=== PATIENT | male | born 1935 | race Two or more races ===

== ENCOUNTER 2016-05-20 08:10 | Emergency (ER) | payer MEDICARE ==
[~2016-05-20] VITALS: Ht 172.7 cm; Wt 94.3 kg
[~2016-05-20 08:10] MED LIST: ACYC200C PO; AMOX1TAB10 PO; ANTI10DR7 EACH EAR; ASPI-252 PO; CEFD300C PO; FERR325C PO; FURO-68 PO; GLIM1TAB2 PO; GLIM2TAB2 PO; HYDR-2666 PO; INSU100V8 SQ; INSU100V9 SQ; LOSA1TAB16 PO; LOVA20TA2 PO; NEOM10SO7 OT; NIAC500T PO; SIMV20TA3 PO; SODI650T PO; TAMS0.4C2 PO; VIT1TABL71 PO
[2016-05-20] MEDS ORDERED: IV NORMAL SALINE 1000ML BAG 1,000 ML IV ONE (08:30)
--- NOTE | 2016-05-20 08:40 | PHYS DOC ---
Past Medical History Past Medical History: CHF, Diabetes-Type II, Hypertension Additional Past Medical Histor: BPH, SHINGLES Past Surgical History: Other Additional Past Surgical Histo: "heart surgery" L toe amp Alcohol Use: None Drug Use: None Adult General Chief Complaint Chief Complaint: DIARRHEA HPI HPI 80-year-old male with known history of diabetes and HTN who presents with diarrhea and many loose stools since 1500 yesterday after eating meal. He denies any nausea or vomiting. He denies any abdominal pain. Pt states stool is loose and watery but denies any blood. Pt is in no acute distress and says he has been able to eat and drink without difficulty. Review of Systems Review of Systems Constitutional: Denies fever or chills [] Eyes: Denies change in visual acuity, redness, or eye pain [] HENT: Denies nasal congestion or sore throat [] Respiratory: Denies cough or shortness of breath [] Cardiovascular: No additional information not addressed in HPI [] GI: Denies abdominal pain, nausea, vomiting, bloody stools, has diarrhea [] : Denies dysuria or hematuria [] Musculoskeletal: Denies back pain or joint pain [] Integument: Denies rash or skin lesions [] Neurologic: Denies headache, focal weakness or sensory changes [] Endocrine: Denies polyuria or polydipsia [] Current Medications Current Medications Current Medications Medications (Trade) Dose Ordered Sig/Erickson Start Time Stop Time Status Last Admin Dose Admin Sodium Chloride (Iv Sodium Chloride 0.9% 500ml Bag) 500 ml @ 500 mls/hr 1X ONCE 05/20/16 08:45 05/20/16 09:44 05/20/16 08:44 500 MLS/HR Allergies Allergies Allergies Coded Allergies Type Severity Reaction Last Updated Verified No Known Drug Allergies 02/01/14 No Physical Exam Physical Exam Constitutional: Well developed, well nourished, no acute distress, non-toxic appearance. [] HENT: Normocephalic, atraumatic, bilateral external ears normal, oropharynx moist, no oral exudates, nose normal. [] Eyes: PERRLA, EOMI, conjunctiva normal, no discharge. [] Neck: Normal range of motion, no tenderness, supple, no stridor. [] Cardiovascular:Heart rate regular rhythm, no murmur [] Lungs & Thorax: Bilateral breath sounds clear to auscultation [] Abdomen: Bowel sounds normal, soft, no tenderness, no masses, no pulsatile masses. [] Skin: Warm, dry, no erythema, no rash. [] Back: No tenderness, no CVA tenderness. [] Extremities: No tenderness, no cyanosis, no clubbing, ROM intact, no edema. [] Neurologic: Alert and oriented X 3, normal motor function, normal sensory function, no focal deficits noted. [] Psychologic: Affect normal, judgement normal, mood normal. [] Current Patient Data Vital Signs Vital Signs Date Time Temp Pulse Resp B/P Pulse Ox O2 Delivery O2 Flow Rate FiO2 05/20/16 08:20 97.6 72 22 146/65 94 Room Air 97.6 Lab Values Laboratory Tests Test 05/20/16 08:30 White Blood Count 5.6x10^3/uL (4.0-11.0) Red Blood Count 3.66x10^6/uL (4.30-5.70) L Hemoglobin 11.2g/dL (13.0-17.5) L Hematocrit 34.9% (39.0-53.0) L Mean Corpuscular Volume 95fL (79-100) Mean Corpuscular Hemoglobin 31pg (25-35) Mean Corpuscular Hemoglobin Concent 32g/dL (31-37) Red Cell Distribution Width 16.1% (11.5-14.5) H Platelet Count 211x10^3/uL (140-400) Neutrophils (%) (Auto) 81% (31-73) H Lymphocytes (%) (Auto) 5% (24-48) L Monocytes (%) (Auto) 12% (0-9) H Eosinophils (%) (Auto) 1% (0-3) Basophils (%) (Auto) 1% (0-3) Neutrophils # (Auto) 4.5x10^3uL (1.8-7.7) Lymphocytes # (Auto) 0.3x10^3/uL (1.0-4.8) L Monocytes # (Auto) 0.7x10^3/uL (0.0-1.1) Eosinophils # (Auto) 0.0x10^3/uL (0.0-0.7) Basophils # (Auto) 0.0x10^3/uL (0.0-0.2) Platelet Estimate Pending Sodium Level 140mmol/L (136-145) Potassium Level 4.9mmol/L (3.5-5.1) Chloride Level 107mmol/L (98-107) Carbon Dioxide Level 21mmol/L (21-32) Anion Gap 12 (6-14) Blood Urea Nitrogen 79mg/dL (8-26) H Creatinine 2.2mg/dL (0.7-1.3) H Estimated GFR (Cockcroft-Gault) 28.9 Glucose Level 144mg/dL (70-99) H Calcium Level 9.2mg/dL (8.5-10.1) Laboratory Tests 05/20/16 08:30 Laboratory Tests 05/20/16 08:30 EKG EKG [] Radiology/Procedures Radiology/Procedures [] Course & Med Decision Making Course & Med Decision Making Pertinent Labs and Imaging studies reviewed. (See chart for details) 80-year-old male with ongoing diarrhea will have stool cultures and laboratory workup. An IV will be placed in a fluid bolus will be administered. His vital signs at this time are normal and he appears in no acute distress and has no abdominal pain. I will not be obtaining any imaging at this time as he is not having any pain. If his laboratory workup is unrevealing, I will likely be discharging him home. Patient continues to have diarrhea symptoms but has laboratory workup that is negative. He was given an IV fluid bolus. I'll be discharging him with a course of Zofran and close follow-up with his primary care doctor. His stool was sent out for culture and analysis. His symptoms are likely related to an ongoing gastroenteritis after eating food. His kidney function is at baseline today. Dragon Disclaimer Dragon Disclaimer This electronic medical record was generated, in whole or in part, using a voice recognition dictation system. Departure Departure Impression: Primary Impression: Diarrhea Disposition: 01 HOME, SELF-CARE Admitting Physician: Other Condition: STABLE Referrals: DAVID CORTES (PCP) Patient Instructions: Diarrhea, [id number] Additional Instructions: Please continue to drink plenty of fluids and take zofran as needed for any nausea. Follow up closely with your primary doctor in the next 2-3 days for your symptoms. Return to the ER if you develop any worsening of your symptoms or if you develop any dizziness or lightheadedness. Scripts Ondansetron Hcl (Zofran)4 Mg Tablet4 Mg PO BID PRN NAUSEA/VOMITING #10 TAB Prov:MARIANO POLO DO 05/20/16 MARIANO POLO DO May 20, 2016 08:40
[2016-05-20] MEDS ORDERED: IV NORMAL SALINE 500ML BAG 500 ML IV ONE (08:45)
[2016-05-20 08:59] LABS: BASO % 1 % (0-3); EOS % 1 % (0-3); HEMATOCRIT 34.9 % (39.0-53.0); HEMOGLOBIN 11.2 g/dL (13.0-17.5); LYMPH # 0.3 x10^3/uL (1.0-4.8); LYMPH % 5 % (24-48); MEAN CORPUSCULAR HEMOGLOBIN 31 pg (25-35); MEAN CORPUSCULAR HGB CONC 32 g/dL (31-37); MEAN CORPUSCULAR VOLUME 95 fL (79-100); MONO % 12 % (0-9); NEUT % 81 % (31-73); PLATELET COUNT 211 x10^3/uL (140-400); RED BLOOD COUNT 3.66 x10^6/uL (4.30-5.70); RED CELL DISTRIBUTION WIDTH 16.1 % (11.5-14.5); WHITE BLOOD COUNT 5.6 x10^3/uL (4.0-11.0)
[2016-05-20 09:07] LABS: CALCIUM 9.2 mg/dL (8.5-10.1); CREATININE 2.2 mg/dL (0.7-1.3); GFR 28.9; POTASSIUM 4.9 mmol/L (3.5-5.1)
[2016-05-20] MEDS ORDERED: ONDA4TAB7 PO (09:26)
[2016-05-20 09:30] VITALS: BP 157/65
[2016-05-20 10:06] LABS: NEG OBC FOB NEG; POS OBC FOB POS
[2016-05-20 19:18] LABS: % EOS 2 % (0-5); PLT ESTIMATE ADEQUATE (ADEQUATE)
== END 2016-05-20 10:20 | disposition home or self-care (01) ==
LOC: ER 08:10
DX: R19.7 Diarrhea, unspecified (principal); E11.9 Type 2 diabetes mellitus without complications; I11.0 Hypertensive heart disease with heart failure; I50.9 Heart failure, unspecified; N40.0 Benign prostatic hyperplasia without lower urinary tract symptoms
CPT/HCPCS: 36415; 80048; 82274; 85007; 85027; 87324; 96360; 99284; J7040

== ENCOUNTER 2018-05-26 08:34 | Inpatient (IN) | payer MEDICARE ==
[~2018-05-26] VITALS: Ht 172.7 cm; Wt 89.1 kg
[~2018-05-26 08:34] MED LIST changes: +AMLO2.5T5 PO; +FLUT16SP NS; +FLUT1DIS3 IH; -HYDR-2666 PO; +HYDR-2761 PO; -LOSA1TAB16 PO; +LOSA1TAB19 PO; +ONDA4TAB7 PO; +POLY17PO28 PO; +Pantoprazole PO
[2018-05-26] MEDS ORDERED: methylPREDNISolone SOD SUCC PF 125 MG/2 ML VIAL. IV ONE (09:00)
[2018-05-26] MEDS ORDERED: IPRATRPIUM/ALBUTEROL 0.5/2.5MG 3 ML NEBU. NEB ONE (09:00)
--- NOTE | 2018-05-26 09:11 | PHYS DOC ---
Past Medical History Past Medical History: CHF, Diabetes-Type II, Hypertension, MO, Renal Failure, Other Additional Past Medical Histor: BPH, SHINGLES Past Surgical History: Other Additional Past Surgical Histo: L toe amp Alcohol Use: None Drug Use: None Adult General Chief Complaint Chief Complaint: SHORTNESS OF BREATH HPI HPI Patient is a 82 year old male with history of diabetes type 2, hypertension, MO , end-stage renal disease on dialysis Sunday, , Sunday last dialyzed on Sunday who presents to the ED today complaining of shortness of breath and body aches, symptoms began one week ago. Patient states he has history of chronic shortness of breath but he feels it has gotten worse in the last 1 week. He states he believes he has influenza. He states he has had a headache intermittently for 1 week,rates the headache as mild describes it as throbbing and throughout the head, he states he has been taking Tylenol with some relief. He states he is using his home oxygen more than normal. Patient denies any chest pain. Patient states his shortness of breath is mostly on exertion. He is also complaining of generalized weakness for week. PCP Dr. Mcclure Review of Systems Review of Systems Constitutional: Reports body. Denies fever or chills [] Eyes: Denies change in visual acuity, redness, or eye pain [] HENT: Denies nasal congestion or sore throat [] Respiratory:Reports shortness of breath. Denies cough Cardiovascular: No additional information not addressed in HPI [] GI: Denies abdominal pain, nausea, vomiting, bloody stools or diarrhea [] : Denies dysuria or hematuria [] Musculoskeletal: Denies back pain or joint pain [] Integument: Denies rash or skin lesions [] Neurologic: Denies headache, focal weakness or sensory changes [] All other systems were reviewed and found to be within normal limits, except as documented in this note. Current Medications Current Medications Current Medications Medications (Trade) Dose Ordered Sig/Erickson Start Time Stop Time Status Last Admin Dose Admin Acetaminophen (Tylenol) 650 mg PRN Q4HRS PRN 05/26/18 12:30 05/27/18 12:29 Albuterol/ Ipratropium (Duoneb) 3 ml 1X ONCE 05/26/18 09:00 05/26/18 09:01 DC 05/26/18 09:13 3 ML Aspirin (Children'S Aspirin) 324 mg 1X ONCE 05/26/18 12:30 05/26/18 12:31 DC 05/26/18 12:37 324 MG Methylprednisolone Sodium Succinate (SOLU-Medrol 125MG VIAL) 125 mg 1X ONCE 05/26/18 09:00 05/26/18 09:01 DC 05/26/18 09:35 125 MG Morphine Sulfate (Morphine Sulfate) 4 mg PRN Q2HR PRN 05/26/18 12:30 05/27/18 12:29 Nitroglycerin (Nitrostat) 0.4 mg PRN Q5MIN PRN 05/26/18 12:30 05/27/18 12:29 Ondansetron HCl (Zofran) 4 mg PRN Q8HRS PRN 05/26/18 12:30 05/27/18 12:29 Oseltamivir Phosphate (Tamiflu) 30 mg QTUTHSA 05/28/18 16:00 05/30/18 23:59 Allergies Allergies Allergies Coded Allergies Type Severity Reaction Last Updated Verified No Known Drug Allergies 02/01/14 No Physical Exam Physical Exam Constitutional: Well developed, well nourished, no acute distress, non-toxic appearance. [] HENT: Normocephalic, atraumatic, bilateral external ears normal, oropharynx moist, no oral exudates, nose normal. [] Eyes: PERRLA, EOMI, conjunctiva normal, no discharge. [] Neck: Normal range of motion, no tenderness, supple, no stridor. [] Cardiovascular:Heart rate regular rhythm, no murmur [] Lungs & Thorax: Right upper chest with the dialysis catheter. Bilateral breath sounds clear to auscultation [] Abdomen: Bowel sounds normal, soft, no tenderness, no masses, no pulsatile masses. [] Skin: Warm, dry, no erythema, no rash. [] Back: No tenderness, no CVA tenderness. [] Extremities: No tenderness, no cyanosis, no clubbing, ROM intact, no edema. [] Neurologic: Alert and oriented X 3, normal motor function, normal sensory function, no focal deficits noted. [] Psychologic: Affect normal, judgement normal, mood normal. [] Current Patient Data Vital Signs Vital Signs Date Time Temp Pulse Resp B/P (MAP) Pulse Ox O2 Delivery O2 Flow Rate FiO2 3/17/19 12:45 86 20 119/60 (79) 100 Nasal Cannula 2.0 05/26/18 08:45 99.6 99.6 Lab Values Laboratory Tests Test 05/26/18 08:49 05/26/18 09:10 05/26/18 10:00 05/26/18 10:25 O2 Saturation 97 % (92-99) Arterial Blood pH 7.49 (7.35-7.45) H Arterial Blood pCO2 at Patient Temp 34 mmHg (35-46) L Arterial Blood pO2 at Patient Temp 92 mmHg (65-108) Arterial Blood HCO3 25 mmol/L (21-28) Arterial Blood Base Excess 2 mmol/L (-3-3) Oxyhemoglobin 95.6 % Methemoglobin 0.2 % (0.0-1.9) Carbon Monoxide, Quantitative 0.8 % (0.0-1.9) FiO2 28 Influenza Type A Antigen Positive (NEGATIVE) Influenza Type B Antigen Negative (NEGATIVE) Prothrombin Time 19.9 SEC (11.7-14.0) H Prothrombin Time INR 1.7 (0.8-1.1) H PTT 32 SEC (24-38) White Blood Count 5.2 x10^3/uL (4.0-11.0) Red Blood Count 3.98 x10^6/uL (4.30-5.70) L Hemoglobin 12.7 g/dL (13.0-17.5) L Hematocrit 39.2 % (39.0-53.0) Mean Corpuscular Volume 98 fL (79-100) Mean Corpuscular Hemoglobin 32 pg (25-35) Mean Corpuscular Hemoglobin Concent 33 g/dL (31-37) Red Cell Distribution Width 18.6 % (11.5-14.5) H Platelet Count 187 x10^3/uL (140-400) Neutrophils (%) (Auto) 81 % (31-73) H Lymphocytes (%) (Auto) 5 % (24-48) L Monocytes (%) (Auto) 14 % (0-9) H Eosinophils (%) (Auto) 0 % (0-3) Basophils (%) (Auto) 0 % (0-3) Neutrophils # (Auto) 4.2 x10^3uL (1.8-7.7) Lymphocytes # (Auto) 0.2 x10^3/uL (1.0-4.8) L Monocytes # (Auto) 0.7 x10^3/uL (0.0-1.1) Eosinophils # (Auto) 0.0 x10^3/uL (0.0-0.7) Basophils # (Auto) 0.0 x10^3/uL (0.0-0.2) Platelet Estimate Pending Sodium Level 135 mmol/L (136-145) L Potassium Level 4.3 mmol/L (3.5-5.1) Chloride Level 94 mmol/L (98-107) L Carbon Dioxide Level 28 mmol/L (21-32) Anion Gap 13 (6-14) Blood Urea Nitrogen 40 mg/dL (8-26) H Creatinine 4.0 mg/dL (0.7-1.3) H Estimated GFR (Cockcroft-Gault) 14.4 BUN/Creatinine Ratio 10 (6-20) Glucose Level 180 mg/dL (70-99) H Calcium Level 9.1 mg/dL (8.5-10.1) Magnesium Level 1.8 mg/dL (1.8-2.4) Total Bilirubin 1.0 mg/dL (0.2-1.0) Aspartate Amino Transferase (AST) 428 U/L (15-37) H Alanine Aminotransferase (ALT) 346 U/L (16-63) H Alkaline Phosphatase 166 U/L (46-116) H Creatine Kinase 58 U/L (39-308) Creatine Kinase MB (Mass) 0.7 ng/mL (0.0-3.6) Creatine Kinase MB Relative Index % (0-4) Troponin I Quantitative 0.157 ng/mL (0.000-0.055) MO-Mah-A-Type Natriuretic Peptide > 34044 pg/mL (0-449) H Total Protein 7.6 g/dL (6.4-8.2) Albumin 3.3 g/dL (3.4-5.0) L Albumin/Globulin Ratio 0.8 (1.0-1.7) L Thyroid Stimulating Hormone (TSH) 2.574 uIU/mL (0.358-3.74) Laboratory Tests 05/26/18 10:25 Laboratory Tests 05/26/18 10:25 EKG EKG Interpreted by Dr. Sanabria none specific ST elevation on V4,V5, V6, new from previous EKG Radiology/Procedures Radiology/Procedures []PROCEDURE: PORTABLE CHEST 1V EXAM: CHEST 1 VIEW History: Cough, chest pain COMPARISON: 02/08/2018 TECHNIQUE: Single portable radiograph of the chest FINDINGS: Low lung volumes and technique accentuates heart size and pulmonary vascularity. Mild prominent appearing bilateral interstitial lung markings. Right-sided dialysis catheter is unchanged. IMPRESSION: 1. Mild prominent bilateral interstitial lung markings likely mild congestive changes. Electronically signed by: David Marino MD (05/26/2018 9:15 AM) [facility] DICTATED and SIGNED BY: DAVID MARINO MD DATE: 05/26/18914 Course & Med Decision Making Course & Med Decision Making Pertinent Labs and Imaging studies reviewed. (See chart for details) This is a 82-year-old male patient presenting to the ED today with multiple complaints including shortness of breath, generalized weakness, headache, body aches, symptoms for week. See history of present illness. Vitals on arrival to the ED temperature 99.6 heart rate 98 blood pressure 96/45 O2 sats 92% on room air, patient was put on oxygen which she uses at home as needed, O2 sats went up to 98%. Blood pressure has gone up to 110/56. CBC with normal WBC, CMP with creatinine of 4.0, BUN 40 patient has history of end-stage renal disease on dialysis. AST 428, ALT 346, ALP 166, patient has history of elevated liver enzymes, has no abdominal pain in the ED. No tenderness on physical exam. Positive for influenza a. BNP 35,000, patient was dialyzed yesterday. Troponin 0.[address] elevation and EKG. Results were shared with . He will monitor patient's troponin. Off note patient has history of elevated troponin previous admissions. Routine consult placed for nephrology. Dragon Disclaimer Dragon Disclaimer This electronic medical record was generated, in whole or in part, using a voice recognition dictation system. Departure Departure Impression: Primary Impression: End stage renal disease Additional Impressions: Generalized weakness NSTEMI (non-ST elevated myocardial infarction) Influenza A Disposition: 09 ADMITTED INPATIENT Condition: STABLE Problem Qualifiers JOANNA COTTRELL APRN May 26, 2018 09:11
--- NOTE | 2018-05-26 09:17 | RAD ---
EXAM: CHEST 1 VIEW History: Cough, chest pain COMPARISON: 02/08/2018 TECHNIQUE: Single portable radiograph of the chest FINDINGS: Low lung volumes and technique accentuates heart size and pulmonary vascularity. Mild prominent appearing bilateral interstitial lung markings. Right-sided dialysis catheter is unchanged. IMPRESSION: 1. Mild prominent bilateral interstitial lung markings likely mild congestive changes. Electronically signed by: David Marino MD (05/26/2018 9:15 AM) [facility]
[2018-05-26 09:39] LABS: INFLUENZA A PATIENT POSITIVE (NEGATIVE); INFLUENZA B PATIENT NEGATIVE (NEGATIVE)
[2018-05-26 09:39] LABS: BASE EXCESS COOX 2 mmol/L (-3-3); HCO3 COOX 25 mmol/L (21-28); METHEMOGLOBIN 0.2 % (0.0-1.9); OXYHEMOGLOBIN 95.6 %; PCO2 COOX 34 mmHg (35-46); PO2 COOX 92 mmHg (65-108); SAT O2 COOX 97 % (92-99)
[2018-05-26 10:59] LABS: BASO % 0 % (0-3); EOS % 0 % (0-3); HEMATOCRIT 39.2 % (39.0-53.0); HEMOGLOBIN 12.7 g/dL (13.0-17.5); LYMPH # 0.2 x10^3/uL (1.0-4.8); LYMPH % 5 % (24-48); MEAN CORPUSCULAR HEMOGLOBIN 32 pg (25-35); MEAN CORPUSCULAR HGB CONC 33 g/dL (31-37); MEAN CORPUSCULAR VOLUME 98 fL (79-100); MONO # 0.7 x10^3/uL (0.0-1.1); MONO % 14 % (0-9); NEUT # 4.2 x10^3uL (1.8-7.7); NEUT % 81 % (31-73); PLATELET COUNT 187 x10^3/uL (140-400); RED BLOOD COUNT 3.98 x10^6/uL (4.30-5.70); RED CELL DISTRIBUTION WIDTH 18.6 % (11.5-14.5); WHITE BLOOD COUNT 5.2 x10^3/uL (4.0-11.0)
[2018-05-26 11:12] LABS: CALCIUM 9.1 mg/dL (8.5-10.1); GFR 14.4; POTASSIUM 4.3 mmol/L (3.5-5.1)
[2018-05-26 11:18] LABS: ALBUMIN 3.3 g/dL (3.4-5.0); ALBUMIN/GLOBULIN RATIO 0.8 (1.0-1.7); MAGNESIUM 1.8 mg/dL (1.8-2.4); TOTAL PROTEIN 7.6 g/dL (6.4-8.2)
[2018-05-26 11:22] LABS: PROTHROMBIN TIME PATIENT 19.9 SEC (11.7-14.0)
[2018-05-26 11:26] LABS: CREATINE KINASE 58 U/L (39-308)
[2018-05-26] MEDS ORDERED: ASPIRIN CHEWABLE 81 MG TABLET. PO ONE (12:30)
[2018-05-26] MEDS ORDERED: ONDANSETRON PF 4 MG/2 ML VIAL. IV PRN (12:30)
[2018-05-26] MEDS ORDERED: MORPHINE SULFATE 4 MG/ML VIAL. IV PRN (12:30)
[2018-05-26] MEDS ORDERED: ACETAMINOPHEN 325 MG TABLET. PO PRN (12:30)
[2018-05-26] MEDS ORDERED: NITROGLYCERIN SUBLINGUAL 0.4 MG BOTTLE OF 25. SL PRN (12:30)
[2018-05-26 12:55] LABS: % BANDS 8 % (0-9); % BASOS 1 % (0-3); % LYMPHS 3 % (24-48); % MONOS 5 % (0-10); % SEGS 83 % (35-66); ANISOCYTOSIS PRESENT; PLATELET CLUMP PRESENT; PLT ESTIMATE ADEQUATE (ADEQUATE)
[2018-05-26] MEDS ORDERED: OSELTAMIVIR 30 MG CAPSULE PO ONE (13:00)
--- NOTE | 2018-05-26 13:47 | PDOC2 ---
CARDIOLOGY CONSULT NOTE CHEIF COMPLAINT: Elevated troponin, abnormal EKG and dyspnea in the setting of influenza HPI: 82-year-old male previously seen in the hospital in January. Please see prior consultation note for full details. Briefly he has a history of coronary disease and was recently started on dialysis for worsening renal dysfunction. He barely presented to the ER the setting of cough and symptoms overall suggestive of flu. His flu screen was initially positive. He had an abnormal EKG which was obtained due to dyspnea and this revealed lateral ST segment depression suggestive of subendocardial ischemia. He has known non- revascularizable significant coronary disease with prior bypass. Denies any angina at this time. He mostly has dyspnea. He usually follows with [facility] for his cardiac needs. PMHX: 1. Coronary artery disease status post bypass 2. Paravertebral disease status post PVI 3. Systolic and diastolic heart failure SOCHX: No alcohol, tobacco or illicit drug use. FAMHX: Noncontributory CURRENT MEDS: Current Medications Medications (Trade) Dose Ordered Sig/Erickson Start Time Stop Time Status Last Admin Dose Admin Acetaminophen (Tylenol) 650 mg PRN Q4HRS PRN 05/26/18 12:30 05/27/18 12:29 Albuterol/ Ipratropium (Duoneb) 3 ml TID 05/26/18 14:00 Aspirin (Children'S Aspirin) 324 mg 1X ONCE 05/26/18 12:30 05/26/18 12:31 DC 05/26/18 12:37 324 MG Methylprednisolone Sodium Succinate (SOLU-Medrol 125MG VIAL) 125 mg 1X ONCE 05/26/18 09:00 05/26/18 09:01 DC 05/26/18 09:35 125 MG Morphine Sulfate (Morphine Sulfate) 4 mg PRN Q2HR PRN 05/26/18 12:30 05/27/18 12:29 Nitroglycerin (Nitrostat) 0.4 mg PRN Q5MIN PRN 05/26/18 12:30 05/27/18 12:29 Ondansetron HCl (Zofran) 4 mg PRN Q8HRS PRN 05/26/18 12:30 05/27/18 12:29 Oseltamivir Phosphate (Tamiflu) 30 mg QTUTHSA 05/28/18 16:00 05/30/18 23:59 ALLERGIES: Allergies Coded Allergies Type Severity Reaction Last Updated Verified No Known Drug Allergies 02/01/14 No ROS: Negative for 10 out of 14 systems reviewed unless otherwise mentioned above in history of present illness PHYSICAL EXAM: Vital Signs: Vital Signs Date Time Temp Pulse Resp B/P (MAP) Pulse Ox O2 Delivery O2 Flow Rate FiO2 05/26/18 12:45 86 20 119/60 (79) 100 Nasal Cannula 2.0 05/26/18 08:45 99.6 99.6 DIAGNOSTIC TESTING: Labs reviewed. Negative cardiac enzymes. EKG demonstrates inferolateral ST segment depression approximately 1-2 mm. ASSESSMENT: 1. Mild ischemia by EKG in the setting of acute stress related to influenza and known history of multivessel coronary disease 2. End-stage renal disease 3. Hypertension 4. Dyslipidemia 5. Peripheral arterial disease PLAN: 1. Continue treatment for his acute issues including the flu and volume overload 2. Repeat EKG and serial enzymes. No acute indication for cardiac catheterization at this time. Supportive care. We'll follow along. IBIS LAM MD May 26, 2018 13:46
--- NOTE | 2018-05-26 14:12 | EKG ---
[facility] [address] [place] [address] Test Date: 2018-05-26 Test Time: 09:44:40 Pat Name: DYLAN CRABTREE Department: Room: 258 1 Gender: M Pharmacist: : 1935 Requested By: JOANNA COTTRELL Order Number: [id number] Reading MD: Ant Murray MD Measurements Intervals [place] Rate: 93 P: 35 [place]: 186 QRS: -4 QRSD: 96 T: -171 QT: 346 QTc: 432 Interpretive Statements SINUS RHYTHM LATERAL ISCHEMIA Electronically Signed On 05-30-2018 15:49:40 CDT by Ant Murray MD
[2018-05-26 15:00] VITALS: BP 123/69
[2018-05-26] MEDS: IPRATRPIUM/ALBUTEROL 0.5/2.5MG 3 ML NEBU. NEB SCH ×2 (15:33→20:17)
[2018-05-26 19:30] VITALS: BP 113/59
[2018-05-26] MEDS ORDERED: INSU100I13 SQ (21:43)
[2018-05-26] MEDS ORDERED: DEXTROSE 50% 25 GM / 50ML DISP.SYRIN. IV PRN (21:45)
[2018-05-26] MEDS ORDERED: INSULIN LISPRO 300 UNITS/3 ML INSULN.PEN. SQ ONE (22:00)
[2018-05-26] MEDS ORDERED: ONDANSETRON ODT 4 MG TAB.RAPDIS. PO PRN (22:00)
[2018-05-26] MEDS: INSULIN GLARGINE 300 UNITS/3 ML INSULN.PEN. SQ SCH (22:48)
[2018-05-26 22:50] VITALS: BP 102/59
[2018-05-27 03:21] VITALS: BP 123/63
[2018-05-27] MEDS ORDERED: INSULIN LISPRO 300 UNITS/3 ML INSULN.PEN. SQ ONE (03:30)
[2018-05-27 04:35] LABS: BASO % 0 % (0-3); EOS % 0 % (0-3); HEMATOCRIT 39.5 % (39.0-53.0); HEMOGLOBIN 12.7 g/dL (13.0-17.5); LYMPH # 0.3 x10^3/uL (1.0-4.8); LYMPH % 7 % (24-48); MEAN CORPUSCULAR HEMOGLOBIN 32 pg (25-35); MEAN CORPUSCULAR HGB CONC 32 g/dL (31-37); MEAN CORPUSCULAR VOLUME 99 fL (79-100); MONO # 0.4 x10^3/uL (0.0-1.1); MONO % 8 % (0-9); NEUT # 4.3 x10^3uL (1.8-7.7); NEUT % 85 % (31-73); PLATELET COUNT 161 x10^3/uL (140-400); RED CELL DISTRIBUTION WIDTH 18.9 % (11.5-14.5); WHITE BLOOD COUNT 5.1 x10^3/uL (4.0-11.0)
[2018-05-27 05:02] LABS: CREATININE 4.7 mg/dL (0.7-1.3); POTASSIUM 4.5 mmol/L (3.5-5.1)
[2018-05-27 07:00] VITALS: BP 136/68
[2018-05-27] MEDS: IPRATRPIUM/ALBUTEROL 0.5/2.5MG 3 ML NEBU. NEB SCH ×4 (07:52→19:40)
[2018-05-27] MEDS: BUDESONIDE 0.5 MG/2 ML NEBU. NEB SCH ×2 (07:55→19:40)
[2018-05-27] MEDS: ASPIRIN ENTERIC COATED 325 MG TABLET.DR. PO SCH (08:23)
[2018-05-27] MEDS: TAMSULOSIN 0.4 MG CAP.ER.24H. PO SCH (08:23)
[2018-05-27] MEDS: PANTOPRAZOLE 40 MG TABLET.DR. PO SCH (08:23)
[2018-05-27] MEDS: SODIUM BICARBONATE 650 MG TABLET. PO SCH ×3 (08:23→18:02)
[2018-05-27] MEDS: amLODIPine BESYLATE 5 MG TABLET PO SCH (08:24)
[2018-05-27] MEDS: FLUTICASONE 50MCG/NASAL SPRAY 16GM BOTTLE. NS SCH (08:25)
[2018-05-27] MEDS: INSULIN LISPRO 300 UNITS/3 ML INSULN.PEN. SQ SCH ×3 (08:26→18:08)
[2018-05-27] MEDS ORDERED: POLYETHYLENE GLYCOL 3350 17 GM PACKET. PO PRN (09:00)
--- NOTE | 2018-05-27 09:51 | NUR ---
IP: Pt is influenza + requiring droplet precautions for 5 days and 24 hours without a fever, whichever is longest.
--- NOTE | 2018-05-27 10:07 | PDOC ---
Provider Note Provider Note Pt seen.H&P dictated.#[id number]. FLAVIA HOOVER MD May 27, 2018 10:07
[2018-05-27 10:35] LABS: DIRECT BILIRUBIN 0.3 mg/dL (0.0-0.2); TOTAL BILIRUBIN 0.8 mg/dL (0.2-1.0); TOTAL PROTEIN 6.7 g/dL (6.4-8.2)
[2018-05-27 10:40] VITALS: BP 148/77
--- NOTE | 2018-05-27 10:59 | HP ---
ADMIT DATE: 05/26/2018 LOCATION: 258. REASON FOR ADMISSION TO THE HOSPITAL: Shortness of breath, body aches, influenza A. HISTORY OF PRESENT ILLNESS: The patient is an 82-year-old male who underwent dialysis for last 3-6 months. He goes to dialysis Sunday, , Sunday, and he was dialyzed Sunday and after that he was complaining of fevers, chills and not feeling well, was brought to the hospital, was found to have influenza A, is also having some chest pain, seen by Cardiology. Troponin was borderline elevated, and the patient also was found to have elevated liver function test. The patient was started on Tamiflu and admitted to the hospital, seen by Cardiology and also the patient is scheduled for dialysis tomorrow. PAST MEDICAL HISTORY: Has a history of congestive heart failure, diabetes, hypertension, chronic kidney disease, on dialysis. Coronary artery disease, history of previous heart surgery. PAST SURGICAL HISTORY: Bypass surgery in 2001, had a dialysis catheter recently 3-4 months ago and the patient also has AV shunt in the left arm. FAMILY HISTORY: Positive for diabetes. SOCIAL HISTORY: No history of smoking recently, has smoked for 30 years, stopped 15 years ago. Denies alcohol or drug abuse. REVIEW OF SYSTEMS: Complains of body aches, constipation and shortness of breath. He is on home oxygen at 2 liters. ALLERGIES: No known drug allergies. MEDICATIONS AT HOME: The patient is on iron 325 daily, insulin 5 units 3 times daily, Nephro-Alyssa 1 daily, amlodipine 2.5 daily, aspirin 325 mg daily, Flonase daily, Advair 250/50 twice a day, insulin 11 units at bedtime, lovastatin 20 mg daily, Zofran 4 mg p.r.n., MiraLax 17 grams daily, sodium bicarbonate 650 three times daily, Flomax 0.4 daily, Protonix 40 mg daily. REVIEW OF SYMPTOMS: Complains of body aches, constipation and shortness of breath. PHYSICAL EXAMINATION: GENERAL: The patient is not in any distress, is sitting next to the bed as cleaning up. VITAL SIGNS: Temperature 99.6, pulse 98, respirations 24, blood pressure 96/45 and 92% on 2 liters. HEENT: Head is atraumatic. Pupils equal. Oral cavity, slight congestion. NECK: Supple. Thyroid not enlarged. JVD not elevated. CHEST: Symmetrical, scar of heart surgery. CARDIOVASCULAR: S1, S2. No murmurs. LUNGS: Few crackles at the bases. The patient has a dialysis catheter, rest of the chest. ABDOMEN: Soft, bowel sounds present, no mass palpable. EXTERNAL GENITALIA: No Arndt. RECTAL: Deferred. EXTREMITIES: No edema. The patient has a scar on the medial aspect of the foot or the bunion area. Decreased pulses and the patient has AV shunt with thrill in the left upper extremity. LABORATORY DATA: Shows a white count of 5, hemoglobin 12, platelets 187. INR 1.7. Electrolytes show sodium 135, potassium 4.3, chloride 94, bicarbonate 28, BUN 40, creatinine 4.0. Glucose 180, AST 428, ALT 346, alk phosphatase 166. Troponin 0.157, second was 0.175. TSH 2.5. Influenza A was positive. Chest x-ray, CHF. EKG done, report is pending. FINAL IMPRESSION: 1. Influenza A lung infection. 2. End-stage renal disease, on hemodialysis.Pt was started on dialysis 4 months ago 3. Coronary artery disease. The patient has a previous CABG surgery. Medical management. 4. Diabetes, insulin-dependent. 5. Elevated liver function tests.?Fatty Liver. 6. Borderline elevation in troponin, possible demand ischemia. 7. Peripheral vascular disease.Foot ulcer /escher PLAN: At this time, was admit to hospital, seen by Cardiology. Medical management. The patient is seen by Urology, scheduled for dialysis Sunday, Sunday, Sunday. We will have blood test for hepatitis. Ultrasound of the liver and a GI consultation. Also we will have Vascular see the patient while he is in the hospital for peripheral vascular disease. FLAVIA HOOVER MD DR: ORLANDO/renuka JOB#: [id number] / [id number] DR BELIA Calhoun
--- NOTE | 2018-05-27 11:36 | PDOC ---
Provider Note Provider Note Vascular surgery consult dictated Imp: 1. 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 Debrided at bedside. Does not tract and is only subcutaneous 4 X 8 mm 2. diabetes with vascular disease 3. ESRD 4. ASHD Rec: bacitracin ointment , gauze dressing diabetic shoe no need at this time for further imaging f/u as needed as outpt. WHITNEY ROPER II, MD May 27, 2018 11:36
--- NOTE | 2018-05-27 11:56 | NUR ---
SS following for discharge planning. SS reviewed pt chart and met with pt's RN. Pt is from home with spouse and is currently requiring oxygen. No discharge needs noted at this time. SS will continue to follow for pending discharge needs.
--- NOTE | 2018-05-27 12:37 | PDOC ---
CARDIO Progress Notes Date and Time Date of Service 05/27/2018 Time of Evaluation 1200 Subjective Subjective: No Chest Pain, No shortness of breath, No Palpitations Vitals Vitals Vital Signs Date Time Temp Pulse Resp B/P (MAP) Pulse Ox O2 Delivery O2 Flow Rate FiO2 05/27/18 11:42 100 Nasal Cannula 2.0 05/27/18 10:40 97.6 86 18 148/77 (100) 97.6 Weight Weight [ ] Input and Output Intake and Output Intake and Output 05/27/18 06:59 Intake Total 410 ml Output Total 75 ml Balance 335 ml Intake Oral 410 ml Output Urine Total 75 ml # Voids 1 Laboratory Labs Laboratory Tests Test 05/26/18 14:35 05/26/18 18:10 05/26/18 21:23 05/27/18 03:08 Troponin I Quantitative 0.173 ng/mL (0.000-0.055) 0.148 ng/mL (0.000-0.055) Glucose (Fingerstick) 458 mg/dL (70-99) 360 mg/dL (70-99) Test 05/27/18 04:15 05/27/18 07:25 05/27/18 11:30 White Blood Count 5.1 x10^3/uL (4.0-11.0) Red Blood Count 4.00 x10^6/uL (4.30-5.70) Hemoglobin 12.7 g/dL (13.0-17.5) Hematocrit 39.5 % (39.0-53.0) Mean Corpuscular Volume 99 fL (79-100) Mean Corpuscular Hemoglobin 32 pg (25-35) Mean Corpuscular Hemoglobin Concent 32 g/dL (31-37) Red Cell Distribution Width 18.9 % (11.5-14.5) Platelet Count 161 x10^3/uL (140-400) Neutrophils (%) (Auto) 85 % (31-73) Lymphocytes (%) (Auto) 7 % (24-48) Monocytes (%) (Auto) 8 % (0-9) Eosinophils (%) (Auto) 0 % (0-3) Basophils (%) (Auto) 0 % (0-3) Neutrophils # (Auto) 4.3 x10^3uL (1.8-7.7) Lymphocytes # (Auto) 0.3 x10^3/uL (1.0-4.8) Monocytes # (Auto) 0.4 x10^3/uL (0.0-1.1) Eosinophils # (Auto) 0.0 x10^3/uL (0.0-0.7) Basophils # (Auto) 0.0 x10^3/uL (0.0-0.2) Sodium Level 132 mmol/L (136-145) Potassium Level 4.5 mmol/L (3.5-5.1) Chloride Level 93 mmol/L (98-107) Carbon Dioxide Level 24 mmol/L (21-32) Anion Gap 15 (6-14) Blood Urea Nitrogen 59 mg/dL (8-26) Creatinine 4.7 mg/dL (0.7-1.3) Estimated GFR (Cockcroft-Gault) 12.0 Glucose Level 349 mg/dL (70-99) Calcium Level 9.0 mg/dL (8.5-10.1) Total Bilirubin 0.8 mg/dL (0.2-1.0) Direct Bilirubin 0.3 mg/dL (0.0-0.2) Aspartate Amino Transf (AST/SGOT) 352 U/L (15-37) Alanine Aminotransferase (ALT/SGPT) 400 U/L (16-63) Alkaline Phosphatase 152 U/L (46-116) Total Protein 6.7 g/dL (6.4-8.2) Albumin 3.0 g/dL (3.4-5.0) Glucose (Fingerstick) 245 mg/dL (70-99) 294 mg/dL (70-99) Microbiology Micro Microbiology 05/26/18 Blood Culture - Preliminary, Resulted NO GROWTH AFTER 1 DAY Physical Exam HEENT: Neck Supple W Full Motion Chest: Symmetric LUNGS: Other (basilar crackles) Heart: RRR (SR) Abdomen: Soft N/T Extremities: No Calf Tenderness, Other (trace to 1+ bilateral LE pitting edema) Neurology: alert, oriented, follow commands Assessment Assessment 1. Flu 2. ESRD 3. 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 Transaminitis: per PCP 5. Elevated troponin: peaked 0.17, stress induced by above 6. CAD: past CABG 7. HTN: controlled 8. DM2/DLP 9. PAD: no symptoms Recommendations 1. Continue secondary prevention measures. May need to hold statin, 2. Fluid off loading per HD 3. No further cardiac workup at this time. Follow up with cardiology as an outpt. WILLIAM ONEILL APRN May 27, 2018 12:37
--- NOTE | 2018-05-27 12:37 | PDOC2 ---
GI CONSULT Reason For Consult: Elevated LFTs HPI: HPI: 82 y/o male admitted w/ influenza A and elevated troponin. We have seen him in the past for elevated LFTs and are asked to see him again for this. He denies reflux/heartburn, dysphagia, n/v, abd pain, diarrhea, constipation, hematochezia , and melena. No pancreas or GB history. Previously reported normal colonoscopy within 5-10 years. Past US showed CHD dilatation (6mm). Hepatitis serologies negative in the past. I believe LFTs improved in the past as CHF improved. PMH: PMH: ASHD, CHF, HTN, DM, HLD, BPH, COPD CABG, left toe amputation FH: Family History: No pertinent hx Social History: Smoke: Quit ALCOHOL: other (heavy in the past but none for years) Drugs: None ROS: GEN: +fever HEENT: Denies blurred vision, sore throat CV: Denies CP RESP: +cough GI: Per HPI : Denies hematuria, dysuria ENDO: Denies weight changes NEURO: Denies confusion, dizziness MSK: +weakness SKIN: Denies jaundice, pruritus Vitals: Vitals: Vital Signs Date Time Temp Pulse Resp B/P (MAP) Pulse Ox O2 Delivery O2 Flow Rate FiO2 05/27/18 11:42 100 Nasal Cannula 2.0 05/27/18 10:40 97.6 86 18 148/77 (100) 97.6 Labs: Labs: Laboratory Tests Test 05/26/18 14:35 05/26/18 18:10 05/26/18 21:23 05/27/18 03:08 Troponin I Quantitative 0.173 ng/mL (0.000-0.055) 0.148 ng/mL (0.000-0.055) Glucose (Fingerstick) 458 mg/dL (70-99) 360 mg/dL (70-99) Test 05/27/18 04:15 05/27/18 07:25 05/27/18 11:30 White Blood Count 5.1 x10^3/uL (4.0-11.0) Red Blood Count 4.00 x10^6/uL (4.30-5.70) Hemoglobin 12.7 g/dL (13.0-17.5) Hematocrit 39.5 % (39.0-53.0) Mean Corpuscular Volume 99 fL (79-100) Mean Corpuscular Hemoglobin 32 pg (25-35) Mean Corpuscular Hemoglobin Concent 32 g/dL (31-37) Red Cell Distribution Width 18.9 % (11.5-14.5) Platelet Count 161 x10^3/uL (140-400) Neutrophils (%) (Auto) 85 % (31-73) Lymphocytes (%) (Auto) 7 % (24-48) Monocytes (%) (Auto) 8 % (0-9) Eosinophils (%) (Auto) 0 % (0-3) Basophils (%) (Auto) 0 % (0-3) Neutrophils # (Auto) 4.3 x10^3uL (1.8-7.7) Lymphocytes # (Auto) 0.3 x10^3/uL (1.0-4.8) Monocytes # (Auto) 0.4 x10^3/uL (0.0-1.1) Eosinophils # (Auto) 0.0 x10^3/uL (0.0-0.7) Basophils # (Auto) 0.0 x10^3/uL (0.0-0.2) Sodium Level 132 mmol/L (136-145) Potassium Level 4.5 mmol/L (3.5-5.1) Chloride Level 93 mmol/L (98-107) Carbon Dioxide Level 24 mmol/L (21-32) Anion Gap 15 (6-14) Blood Urea Nitrogen 59 mg/dL (8-26) Creatinine 4.7 mg/dL (0.7-1.3) Estimated GFR (Cockcroft-Gault) 12.0 Glucose Level 349 mg/dL (70-99) Calcium Level 9.0 mg/dL (8.5-10.1) Total Bilirubin 0.8 mg/dL (0.2-1.0) Direct Bilirubin 0.3 mg/dL (0.0-0.2) Aspartate Amino Transf (AST/SGOT) 352 U/L (15-37) Alanine Aminotransferase (ALT/SGPT) 400 U/L (16-63) Alkaline Phosphatase 152 U/L (46-116) Total Protein 6.7 g/dL (6.4-8.2) Albumin 3.0 g/dL (3.4-5.0) Glucose (Fingerstick) 245 mg/dL (70-99) 294 mg/dL (70-99) BLOOD CULTURE Preliminary NO GROWTH AFTER 1 DAY Allergies: Coded Allergies: No Known Drug Allergies (Unverified , 02/01/14) Medications: Current Medications Medications (Trade) Dose Ordered Sig/Erickson Route PRN Reason Start Time Stop Time Status Last Admin Dose Admin Oseltamivir Phosphate (Tamiflu) 30 mg ONCE ONCE PO 05/26/18 13:00 05/26/18 13:01 DC 05/26/18 13:06 Aspirin (Children'S Aspirin) 324 mg 1X ONCE PO 05/26/18 12:30 05/26/18 12:31 DC 05/26/18 12:37 Albuterol/ Ipratropium (Duoneb) 3 ml TID NEB 05/26/18 14:00 05/26/18 21:58 DC 05/26/18 20:17 Aspirin (Ecotrin) 325 mg DAILY PO 05/27/18 09:00 05/27/18 08:23 Fluticasone Propionate (Flonase) 2 spray DAILY NS 05/27/18 09:00 05/27/18 08:25 Insulin Glargine (Lantus) 15 units QHS SQ 05/26/18 22:00 05/26/18 22:48 Sodium Bicarbonate (Sodium Bicarbonate) 650 mg TIDWMEALS PO 05/27/18 08:00 05/27/18 12:14 Tamsulosin HCl (Flomax) 0.4 mg DAILY PO 05/27/18 09:00 05/27/18 08:23 Amlodipine Besylate (Norvasc) 2.5 mg DAILY PO 05/27/18 09:00 05/27/18 08:24 Pantoprazole Sodium (Protonix) 40 mg DAILYAC PO 05/27/18 07:30 05/27/18 08:23 Insulin Human Lispro (HumaLOG) 0-7 UNITS TIDWMEALS SQ 05/27/18 08:00 05/27/18 12:15 Insulin Human Lispro (HumaLOG) 10 units 1X ONCE SQ 05/26/18 22:00 05/26/18 22:01 DC 05/26/18 22:47 Albuterol/ Ipratropium (Duoneb) 3 ml RTQID NEB 05/27/18 08:00 05/27/18 11:42 Insulin Human Lispro (HumaLOG) 4 units 1X ONCE SQ 05/27/18 03:30 05/27/18 03:31 DC 05/27/18 03:18 Imaging: Imaging: CXR IMPRESSION: 1. Mild prominent bilateral interstitial lung markings likely mild congestive changes. PE: GEN: NAD HEENT: Atraumatic, PERRL LUNGS: NC HEART: RRR ABD: NABS, S/ND/NT EXTREMITY: No edema SKIN: No rashes, no jaundice NEURO/PSYCH: A & O 3 A/P: A/P: +influenza A Elevated troponin, CAD s/p CABG, CHF ESRD Elevated LFTs, coagulopathy - past workup per HPI CRC screen - reports normal colonoscopy in the past -- Additional recs per Dr. Collazo. BRENDA WANG May 27, 2018 12:37
--- NOTE | 2018-05-27 13:51 | PDOC2 ---
CONSULT Date of Consult Date of Consult DATE: 05/27/18 TIME: 13:47 Reason for Consult Reason for Consult: ESRD Source Source: Chart review, Patient History of Present Illness Reason for Visit: The patient is an 82-year-old male who underwent dialysis for last 3-6 months. He goes to dialysis Sunday, , Sunday, and he was dialyzed Sunday and after that he was complaining of fevers, chills and not feeling well, was brought to the hospital, was found to have influenza A, is also having some chest pain, seen by Cardiology. Troponin was borderline elevated, and the patient also was found to have elevated liver function test. The patient was started on Tamiflu and admitted to the hospital, seen by Cardiology Past Medical History Cardiovascular: CAD, HTN GI: Constipation Heme/Onc: Anemia NOS Renal/: Chronic renal insuff, Benign prostatic enlarg. Endocrine: Diabetes Social History Quit ALCOHOL: other (heavy in the past but none for years) Drugs: None Current Problem List Problem List Problems Medical Problems: (1) Generalized weakness Status: Acute (2) Influenza A Status: Acute (3) NSTEMI (non-ST elevated myocardial infarction) Status: Acute Current Medications Current Medications Current Medications Albuterol/ Ipratropium (Duoneb) 3 ml 1X ONCE NEB Last administered on at 09:13; Start 05/26/18 at 09:00; Stop 05/26/18 at 09:01; Status DC Methylprednisolone Sodium Succinate (SOLU-Medrol 125MG VIAL) 125 mg 1X ONCE IV Last administered on 05/26/18at 09:35; Start 05/26/18 at 09:00; Stop 05/26/18 at 09:01; Status DC Oseltamivir Phosphate (Tamiflu) 30 mg ONCE ONCE PO Last administered on at 13:06; Start 05/26/18 at 13:00; Stop 05/26/18 at 13:01; Status DC Aspirin (Children'S Aspirin) 324 mg 1X ONCE PO Last administered on 05/26/18at 12:37; Start 05/26/18 at 12:30; Stop 05/26/18 at 12:31; Status DC Ondansetron HCl (Zofran) 4 mg PRN Q8HRS PRN IV NAUSEA/VOMITING; Start 05/26/18 at 12:30; Stop 05/27/18 at 12:29; Status DC Morphine Sulfate (Morphine Sulfate) 4 mg PRN Q2HR PRN IV PAIN; Start 05/26/18 at 12:30; Stop 05/27/18 at 12:29; Status DC Acetaminophen (Tylenol) 650 mg PRN Q4HRS PRN PO FEVER; Start 05/26/18 at 12:30 ; Stop 05/27/18 at 12:29; Status DC Nitroglycerin (Nitrostat) 0.4 mg PRN Q5MIN PRN SL CHEST PAIN; Start 05/26/18 at 12:30; Stop 05/27/18 at 12:29; Status DC Oseltamivir Phosphate (Tamiflu) 30 mg QTUTHSA PO ; Start 05/28/18 at 16:00; Stop 05/30/18 at 23:59 Albuterol/ Ipratropium (Duoneb) 3 ml TID NEB Last administered on 05/26/18at 20: 17; Start 05/26/18 at 14:00; Stop 05/26/18 at 21:58; Status DC Aspirin (Ecotrin) 325 mg DAILY PO Last administered on 05/27/18at 08:23; Start 05/27/18 at 09:00 Fluticasone Propionate (Flonase) 2 spray DAILY NS Last administered on at 08:25; Start 05/27/18 at 09:00 Insulin Glargine (Lantus) 15 units QHS SQ Last administered on 05/26/18at 22:48 ; Start 05/26/18 at 22:00 Sodium Bicarbonate (Sodium Bicarbonate) 650 mg TIDWMEALS PO Last administered on 05/27/18at 12:14; Start 05/27/18 at 08:00 Tamsulosin HCl (Flomax) 0.4 mg DAILY PO Last administered on 05/27/18at 08:23; Start 05/27/18 at 09:00 Amlodipine Besylate (Norvasc) 2.5 mg DAILY PO Last administered on 05/27/18at 08 :24; Start 05/27/18 at 09:00 Budesonide (Pulmicort) 0.5 mg RTBID NEB ; Start 05/27/18 at 08:00 Atorvastatin Calcium (Lipitor) 5 mg QHS PO ; Start 05/27/18 at 21:00 Ondansetron HCl (Zofran Odt) 4 mg PRN BID PRN PO NAUSEA/VOMITING 1ST CHOICE; Start 05/26/18 at 22:00 Polyethylene Glycol (miraLAX PACKET) 17 gm PRN DAILY PRN PO CONSTIPATION 1ST CHOICE; Start 05/27/18 at 09:00 Pantoprazole Sodium (Protonix) 40 mg DAILYAC PO Last administered on 05/27/18at 08:23; Start 05/27/18 at 07:30 Insulin Human Lispro (HumaLOG) 0-7 UNITS TIDWMEALS SQ Last administered on 05/27at 12:15; Start 05/27/18 at 08:00 Dextrose (Dextrose 50%-Water Syringe) 12.5 gm PRN Q15MIN PRN IV SEE COMMENTS; Start 05/26/18 at 21:45 Insulin Human Lispro (HumaLOG) 10 units 1X ONCE SQ Last administered on at 22:47; Start 05/26/18 at 22:00; Stop 05/26/18 at 22:01; Status DC Albuterol/ Ipratropium (Duoneb) 3 ml RTQID NEB Last administered on 05/27/18at 11:42; Start 05/27/18 at 08:00 Insulin Human Lispro (HumaLOG) 4 units 1X ONCE SQ Last administered on at 03:18; Start 05/27/18 at 03:30; Stop 05/27/18 at 03:31; Status DC Active Scripts Active [Pantoprazole] 40 MG Tablet.dr 40 Mg PO DAILYAC 30 Days Polyethylene Glycol 3350 17 Gm Powd.pack 17 Gm PO PRN DAILY PRN 30 Days Fluticasone Propionate Nasal [place] (Fluticasone Propionate) 16 Gm [place].susp 2 [place] NS DAILY 30 Days Advair 250-50 Diskus (Fluticasone/Salmeterol) 1 Each Disk.w.dev 1 Puff IH BID Amlodipine Besylate 2.5 Mg Tablet 2.5 Mg PO DAILY 30 Days Zofran (Ondansetron Hcl) 4 Mg Tablet 4 Mg PO BID PRN Hydrocodone-Apap 5-325 (Hydrocodone Bit/Acetaminophen) 1 Each Tablet 1 Tab PO PRN Q6HRS PRN Reported Lantus Solostar (Insulin Glargine,Hum.rec.anlog) 100 Unit/1 Ml Insuln.pen 11 Unit SQ QHS Lovastatin 20 Mg Tablet 1 Tab PO DAILY Celia-Alyssa Rx Tablet (Vit B Cmplx 3/Fa/Vit C/Biotin) 1 Each Tablet 1 Each PO Tamsulosin Hcl 0.4 Mg Cap.er.24h 1 Cap PO DAILY Apidra (Insulin Glulisine) 100 Unit/1 Ml Vial 5 Unit SQ TIDBFRMEAL PRN Iron (Ferrous Sulfate) 325 Mg Capsule.er 325 Mg PO Sodium Bicarbonate 650 Mg Tablet 1 Tab PO TID Ecotrin (Aspirin) 325 Mg Tablet.dr 325 Mg PO Allergies Allergies: Coded Allergies: No Known Drug Allergies (Unverified , 02/01/14) ROS Review of System As per HPI Physical Exam Physical Exam GENERAL: The patient is not in any distress, HEENT: Head is atraumatic. Pupils equal. Oral cavity, slight congestion. NECK: Supple. Thyroid not enlarged. JVD not elevated. CHEST: Symmetrical, scar of heart surgery. CARDIOVASCULAR: S1, S2. No murmurs. LUNGS: Few crackles at the bases. The patient has a dialysis catheter, ABDOMEN: Soft, bowel sounds present, no mass palpable. : No Arndt. EXTREMITIES: No edema. The patient has a scar on the medial aspect of the foot or the bunion area. AV shunt with thrill in the left upper extremity. Vital Signs Vital Signs Date Time Temp Pulse Resp B/P (MAP) Pulse Ox O2 Delivery O2 Flow Rate FiO2 05/27/18 11:42 100 Nasal Cannula 2.0 05/27/18 10:40 97.6 86 18 148/77 (100) 97.6 Assessment & Plan ESRD On HD Iva JAMES Dr last on Sunday Currently No Indication today Schedule for Tomorrow Influenza A lung infection. Coronary artery disease. The patient has a previous bypass surgery. Diabetes, insulin-dependent. Elevated liver function tests. Peripheral vascular disease. Labs Labs Laboratory Tests Test 05/26/18 08:49 05/26/18 09:10 05/26/18 10:00 05/26/18 10:25 O2 Saturation 97 % (92-99) Arterial Blood pH 7.49 (7.35-7.45) Arterial Blood pCO2 at Patient Temp 34 mmHg (35-46) Arterial Blood pO2 at Patient Temp 92 mmHg (65-108) Arterial Blood HCO3 25 mmol/L (21-28) Arterial Blood Base Excess 2 mmol/L (-3-3) Oxyhemoglobin 95.6 % Methemoglobin 0.2 % (0.0-1.9) Carbon Monoxide, Quantitative 0.8 % (0.0-1.9) FiO2 28 Influenza Type A Antigen Positive (NEGATIVE) Influenza Type B Antigen Negative (NEGATIVE) Prothrombin Time 19.9 SEC (11.7-14.0) Prothromb Time International Ratio 1.7 (0.8-1.1) Activated Partial Thromboplast Time 32 SEC (24-38) White Blood Count 5.2 x10^3/uL (4.0-11.0) Red Blood Count 3.98 x10^6/uL (4.30-5.70) Hemoglobin 12.7 g/dL (13.0-17.5) Hematocrit 39.2 % (39.0-53.0) Mean Corpuscular Volume 98 fL (79-100) Mean Corpuscular Hemoglobin 32 pg (25-35) Mean Corpuscular Hemoglobin Concent 33 g/dL (31-37) Red Cell Distribution Width 18.6 % (11.5-14.5) Platelet Count 187 x10^3/uL (140-400) Neutrophils (%) (Auto) 81 % (31-73) Lymphocytes (%) (Auto) 5 % (24-48) Monocytes (%) (Auto) 14 % (0-9) Eosinophils (%) (Auto) 0 % (0-3) Basophils (%) (Auto) 0 % (0-3) Neutrophils # (Auto) 4.2 x10^3uL (1.8-7.7) Lymphocytes # (Auto) 0.2 x10^3/uL (1.0-4.8) Monocytes # (Auto) 0.7 x10^3/uL (0.0-1.1) Eosinophils # (Auto) 0.0 x10^3/uL (0.0-0.7) Basophils # (Auto) 0.0 x10^3/uL (0.0-0.2) Segmented Neutrophils % 83 % (35-66) Band Neutrophils % 8 % (0-9) Lymphocytes % 3 % (24-48) Monocytes % 5 % (0-10) Basophils % 1 % (0-3) Platelet Estimate Adequate (ADEQUATE) Platelet Clumps, EDTA Present Anisocytosis Present Sodium Level 135 mmol/L (136-145) Potassium Level 4.3 mmol/L (3.5-5.1) Chloride Level 94 mmol/L (98-107) Carbon Dioxide Level 28 mmol/L (21-32) Anion Gap 13 (6-14) Blood Urea Nitrogen 40 mg/dL (8-26) Creatinine 4.0 mg/dL (0.7-1.3) Estimated GFR (Cockcroft-Gault) 14.4 BUN/Creatinine Ratio 10 (6-20) Glucose Level 180 mg/dL (70-99) Calcium Level 9.1 mg/dL (8.5-10.1) Magnesium Level 1.8 mg/dL (1.8-2.4) Total Bilirubin 1.0 mg/dL (0.2-1.0) Aspartate Amino Transf (AST/SGOT) 428 U/L (15-37) Alanine Aminotransferase (ALT/SGPT) 346 U/L (16-63) Alkaline Phosphatase 166 U/L (46-116) Creatine Kinase 58 U/L (39-308) Creatine Kinase MB (Mass) 0.7 ng/mL (0.0-3.6) Creatine Kinase MB Relative Index % (0-4) Troponin I Quantitative 0.157 ng/mL (0.000-0.055) ES-Llf-R-Type Natriuretic Peptide > 82609 pg/mL (0-449) Total Protein 7.6 g/dL (6.4-8.2) Albumin 3.3 g/dL (3.4-5.0) Albumin/Globulin Ratio 0.8 (1.0-1.7) Thyroid Stimulating Hormone (TSH) 2.574 uIU/mL (0.358-3.74) Test 05/26/18 14:35 05/26/18 18:10 05/26/18 21:23 05/27/18 03:08 Troponin I Quantitative 0.173 ng/mL (0.000-0.055) 0.148 ng/mL (0.000-0.055) Glucose (Fingerstick) 458 mg/dL (70-99) 360 mg/dL (70-99) Test 05/27/18 04:15 05/27/18 07:25 05/27/18 11:30 White Blood Count 5.1 x10^3/uL (4.0-11.0) Red Blood Count 4.00 x10^6/uL (4.30-5.70) Hemoglobin 12.7 g/dL (13.0-17.5) Hematocrit 39.5 % (39.0-53.0) Mean Corpuscular Volume 99 fL (79-100) Mean Corpuscular Hemoglobin 32 pg (25-35) Mean Corpuscular Hemoglobin Concent 32 g/dL (31-37) Red Cell Distribution Width 18.9 % (11.5-14.5) Platelet Count 161 x10^3/uL (140-400) Neutrophils (%) (Auto) 85 % (31-73) Lymphocytes (%) (Auto) 7 % (24-48) Monocytes (%) (Auto) 8 % (0-9) Eosinophils (%) (Auto) 0 % (0-3) Basophils (%) (Auto) 0 % (0-3) Neutrophils # (Auto) 4.3 x10^3uL (1.8-7.7) Lymphocytes # (Auto) 0.3 x10^3/uL (1.0-4.8) Monocytes # (Auto) 0.4 x10^3/uL (0.0-1.1) Eosinophils # (Auto) 0.0 x10^3/uL (0.0-0.7) Basophils # (Auto) 0.0 x10^3/uL (0.0-0.2) Sodium Level 132 mmol/L (136-145) Potassium Level 4.5 mmol/L (3.5-5.1) Chloride Level 93 mmol/L (98-107) Carbon Dioxide Level 24 mmol/L (21-32) Anion Gap 15 (6-14) Blood Urea Nitrogen 59 mg/dL (8-26) Creatinine 4.7 mg/dL (0.7-1.3) Estimated GFR (Cockcroft-Gault) 12.0 Glucose Level 349 mg/dL (70-99) Calcium Level 9.0 mg/dL (8.5-10.1) Total Bilirubin 0.8 mg/dL (0.2-1.0) Direct Bilirubin 0.3 mg/dL (0.0-0.2) Aspartate Amino Transf (AST/SGOT) 352 U/L (15-37) Alanine Aminotransferase (ALT/SGPT) 400 U/L (16-63) Alkaline Phosphatase 152 U/L (46-116) Total Protein 6.7 g/dL (6.4-8.2) Albumin 3.0 g/dL (3.4-5.0) Glucose (Fingerstick) 245 mg/dL (70-99) 294 mg/dL (70-99) Laboratory Tests Test 05/26/18 14:35 05/26/18 18:10 05/26/18 21:23 05/27/18 03:08 Troponin I Quantitative 0.173 ng/mL (0.000-0.055) 0.148 ng/mL (0.000-0.055) Glucose (Fingerstick) 458 mg/dL (70-99) 360 mg/dL (70-99) Test 05/27/18 04:15 05/27/18 07:25 05/27/18 11:30 White Blood Count 5.1 x10^3/uL (4.0-11.0) Red Blood Count 4.00 x10^6/uL (4.30-5.70) Hemoglobin 12.7 g/dL (13.0-17.5) Hematocrit 39.5 % (39.0-53.0) Mean Corpuscular Volume 99 fL (79-100) Mean Corpuscular Hemoglobin 32 pg (25-35) Mean Corpuscular Hemoglobin Concent 32 g/dL (31-37) Red Cell Distribution Width 18.9 % (11.5-14.5) Platelet Count 161 x10^3/uL (140-400) Neutrophils (%) (Auto) 85 % (31-73) Lymphocytes (%) (Auto) 7 % (24-48) Monocytes (%) (Auto) 8 % (0-9) Eosinophils (%) (Auto) 0 % (0-3) Basophils (%) (Auto) 0 % (0-3) Neutrophils # (Auto) 4.3 x10^3uL (1.8-7.7) Lymphocytes # (Auto) 0.3 x10^3/uL (1.0-4.8) Monocytes # (Auto) 0.4 x10^3/uL (0.0-1.1) Eosinophils # (Auto) 0.0 x10^3/uL (0.0-0.7) Basophils # (Auto) 0.0 x10^3/uL (0.0-0.2) Sodium Level 132 mmol/L (136-145) Potassium Level 4.5 mmol/L (3.5-5.1) Chloride Level 93 mmol/L (98-107) Carbon Dioxide Level 24 mmol/L (21-32) Anion Gap 15 (6-14) Blood Urea Nitrogen 59 mg/dL (8-26) Creatinine 4.7 mg/dL (0.7-1.3) Estimated GFR (Cockcroft-Gault) 12.0 Glucose Level 349 mg/dL (70-99) Calcium Level 9.0 mg/dL (8.5-10.1) Total Bilirubin 0.8 mg/dL (0.2-1.0) Direct Bilirubin 0.3 mg/dL (0.0-0.2) Aspartate Amino Transf (AST/SGOT) 352 U/L (15-37) Alanine Aminotransferase (ALT/SGPT) 400 U/L (16-63) Alkaline Phosphatase 152 U/L (46-116) Total Protein 6.7 g/dL (6.4-8.2) Albumin 3.0 g/dL (3.4-5.0) Glucose (Fingerstick) 245 mg/dL (70-99) 294 mg/dL (70-99) Review All relevant outside records, renal labs, imaging studies, telemetry/EKG's were reviewed. FLOYD TAMAYO MD May 27, 2018 13:51
--- NOTE | 2018-05-27 14:07 | NUR ---
Wound Care: Consult to eval and treat for R DFU. Foam dressing to R foot removed, no drainage present. Pt states that a doctor removed some callus and recommended for pt to apply JASPREET and cover with a bandaid or foam dressing. Callus is scabbed and intact at this time. Painted with skin prep and left CHANA. No other open areas noted on head to toe assessment. PU prevention education provided to pt, able to mobilize independently. Encouraged to follow up with PCP on DC for diabetic footwear. No further followup necessary at this time.
--- NOTE | 2018-05-27 16:53 | RAD ---
Indication: Peripheral vascular disease. Diabetes. Hypertension. TECHNIQUE: Grayscale, color Doppler and spectral waveform images of the bilateral lower extremity arteries COMPARISON: None FINDINGS: Right-sided: Biphasic waveform in the ROLL OFF DRIVER with velocity of 169 cm/s. Biphasic waveforms in the profunda femoris artery with velocity of 101 cm/s. Biphasic waveform in the proximal SFA with velocity 121 cm/s. Biphasic waveform in the mid SFA with velocity of 54 cm/s. Biphasic waveforms in the distal SFA with velocity of 161 cm/s. Biphasic waveform in the popliteal artery with velocity of 54 cm/s. 3.7 x 1.8 x 4.1 cm [place] cyst is seen in the popliteal fossa. Biphasic waveforms in the posterior tibial artery with velocity of 34 cm/s. Peroneal artery is not satisfactorily visualized. Dampened waveforms in the anterior tibial artery with velocity of 11 cm/s. Monophasic waveform in the dorsalis pedis artery with velocity of 15 cm/s. Left side: Biphasic waveform in the ROLL OFF DRIVER with velocity of 92 cm/s. Biphasic waveforms in the profunda femoris artery with velocity of 89 cm/s. Biphasic waveforms in the proximal SFA with velocity of 67 cm/s. Biphasic waveforms in the mid SFA with velocity of 71 cm/s. Biphasic waveforms in the distal SFA with velocity of 55 cm/s. Biphasic waveforms in the popliteal artery with velocity of 39 cm/s. Monophasic waveforms in the posterior tibial artery with velocity of 27 cm/s. Monophasic waveforms in the peroneal artery with velocity of 33 cm/s. Monophasic waveforms in the anterior tibial artery with velocity of 16 cm/s. Monophasic waveforms in the dorsalis pedis artery with velocity of 24 cm/s. IMPRESSION: 1. Advanced bilateral diffuse infrapopliteal disease with abnormal waveform morphology and decreased peak systolic velocities. 2. Nonvisualization of flow in the right peroneal artery may be secondary to diffuse high-grade stenosis or occlusion. Electronically signed by: Reynaldo Anderson DO (05/27/2018 4:50 PM) [facility]
--- NOTE | 2018-05-27 16:55 | RAD ---
Indication:Elevated LFTs. TECHNIQUE: Grayscale, color Doppler and spectral waveform is of the abdomen obtained. COMPARISON:None FINDINGS: Visualized pancreas is within normal limits. No aortic aneurysm. Main portal vein is patent with hepatopedal flow. Incidental note made of right pleural effusion. Liver measures 16 cm in longest dimension with diffusely increased echogenicity. Right kidney measures 9.7 cm in length without hydronephrosis. Right kidneys are atrophic and diffusely echogenic. No gallstones, pericholecystic fluid or gallbladder wall thickening. CBD measures 4 mm in diameter and is within normal limits. IMPRESSION: 1. No cholelithiasis or sonographic evidence of acute cholecystitis. 2. Hepatic steatosis. 3. Atrophic and echogenic right kidney suggests chronic renal disease. 4. Incidental note made of right pleural effusion. Electronically signed by: Reynaldo Anderson DO (05/27/2018 4:52 PM) [facility]
[2018-05-27 19:45] VITALS: BP 131/60
[2018-05-27] MEDS: ATORVASTATIN CALCIUM 10 MG TABLET. PO SCH (20:47)
[2018-05-27] MEDS: ACETAMINOPHEN 325 MG TABLET. PO PRN (20:48)
[2018-05-27] MEDS: INSULIN GLARGINE 300 UNITS/3 ML INSULN.PEN. SQ SCH (21:34)
--- NOTE | 2018-05-27 22:03 | CONS ---
DATE OF CONSULTATION: 05/27/2018 VASCULAR SURGERY CONSULT CLINICAL HISTORY: This is an 82-year-old gentleman who was admitted for influenza type A. We have been asked to see the patient regarding a developing wound on the first metatarsal head, right foot. He has no history of significant peripheral vascular disease. He has no specific complaints of claudication or rest pain. His risk factors for peripheral vascular disease include end-stage renal disease, requiring hemodialysis; diabetes and hypertension. He is a nonsmoker. PAST SURGICAL HISTORY: Includes coronary artery bypass procedure in 2001 with vein harvest from the left leg. He has a dialysis catheter placed about 4 months ago and has a functioning AV graft in the left arm. SOCIAL HISTORY: Negative for tobaccoism. REVIEW OF SYSTEMS: Twelve-point review of systems is obtained and is negative other than what was already mentioned in the history. ALLERGIES: None known. MEDICATIONS: Reviewed. FAMILY HISTORY: Noncontributory. PHYSICAL EXAMINATION: GENERAL: The patient is alert and awake. He answers questions appropriately. HEENT: Normocephalic, atraumatic. NECK: Carotids are 2+. CHEST: Clear. ABDOMEN: Soft. No palpable mass. EXTREMITIES: Absent femoral, popliteal, and pedal pulses. He has had a prior left great toe amputation, which has healed nicely. He has a small area of eschar measuring approximately 1 cm in diameter over the first metatarsal head, medial aspect. This was debrided at the bedside. It does not probe to bone and there is no tract or underlying significant wound. Again, measures approximately 8 x 8 mm. IMPRESSION: 1. Neurotrophic ulcer, right medial metatarsal head as described. This does not probe to bone, appears very superficial and should respond to conservative treatment as outlined below. 2. History of end-stage renal disease. 3. History of diabetes. 4. History of atherosclerotic heart disease. PLAN: Conservative wound care consisting of bacitracin ointment and dry gauze dressing. No further tests are required. WHITNEY ROPER MD DR: CICI/renuka JOB#: [id number] / [id number]
[2018-05-27 22:30] VITALS: BP 106/55
[2018-05-28 02:46] VITALS: BP 113/57
[2018-05-28] MEDS: IPRATRPIUM/ALBUTEROL 0.5/2.5MG 3 ML NEBU. NEB SCH ×4 (07:13→19:47)
[2018-05-28] MEDS: BUDESONIDE 0.5 MG/2 ML NEBU. NEB SCH ×2 (07:13→19:47)
[2018-05-28 07:34] VITALS: BP 115/58
[2018-05-28 07:34] LABS: ALBUMIN 2.8 g/dL (3.4-5.0); DIRECT BILIRUBIN 0.3 mg/dL (0.0-0.2); TOTAL BILIRUBIN 0.7 mg/dL (0.2-1.0); TOTAL PROTEIN 6.6 g/dL (6.4-8.2)
[2018-05-28] MEDS ORDERED: IV NORMAL SALINE 1000ML BAG 1,000 ML IV PRN ×2 (07:42)
[2018-05-28] MEDS ORDERED: DIALYSIS PATIENT. MC PRN ×2 (07:45)
[2018-05-28] MEDS: INSULIN LISPRO 300 UNITS/3 ML INSULN.PEN. SQ SCH ×3 (08:00→17:00)
[2018-05-28] MEDS: SODIUM BICARBONATE 650 MG TABLET. PO SCH ×3 (08:00→18:54)
--- NOTE | 2018-05-28 10:15 | PDOC ---
PROGRESS NOTES Subjective Subjective seen in dialysis unit ,does not fell well Objective Objective Vital Signs Date Time Temp Pulse Resp B/P (MAP) Pulse Ox O2 Delivery O2 Flow Rate FiO2 05/28/18 07:35 Nasal Cannula 2.5 05/28/18 07:34 97.9 95 22 115/58 (77) 98 97.9 Intake and Output 05/28/18 07:00 Intake Total 3140 ml Output Total 200 ml Balance 2940 ml Intake Oral 3140 ml Output Urine Total 200 ml Physical Exam Abdomen: Normal bowel sounds, Soft Heart: Regular rate, Normal S1 Extremities: No clubbing General: Alert Lungs: Other (crackles at bases) MUSCULOSKELETAL: No deformity Neuro: Normal speech Psych/Mental Status: Mood NL Diagnosis Problem List Problems Medical Problems: (1) Generalized weakness Status: Acute (2) Influenza A Status: Acute (3) NSTEMI (non-ST elevated myocardial infarction) Status: Acute Assessment Assessment Problems Medical Problems: (1) Generalized weakness Status: Acute (2) Influenza A Status: Acute (3) NSTEMI (non-ST elevated myocardial infarction) Status: Acute FINAL IMPRESSION: 1. Influenza A lung infection. 2. End-stage renal disease, on hemodialysis.Pt was started on dialysis 4 months ago 3. Coronary artery disease. The patient has a previous CABG surgery. Medical management. 4. Diabetes, insulin-dependent. 5. Elevated liver function tests.?Fatty Liver. 6. Borderline elevation in troponin, possible demand ischemia. 7. Peripheral vascular disease.Foot ulcer /eschar PLAN: Dialysis today cxr echo. Tamiflue foot debridement done . fatty liver on sono dec pulses on doppler . At this time, was admit to hospital, seen by Cardiology. Medical management. The patient is seen by Urology, scheduled for dialysis Sunday, Sunday, Sunday. We will have blood test for hepatitis. Ultrasound of the liver and a GI consultation. Also we will have Vascular see the patient while he is in the hospital for peripheral vascular disease. Plan Plan of Care Problems Medical Problems: (1) Generalized weakness Status: Acute (2) Influenza A Status: Acute (3) NSTEMI (non-ST elevated myocardial infarction) Status: Acute Comment Review of Relevant I have reviewed the following items shar (where applicable) has been applied. Labs Laboratory Tests Test 05/27/18 11:30 05/27/18 16:43 05/27/18 20:12 05/28/18 04:20 Glucose (Fingerstick) 294 mg/dL (70-99) 294 mg/dL (70-99) 312 mg/dL (70-99) Total Bilirubin 0.7 mg/dL (0.2-1.0) Direct Bilirubin 0.3 mg/dL (0.0-0.2) Aspartate Amino Transf (AST/SGOT) 205 U/L (15-37) Alanine Aminotransferase (ALT/SGPT) 352 U/L (16-63) Alkaline Phosphatase 138 U/L (46-116) Total Protein 6.6 g/dL (6.4-8.2) Albumin 2.8 g/dL (3.4-5.0) Test 05/28/18 07:07 Glucose (Fingerstick) 159 mg/dL (70-99) Microbiology 05/26/18 Blood Culture - Preliminary, Resulted NO GROWTH AFTER 1 DAY Medications Current Medications Acetaminophen (Tylenol) 650 mg PRN Q6HRS PRN PO MILD PAIN Last administered on 05/27/18at 20:48; Start 05/27/18 at 20:45 Atorvastatin Calcium (Lipitor) 5 mg QHS PO Last administered on 05/27/18at 20:47 ; Start 05/27/18 at 21:00 Info (PHARMACY MONITORING -- do not chart) 1 each PRN DAILY PRN MC SEE COMMENTS ; Start 05/28/18 at 07:45; Stop 05/28/18 at 07:53; Status DC Info (PHARMACY MONITORING -- do not chart) 1 each PRN DAILY PRN MC SEE COMMENTS ; Start 05/28/18 at 07:45; Stop 05/28/18 at 07:53; Status DC Oseltamivir Phosphate (Tamiflu) 30 mg QTUTHSA PO ; Start 05/28/18 at 16:00; Stop 05/30/18 at 23:59 Sodium Chloride 1,000 ml @ 400 mls/hr Q2H30M PRN IV PATENCY; Start 05/28/18 at 07:42; Stop 05/28/18 at 19:41 Sodium Chloride 1,000 ml @ 1,000 mls/hr Q1H PRN IV hypotension; Start 05/28/18 at 07:42; Stop 05/28/18 at 13:41 Vitals/I & O Vital Sign - Last 24 Hours 05/27/18 05/27/18 05/27/18 05/27/18 10:40 11:42 16:38 19:40 Temp 97.6 97.6 Pulse 86 Resp 18 B/P (MAP) 148/77 (100) Pulse Ox 100 100 99 100 O2 Delivery Nasal Cannula Nasal Cannula Nasal Cannula Nasal Cannula O2 Flow Rate 2.5 2.0 2.0 2.0 05/27/18 05/27/18 05/27/18 05/28/18 19:45 20:00 22:30 02:46 Temp 97.3 97.9 98.2 97.3 97.9 98.2 Pulse 83 79 77 Resp 18 22 22 B/P (MAP) 131/60 (83) 106/55 (72) 113/57 (75) Pulse Ox 100 98 99 O2 Delivery Nasal Cannula Nasal Cannula Nasal Cannula Nasal Cannula O2 Flow Rate 2.5 2.5 2.5 2.5 05/28/18 05/28/18 05/28/18 07:15 07:34 07:35 Temp 97.9 97.9 Pulse 95 Resp 22 B/P (MAP) 115/58 (77) Pulse Ox 100 98 O2 Delivery Nasal Cannula Nasal Cannula Nasal Cannula O2 Flow Rate 2.0 2.5 2.5 Intake and Output 05/27/18 05/27/18 05/28/18 15:00 23:00 07:00 Intake Total 1440 ml 1700 ml Output Total 200 ml Balance 1240 ml 1700 ml FLAVIA HOOVER MD May 28, 2018 10:15
--- NOTE | 2018-05-28 10:29 | PDOC ---
SUBJECTIVE ROS Seen on HD , tolerating well. No concerns voiced OBJECTIVE Vital Signs Vital Signs Date Time Temp Pulse Resp B/P (MAP) Pulse Ox O2 Delivery O2 Flow Rate FiO2 05/28/18 07:35 Nasal Cannula 2.5 05/28/18 07:34 97.9 95 22 115/58 (77) 98 97.9 I & 0 Intake and Output 05/28/18 07:00 Intake Total 3140 ml Output Total 200 ml Balance 2940 ml Intake Oral 3140 ml Output Urine Total 200 ml PHYSICAL EXAM Physical Exam GENERAL: NAD HEENT: OM Moist NECK: Supple. CARDIOVASCULAR: S1, S2. No murmurs. LUNGS: Few crackles at the bases. ABDOMEN: Soft, bowel sounds presen : No Arndt. EXTREMITIES: No edema. AV shunt with thrill in the left upper extremity. DIAGNOSIS/ASSESSMENT Assessment & Plan ESRD On HD Iva JAMES Dr seen on HD, tolerating well Continue as ordered , Discussed with presser first Influenza A lung infection. Coronary artery disease. The patient has a previous bypass surgery. Diabetes, insulin-dependent. Elevated liver function tests. Peripheral vascular disease. COMMENT/RELEVANT DATA Meds Current Medications Medications (Trade) Dose Ordered Sig/Erickson Start Time Stop Time Status Last Admin Dose Admin Acetaminophen (Tylenol) 650 mg PRN Q6HRS PRN 05/27/18 20:45 05/27/18 20:48 650 MG Albuterol/ Ipratropium (Duoneb) 3 ml RTQID 05/27/18 08:00 05/28/18 07:13 3 ML Amlodipine Besylate (Norvasc) 2.5 mg DAILY 05/27/18 09:00 05/27/18 08:24 2.5 MG Aspirin (Children'S Aspirin) 324 mg 1X ONCE 05/26/18 12:30 05/26/18 12:31 DC 05/26/18 12:37 324 MG Aspirin (Ecotrin) 325 mg DAILY 05/27/18 09:00 05/27/18 08:23 325 MG Atorvastatin Calcium (Lipitor) 5 mg QHS 05/27/18 21:00 05/27/18 20:47 5 MG Budesonide (Pulmicort) 0.5 mg RTBID 05/27/18 08:00 05/28/18 07:13 0.5 MG Dextrose (Dextrose 50%-Water Syringe) 12.5 gm PRN Q15MIN PRN 05/26/18 21:45 Fluticasone Propionate (Flonase) 2 spray DAILY 05/27/18 09:00 05/27/18 08:25 2 SPRAY Info (PHARMACY MONITORING -- do not chart) 1 each PRN DAILY PRN 05/28/18 07:45 05/28/18 07:53 DC Insulin Glargine (Lantus) 15 units QHS 05/26/18 22:00 05/27/18 21:34 15 UNITS Insulin Human Lispro (HumaLOG) 4 units 1X ONCE 05/27/18 03:30 05/27/18 03:31 DC 05/27/18 03:18 4 UNITS Methylprednisolone Sodium Succinate (SOLU-Medrol 125MG VIAL) 125 mg 1X ONCE 05/26/18 09:00 05/26/18 09:01 DC 05/26/18 09:35 125 MG Morphine Sulfate (Morphine Sulfate) 4 mg PRN Q2HR PRN 05/26/18 12:30 05/27/18 12:29 DC Nitroglycerin (Nitrostat) 0.4 mg PRN Q5MIN PRN 05/26/18 12:30 05/27/18 12:29 DC Ondansetron HCl (Zofran Odt) 4 mg PRN BID PRN 05/26/18 22:00 Ondansetron HCl (Zofran) 4 mg PRN Q8HRS PRN 05/26/18 12:30 05/27/18 12:29 DC Oseltamivir Phosphate (Tamiflu) 30 mg QTUTHSA 05/28/18 16:00 05/30/18 23:59 Pantoprazole Sodium (Protonix) 40 mg DAILYAC 05/27/18 07:30 05/27/18 08:23 40 MG Polyethylene Glycol (miraLAX PACKET) 17 gm PRN DAILY PRN 05/27/18 09:00 Sodium Bicarbonate (Sodium Bicarbonate) 650 mg TIDWMEALS 05/27/18 08:00 05/27/18 18:02 650 MG Sodium Chloride 1,000 ml @ 400 mls/hr Q2H30M PRN 05/28/18 07:42 05/28/18 19:41 Tamsulosin HCl (Flomax) 0.4 mg DAILY 05/27/18 09:00 05/27/18 08:23 0.4 MG Lab Laboratory Tests Test 05/27/18 11:30 05/27/18 16:43 05/27/18 20:12 05/28/18 04:20 Glucose (Fingerstick) 294 mg/dL (70-99) 294 mg/dL (70-99) 312 mg/dL (70-99) Total Bilirubin 0.7 mg/dL (0.2-1.0) Direct Bilirubin 0.3 mg/dL (0.0-0.2) Aspartate Amino Transf (AST/SGOT) 205 U/L (15-37) Alanine Aminotransferase (ALT/SGPT) 352 U/L (16-63) Alkaline Phosphatase 138 U/L (46-116) Total Protein 6.6 g/dL (6.4-8.2) Albumin 2.8 g/dL (3.4-5.0) Test 05/28/18 07:07 Glucose (Fingerstick) 159 mg/dL (70-99) Results All relevant outside records, renal labs, imaging studies, telemetry/EKG's were reviewed. FLOYD TAMAYO MD May 28, 2018 10:29
[2018-05-28] MEDS: amLODIPine BESYLATE 5 MG TABLET PO SCH (12:46)
[2018-05-28] MEDS: PANTOPRAZOLE 40 MG TABLET.DR. PO SCH (12:46)
[2018-05-28] MEDS: TAMSULOSIN 0.4 MG CAP.ER.24H. PO SCH (12:46)
[2018-05-28] MEDS: ASPIRIN ENTERIC COATED 325 MG TABLET.DR. PO SCH (12:46)
[2018-05-28] MEDS: FLUTICASONE 50MCG/NASAL SPRAY 16GM BOTTLE. NS SCH (12:47)
--- NOTE | 2018-05-28 14:42 | RAD ---
Single view of the chest. 05/28/2018 2:03 PM Indication: Follow-up, pneumonia, CHF also pt positive for flu x6 days Comparison: Chest radiograph May 26, 2018 Findings: No pneumothorax is seen. Central vascular congestion and interstitial thickening similar to comparison study. Heart size appears mildly enlarged. Right internal jugular tunneled dialysis catheter with tip at the cavoatrial junction noted. Possible trace left pleural effusion is seen. No acute osseous abnormalities are identified. IMPRESSION: 1. Central vascular congestion and mild interstitial edema, similar to comparison study. 2. Otherwise stable chest Electronically signed by: Edilson Benitez MD (05/28/2018 2:39 PM) [id number]
[2018-05-28 14:50] VITALS: BP 130/70
--- NOTE | 2018-05-28 15:18 | PDOC ---
Subjective: Subjective: Always feels bad after dialysis. Objective: Objective: No GI concerns per RN - stooled today. Mentions Dr. Jones advised to hold iron due to constipation. Vital Signs: Vital Signs Date Time Temp Pulse Resp B/P (MAP) Pulse Ox O2 Delivery O2 Flow Rate FiO2 05/28/18 14:50 97.9 91 18 130/70 (90) 96 Nasal Cannula 2.0 97.9 Labs: Laboratory Tests Test 05/27/18 16:43 05/27/18 20:12 05/28/18 04:20 05/28/18 07:07 Glucose (Fingerstick) 294 mg/dL 312 mg/dL 159 mg/dL Total Bilirubin 0.7 mg/dL Direct Bilirubin 0.3 mg/dL Aspartate Amino Transf (AST/SGOT) 205 U/L Alanine Aminotransferase (ALT/SGPT) 352 U/L Alkaline Phosphatase 138 U/L Total Protein 6.6 g/dL Albumin 2.8 g/dL Hepatitis B Surface Antigen Nonreactive Test 05/28/18 12:54 Glucose (Fingerstick) 112 mg/dL BLOOD CULTURE Preliminary NO GROWTH AFTER 2 DAYS Imaging: Abd US IMPRESSION: 1. No cholelithiasis or sonographic evidence of acute cholecystitis. 2. Hepatic steatosis. 3. Atrophic and echogenic right kidney suggests chronic renal disease. 4. Incidental note made of right pleural effusion. Duplex LE IMPRESSION: 1. Advanced bilateral diffuse infrapopliteal disease with abnormal waveform morphology and decreased peak systolic velocities. 2. Nonvisualization of flow in the right peroneal artery may be secondary to diffuse high-grade stenosis or occlusion. CXR IMPRESSION: 1. Central vascular congestion and mild interstitial edema, similar to comparison study. 2. Otherwise stable chest. PE: GEN: NAD, was asleep in ray LUNGS: NC ABD: soft, non-tender NEURO/PSYCH: A & O 3 A/P: Elevated LFTs (better), hepatic steatosis CHF, ESRD ?constipation - stooled today -- Will review w/ Dr. Collazo. BRENDA WANG May 28, 2018 15:18
[2018-05-28] MEDS: OSELTAMIVIR 30 MG CAPSULE PO SCH (18:54)
[2018-05-28 19:00] VITALS: BP 144/75
[2018-05-28] MEDS: ATORVASTATIN CALCIUM 10 MG TABLET. PO SCH (19:59)
[2018-05-28] MEDS: ACETAMINOPHEN 325 MG TABLET. PO PRN (19:59)
[2018-05-28] MEDS: INSULIN GLARGINE 300 UNITS/3 ML INSULN.PEN. SQ SCH (20:05)
[2018-05-28 23:00] VITALS: BP 150/82
[2018-05-29 03:00] VITALS: BP 123/63
[2018-05-29 05:19] LABS: BASO % 0 % (0-3); EOS % 0 % (0-3); HEMATOCRIT 38.2 % (39.0-53.0); HEMOGLOBIN 12.2 g/dL (13.0-17.5); LYMPH # 0.4 x10^3/uL (1.0-4.8); LYMPH % 5 % (24-48); MEAN CORPUSCULAR HEMOGLOBIN 31 pg (25-35); MEAN CORPUSCULAR HGB CONC 32 g/dL (31-37); MEAN CORPUSCULAR VOLUME 98 fL (79-100); MONO # 0.6 x10^3/uL (0.0-1.1); MONO % 9 % (0-9); NEUT % 85 % (31-73); PLATELET COUNT 149 x10^3/uL (140-400); RED CELL DISTRIBUTION WIDTH 18.6 % (11.5-14.5)
[2018-05-29 05:56] LABS: ALBUMIN 2.7 g/dL (3.4-5.0); ALBUMIN/GLOBULIN RATIO 0.7 (1.0-1.7); CALCIUM 8.4 mg/dL (8.5-10.1); CREATININE 4.1 mg/dL (0.7-1.3); POTASSIUM 4.5 mmol/L (3.5-5.1); TOTAL BILIRUBIN 1.2 mg/dL (0.2-1.0); TOTAL PROTEIN 6.8 g/dL (6.4-8.2)
[2018-05-29 07:09] VITALS: BP 136/69
[2018-05-29] MEDS: IPRATRPIUM/ALBUTEROL 0.5/2.5MG 3 ML NEBU. NEB SCH ×4 (08:00→20:18)
[2018-05-29] MEDS: BUDESONIDE 0.5 MG/2 ML NEBU. NEB SCH ×2 (08:00→20:00)
[2018-05-29] MEDS: INSULIN LISPRO 300 UNITS/3 ML INSULN.PEN. SQ SCH ×3 (08:54→17:27)
[2018-05-29] MEDS: ASPIRIN ENTERIC COATED 325 MG TABLET.DR. PO SCH (08:55)
[2018-05-29] MEDS: PANTOPRAZOLE 40 MG TABLET.DR. PO SCH (08:55)
[2018-05-29] MEDS: SODIUM BICARBONATE 650 MG TABLET. PO SCH ×3 (08:56→17:25)
[2018-05-29] MEDS: amLODIPine BESYLATE 5 MG TABLET PO SCH (08:56)
[2018-05-29] MEDS: TAMSULOSIN 0.4 MG CAP.ER.24H. PO SCH (08:57)
[2018-05-29] MEDS: FLUTICASONE 50MCG/NASAL SPRAY 16GM BOTTLE. NS SCH (08:57)
--- NOTE | 2018-05-29 09:49 | PDOC ---
PROGRESS NOTES Subjective Subjective sob and cough ,feels he is not getting better Objective Objective Vital Signs Date Time Temp Pulse Resp B/P (MAP) Pulse Ox O2 Delivery O2 Flow Rate FiO2 05/29/18 08:56 82 136/69 05/29/18 08:27 96 Nasal Cannula 2.0 05/29/18 07:09 97.5 20 97.5 Intake and Output 05/29/18 06:59 Intake Total 500 ml Output Total 600 ml Balance -100 ml Intake Oral 500 ml Output Urine Total 600 ml Physical Exam Abdomen: Normal bowel sounds, Soft Heart: Regular rate, Normal S1 Extremities: No clubbing General: Alert Lungs: Other (crackles at bases) MUSCULOSKELETAL: No deformity Neuro: Normal speech Psych/Mental Status: Mood NL Diagnosis Problem List Problems Medical Problems: (1) Generalized weakness Status: Acute (2) Influenza A Status: Acute (3) NSTEMI (non-ST elevated myocardial infarction) Status: Acute Assessment Assessment Problems Medical Problems: (1) Generalized weakness Status: Acute (2) Influenza A Status: Acute (3) NSTEMI (non-ST elevated myocardial infarction) Status: Acute FINAL IMPRESSION:SOB not improving 1. Influenza A lung infection. 2. End-stage renal disease, on hemodialysis.Pt was started on dialysis 4 months ago 3. Coronary artery disease. The patient has a previous CABG surgery. Medical management. 4. Diabetes, insulin-dependent. 5. Elevated liver function tests.?Fatty Liver. 6. Borderline elevation in troponin, possible demand ischemia. 7. Peripheral vascular disease.Foot ulcer /eschar PLAN: CT chest for ILD . Pul consult requested iv antibiotics and steroids Dialysis yesterday cxr worsening lung infiltrates echo 20% ejf. snu screen. Tamiflue foot debridement done . fatty liver on sono dec pulses on doppler Plan Plan of Care Problems Medical Problems: (1) Generalized weakness Status: Acute (2) Influenza A Status: Acute (3) NSTEMI (non-ST elevated myocardial infarction) Status: Acute Comment Review of Relevant I have reviewed the following items shar (where applicable) has been applied. Labs Laboratory Tests Test 05/28/18 12:54 05/28/18 16:49 05/28/18 19:58 05/29/18 04:30 Glucose (Fingerstick) 112 mg/dL (70-99) 169 mg/dL (70-99) 218 mg/dL (70-99) White Blood Count 7.0 x10^3/uL (4.0-11.0) Red Blood Count 3.90 x10^6/uL (4.30-5.70) Hemoglobin 12.2 g/dL (13.0-17.5) Hematocrit 38.2 % (39.0-53.0) Mean Corpuscular Volume 98 fL (79-100) Mean Corpuscular Hemoglobin 31 pg (25-35) Mean Corpuscular Hemoglobin Concent 32 g/dL (31-37) Red Cell Distribution Width 18.6 % (11.5-14.5) Platelet Count 149 x10^3/uL (140-400) Neutrophils (%) (Auto) 85 % (31-73) Lymphocytes (%) (Auto) 5 % (24-48) Monocytes (%) (Auto) 9 % (0-9) Eosinophils (%) (Auto) 0 % (0-3) Basophils (%) (Auto) 0 % (0-3) Neutrophils # (Auto) 6.0 x10^3uL (1.8-7.7) Lymphocytes # (Auto) 0.4 x10^3/uL (1.0-4.8) Monocytes # (Auto) 0.6 x10^3/uL (0.0-1.1) Eosinophils # (Auto) 0.0 x10^3/uL (0.0-0.7) Basophils # (Auto) 0.0 x10^3/uL (0.0-0.2) Sodium Level 135 mmol/L (136-145) Potassium Level 4.5 mmol/L (3.5-5.1) Chloride Level 96 mmol/L (98-107) Carbon Dioxide Level 28 mmol/L (21-32) Anion Gap 11 (6-14) Blood Urea Nitrogen 50 mg/dL (8-26) Creatinine 4.1 mg/dL (0.7-1.3) Estimated GFR (Cockcroft-Gault) 14.0 BUN/Creatinine Ratio 12 (6-20) Glucose Level 197 mg/dL (70-99) Calcium Level 8.4 mg/dL (8.5-10.1) Iron Level 26 ug/dL (65-175) Total Iron Binding Capacity 216 ug/dL (250-450) Iron Saturation 12 % (15-34) Total Bilirubin 1.2 mg/dL (0.2-1.0) Aspartate Amino Transf (AST/SGOT) 206 U/L (15-37) Alanine Aminotransferase (ALT/SGPT) 367 U/L (16-63) Alkaline Phosphatase 167 U/L (46-116) Total Protein 6.8 g/dL (6.4-8.2) Albumin 2.7 g/dL (3.4-5.0) Albumin/Globulin Ratio 0.7 (1.0-1.7) Test 05/29/18 06:51 Glucose (Fingerstick) 183 mg/dL (70-99) Microbiology 05/26/18 Blood Culture - Preliminary, Resulted NO GROWTH AFTER 2 DAYS Medications Current Medications Oseltamivir Phosphate (Tamiflu) 30 mg QTUTHSA PO Last administered on at 18:54; Start 05/28/18 at 16:00; Stop 05/30/18 at 23:59 Vitals/I & O Vital Sign - Last 24 Hours 05/28/18 05/28/18 05/28/18 05/28/18 12:46 12:47 14:50 15:17 Temp 97.9 97.9 Pulse 95 91 Resp 18 B/P (MAP) 115/58 130/70 (90) Pulse Ox 96 O2 Delivery Nasal Cannula Nasal Cannula Nasal Cannula O2 Flow Rate 2.0 2.0 2.0 05/28/18 05/28/18 05/28/18 05/28/18 19:00 19:21 19:35 23:00 Temp 97.3 97.6 97.3 97.6 Pulse 87 91 Resp 18 18 B/P (MAP) 144/75 (98) 150/82 (104) Pulse Ox 99 96 96 O2 Delivery Nasal Cannula Nasal Cannula Nasal Cannula Nasal Cannula O2 Flow Rate 2.0 2.5 2.0 2.0 05/29/18 05/29/18 05/29/18 05/29/18 03:00 07:09 08:27 08:56 Temp 97.4 97.5 97.4 97.5 Pulse 87 82 82 Resp 20 20 B/P (MAP) 123/63 (83) 136/69 (91) 136/69 Pulse Ox 92 98 96 O2 Delivery Nasal Cannula Nasal Cannula Nasal Cannula O2 Flow Rate 2.0 2.0 2.0 Intake and Output 05/28/18 05/28/18 05/29/18 14:59 22:59 06:59 Intake Total 500 ml Output Total 200 ml 150 ml 250 ml Balance -200 ml 350 ml -250 ml FLAVIA HOOVER MD May 29, 2018 09:49
[2018-05-29] MEDS ORDERED: OSEL30CA PO (09:53)
--- NOTE | 2018-05-29 11:38 | CARD ---
MR#: [id number] Date of Study: 05/29/2018 Ordering Physician: FLAVIA HOOVER, Referring Physician: FLAVIA HOOVER, Tech: Ngozi Howell APPROVED REPORT EXAM: Two-dimensional and M-mode echocardiogram with Doppler and color Doppler. Other Information Quality : FairHR: 99bpm INDICATION Congestive Heart Failure 2D DIMENSIONS RVDd3.4 (2.9-3.5cm)Left Atrium(2D)4.2 (1.6-4.0cm) IVSd1.1 (0.7-1.1cm)Aortic Root(2D)2.9 (2.0-3.7cm) LVDd5.7 (3.9-5.9cm)LVOT Diameter2.1 (1.8-2.4cm) PWd1.0 (0.7-1.1cm)LVDs5.8 (2.5-4.0cm) Aortic Valve AoV Peak German.153.0cm/sAoV VTI30.0cm AO Peak GR.9.4mmHgLVOT VTI 12.13cm AO Mean GR.6mmHg Mitral Valve MV E Gtnykmxu961.8cm/sMV E Peak Gr.71mmHg MV DECEL [id number] A Yuauvtnl04.0cm/s MV E Mean Gr.3mmHgE/A Ratio2.9 TDI Lateral E' P. V7.92cm/sMedial E' P. V6.18cm/s E/Lateral E'14.9E/Medial E'19.1 Tricuspid Valve TR P. [id number] [id number] TR Peak Gr.[id number] LEFT VENTRICLE The Left Ventricle is mildly dilated. There is borderline concentric left ventricular hypertrophy. Th e systolic function is severely impaired.EF 20-25% There is global hypokinesis of the left ventricle. Tissue Doppler imaging reveals severe left ventricular diastolic dysfunction. RIGHT VENTRICLE The right ventricle is mildly dilated. There is normal right ventricular wall thickness. The right ve ntricular systolic function is normal. ATRIA The left atrium is mildly dilated. The right atrium is moderately dilated. The interatrial septum is intact with no evidence for an atrial septal defect or patent foramen ovale as noted on 2-D or Dopple r imaging. AORTIC VALVE The aortic valve is calcified and displays decreased opening. Doppler and Color Flow revealed trace a ortic regurgitation. There is no significant aortic valvular stenosis. MITRAL VALVE Mitral annular calcification is mild to moderate. There is no evidence of mitral valve prolapse. Ther e is no mitral valve stenosis. Doppler and Color-flow revealed moderate mitral regurgitation. TRICUSPID VALVE The tricuspid valve is normal in structure and function. Doppler and Color Flow revealed moderate tri cuspid regurgitation with an estimated PAP of 51 mmHg. There is moderate pulmonary hypertension. Ther e is no tricuspid valve stenosis. PULMONIC VALVE Doppler and Color Flow revealed mild pulmonic valvular regurgitation. There is no pulmonic valvular s tenosis. GREAT VESSELS The aortic root is normal in size. The IVC is dilated and collapses <50% with inspiration. PERICARDIAL EFFUSION There is no evidence of significant pericardial effusion. Critical Notification Critical Value: No <Conclusion> The systolic function is severely impaired.EF 20-25% There is global hypokinesis of the left ventricle. Doppler and Color-flow revealed moderate mitral regurgitation. Doppler and Color Flow revealed moderate tricuspid regurgitation with an estimated PAP of 51 mmHg. Th ere is moderate pulmonary hypertension. Signed by : Ant Murray, Electronically Approved : 05/29/2018 11:36:49
[2018-05-29 11:46] VITALS: BP 141/67
--- NOTE | 2018-05-29 11:50 | RAD ---
PQRS Compliance statement: One or more of the following individualized dose reduction techniques were utilized for this examination: 1. Automated exposure control. 2. Adjustment of the mA and/or kV according to patient size. 3. Use of iterative reconstruction technique. Indication:HR CHEST WITHOUT PREV SENT ILD, SOA TECHNIQUE: CT chest without IV contrast with multiplanar reformats. COMPARISON: 02/01/2018 FINDINGS: Heart is mildly enlarged in size. CABG changes noted. No pericardial or pleural effusion. Moderate diffuse atherosclerotic disease seen of the thoracic aorta. Central venous catheter is seen with its tip at the cavoatrial junction. No enlarged axillary adenopathy. Shotty mediastinal lymph nodes are seen, nonspecific may be reactive. Evaluation of hilar lymphadenopathy is limited due to lack of IV contrast. Central airways are patent. Reticular opacities are seen in the bilateral lower lobes with subpleural cystic changes. Subpleural emphysema is seen in the right upper lobe. Diffuse centrilobular nodules are seen in the bilateral lungs. These are new from previous exam. Visualized noncontrast sections through the liver, spleen, gallbladder, pancreas, adrenals within normal limits. No suspicious bony lesion. IMPRESSION: 1. Diffuse bilateral centrilobular nodular opacities in the lungs may be infectious or inflammatory nature, less likely metastatic. Follow-up CT chest in 3-4 months recommended. 2. Bilateral lower lobe predominant subpleural reticular opacities without honeycombing. Findings may be secondary to early interstitial lung disease changes. Electronically signed by: Reynaldo Anderson DO (05/29/2018 11:47 AM) [facility]
[2018-05-29] MEDS ORDERED: PIP/TAZO PER PHARMACY MC PRN (12:30)
--- NOTE | 2018-05-29 12:54 | CONS ---
DATE OF CONSULTATION: ATTENDING PHYSICIAN: Dr. Jones. REASON FOR CONSULTATION: Abnormal CT chest, dyspnea, cough, influenza. HISTORY OF PRESENT ILLNESS: The patient is an 82-year-old male who has minimal history of tobacco use. He has history of end-stage renal disease, on dialysis. He was brought into the hospital with complaint of subjective fever, chills, and not feeling well. He has a cough, which has been nonproductive. No headaches, no nausea or vomiting, no diarrhea. The patient's influenza screen came back positive for influenza A. He underwent imaging studies, which were reviewed by me. The patient's CT chest was reviewed. Done today and it shows diffuse bilateral interstitial infiltrates. There is some reticular nodular pattern. I also reviewed his chest x-ray from 05/28/2018 and compared with the previous one from 02/08/2018. At that time, the chest x-ray was clear. I do not think that the CT chest findings are related to any fibrosis. His echocardiogram done today shows an ejection fraction of only 20%-25% and moderate mitral regurgitation. The patient is under influenza isolation and Tamiflu was started. He is also on nebulizer treatments. I have been asked to see him for further evaluation. PAST MEDICAL HISTORY: Significant for history of end-stage renal disease, history of congestive heart failure, history of cardiomyopathy with an EF of 25%, history of coronary artery disease, previous heart surgery. PAST SURGICAL HISTORY: Bypass surgery in 2001 and dialysis catheter and AV shunt in the left arm. FAMILY HISTORY: Positive for diabetes. SOCIAL HISTORY: Very minimal tobacco use. REVIEW OF SYSTEMS: Twelve-point system obtained. Pertinent positives discussed in my history of present illness, otherwise noncontributory. All systems that were negative were reviewed as well. ALLERGIES: None. MEDICATIONS: All reviewed as listed in the MRAD. PHYSICAL EXAMINATION: VITAL SIGNS: Reviewed. He is afebrile. Pulse ox is 100% on 2 liters. Blood pressure is stable. HEENT: Sclerae nonicteric. NECK: Supple. LUNGS: With anterior rhonchi. CARDIOVASCULAR: Regular rate and rhythm. ABDOMEN: Soft, obese. EXTREMITIES: With no pitting edema. LABORATORY DATA: Reviewed. BUN 50, creatinine 4.1. Bilirubin 1.2. AST, ALT elevated. Albumin is 2.7. ABGs with a pH of 7.49, pCO2 of 34 and pO2 of 92 on 28% FIO2. White cell count 7.0, hemoglobin 12.2 and platelets are 149. IMPRESSION: 1. Dyspnea with acute hypoxic respiratory failure secondary to multifactorial etiologies including influenza A, possible superimposed bacterial infection with gram-negative organisms and acute on chronic systolic heart failure. 2. Abnormal CT chest and abnormal chest x-ray. There are bilateral interstitial/reticular nodular infiltrates. Likely inflammatory in etiology. They are present in the upper and lower lobes. Unlikely any interstitial lung disease or fibrosis as his chest x-ray from January was clear. All these findings appear to be new. 3. Minimal history of tobacco use. 4. Severe cardiomyopathy with an ejection fraction of 20%-25% and likely superimposed congestive heart failure. 5. End-stage renal disease, on hemodialysis. RECOMMENDATIONS: 1. Continue with present oxygen. 2. Continue Tamiflu. 3. Add empiric antibiotic. 4. Obtain procalcitonin level. 5. Would recommend increase ultrafiltration with hemodialysis. 6. Continue bronchodilators. 7. Would recommend repeating a chest x-ray in 2-3 days after effective dialysis. DIONTE MORA MD DR: EMIGDIO/renuka JOB#: [id number] / [id number] BELIA
--- NOTE | 2018-05-29 14:15 | PDOC ---
Objective: Objective: Reviewed w/ RN - no GI concerns, stooled yesterday. Vital Signs: Vital Signs Date Time Temp Pulse Resp B/P (MAP) Pulse Ox O2 Delivery O2 Flow Rate FiO2 05/29/18 11:50 Nasal Cannula 2.0 05/29/18 11:46 97.4 81 20 141/67 (91) 100 97.4 Labs: Laboratory Tests Test 05/28/18 16:49 05/28/18 19:58 05/29/18 04:30 05/29/18 06:51 Glucose (Fingerstick) 169 mg/dL 218 mg/dL 183 mg/dL White Blood Count 7.0 x10^3/uL Red Blood Count 3.90 x10^6/uL Hemoglobin 12.2 g/dL Hematocrit 38.2 % Mean Corpuscular Volume 98 fL Mean Corpuscular Hemoglobin 31 pg Mean Corpuscular Hemoglobin Concent 32 g/dL Red Cell Distribution Width 18.6 % Platelet Count 149 x10^3/uL Neutrophils (%) (Auto) 85 % Lymphocytes (%) (Auto) 5 % Monocytes (%) (Auto) 9 % Eosinophils (%) (Auto) 0 % Basophils (%) (Auto) 0 % Neutrophils # (Auto) 6.0 x10^3uL Lymphocytes # (Auto) 0.4 x10^3/uL Monocytes # (Auto) 0.6 x10^3/uL Eosinophils # (Auto) 0.0 x10^3/uL Basophils # (Auto) 0.0 x10^3/uL Sodium Level 135 mmol/L Potassium Level 4.5 mmol/L Chloride Level 96 mmol/L Carbon Dioxide Level 28 mmol/L Anion Gap 11 Blood Urea Nitrogen 50 mg/dL Creatinine 4.1 mg/dL Estimated GFR (Cockcroft-Gault) 14.0 BUN/Creatinine Ratio 12 Glucose Level 197 mg/dL Calcium Level 8.4 mg/dL Iron Level 26 ug/dL Total Iron Binding Capacity 216 ug/dL Iron Saturation 12 % Total Bilirubin 1.2 mg/dL Aspartate Amino Transf (AST/SGOT) 206 U/L Alanine Aminotransferase (ALT/SGPT) 367 U/L Alkaline Phosphatase 167 U/L Total Protein 6.8 g/dL Albumin 2.7 g/dL Albumin/Globulin Ratio 0.7 Procalcitonin 1.45 ng/mL Test 05/29/18 11:34 Glucose (Fingerstick) 174 mg/dL BLOOD CULTURE Preliminary NO GROWTH AFTER 3 DAYS Imaging: Chest CT IMPRESSION: 1. Diffuse bilateral centrilobular nodular opacities in the lungs may be infectious or inflammatory nature, less likely metastatic. Follow-up CT chest in 3-4 months recommended. 2. Bilateral lower lobe predominant subpleural reticular opacities without honeycombing. Findings may be secondary to early interstitial lung disease changes. PE: GEN: NAD - up w/ therapy/walker NEURO/PSYCH: A & O 3 A/P: Elevated LFTs, hepatic steatosis CHF, ESRD, abnormal chest imaging -- LFTs hanging. Other per Dr. Collazo. BRENDA WANG May 29, 2018 14:15
[2018-05-29] MEDS: ASCORBIC ACID 500 MG TABLET PO SCH (14:31)
[2018-05-29] MEDS: MULTIVITAMIN I-VITE TABLET. PO SCH (14:31)
[2018-05-29] MEDS: PIPERACILLIN/TAZOBACTAM 2.25 GM in IV NORMAL SALINE 50ML 50 ML IV SCH ×2 (14:32→21:02)
[2018-05-29 14:50] VITALS: BP 133/66
[2018-05-29] MEDS: ACETAMINOPHEN 325 MG TABLET. PO PRN (17:35)
--- NOTE | 2018-05-29 18:32 | NUR ---
Pt. report SOB throughout the day. ON 2L O2. More pounced during dialysis.
[2018-05-29 19:53] VITALS: BP 117/58
--- NOTE | 2018-05-29 19:55 | NUR ---
Call placed to Dr Jones regarding patients request for cough syrup and sleeping pill. orders received. will continue to monitor.
[2018-05-29] MEDS ORDERED: ZOLPIDEM 5 MG TABLET. PO PRN (20:00)
[2018-05-29] MEDS ORDERED: guaiFENesin/CODEINE 100mg/10mg 5 ML LIQUID PO PRN (20:00)
[2018-05-29] MEDS: methylPREDNISolone SOD SUCC PF 40 MG/ML VIAL. IV SCH (21:01)
[2018-05-29] MEDS: ATORVASTATIN CALCIUM 10 MG TABLET. PO SCH (21:01)
[2018-05-29] MEDS: LACTOBACILLUS RHAMNOSUS GG 1 CAPSULE. PO SCH (21:01)
[2018-05-29] MEDS: INSULIN GLARGINE 300 UNITS/3 ML INSULN.PEN. SQ SCH (21:07)
[2018-05-29 23:20] VITALS: BP 120/56
[2018-05-30 03:49] VITALS: BP 147/70
[2018-05-30] MEDS: PIPERACILLIN/TAZOBACTAM 2.25 GM in IV NORMAL SALINE 50ML 50 ML IV SCH ×3 (05:10→21:08)
[2018-05-30] MEDS: IPRATRPIUM/ALBUTEROL 0.5/2.5MG 3 ML NEBU. NEB SCH ×4 (07:14→19:47)
[2018-05-30] MEDS: BUDESONIDE 0.5 MG/2 ML NEBU. NEB SCH ×2 (07:14→19:46)
[2018-05-30 07:24] VITALS: BP 130/68
[2018-05-30 08:06] LABS: MYCOPLASMA PATIENT POSITIVE (NEGATIVE)
[2018-05-30] MEDS: SODIUM BICARBONATE 650 MG TABLET. PO SCH ×3 (08:24→17:20)
[2018-05-30] MEDS: TAMSULOSIN 0.4 MG CAP.ER.24H. PO SCH (08:24)
[2018-05-30] MEDS: LACTOBACILLUS RHAMNOSUS GG 1 CAPSULE. PO SCH ×2 (08:24→21:06)
[2018-05-30] MEDS: FLUTICASONE 50MCG/NASAL SPRAY 16GM BOTTLE. NS SCH (08:24)
[2018-05-30] MEDS: ASCORBIC ACID 500 MG TABLET PO SCH (08:24)
[2018-05-30] MEDS: PANTOPRAZOLE 40 MG TABLET.DR. PO SCH (08:24)
[2018-05-30] MEDS: ASPIRIN ENTERIC COATED 325 MG TABLET.DR. PO SCH (08:26)
[2018-05-30] MEDS: amLODIPine BESYLATE 5 MG TABLET PO SCH (08:26)
[2018-05-30] MEDS: MULTIVITAMIN I-VITE TABLET. PO SCH (08:27)
[2018-05-30] MEDS: methylPREDNISolone SOD SUCC PF 40 MG/ML VIAL. IV SCH (08:27)
[2018-05-30] MEDS: INSULIN LISPRO 300 UNITS/3 ML INSULN.PEN. SQ SCH ×3 (08:40→17:15)
--- NOTE | 2018-05-30 09:09 | PDOC ---
PROGRESS NOTES Subjective Subjective IN FOLLOW UP OF ESRD Objective Objective Vital Signs Date Time Temp Pulse Resp B/P (MAP) Pulse Ox O2 Delivery O2 Flow Rate FiO2 05/30/18 08:26 82 130/68 05/30/18 07:24 97.2 18 98 Nasal Cannula 2.0 97.2 Intake and Output 05/30/18 07:00 Intake Total 1440 ml Output Total 450 ml Balance 990 ml Intake Oral 1440 ml Output Urine Total 450 ml Physical Exam Abdomen: Normal bowel sounds, Soft, No tenderness, No hepatosplenomegaly, No masses Heart: Regular rate, Normal S1, Normal S2, No murmurs, Gallops General: Alert Lungs: Clear to auscultation, Normal air movement Diagnosis RENAL FAILURE: ESRD Assessment Assessment Problems Medical Problems: (1) Generalized weakness Status: Acute (2) Influenza A Status: Acute (3) NSTEMI (non-ST elevated myocardial infarction) Status: Acute Plan Plan of Care FOR DIALYSIS TODAY. CONT RX OF INFLUENZA Comment Review of Relevant I have reviewed the following items shar (where applicable) has been applied. Labs Laboratory Tests Test 05/28/18 12:54 05/28/18 16:49 05/28/18 19:58 05/29/18 04:30 Glucose (Fingerstick) 112 mg/dL (70-99) 169 mg/dL (70-99) 218 mg/dL (70-99) White Blood Count 7.0 x10^3/uL (4.0-11.0) Red Blood Count 3.90 x10^6/uL (4.30-5.70) Hemoglobin 12.2 g/dL (13.0-17.5) Hematocrit 38.2 % (39.0-53.0) Mean Corpuscular Volume 98 fL (79-100) Mean Corpuscular Hemoglobin 31 pg (25-35) Mean Corpuscular Hemoglobin Concent 32 g/dL (31-37) Red Cell Distribution Width 18.6 % (11.5-14.5) Platelet Count 149 x10^3/uL (140-400) Neutrophils (%) (Auto) 85 % (31-73) Lymphocytes (%) (Auto) 5 % (24-48) Monocytes (%) (Auto) 9 % (0-9) Eosinophils (%) (Auto) 0 % (0-3) Basophils (%) (Auto) 0 % (0-3) Neutrophils # (Auto) 6.0 x10^3uL (1.8-7.7) Lymphocytes # (Auto) 0.4 x10^3/uL (1.0-4.8) Monocytes # (Auto) 0.6 x10^3/uL (0.0-1.1) Eosinophils # (Auto) 0.0 x10^3/uL (0.0-0.7) Basophils # (Auto) 0.0 x10^3/uL (0.0-0.2) Sodium Level 135 mmol/L (136-145) Potassium Level 4.5 mmol/L (3.5-5.1) Chloride Level 96 mmol/L (98-107) Carbon Dioxide Level 28 mmol/L (21-32) Anion Gap 11 (6-14) Blood Urea Nitrogen 50 mg/dL (8-26) Creatinine 4.1 mg/dL (0.7-1.3) Estimated GFR (Cockcroft-Gault) 14.0 BUN/Creatinine Ratio 12 (6-20) Glucose Level 197 mg/dL (70-99) Calcium Level 8.4 mg/dL (8.5-10.1) Iron Level 26 ug/dL (65-175) Total Iron Binding Capacity 216 ug/dL (250-450) Iron Saturation 12 % (15-34) Total Bilirubin 1.2 mg/dL (0.2-1.0) Aspartate Amino Transf (AST/SGOT) 206 U/L (15-37) Alanine Aminotransferase (ALT/SGPT) 367 U/L (16-63) Alkaline Phosphatase 167 U/L (46-116) Total Protein 6.8 g/dL (6.4-8.2) Albumin 2.7 g/dL (3.4-5.0) Albumin/Globulin Ratio 0.7 (1.0-1.7) Procalcitonin 1.45 ng/mL (0.00-0.10) Mycoplasma Serology (LAB) Positive (NEGATIVE) Test 05/29/18 06:51 05/29/18 11:34 05/29/18 17:08 05/29/18 21:00 Glucose (Fingerstick) 183 mg/dL (70-99) 174 mg/dL (70-99) 226 mg/dL (70-99) 196 mg/dL (70-99) Test 05/30/18 07:09 Glucose (Fingerstick) 263 mg/dL (70-99) Laboratory Tests Test 05/29/18 11:34 05/29/18 17:08 05/29/18 21:00 05/30/18 07:09 Glucose (Fingerstick) 174 mg/dL (70-99) 226 mg/dL (70-99) 196 mg/dL (70-99) 263 mg/dL (70-99) Microbiology 05/26/18 Blood Culture - Preliminary, Resulted NO GROWTH AFTER 3 DAYS Medications Current Medications Albuterol/ Ipratropium (Duoneb) 3 ml 1X ONCE NEB Last administered on at 09:13; Start 05/26/18 at 09:00; Stop 05/26/18 at 09:01; Status DC Methylprednisolone Sodium Succinate (SOLU-Medrol 125MG VIAL) 125 mg 1X ONCE IV Last administered on 05/26/18at 09:35; Start 05/26/18 at 09:00; Stop 05/26/18 at 09:01; Status DC Oseltamivir Phosphate (Tamiflu) 30 mg ONCE ONCE PO Last administered on at 13:06; Start 05/26/18 at 13:00; Stop 05/26/18 at 13:01; Status DC Aspirin (Children'S Aspirin) 324 mg 1X ONCE PO Last administered on 05/26/18at 12:37; Start 05/26/18 at 12:30; Stop 05/26/18 at 12:31; Status DC Ondansetron HCl (Zofran) 4 mg PRN Q8HRS PRN IV NAUSEA/VOMITING; Start 05/26/18 at 12:30; Stop 05/27/18 at 12:29; Status DC Morphine Sulfate (Morphine Sulfate) 4 mg PRN Q2HR PRN IV PAIN; Start 05/26/18 at 12:30; Stop 05/27/18 at 12:29; Status DC Acetaminophen (Tylenol) 650 mg PRN Q4HRS PRN PO FEVER; Start 05/26/18 at 12:30 ; Stop 05/27/18 at 12:29; Status DC Nitroglycerin (Nitrostat) 0.4 mg PRN Q5MIN PRN SL CHEST PAIN; Start 05/26/18 at 12:30; Stop 05/27/18 at 12:29; Status DC Oseltamivir Phosphate (Tamiflu) 30 mg QTUTHSA PO Last administered on 18:54; Start 05/28/18 at 16:00; Stop 05/30/18 at 23:59 Albuterol/ Ipratropium (Duoneb) 3 ml TID NEB Last administered on 05/26/18 20: 17; Start 05/26/18 at 14:00; Stop 05/26/18 at 21:58; Status DC Aspirin (Ecotrin) 325 mg DAILY PO Last administered on 05/30/18 08:26; Start 05/27/18 at 09:00 Fluticasone Propionate (Flonase) 2 spray DAILY NS Last administered on 08:24; Start 05/27/18 at 09:00 Insulin Glargine (Lantus) 15 units QHS SQ Last administered on 05/29/18 21:07 ; Start 05/26/18 at 22:00 Sodium Bicarbonate (Sodium Bicarbonate) 650 mg TIDWMEALS PO Last administered on 05/30/18 08:24; Start 05/27/18 at 08:00 Tamsulosin HCl (Flomax) 0.4 mg DAILY PO Last administered on 05/30/18 08:24; Start 05/27/18 at 09:00 Amlodipine Besylate (Norvasc) 2.5 mg DAILY PO Last administered on 05/30/18 08 :26; Start 05/27/18 at 09:00 Budesonide (Pulmicort) 0.5 mg RTBID NEB Last administered on 05/30/18 07:14; Start 05/27/18 at 08:00 Atorvastatin Calcium (Lipitor) 5 mg QHS PO Last administered on 05/29/18 21:01 ; Start 05/27/18 at 21:00 Ondansetron HCl (Zofran Odt) 4 mg PRN BID PRN PO NAUSEA/VOMITING 1ST CHOICE; Start 05/26/18 at 22:00 Polyethylene Glycol (miraLAX PACKET) 17 gm PRN DAILY PRN PO CONSTIPATION 1ST CHOICE; Start 05/27/18 at 09:00 Pantoprazole Sodium (Protonix) 40 mg DAILYAC PO Last administered on 3/21/19at 08:24; Start 05/27/18 at 07:30 Insulin Human Lispro (HumaLOG) 0-7 UNITS TIDWMEALS SQ Last administered on 05/30at 08:40; Start 05/27/18 at 08:00 Dextrose (Dextrose 50%-Water Syringe) 12.5 gm PRN Q15MIN PRN IV SEE COMMENTS; Start 05/26/18 at 21:45 Insulin Human Lispro (HumaLOG) 10 units 1X ONCE SQ Last administered on at 22:47; Start 05/26/18 at 22:00; Stop 05/26/18 at 22:01; Status DC Albuterol/ Ipratropium (Duoneb) 3 ml RTQID NEB Last administered on 05/30/18at 07:14; Start 05/27/18 at 08:00 Insulin Human Lispro (HumaLOG) 4 units 1X ONCE SQ Last administered on at 03:18; Start 05/27/18 at 03:30; Stop 05/27/18 at 03:31; Status DC Acetaminophen (Tylenol) 650 mg PRN Q6HRS PRN PO MILD PAIN Last administered on 05/29/18at 17:35; Start 05/27/18 at 20:45 Sodium Chloride 1,000 ml @ 1,000 mls/hr Q1H PRN IV hypotension; Start 05/28/18 at 07:42; Stop 05/28/18 at 13:41; Status DC Sodium Chloride 1,000 ml @ 400 mls/hr Q2H30M PRN IV PATENCY; Start 05/28/18 at 07:42; Stop 05/28/18 at 19:41; Status DC Info (PHARMACY MONITORING -- do not chart) 1 each PRN DAILY PRN MC SEE COMMENTS ; Start 05/28/18 at 07:45; Stop 05/28/18 at 07:53; Status DC Info (PHARMACY MONITORING -- do not chart) 1 each PRN DAILY PRN MC SEE COMMENTS ; Start 05/28/18 at 07:45; Stop 05/28/18 at 07:53; Status DC Piperacillin Sod/ Tazobactam Sod (Zosyn Per Pharmacy) 1 each PRN DAILY PRN MC SEE COMMENTS; Start 05/29/18 at 12:30 Piperacillin Sod/ Tazobactam Sod 2.25 gm/Sodium Chloride 50 ml @ 100 mls/hr Q8HRS IV Last administered on 05/30/18 05:10; Start 05/29/18 at 13:00 Lactobacillus Rhamnosus (Culturelle) 1 cap BID PO Last administered on 08:24; Start 05/29/18 at 21:00 Ascorbic Acid (Vitamin C) 500 mg DAILY PO Last administered on 05/30/18 08:24 ; Start 05/29/18 at 14:30 Multivitamins/ Minerals (I-Alyssa) 1 tab DAILY PO Last administered on 05/30/18 08:27; Start 05/29/18 at 14:30 Methylprednisolone Sodium Succinate (SOLU-Medrol 40MG VIAL) 40 mg Q12HR IV Last administered on 05/30/18 08:27; Start 05/29/18 at 21:00 Guaifenesin/ Codeine Phosphate (Robitussin Ac) 5 ml PRN Q6HRS PRN PO COUGH Last administered on 05/29/18at 21:01; Start 05/29/18 at 20:00 Zolpidem Tartrate (Ambien) 5 mg PRN QHS PRN PO INSOMNIA Last administered on 21:01; Start 05/29/18 at 20:00 Active Scripts Active Tamiflu (Oseltamivir Phosphate) 30 Mg Capsule 30 Mg PO QTUTHSA 3 Days [Pantoprazole] 40 MG Tablet.dr 40 Mg PO DAILYAC 30 Days Polyethylene Glycol 3350 17 Gm Powd.pack 17 Gm PO PRN DAILY PRN 30 Days Fluticasone Propionate Nasal [place] (Fluticasone Propionate) 16 Gm [place].susp 2 [place] NS DAILY 30 Days Advair 250-50 Diskus (Fluticasone/Salmeterol) 1 Each Disk.w.dev 1 Puff IH BID Amlodipine Besylate 2.5 Mg Tablet 2.5 Mg PO DAILY 30 Days Zofran (Ondansetron Hcl) 4 Mg Tablet 4 Mg PO BID PRN Reported Lantus Solostar (Insulin Glargine,Hum.rec.anlog) 100 Unit/1 Ml Insuln.pen 11 Unit SQ QHS Lovastatin 20 Mg Tablet 1 Tab PO DAILY Celia-Alyssa Rx Tablet (Vit B Cmplx 3/Fa/Vit C/Biotin) 1 Each Tablet 1 Each PO Tamsulosin Hcl 0.4 Mg Cap.er.24h 1 Cap PO DAILY Apidra (Insulin Glulisine) 100 Unit/1 Ml Vial 5 Unit SQ TIDBFRMEAL PRN Sodium Bicarbonate 650 Mg Tablet 1 Tab PO TID Ecotrin (Aspirin) 325 Mg Tablet.dr 325 Mg PO Vitals/I & O Vital Sign - Last 24 Hours 05/29/18 05/29/18 05/29/18 05/29/18 11:46 11:50 14:50 15:34 Temp 97.4 97.4 97.4 97.4 Pulse 81 88 Resp 20 20 B/P (MAP) 141/67 (91) 133/66 (88) Pulse Ox 100 98 O2 Delivery Nasal Cannula Nasal Cannula Nasal Cannula Nasal Cannula O2 Flow Rate 2.0 2.0 2.0 2.0 05/29/18 05/29/18 05/29/18 05/29/18 19:34 19:53 20:05 23:20 Temp 98.9 97.9 98.9 97.9 Pulse 97 87 Resp B/P (MAP) 117/58 (77) 120/56 (77) Pulse Ox 96 97 O2 Delivery Nasal Cannula Nasal Cannula Nasal Cannula Nasal Cannula O2 Flow Rate 2.0 2.0 2.0 2.0 05/30/18 05/30/18 05/30/18 05/30/18 03:49 07:15 07:24 08:26 Temp 98.4 97.2 98.4 97.2 Pulse 78 82 82 Resp 18 B/P (MAP) 147/70 (95) 130/68 (88) 130/68 Pulse Ox 97 95 98 O2 Delivery Nasal Cannula Nasal Cannula Nasal Cannula O2 Flow Rate 2.0 2.0 2.0 Intake and Output 05/29/18 05/29/18 05/30/18 15:00 23:00 07:00 Intake Total 240 ml 700 ml 500 ml Output Total 250 ml 200 ml Balance 240 ml 450 ml 300 ml JESSI GRIMM MD May 30, 2018 09:09
--- NOTE | 2018-05-30 09:43 | PDOC ---
PROGRESS NOTES Subjective Subjective feeling better today Objective Objective Vital Signs Date Time Temp Pulse Resp B/P (MAP) Pulse Ox O2 Delivery O2 Flow Rate FiO2 05/30/18 08:26 82 130/68 05/30/18 08:00 Nasal Cannula 2.0 05/30/18 07:24 97.2 18 98 97.2 Intake and Output 05/30/18 07:00 Intake Total 1440 ml Output Total 450 ml Balance 990 ml Intake Oral 1440 ml Output Urine Total 450 ml Physical Exam Abdomen: Normal bowel sounds, Soft, No tenderness, No hepatosplenomegaly, No masses Heart: Regular rate, Normal S1, Normal S2, No murmurs, Gallops Extremities: No clubbing General: Alert Lungs: Clear to auscultation, Normal air movement MUSCULOSKELETAL: No deformity Neuro: Normal speech Psych/Mental Status: Mood NL Diagnosis Problem List Problems Medical Problems: (1) Generalized weakness Status: Acute (2) Influenza A Status: Acute (3) NSTEMI (non-ST elevated myocardial infarction) Status: Acute RENAL FAILURE: ESRD Assessment Assessment Problems Medical Problems: (1) Generalized weakness Status: Acute (2) Influenza A Status: Acute (3) NSTEMI (non-ST elevated myocardial infarction) Status: Acute FINAL IMPRESSION:Mycoplasma pneumonia? 1. Influenza A lung infection. 2. End-stage renal disease, on hemodialysis.Pt was started on dialysis 4 months ago 3. Coronary artery disease. The patient has a previous CABG surgery. Medical management. 4. Diabetes, insulin-dependent. 5. Elevated liver function tests.?Fatty Liver. 6. Borderline elevation in troponin, possible demand ischemia. 7. Peripheral vascular disease.Foot ulcer /eschar PLAN: Mycoplasma antibody positive.Add zithromax CT chest ? ILD Pneumonitis . Pul consult requested iv antibiotics and steroids Dialysis today cxr worsening lung infiltrates echo 20% ejf. snu screen. Tamiflue foot debridement done . fatty liver on sono dec pulses on doppler Plan Plan of Care Problems Medical Problems: (1) Generalized weakness Status: Acute (2) Influenza A Status: Acute (3) NSTEMI (non-ST elevated myocardial infarction) Status: Acute Comment Review of Relevant I have reviewed the following items shar (where applicable) has been applied. Labs Laboratory Tests Test 05/29/18 11:34 05/29/18 17:08 05/29/18 21:00 05/30/18 07:09 Glucose (Fingerstick) 174 mg/dL (70-99) 226 mg/dL (70-99) 196 mg/dL (70-99) 263 mg/dL (70-99) Microbiology 05/26/18 Blood Culture - Preliminary, Resulted NO GROWTH AFTER 3 DAYS Medications Current Medications Ascorbic Acid (Vitamin C) 500 mg DAILY PO Last administered on 05/30/18 08:24 ; Start 05/29/18 at 14:30 Guaifenesin/ Codeine Phosphate (Robitussin Ac) 5 ml PRN Q6HRS PRN PO COUGH Last administered on 05/29/18at 21:01; Start 05/29/18 at 20:00 Lactobacillus Rhamnosus (Culturelle) 1 cap BID PO Last administered on 08:24; Start 05/29/18 at 21:00 Methylprednisolone Sodium Succinate (SOLU-Medrol 40MG VIAL) 40 mg Q12HR IV Last administered on 05/30/18at 08:27; Start 05/29/18 at 21:00 Multivitamins/ Minerals (I-Alyssa) 1 tab DAILY PO Last administered on 05/30/18at 08:27; Start 05/29/18 at 14:30 Piperacillin Sod/ Tazobactam Sod (Zosyn Per Pharmacy) 1 each PRN DAILY PRN MC SEE COMMENTS; Start 05/29/18 at 12:30 Piperacillin Sod/ Tazobactam Sod 2.25 gm/Sodium Chloride 50 ml @ 100 mls/hr Q8HRS IV Last administered on 05/30/18at 05:10; Start 05/29/18 at 13:00 Zolpidem Tartrate (Ambien) 5 mg PRN QHS PRN PO INSOMNIA Last administered on 21:01; Start 05/29/18 at 20:00 Vitals/I & O Vital Sign - Last 24 Hours 05/29/18 05/29/18 05/29/18 05/29/18 11:46 11:50 14:50 15:34 Temp 97.4 97.4 97.4 97.4 Pulse 81 88 Resp 20 20 B/P (MAP) 141/67 (91) 133/66 (88) Pulse Ox 100 98 O2 Delivery Nasal Cannula Nasal Cannula Nasal Cannula Nasal Cannula O2 Flow Rate 2.0 2.0 2.0 2.0 3/20/19 3/20/19 3/20/19 3/20/19 19:34 19:53 20:05 23:20 Temp 98.9 97.9 98.9 97.9 Pulse 97 87 Resp 18 B/P (MAP) 117/58 (77) 120/56 (77) Pulse Ox 96 97 O2 Delivery Nasal Cannula Nasal Cannula Nasal Cannula Nasal Cannula O2 Flow Rate 2.0 2.0 2.0 2.0 05/30/18 05/30/18 05/30/18 05/30/18 03:49 07:15 07:24 08:00 Temp 98.4 97.2 98.4 97.2 Pulse 78 82 Resp 18 B/P (MAP) 147/70 (95) 130/68 (88) Pulse Ox 97 95 98 O2 Delivery Nasal Cannula Nasal Cannula Nasal Cannula Nasal Cannula O2 Flow Rate 2.0 2.0 2.0 2.0 05/30/18 08:26 Pulse 82 B/P (MAP) 130/68 Intake and Output 05/29/18 05/29/18 05/30/18 15:00 23:00 07:00 Intake Total 240 ml 700 ml 500 ml Output Total 250 ml 200 ml Balance 240 ml 450 ml 300 ml FLAVIA HOOVER MD May 30, 2018 09:43
[2018-05-30] MEDS ORDERED: AZITHROMYCIN 250 MG TABLET. PO ONE (09:45)
--- NOTE | 2018-05-30 11:05 | NUR ---
SS following up with discharge planning. Pt has dialysis chair time at [facility], Sunday, , and Sunday at 1500. PT/OT recommended long term unit. SS met with pt to discuss long term and discharge planning. Pt agreeable to long term unit and requested referral be sent to [facility], ; fax [phone]. SS phoned and faxed referral to [facility]. Pt currently accepted pending insurance authorization. Pt's RN notified.
[2018-05-30 11:09] VITALS: BP 137/65
--- NOTE | 2018-05-30 12:09 | PDOC ---
Subjective: Subjective: Feels better today. Tolerating PO. Has stooled a little but would like some help. Objective: Vital Signs: Vital Signs Date Time Temp Pulse Resp B/P (MAP) Pulse Ox O2 Delivery O2 Flow Rate FiO2 05/30/18 11:09 97.4 80 18 137/65 (89) 100 Nasal Cannula 2.0 97.4 Labs: Laboratory Tests Test 05/29/18 17:08 05/29/18 21:00 05/30/18 07:09 05/30/18 11:02 Glucose (Fingerstick) 226 mg/dL 196 mg/dL 263 mg/dL 335 mg/dL PE: GEN: NAD LUNGS: CTAB HEART: RRR ABD: S/ND/NT NEURO/PSYCH: A & O 3 A/P: Elevated LFTs, hepatic steatosis CHF, ESRD, +influenza A, ?pneumonia Constipation -- Scheduled Miralax, can also try Dulcolax. BRENDA WANG May 30, 2018 12:09
[2018-05-30] MEDS ORDERED: BISACODYL 5 MG TABLET.DR. PO ONE (12:15)
--- NOTE | 2018-05-30 15:04 | PDOC ---
PULMONARY PROGRESS NOTES Subjective pt seen in dialysis feels better Vitals Vital Signs Date Time Temp Pulse Resp B/P (MAP) Pulse Ox O2 Delivery O2 Flow Rate FiO2 05/30/18 11:09 97.4 80 18 137/65 (89) 100 Nasal Cannula 2.0 97.4 General: Alert, No acute distress HEENT: Other Lungs: Clear Cardiovascular: S1, S2 Abdomen: Soft, Non-tender Extremities: Other (1+edema) Labs Laboratory Tests Test 05/28/18 16:49 05/28/18 19:58 05/29/18 04:30 05/29/18 06:51 Glucose (Fingerstick) 169 mg/dL (70-99) 218 mg/dL (70-99) 183 mg/dL (70-99) White Blood Count 7.0 x10^3/uL (4.0-11.0) Red Blood Count 3.90 x10^6/uL (4.30-5.70) Hemoglobin 12.2 g/dL (13.0-17.5) Hematocrit 38.2 % (39.0-53.0) Mean Corpuscular Volume 98 fL (79-100) Mean Corpuscular Hemoglobin 31 pg (25-35) Mean Corpuscular Hemoglobin Concent 32 g/dL (31-37) Red Cell Distribution Width 18.6 % (11.5-14.5) Platelet Count 149 x10^3/uL (140-400) Neutrophils (%) (Auto) 85 % (31-73) Lymphocytes (%) (Auto) 5 % (24-48) Monocytes (%) (Auto) 9 % (0-9) Eosinophils (%) (Auto) 0 % (0-3) Basophils (%) (Auto) 0 % (0-3) Neutrophils # (Auto) 6.0 x10^3uL (1.8-7.7) Lymphocytes # (Auto) 0.4 x10^3/uL (1.0-4.8) Monocytes # (Auto) 0.6 x10^3/uL (0.0-1.1) Eosinophils # (Auto) 0.0 x10^3/uL (0.0-0.7) Basophils # (Auto) 0.0 x10^3/uL (0.0-0.2) Sodium Level 135 mmol/L (136-145) Potassium Level 4.5 mmol/L (3.5-5.1) Chloride Level 96 mmol/L (98-107) Carbon Dioxide Level 28 mmol/L (21-32) Anion Gap 11 (6-14) Blood Urea Nitrogen 50 mg/dL (8-26) Creatinine 4.1 mg/dL (0.7-1.3) Estimated GFR (Cockcroft-Gault) 14.0 BUN/Creatinine Ratio 12 (6-20) Glucose Level 197 mg/dL (70-99) Calcium Level 8.4 mg/dL (8.5-10.1) Iron Level 26 ug/dL (65-175) Total Iron Binding Capacity 216 ug/dL (250-450) Iron Saturation 12 % (15-34) Total Bilirubin 1.2 mg/dL (0.2-1.0) Aspartate Amino Transf (AST/SGOT) 206 U/L (15-37) Alanine Aminotransferase (ALT/SGPT) 367 U/L (16-63) Alkaline Phosphatase 167 U/L (46-116) Total Protein 6.8 g/dL (6.4-8.2) Albumin 2.7 g/dL (3.4-5.0) Albumin/Globulin Ratio 0.7 (1.0-1.7) Procalcitonin 1.45 ng/mL (0.00-0.10) Mycoplasma Serology (LAB) Positive (NEGATIVE) Test 05/29/18 11:34 05/29/18 17:08 05/29/18 21:00 05/30/18 07:09 Glucose (Fingerstick) 174 mg/dL (70-99) 226 mg/dL (70-99) 196 mg/dL (70-99) 263 mg/dL (70-99) Test 05/30/18 07:53 05/30/18 11:02 Group A Streptococcus Rapid Negative (NEGATIVE) Glucose (Fingerstick) 335 mg/dL (70-99) Laboratory Tests Test 05/29/18 17:08 05/29/18 21:00 05/30/18 07:09 05/30/18 07:53 Glucose (Fingerstick) 226 mg/dL (70-99) 196 mg/dL (70-99) 263 mg/dL (70-99) Group A Streptococcus Rapid Negative (NEGATIVE) Test 05/30/18 11:02 Glucose (Fingerstick) 335 mg/dL (70-99) Medications Active Scripts Medications Dose Route/Sig Max Daily Dose Days Date Category Tamiflu (Oseltamivir Phosphate) 30 Mg Capsule 30 Mg PO QTUTHSA 3 05/29/18 Rx Lantus Solostar (Insulin Glargine,Hum.rec.anlog) 100 Unit/1 Ml Insuln.pen 11 Unit SQ QHS 05/26/18 Reported [Pantoprazole] 40 MG Tablet.dr 40 Mg PO DAILYAC 30 02/10/18 Rx Polyethylene Glycol 3350 17 Gm Powd.pack 17 Gm PO PRN DAILY PRN 30 02/10/18 Rx Fluticasone Propionate Nasal [place] (Fluticasone Propionate) 16 Gm [place].susp 2 [place] NS DAILY 30 02/10/18 Rx Advair 250-50 Diskus (Fluticasone/Salmeterol) 1 Each Disk.w.dev 1 Puff IH BID 02/08/18 Rx Amlodipine Besylate 2.5 Mg Tablet 2.5 Mg PO DAILY 30 02/08/18 Rx Zofran (Ondansetron Hcl) 4 Mg Tablet 4 Mg PO BID PRN 05/20/16 Rx Lovastatin 20 Mg Tablet 1 Tab PO DAILY 09/11/15 Reported Celia-Alyssa Rx Tablet (Vit B Cmplx 3/Fa/Vit C/Biotin) 1 Each Tablet 1 Each PO 09/11/15 Reported Tamsulosin Hcl 0.4 Mg Cap.er.24h 1 Cap PO DAILY 02/01/14 Reported Apidra (Insulin Glulisine) 100 Unit/1 Ml Vial 5 Unit SQ TIDBFRMEAL PRN 02/01/14 Reported Sodium Bicarbonate 650 Mg Tablet 1 Tab PO TID 02/01/14 Reported Ecotrin (Aspirin) 325 Mg Tablet. 325 Mg PO 02/01/14 Reported Impression . 1. Dyspnea with acute hypoxic respiratory failure secondary to multifactorial etiologies including influenza A, possible superimposed bacterial infection with gram-negative organisms and acute on chronic systolic heart failure. 2. Abnormal CT chest and abnormal chest x-ray. There are bilateral interstitial/reticular nodular infiltrates. Likely inflammatory in etiology. They are present in the upper and lower lobes. Unlikely any interstitial lung disease or fibrosis as his chest x-ray from January was clear. All these findings appear to be new. 3. Minimal history of tobacco use. 4. Severe cardiomyopathy with an ejection fraction of 20%-25%, moderate MR and likely superimposed congestive heart failure. 5. End-stage renal disease, on hemodialysis. Plan . 1. Continue with present oxygen. 2. Continue Tamiflu. 3. empiric antibiotic. 4. procalcitonin level 1.46. continue Abx 5. Would recommend increase ultrafiltration with hemodialysis. 6. Continue bronchodilators. 7. Would recommend repeating a chest x-ray in 2-3 days after effective dialysis. DIONTE MORA MD May 30, 2018 15:03
--- NOTE | 2018-05-30 16:01 | NUR ---
SW following pt. SW notified insurance has approved SNU. Spoke with RN and pt is not ready to dc today. Will continue to follow.
[2018-05-30] MEDS: OSELTAMIVIR 30 MG CAPSULE PO SCH (17:02)
[2018-05-30 19:37] VITALS: BP 111/51
[2018-05-30] MEDS: POLYETHYLENE GLYCOL 3350 17 GM PACKET. PO SCH (21:06)
[2018-05-30] MEDS: ATORVASTATIN CALCIUM 10 MG TABLET. PO SCH (21:06)
[2018-05-30] MEDS: INSULIN GLARGINE 300 UNITS/3 ML INSULN.PEN. SQ SCH (21:08)
[2018-05-30 23:15] VITALS: BP 99/53
[2018-05-31 03:28] VITALS: BP 114/60
[2018-05-31] MEDS: PIPERACILLIN/TAZOBACTAM 2.25 GM in IV NORMAL SALINE 50ML 50 ML IV SCH (06:00)
[2018-05-31 07:34] VITALS: BP 124/59
[2018-05-31] MEDS: BUDESONIDE 0.5 MG/2 ML NEBU. NEB SCH (07:48)
[2018-05-31] MEDS: IPRATRPIUM/ALBUTEROL 0.5/2.5MG 3 ML NEBU. NEB SCH (07:48)
[2018-05-31] MEDS ORDERED: AZIT250T PO (08:30)
[2018-05-31] MEDS ORDERED: PRED50TA PO (08:34)
[2018-05-31] MEDS: PANTOPRAZOLE 40 MG TABLET.DR. PO SCH (08:36)
[2018-05-31] MEDS: ASPIRIN ENTERIC COATED 325 MG TABLET.DR. PO SCH (08:36)
[2018-05-31] MEDS: LACTOBACILLUS RHAMNOSUS GG 1 CAPSULE. PO SCH (08:36)
[2018-05-31] MEDS: MULTIVITAMIN I-VITE TABLET. PO SCH (08:36)
[2018-05-31] MEDS: TAMSULOSIN 0.4 MG CAP.ER.24H. PO SCH (08:36)
[2018-05-31] MEDS: ASCORBIC ACID 500 MG TABLET PO SCH (08:36)
[2018-05-31] MEDS: SODIUM BICARBONATE 650 MG TABLET. PO SCH (08:36)
[2018-05-31 08:39] VITALS: BP 124/59
[2018-05-31] MEDS: POLYETHYLENE GLYCOL 3350 17 GM PACKET. PO SCH (08:39)
[2018-05-31] MEDS: amLODIPine BESYLATE 5 MG TABLET PO SCH (08:39)
--- NOTE | 2018-05-31 08:43 | PDOC ---
PROGRESS NOTES Subjective Subjective feeling better today Objective Objective Vital Signs Date Time Temp Pulse Resp B/P (MAP) Pulse Ox O2 Delivery O2 Flow Rate FiO2 05/31/18 07:49 100 Nasal Cannula 2.0 05/31/18 07:34 97.8 77 21 124/59 (80) 97.8 Intake and Output 05/31/18 07:00 Intake Total 1650 ml Balance 1650 ml Intake Oral 1600 ml IV Total 50 ml # Voids 1 # Bowel Movements 2 Physical Exam Abdomen: Normal bowel sounds, Soft, No tenderness, No hepatosplenomegaly, No masses Heart: Regular rate, Normal S1, Normal S2, No murmurs, Gallops Extremities: No clubbing General: Alert Lungs: Clear to auscultation, Normal air movement MUSCULOSKELETAL: No deformity Neuro: Normal speech Psych/Mental Status: Mood NL Diagnosis Problem List Problems Medical Problems: (1) Generalized weakness Status: Acute (2) Influenza A Status: Acute (3) NSTEMI (non-ST elevated myocardial infarction) Status: Acute RENAL FAILURE: ESRD Assessment Assessment Problems Medical Problems: (1) Generalized weakness Status: Acute (2) Influenza A Status: Acute (3) NSTEMI (non-ST elevated myocardial infarction) Status: Acute FINAL IMPRESSION:Mycoplasma pneumonia? 1. Influenza A lung infection. 2. End-stage renal disease, on hemodialysis.Pt was started on dialysis 4 months ago 3. Coronary artery disease. The patient has a previous CABG surgery. Medical management. 4. Diabetes, insulin-dependent. 5. Elevated liver function tests.?Fatty Liver. 6. Borderline elevation in troponin, possible demand ischemia. 7. Peripheral vascular disease.Foot ulcer /eschar PLAN: d/c to SNU today,[place] Mycoplasma antibody positive.Add zithromax CT chest ? ILD Pneumonitis .added prednisone for 5 days Pul consult appreciated Dialysis yesterday cxr improving, lung infiltrates echo 20% ejf. snu screen. d/c Tamiflue foot debridement done . fatty liver on sono dec pulses on doppler Plan Plan of Care Problems Medical Problems: (1) Generalized weakness Status: Acute (2) Influenza A Status: Acute (3) NSTEMI (non-ST elevated myocardial infarction) Status: Acute Comment Review of Relevant I have reviewed the following items shar (where applicable) has been applied. Labs Laboratory Tests Test 05/30/18 11:02 05/30/18 16:58 05/30/18 20:14 05/31/18 08:12 Glucose (Fingerstick) 335 mg/dL (70-99) 114 mg/dL (70-99) 284 mg/dL (70-99) 319 mg/dL (70-99) Microbiology 05/26/18 Blood Culture - Preliminary, Resulted NO GROWTH AFTER 4 DAYS Medications Current Medications Azithromycin (Zithromax) 250 mg DAILY PO ; Start 05/31/18 at 09:00 Azithromycin (Zithromax) 500 mg 1X ONCE PO Last administered on 05/30/18at 10: 21; Start 05/30/18 at 09:45; Stop 05/30/18 at 09:48; Status DC Bisacodyl (Dulcolax Tab) 10 mg 1X ONCE PO Last administered on 05/30/18at 17:02 ; Start 05/30/18 at 12:15; Stop 05/30/18 at 12:16; Status DC Methylprednisolone Sodium Succinate (SOLU-Medrol 40MG VIAL) 40 mg DAILY IV ; Start 05/31/18 at 09:00 Polyethylene Glycol (miraLAX PACKET) 17 gm BID PO Last administered on at 21:06; Start 05/30/18 at 21:00 Vitals/I & O Vital Sign - Last 24 Hours 05/30/18 05/30/18 05/30/18 05/30/18 10:34 11:09 19:37 19:48 Temp 97.4 97.5 97.4 97.5 Pulse 80 80 Resp 18 19 B/P (MAP) 137/65 (89) 111/51 (71) Pulse Ox 100 96 95 O2 Delivery Nasal Cannula Nasal Cannula Nasal Cannula Nasal Cannula O2 Flow Rate 2.0 2.0 2.0 2.0 05/30/18 05/30/18 05/30/18 05/31/18 19:48 20:00 23:15 03:28 Temp 97.3 97.9 97.3 97.9 Pulse 72 77 Resp 18 21 B/P (MAP) 99/53 (68) 114/60 (78) Pulse Ox 95 95 99 O2 Delivery Nasal Cannula Nasal Cannula Room Air Nasal Cannula O2 Flow Rate 2.0 2.0 2.0 05/31/18 05/31/18 07:34 07:49 Temp 97.8 97.8 Pulse 77 Resp 21 B/P (MAP) 124/59 (80) Pulse Ox 100 100 O2 Delivery Nasal Cannula Nasal Cannula O2 Flow Rate 2.0 2.0 Intake and Output 05/30/18 05/30/18 05/31/18 15:00 23:00 07:00 Intake Total 350 ml 800 ml 500 ml Balance 350 ml 800 ml 500 ml FLAVIA HOOVER MD May 31, 2018 08:43
--- NOTE | 2018-05-31 08:45 | SNU/HH DC ---
DISCHARGE ORDERS DISCHARGE INFORMATION: DISCHARGE DATE: May 31, 2018 FINAL DIAGNOSIS Problems Medical Problems: (1) Generalized weakness Status: Acute (2) Influenza A Status: Acute (3) NSTEMI (non-ST elevated myocardial infarction) Status: Acute CONDITION ON DISCHARGE: Stable CODE STATUS: Code Status: Full LONG-TERM: SNF STAY <30 DAYS: Yes HOSPICE: HOSPICE: No HOSPICE EVAL & TREAT: No POST DISCHARGE ORDERS: ACTIVITY ORDERS: Activity as tolerated, Other, see below DIET AFTER DISCHARGE: Renal WOUND/INCISION CARE: Change dressing OTHER ORDERS: Dialysis ,,sat CHECKS AFTER DISCHARGE: CHECKS AFTER DISCHARGE: Check blood sugar, ac/hs TREATMENT/EQUIPMENT ORDERS: ADAPTIVE EQUIPMENT NEEDED: None RESPIRATORY EQUIPMENT NEEDED: Oxygen (2L) Physical Therapy For: Evalulation/Treatment Occupational Therapy For: Evaluation/Treatment DISCHARGE MEDICATIONS: Home Meds Active Scripts Prednisone (PREDNISONE) 50 Mg Tablet, 1 TAB PO DAILY for lung, #5 TAB Prov:FLAVIA HOOVER MD 05/31/18 Azithromycin (ZITHROMAX) 250 Mg Tablet, 250 MG PO DAILY for ANTI-BIOTIC for 3 Days, #3 TAB 0 Refills Prov:FLAVIA HOOVER MD 05/31/18 [Pantoprazole] [address] [place]ivais Conflict Check, 40 MG PO DAILYAC for 30 Days, #30 TAB Prov:MELIZA BYERS MD 02/10/18 Polyethylene Glycol 3350 (POLYETHYLENE GLYCOL 3350) 17 Gm Powd.pack, 17 GM PO PRN DAILY PRN for CONSTIPATION for 30 Days, #30 PKT Prov:MELIZA BYERS MD 02/10/18 Fluticasone Propionate (FLUTICASONE PROPIONATE NASAL SPRAY) 16 Gm [place].susp, 2 SPRAY NS DAILY for allergies for 30 Days, #1 SPRAY Prov:MELIZA BYERS MD 02/10/18 Fluticasone/Salmeterol (ADVAIR 250-50 DISKUS) 1 Each Disk.w.dev, 1 PUFF IH BID for copd, #3 INHALER 3 Refills Prov:FLAVIA HOOVER MD 02/08/18 Amlodipine Besylate (AMLODIPINE BESYLATE) 2.5 Mg Tablet, 2.5 MG PO DAILY for htn for 30 Days, #30 TAB Prov:FLAVIA HOOVER MD 02/08/18 Ondansetron Hcl (ZOFRAN) 4 Mg Tablet, 4 MG PO BID PRN for NAUSEA/VOMITING, #10 TAB Prov:MERCEDESLANMARIANO DO 05/20/16 Reported Medications Insulin Glargine,Hum.rec.anlog (LANTUS SOLOSTAR) 100 Unit/1 Ml Insuln.pen, 11 UNIT SQ QHS for blood sugar control , #15 ML 3 Refills 05/26/18 Lovastatin (LOVASTATIN) 20 Mg Tablet, 1 TAB PO DAILY, #30 TAB 5 Refills 09/11/15 Vit B Cmplx 3/Fa/Vit C/Biotin (ALONSO-PRANEETH RX TABLET) 1 Each Tablet, 1 EACH PO 09/11/15 Tamsulosin Hcl (TAMSULOSIN HCL) 0.4 Mg Cap.er.24h, 1 CAP PO DAILY, #30 CAP 5 Refills 02/01/14 Insulin Glulisine (APIDRA) 100 Unit/1 Ml Vial, 5 UNIT SQ TIDBFRMEAL PRN for HYPERGLYCEMIA, VIAL 02/01/14 Sodium Bicarbonate (SODIUM BICARBONATE) 650 Mg Tablet, 1 TAB PO TID, #60 TAB 5 Refills 02/01/14 Aspirin (ECOTRIN) 325 Mg Tablet.dr, 325 MG PO 02/01/14 Discontinued Reported Medications Ferrous Sulfate (IRON) 325 Mg Capsule.er, 325 MG PO 02/01/14 Insulin Glargine,Hum.rec.anlog (LANTUS) 100 Unit/1 Ml Vial, 25 UNIT SQ HS for DIABETES, VIAL 02/01/14 Discontinued Scripts Hydrocodone Bit/Acetaminophen (HYDROCODONE-APAP 5-325 ) 1 Each Tablet, 1 TAB PO PRN Q6HRS PRN for PAIN, #20 Prov:FLAVIA HOOVER MD 09/14/15 FLAVIA HOOVER MD May 31, 2018 08:45
[2018-05-31] MEDS: INSULIN LISPRO 300 UNITS/3 ML INSULN.PEN. SQ SCH (08:53)
[2018-05-31] MEDS ORDERED: methylPREDNISolone SOD SUCC PF 40 MG/ML VIAL. IV SCH (09:00)
[2018-05-31] MEDS ORDERED: AZITHROMYCIN 250 MG TABLET. PO SCH (09:00)
[2018-05-31] MEDS: FLUTICASONE 50MCG/NASAL SPRAY 16GM BOTTLE. NS SCH (09:00)
--- NOTE | 2018-05-31 09:11 | RAD ---
Indication:CHF TECHNIQUE:Portable AP chest X-ray COMPARISON:05/28/2018 FINDINGS: CABG changes noted. Stable position of dialysis catheter. Heart is mildly enlarged in size. Aortic knob calcifications are seen. Mild bilateral interstitial opacities are seen. No focal consolidation. No pneumothorax or large pleural effusion. Visualized bony thorax within normal limits. IMPRESSION: Mild interstitial pulmonary edema or atypical/viral infection. Electronically signed by: Reynaldo Anderson DO (05/31/2018 9:08 AM) [facility]
[2018-05-31 09:33] LABS: BASO % 0 % (0-3); EOS % 0 % (0-3); HEMATOCRIT 38.5 % (39.0-53.0); HEMOGLOBIN 12.3 g/dL (13.0-17.5); LYMPH # 0.2 x10^3/uL (1.0-4.8); LYMPH % 4 % (24-48); MEAN CORPUSCULAR HEMOGLOBIN 31 pg (25-35); MEAN CORPUSCULAR HGB CONC 32 g/dL (31-37); MEAN CORPUSCULAR VOLUME 99 fL (79-100); MONO # 0.5 x10^3/uL (0.0-1.1); MONO % 7 % (0-9); NEUT # 6.4 x10^3uL (1.8-7.7); NEUT % 90 % (31-73); PLATELET COUNT 163 x10^3/uL (140-400); RED BLOOD COUNT 3.91 x10^6/uL (4.30-5.70); RED CELL DISTRIBUTION WIDTH 18.8 % (11.5-14.5); WHITE BLOOD COUNT 7.1 x10^3/uL (4.0-11.0)
--- NOTE | 2018-05-31 09:42 | NUR ---
SS following up with discharge planning. Discharge orders received for [facility]. SS phoned and faxed discharge orders to [facility], ; fax [phone]. Pt will discharge today and go to [facility] between 1100 and 1130. [facility] to provide transport. Pt and pt's RN notified.
[2018-05-31 09:49] LABS: ALBUMIN 2.7 g/dL (3.4-5.0); ALBUMIN/GLOBULIN RATIO 0.6 (1.0-1.7); CALCIUM 8.6 mg/dL (8.5-10.1); GFR 14.4; POTASSIUM 4.9 mmol/L (3.5-5.1); TOTAL BILIRUBIN 1.2 mg/dL (0.2-1.0)
--- NOTE | 2018-05-31 10:30 | PDOC ---
PULMONARY PROGRESS NOTES Subjective NO INCREASE SOA Vitals Vital Signs Date Time Temp Pulse Resp B/P (MAP) Pulse Ox O2 Delivery O2 Flow Rate FiO2 05/31/18 08:39 77 124/59 05/31/18 08:00 Nasal Cannula 2.0 05/31/18 07:49 100 05/31/18 07:34 97.8 21 97.8 General: Alert, No acute distress HEENT: Other Lungs: Clear Cardiovascular: S1, S2 Abdomen: Soft, Non-tender Extremities: Other (1+edema) Labs Laboratory Tests Test 05/29/18 11:34 05/29/18 17:08 05/29/18 21:00 05/30/18 07:09 Glucose (Fingerstick) 174 mg/dL (70-99) 226 mg/dL (70-99) 196 mg/dL (70-99) 263 mg/dL (70-99) Test 05/30/18 07:53 05/30/18 11:02 05/30/18 16:58 05/30/18 20:14 Group A Streptococcus Rapid Negative (NEGATIVE) Glucose (Fingerstick) 335 mg/dL (70-99) 114 mg/dL (70-99) 284 mg/dL (70-99) Test 05/31/18 08:12 05/31/18 09:08 Glucose (Fingerstick) 319 mg/dL (70-99) White Blood Count 7.1 x10^3/uL (4.0-11.0) Red Blood Count 3.91 x10^6/uL (4.30-5.70) Hemoglobin 12.3 g/dL (13.0-17.5) Hematocrit 38.5 % (39.0-53.0) Mean Corpuscular Volume 99 fL (79-100) Mean Corpuscular Hemoglobin 31 pg (25-35) Mean Corpuscular Hemoglobin Concent 32 g/dL (31-37) Red Cell Distribution Width 18.8 % (11.5-14.5) Platelet Count 163 x10^3/uL (140-400) Neutrophils (%) (Auto) 90 % (31-73) Lymphocytes (%) (Auto) 4 % (24-48) Monocytes (%) (Auto) 7 % (0-9) Eosinophils (%) (Auto) 0 % (0-3) Basophils (%) (Auto) 0 % (0-3) Neutrophils # (Auto) 6.4 x10^3uL (1.8-7.7) Lymphocytes # (Auto) 0.2 x10^3/uL (1.0-4.8) Monocytes # (Auto) 0.5 x10^3/uL (0.0-1.1) Eosinophils # (Auto) 0.0 x10^3/uL (0.0-0.7) Basophils # (Auto) 0.0 x10^3/uL (0.0-0.2) Sodium Level 132 mmol/L (136-145) Potassium Level 4.9 mmol/L (3.5-5.1) Chloride Level 94 mmol/L (98-107) Carbon Dioxide Level 25 mmol/L (21-32) Anion Gap 13 (6-14) Blood Urea Nitrogen 55 mg/dL (8-26) Creatinine 4.0 mg/dL (0.7-1.3) Estimated GFR (Cockcroft-Gault) 14.4 BUN/Creatinine Ratio 14 (6-20) Glucose Level 349 mg/dL (70-99) Calcium Level 8.6 mg/dL (8.5-10.1) Total Bilirubin 1.2 mg/dL (0.2-1.0) Aspartate Amino Transf (AST/SGOT) 81 U/L (15-37) Alanine Aminotransferase (ALT/SGPT) 276 U/L (16-63) Alkaline Phosphatase 168 U/L (46-116) Total Protein 7.0 g/dL (6.4-8.2) Albumin 2.7 g/dL (3.4-5.0) Albumin/Globulin Ratio 0.6 (1.0-1.7) Laboratory Tests Test 05/30/18 11:02 05/30/18 16:58 05/30/18 20:14 05/31/18 08:12 Glucose (Fingerstick) 335 mg/dL (70-99) 114 mg/dL (70-99) 284 mg/dL (70-99) 319 mg/dL (70-99) Test 05/31/18 09:08 White Blood Count 7.1 x10^3/uL (4.0-11.0) Red Blood Count 3.91 x10^6/uL (4.30-5.70) Hemoglobin 12.3 g/dL (13.0-17.5) Hematocrit 38.5 % (39.0-53.0) Mean Corpuscular Volume 99 fL (79-100) Mean Corpuscular Hemoglobin 31 pg (25-35) Mean Corpuscular Hemoglobin Concent 32 g/dL (31-37) Red Cell Distribution Width 18.8 % (11.5-14.5) Platelet Count 163 x10^3/uL (140-400) Neutrophils (%) (Auto) 90 % (31-73) Lymphocytes (%) (Auto) 4 % (24-48) Monocytes (%) (Auto) 7 % (0-9) Eosinophils (%) (Auto) 0 % (0-3) Basophils (%) (Auto) 0 % (0-3) Neutrophils # (Auto) 6.4 x10^3uL (1.8-7.7) Lymphocytes # (Auto) 0.2 x10^3/uL (1.0-4.8) Monocytes # (Auto) 0.5 x10^3/uL (0.0-1.1) Eosinophils # (Auto) 0.0 x10^3/uL (0.0-0.7) Basophils # (Auto) 0.0 x10^3/uL (0.0-0.2) Sodium Level 132 mmol/L (136-145) Potassium Level 4.9 mmol/L (3.5-5.1) Chloride Level 94 mmol/L (98-107) Carbon Dioxide Level 25 mmol/L (21-32) Anion Gap 13 (6-14) Blood Urea Nitrogen 55 mg/dL (8-26) Creatinine 4.0 mg/dL (0.7-1.3) Estimated GFR (Cockcroft-Gault) 14.4 BUN/Creatinine Ratio 14 (6-20) Glucose Level 349 mg/dL (70-99) Calcium Level 8.6 mg/dL (8.5-10.1) Total Bilirubin 1.2 mg/dL (0.2-1.0) Aspartate Amino Transf (AST/SGOT) 81 U/L (15-37) Alanine Aminotransferase (ALT/SGPT) 276 U/L (16-63) Alkaline Phosphatase 168 U/L (46-116) Total Protein 7.0 g/dL (6.4-8.2) Albumin 2.7 g/dL (3.4-5.0) Albumin/Globulin Ratio 0.6 (1.0-1.7) Medications Active Scripts Medications Dose Route/Sig Max Daily Dose Days Date Category Tamiflu (Oseltamivir Phosphate) 30 Mg Capsule 30 Mg PO QTUTHSA 3 05/29/18 Rx Lantus Solostar (Insulin Glargine,Hum.rec.anlog) 100 Unit/1 Ml Insuln.pen 11 Unit SQ QHS 05/26/18 Reported [Pantoprazole] 40 MG Tablet.dr 40 Mg PO DAILYAC 30 02/10/18 Rx Polyethylene Glycol 3350 17 Gm Powd.pack 17 Gm PO PRN DAILY PRN 30 02/10/18 Rx Fluticasone Propionate Nasal [place] (Fluticasone Propionate) 16 Gm [place].susp 2 [place] NS DAILY 30 02/10/18 Rx Advair 250-50 Diskus (Fluticasone/Salmeterol) 1 Each Disk.w.dev 1 Puff IH BID 02/08/18 Rx Amlodipine Besylate 2.5 Mg Tablet 2.5 Mg PO DAILY 30 02/08/18 Rx Zofran (Ondansetron Hcl) 4 Mg Tablet 4 Mg PO BID PRN 05/20/16 Rx Lovastatin 20 Mg Tablet 1 Tab PO DAILY 09/11/15 Reported Celia-Alyssa Rx Tablet (Vit B Cmplx 3/Fa/Vit C/Biotin) 1 Each Tablet 1 Each PO 09/11/15 Reported Tamsulosin Hcl 0.4 Mg Cap.er.24h 1 Cap PO DAILY 02/01/14 Reported Apidra (Insulin Glulisine) 100 Unit/1 Ml Vial 5 Unit SQ TIDBFRMEAL PRN 02/01/14 Reported Sodium Bicarbonate 650 Mg Tablet 1 Tab PO TID 02/01/14 Reported Ecotrin (Aspirin) 325 Mg Tablet.dr 325 Mg PO 02/01/14 Reported Impression . 1. Dyspnea with acute hypoxic respiratory failure secondary to multifactorial etiologies including influenza A, possible superimposed bacterial infection with gram-negative organisms and acute on chronic systolic heart failure. 2. Abnormal CT chest and abnormal chest x-ray. There are bilateral interstitial/reticular nodular infiltrates. Likely inflammatory in etiology. They are present in the upper and lower lobes. Unlikely any interstitial lung disease or fibrosis as his chest x-ray from January was clear. All these findings appear to be new. 3. Minimal history of tobacco use. 4. Severe cardiomyopathy with an ejection fraction of 20%-25%, moderate MR and likely superimposed congestive heart failure. 5. End-stage renal disease, on hemodialysis. Plan . 1. Continue with present oxygen. 2. Continue Tamiflu X 5 DAYS 3. empiric antibiotic. 4. procalcitonin level 1.46. continue Abx 5. Would recommend increase ultrafiltration with hemodialysis. 6. Continue bronchodilators. 7. chest x-ray today wit hno change 8. rec ct chest in 2 months ok with dc to [facility] Strange MD May 31, 2018 10:30
--- NOTE | 2018-05-31 11:04 | NUR ---
Report called to Bala Reese. Patient scheduled to be picked up between
--- NOTE | 2018-06-04 21:40 | PDOC ---
Provider Note Provider Note Discharge summary dictated.#[id number]. FLAVIA HOOVER MD Jun 04, 2018 21:40
--- NOTE | 2018-06-05 00:37 | DS ---
DATE OF DISCHARGE: 05/31/2018 REASON FOR ADMISSION TO THE HOSPITAL: Fever, shortness of breath, was found to have influenza A/Mycoplasma pneumonia. CONSULTATIONS: 1. Dr. Brand. 2. Dr. Barrera, Renal. 3. Dr. Murray, Cardiology. 4. GI. 5. Dr. Pitts, Vascular. HOSPITAL COURSE: The patient is an 82-year-old male with history of coronary artery disease, previous bypass surgery, CAD, previous stents. He was started on dialysis 6 months ago. He was doing relatively well, has a chronic systolic heart failure, ejection fraction 20%. He was having shortness of breath, fever, came to the Emergency Room, shows infiltrates in the lung, also congestive heart failure. Echocardiogram shows 20% ejection fraction. Initially, influenza A was positive, was treated with Tamiflu. The patient continues to not do well and more short of breath. The patient had Mycoplasma IgM was positive, was treated for atypical pneumonia. The patient was given Solu-Medrol and Zithromax, condition improves, seen by Pulmonology. The patient has developed a callus on the foot. Seen by Vascular, had a Doppler, which shows diminished blood supply and a bedside debridement of the ulcer scar was done. The patient was dialyzed while he was in the hospital, has a dialysis schedule on Sunday, Sunday, Sunday and the patient has improved, but still weak. It was felt that he needs to go to [facility] for 1-2 weeks until his shortness of breath improved. The patient had elevated liver function tests around 300 range, had a sonogram of the liver, no gallstones or hepatic steatosis. CT chest shows diffuse bilateral nodular opacities. FINAL DIAGNOSES: 1. Mycoplasma pneumonia. 2. Influenza A infection. 3. Chronic systolic heart failure, ejection fraction 20%. 4. Moderate mitral and tricuspid regurgitation with pulmonary hypertension. Pulmonary pressure was 51. 5. End-stage renal disease, on hemodialysis. 6. Diabetes, insulin-dependent. 7. Peripheral vascular disease. 8. Callus/eschar/ulcer of foot, which bedside debridement was done. DISPOSITION: To [facility]. See [facility] for discharge medications. Was given Zithromax and prednisone, oxygen and breathing treatments. The patient is on long-term oxygen at home. Continue dialysis as outpatient. Repeat chest x-ray in 2 weeks. FLAVIA HOOVER MD DR: ORLANDO/renuka JOB#: [id number] / [id number] DAVID Calhoun
== END 2018-05-31 11:36 | DRG 871 ==
LOC: EDBD → ER 08:34 → 2 SOUTH 12:25
PROVIDERS: ADMIT Internal Medicine; ATTEND Internal Medicine
PROC: 5A1D70Z Performance of Urinary Filtration, Intermittent, Less than 6 Hours Per Day (ICD-10-PCS; principal; 2018-05-28)
DX: A41.9 Sepsis, unspecified organism (principal); I21.4 Non-ST elevation (NSTEMI) myocardial infarction; N18.6 End stage renal disease; J96.01 Acute respiratory failure with hypoxia; I50.23 Acute on chronic systolic (congestive) heart failure; J10.08 Influenza due to other identified influenza virus with other specified pneumonia; J15.7 Pneumonia due to Mycoplasma pneumoniae; I13.2 Hypertensive heart and chronic kidney disease with heart failure and with stage 5 chronic kidney disease, or end stage renal disease; D68.9 Coagulation defect, unspecified; I42.9 Cardiomyopathy, unspecified; N40.0 Benign prostatic hyperplasia without lower urinary tract symptoms; I25.2 Old myocardial infarction; E11.22 Type 2 diabetes mellitus with diabetic chronic kidney disease; I25.10 Atherosclerotic heart disease of native coronary artery without angina pectoris; E11.51 Type 2 diabetes mellitus with diabetic peripheral angiopathy without gangrene; E78.5 Hyperlipidemia, unspecified; I34.0 Nonrheumatic mitral (valve) insufficiency; E11.621 Type 2 diabetes mellitus with foot ulcer; L97.509 Non-pressure chronic ulcer of other part of unspecified foot with unspecified severity; J44.9 Chronic obstructive pulmonary disease, unspecified; K59.00 Constipation, unspecified; K76.0 Fatty (change of) liver, not elsewhere classified; Z99.2 Dependence on renal dialysis; Z95.1 Presence of aortocoronary bypass graft; Z83.3 Family history of diabetes mellitus; Z87.891 Personal history of nicotine dependence; Z79.4 Long term (current) use of insulin; Z89.422 Acquired absence of other left toe(s)
CPT/HCPCS: 36415; 36600; 71045; 71046; 71250; 76705; 80048; 80053; 80076; 82553; 82805; 82962; 83540; 83550; 83735; 83880; 84145; 84443; 84484; 85007; 85025; 85610; 85730; 86713; 86738; 87040; 87070; 87340; 87804; 87880; 93005; 93306; 93925; 94640; 94760; 96360; J1815; J2543; J2920; J2930; J7620; J7626; Q0144; 97110; 99285-25

== ENCOUNTER → 2018-06-26 | Outpatient (CLI) | payer MEDICARE ==
[2018-05-31 08:39] VITALS: BP 124/59
[~2018-06-26] MED LIST changes: +ASPI81TA50 PO; +ATORVASTATIN CA80 MG PO; +AZIT250T PO; +CALC667T4 PO; +CLOP75TA PO; +FERR325T14 PO; +GABA600T7 PO; +HYDR-3164 PO; +INSU100I13 SQ; +ISOS30TA4 PO; +LOPE1LIQ7 PO; +NIAC500T4 PO; +NITR0.4T22 SL; +OSEL30CA PO; +PRED50TA PO; +SIME125C76 PO; +TORS20TA2 PO
--- NOTE | 2018-06-26 13:31 | RAD ---
MRI study of the right foot without contrast Clinical indications: Second toe pain and swelling and redness. TECHNIQUE: Noncontrast MRI sequences of the right midfoot and forefoot were performed. COMPARISON: None available. FINDINGS: Erosive arthropathy is seen including the first interphalangeal joint and the second PIP joint and the first and second and fifth metatarsal phalangeal joints and the third tarsal metatarsal joint and the joint space between the proximal third and fourth metatarsal bones and the navicular first cuneiform joint and the the navicular second cuneiform joint. This most severely involves the first metatarsal phalangeal joint. Erosions especially involve the periarticular portion and margins of the distal first metatarsal bone. The medial sesamoid bone appears eroded. The lateral sesamoid bone is subluxed laterally. The first proximal phalanx is subluxed dorsally with respect to the first metatarsal bone. There is soft tissue thickening of the first metatarsal phalangeal joint without significant T2 bright joint effusion. Small joint effusion of the second and third and fourth and fifth metatarsal phalangeal joints is seen. There is tendinosis and partial tear of the flexor hallucis brevis tendon medial head. There is tendinosis of the abductor hallucis tendon. No tenosynovitis is seen. There is diffuse subcutaneous soft tissue edema which could be secondary to cellulitis. IMPRESSION: Erosive arthropathy involving multiple joints as discussed above most severely involving the first metatarsal phalangeal joint. Differential considerations include gout or psoriasis or rheumatoid arthritis or infection. Dorsal subcutaneous soft tissue edema which may be seen with cellulitis. Electronically signed by: Shaheen Jon MD (06/26/2018 1:28 PM) [id number]
--- NOTE | 2018-07-04 19:49 | CONS ---
DATE OF CONSULTATION: 07/04/2018 The patient's room is 444. REQUESTING PHYSICIAN: Dr. Jones. REASON FOR CONSULTATION: Right second toe wound. HISTORY OF PRESENT ILLNESS: The patient is an 82-year-old gentleman with history of chronic kidney disease on hemodialysis, recently admitted secondary to influenza. He has a deformity of his right great toe and has been crossing over his second toe and has been rubbing on the area for quite some time. He underwent an MRI on 06/26/2018 showed erosive arthropathy involving multiple joints most severely involving the first metatarsophalangeal joint and the dorsal subcutaneous soft tissue edema, which may be seen with cellulitis. Because of the wound he has now been admitted, placed on vancomycin and Zosyn. He denies fevers or chills or sweats. No nausea, vomiting, diarrhea. Denies taking any antimicrobials prior to admission. He does have a left upper extremity AV fistula in place that they have been using. PAST MEDICAL HISTORY: Positive for diabetes, hypertension, history of myocardial infarction, BPH, congestive heart failure. Additionally, cardiomyopathy, EF 25%, history of influenza as mentioned above, history LFT elevation. PAST SURGICAL HISTORY: Positive for left AV fistula graft placement, CABG procedure, left great toe amputation. REVIEW OF SYSTEMS: Otherwise negative. ALLERGIES: No known drug allergies. SOCIAL HISTORY: Very minimal tobacco abuse. He has no pets at home. FAMILY HISTORY: Noncontributory. CURRENT MEDICATIONS: Include vancomycin, Zosyn, albuterol, aspirin, Lipitor, Pulmicort, PhosLo, ferrous sulfate, fluconazole, Neurontin, insulin, Imdur, lactobacillus, Protonix, Flomax, furosemide. Other meds are available and reviewed in the chart. PHYSICAL EXAMINATION: VITAL SIGNS: He is afebrile, temperature 97.7, pulse 81, respirations 18, blood pressure 122/58, satting 98% on room air. CONSTITUTIONAL: He is pleasant, cooperative. He is seen on the side of bed. He is in no acute distress. HEENT: Pupils are equal and reactive. Normal conjunctivae. Oral cavity, pharynx is clear. He has partial dentures. NECK: Supple, no JVD. LUNGS: Clear to auscultation. HEART: S1, S2. ABDOMEN: Obese, soft, nontender, positive bowel sounds. EXTREMITIES: No clubbing, cyanosis. Amputation of his left great toe without signs of complications. He has a callus without signs of complication on the left foot. His right foot has 1-2+ edema. There is mild erythema, his right great toe is crossing over his second toe, there is a wound on the second toe. He has onychomycosis and tinea. There is no odor. SKIN: Otherwise, warm without signs of rash. He has got a mild ecchymosis of the left upper extremity around the fistula site. IVs, he has a right chest line without complications and the right upper extremity, peripheral. NEUROLOGIC: He is nonfocal and appropriate. PSYCHIATRIC: Affect is pleasant. LABORATORY DATA: White count 4.4, hemoglobin 11.9, platelets of 119, neutrophils are 72, lymphs are 17, glucose was 332. Creatinine was 6.7. MRI reviewed in the history of present illness. IMPRESSION: 1. Right second toe wound and cellulitis. 2. Tinea and onychomycosis, which I forgot to mention in the physical examination. 3. Chronic kidney disease, on hemodialysis. 4. Diabetes. RECOMMENDATIONS: For now, continue vancomycin and Zosyn. We will add micafungin, given his heart condition will avoid fluconazole. Follow up labs and cultures. Ultrasound of lower extremities as well as foot x-ray, await vascular evaluation, will likely need central access given his limited sites, but await for renal followup and evaluation. Dr. Jones, thank you for allowing me to participate in the patient's care. Should you have further questions, please do not hesitate to contact me. LUISA CROOK MD DR: LUISANA/renuka JOB#: [id number] / [id number]
== END | disposition home or self-care (01) ==
LOC: EDBD → MRI 08:09
PROVIDERS: ATTEND Family Medicine
DX: M12.871 Other specific arthropathies, not elsewhere classified, right ankle and foot (principal); M25.474 Effusion, right foot; E11.621 Type 2 diabetes mellitus with foot ulcer; M86.171 Other acute osteomyelitis, right ankle and foot
CPT/HCPCS: 73718

== ENCOUNTER 2018-07-03 13:11 | Inpatient (IN) | payer MEDICARE ==
[~2018-07-03] VITALS: Ht 162.6 cm; Wt 100.7 kg
[~2018-07-03 13:11] MED LIST changes: -ASPI81TA50 PO; -ATORVASTATIN CA80 MG PO; -CALC667T4 PO; -CLOP75TA PO; -FERR325T14 PO; -GABA600T7 PO; -HYDR-3164 PO; -ISOS30TA4 PO; -LOPE1LIQ7 PO; -NIAC500T4 PO; -NITR0.4T22 SL; -SIME125C76 PO; -TORS20TA2 PO
[2018-07-03 16:00] VITALS: BP 113/54
[2018-07-03] MEDS ORDERED: PIP/TAZO PER PHARMACY MC PRN (17:15)
[2018-07-03] MEDS ORDERED: PIPERACILLIN/TAZOBACTAM 2.25 GM in IV NORMAL SALINE 50ML 50 ML IV ONE (17:30)
[2018-07-03] MEDS ORDERED: VANCOMYCIN 2 GM in IV NORMAL SALINE 500ML BAG 500 ML IV ONE (17:30)
[2018-07-03] MEDS ORDERED: NITROGLYCERIN SUBLINGUAL 0.4 MG BOTTLE OF 25. SL SCH (17:45)
[2018-07-03] MEDS ORDERED: HYDROcodone/APAP 5/325MG 1 TAB TABLET PO PRN (17:45)
[2018-07-03] MEDS ORDERED: INSU100I13 SQ (17:56)
[2018-07-03] MEDS ORDERED: CLOP75TA PO (17:56)
[2018-07-03] MEDS ORDERED: HYDR-3164 PO (17:56)
[2018-07-03] MEDS ORDERED: NIAC500T4 PO (17:56)
[2018-07-03] MEDS ORDERED: FERR325T14 PO (17:56)
[2018-07-03] MEDS ORDERED: ASPI81TA50 PO (17:56)
[2018-07-03] MEDS ORDERED: LOPE1LIQ7 PO (17:56)
[2018-07-03] MEDS ORDERED: NITR0.4T22 SL (17:56)
[2018-07-03] MEDS ORDERED: TORS20TA2 PO (17:56)
[2018-07-03] MEDS ORDERED: SIME125C76 PO (17:56)
[2018-07-03] MEDS ORDERED: GABA600T7 PO (17:56)
[2018-07-03] MEDS ORDERED: ATORVASTATIN CA80 MG PO (17:56)
[2018-07-03] MEDS ORDERED: CALC667T4 PO (17:56)
[2018-07-03] MEDS ORDERED: ISOS30TA4 PO (17:56)
[2018-07-03] MEDS: VANCOMYCIN PER PHARMACY MC PRN (17:57)
[2018-07-03] MEDS ORDERED: ONDANSETRON ODT 4 MG TAB.RAPDIS. PO PRN (18:15)
[2018-07-03] MEDS ORDERED: LOPERAMIDE 2 MG CAPSULE PO PRN (18:15)
[2018-07-03] MEDS ORDERED: SIMETHICONE 80 MG TAB.CHEW PO PRN (18:15)
[2018-07-03] MEDS: CALCIUM ACETATE 667 MG CAPSULE PO SCH (18:30)
[2018-07-03 19:00] VITALS: BP 119/62
--- NOTE | 2018-07-03 19:30 | NUR ---
Client was admitted at approximately 1601 to room 444. Client was oriented to policy and procedures of the unit, call light, fall contract, and admission routine. Client was A&OX4. VSS. Zosyn was started. Wounds were pictured and documented. Will continue to monitor.
[2018-07-03] MEDS: ALBUTEROL SULFATE 2.5 MG/3 ML NEBU. NEB SCH (19:35)
[2018-07-03] MEDS: BUDESONIDE 0.5 MG/2 ML NEBU. NEB SCH (19:35)
[2018-07-03] MEDS ORDERED: NON FORMULARY ITEM (Fluticasone/Salmeterol (Advair 250-50 Diskus) 1 PUFF) IH SCH (21:00)
[2018-07-03] MEDS ORDERED: INSULIN GLARGINE 300 UNITS/3 ML INSULN.PEN. SQ SCH (21:00)
[2018-07-03] MEDS ORDERED: NIACIN ER 500 MG TABLET.ER PO SCH (21:00)
[2018-07-03] MEDS: ATORVASTATIN CALCIUM 40 MG TABLET. PO SCH (21:09)
[2018-07-03] MEDS: LACTOBACILLUS RHAMNOSUS GG 1 CAPSULE. PO SCH (21:10)
[2018-07-03] MEDS: SODIUM BICARBONATE 650 MG TABLET. PO SCH (21:10)
[2018-07-03] MEDS ORDERED: DEXTROSE 50% 25 GM / 50ML DISP.SYRIN. IV PRN (21:15)
[2018-07-03 22:19] LABS: BASO % 1 % (0-3); EOS % 1 % (0-3); HEMATOCRIT 37.1 % (39.0-53.0); HEMOGLOBIN 11.9 g/dL (13.0-17.5); LYMPH # 0.4 x10^3/uL (1.0-4.8); LYMPH % 10 % (24-48); MEAN CORPUSCULAR HEMOGLOBIN 32 pg (25-35); MEAN CORPUSCULAR HGB CONC 32 g/dL (31-37); MEAN CORPUSCULAR VOLUME 99 fL (79-100); MONO # 0.7 x10^3/uL (0.0-1.1); MONO % 17 % (0-9); NEUT # 3.2 x10^3uL (1.8-7.7); NEUT % 72 % (31-73); PLATELET COUNT 119 x10^3/uL (140-400); RED BLOOD COUNT 3.74 x10^6/uL (4.30-5.70); RED CELL DISTRIBUTION WIDTH 21.5 % (11.5-14.5); WHITE BLOOD COUNT 4.4 x10^3/uL (4.0-11.0)
[2018-07-03 22:28] LABS: PROTHROMBIN TIME PATIENT 17.3 SEC (11.7-14.0)
[2018-07-03 22:32] LABS: CALCIUM 8.4 mg/dL (8.5-10.1); CREATININE 6.7 mg/dL (0.7-1.3); POTASSIUM 4.8 mmol/L (3.5-5.1)
[2018-07-03 22:54] LABS: PLT ESTIMATE DECREASED (ADEQUATE)
[2018-07-03 22:55] LABS: ANISOCYTOSIS MOD; POIKILOCYTOSIS SLIGHT
[2018-07-03 22:56] LABS: OVALOCYTES FEW; SCHISTOCYTES OCC
[2018-07-03 23:00] VITALS: BP 124/76
[2018-07-04 02:54] VITALS: BP 122/58
[2018-07-04] MEDS: PIPERACILLIN/TAZOBACTAM 2.25 GM in IV NORMAL SALINE 50ML 50 ML IV SCH ×3 (06:06→22:53)
[2018-07-04 07:00] VITALS: BP 116/56
[2018-07-04] MEDS: ALBUTEROL SULFATE 2.5 MG/3 ML NEBU. NEB SCH ×4 (07:25→18:15)
[2018-07-04] MEDS: BUDESONIDE 0.5 MG/2 ML NEBU. NEB SCH ×2 (07:25→18:15)
[2018-07-04] MEDS: INSULIN LISPRO 300 UNITS/3 ML INSULN.PEN. SQ SCH ×3 (08:00→17:00)
[2018-07-04] MEDS: GABAPENTIN 100 MG CAPSULE. PO SCH (08:35)
[2018-07-04] MEDS: ASPIRIN ENTERIC COATED 81 MG TABLET.DR. PO SCH (08:35)
[2018-07-04] MEDS: LACTOBACILLUS RHAMNOSUS GG 1 CAPSULE. PO SCH ×2 (08:35→21:20)
[2018-07-04] MEDS: FERROUS SULFATE 325 MG TABLET. PO SCH (08:37)
[2018-07-04] MEDS: TORSEMIDE 20 MG TABLET. PO SCH ×2 (08:37→16:00)
[2018-07-04] MEDS: TAMSULOSIN 0.4 MG CAP.ER.24H. PO SCH (08:37)
[2018-07-04] MEDS: PANTOPRAZOLE 40 MG TABLET.DR. PO SCH (08:37)
[2018-07-04] MEDS: CALCIUM ACETATE 667 MG CAPSULE PO SCH ×3 (08:37→17:00)
[2018-07-04] MEDS: SODIUM BICARBONATE 650 MG TABLET. PO SCH ×3 (08:37→21:20)
[2018-07-04] MEDS: ISOSORBIDE MONONITRATE ER 30 MG TAB.ER.24H PO SCH (08:37)
[2018-07-04] MEDS: FLUTICASONE 50MCG/NASAL SPRAY 16GM BOTTLE. NS SCH (08:38)
--- NOTE | 2018-07-04 08:56 | RAD ---
Examination: VENOUS LOWER EXT BILATERAL History: BLE SWELLING X 3 WKS, LEGS PAINFUL TO TOUCH, KNOWN ART DX, WOUNDS BILAT FEET, HX OF CHF

RT POP FOSSA FLUID COLLECTION 4.3X4.0X2.1 CM
EDEMA
PULSATILE FLOW
NO EVIDENCE OF DVT FINDINGS: Bilateral lower extremity duplex venous ultrasound exam was performed. Grayscale, color Doppler, and spectral Doppler imaging was performed. Compression and augmentation was performed. The right common femoral vein, superficial femoral vein, popliteal vein, and greater saphenous vein are normal with no evidence of deep venous thrombus. Visualized calf veins are unremarkable. Normal compressibility and augmentation is evident. The left common femoral vein, superficial femoral vein, popliteal vein, and greater saphenous vein are normal with no evidence of deep venous thrombus. Visualized calf veins are unremarkable. Normal compressibility and augmentation is evident. Right popliteal fossa 4.3 cm x 4 cm x 2.1 cm simple fluid collection is present likely representing a popliteal cyst. IMPRESSION: Right popliteal fossa fluid collection which probably represents a popliteal cyst is noted. No evidence of deep venous thrombus involving the lower extremities. Electronically signed by: Lico Car MD (07/04/2018 8:53 AM) [facility]
[2018-07-04] MEDS ORDERED: POLYETHYLENE GLYCOL 3350 17 GM PACKET. PO PRN (09:00)
--- NOTE | 2018-07-04 09:21 | PDOC ---
Infectious Disease Note Vital Sign Vital Signs Vital Signs Date Time Temp Pulse Resp B/P (MAP) Pulse Ox O2 Delivery O2 Flow Rate FiO2 07/04/18 08:37 81 122/58 07/04/18 07:50 98 Room Air 07/04/18 02:54 97.7 18 97.7 Labs Lab Laboratory Tests Test 07/03/18 17:21 07/03/18 20:04 07/03/18 22:10 Glucose (Fingerstick) 296 mg/dL (70-99) 264 mg/dL (70-99) White Blood Count 4.4 x10^3/uL (4.0-11.0) Red Blood Count 3.74 x10^6/uL (4.30-5.70) Hemoglobin 11.9 g/dL (13.0-17.5) Hematocrit 37.1 % (39.0-53.0) Mean Corpuscular Volume 99 fL (79-100) Mean Corpuscular Hemoglobin 32 pg (25-35) Mean Corpuscular Hemoglobin Concent 32 g/dL (31-37) Red Cell Distribution Width 21.5 % (11.5-14.5) Platelet Count 119 x10^3/uL (140-400) Neutrophils (%) (Auto) 72 % (31-73) Lymphocytes (%) (Auto) 10 % (24-48) Monocytes (%) (Auto) 17 % (0-9) Eosinophils (%) (Auto) 1 % (0-3) Basophils (%) (Auto) 1 % (0-3) Neutrophils # (Auto) 3.2 x10^3uL (1.8-7.7) Lymphocytes # (Auto) 0.4 x10^3/uL (1.0-4.8) Monocytes # (Auto) 0.7 x10^3/uL (0.0-1.1) Eosinophils # (Auto) 0.0 x10^3/uL (0.0-0.7) Basophils # (Auto) 0.0 x10^3/uL (0.0-0.2) Platelet Estimate Decreased (ADEQUATE) Poikilocytosis Slight Anisocytosis Mod Ovalocytes Few Schistocytes Occ Prothrombin Time 17.3 SEC (11.7-14.0) Prothromb Time International Ratio 1.4 (0.8-1.1) Sodium Level 133 mmol/L (136-145) Potassium Level 4.8 mmol/L (3.5-5.1) Chloride Level 95 mmol/L (98-107) Carbon Dioxide Level 24 mmol/L (21-32) Anion Gap 14 (6-14) Blood Urea Nitrogen 76 mg/dL (8-26) Creatinine 6.7 mg/dL (0.7-1.3) Estimated GFR (Cockcroft-Gault) 8.0 Glucose Level 332 mg/dL (70-99) Calcium Level 8.4 mg/dL (8.5-10.1) Micro MRI Right foot 06/26 IMPRESSION: Erosive arthropathy involving multiple joints as discussed above most severely involving the first metatarsal phalangeal joint. Differential considerations include gout or psoriasis or rheumatoid arthritis or infection. Dorsal subcutaneous soft tissue edema which may be seen with cellulitis. Objective Assessment Right sec toe wound/cellulitis Tinea/onychomycosis CKD on HD DM Plan Plan of Care Cont Vanc/Zosyn Add Micafungin F/u labs and cults/U/S and Foot Xray Await Vascular eval Will likely need Central access given limited sites but await Renal F/u Thank you # [id number] LUISA CROOK MD Jul 04, 2018 09:21
[2018-07-04] MEDS: MICAFUNGIN 100 MG in IV DEXTROSE 5% 100ML 100 ML IV SCH (10:00)
--- NOTE | 2018-07-04 10:05 | RAD ---
Examination: FOOT RIGHT 2V History: INPATIENT. RIGHT FOOT 2ND DIGIT WOUND. Hx DIABETES. PRIOR MRI Comparison/Correlation: 06/26/2018 MRI right lower extremity without contrast Findings: Two-view exam of the right foot was performed. Advanced degenerative narrowing of interphalangeal joints noted. Osteopenia evident. Degenerative narrowing of the first metatarsophalangeal joint noted. Soft tissue gas involving the second digit proximal phalangeal level. 3 present. No periosteal reaction identified involving the second digit proximal phalanx. Degenerative changes of the tarsal-metatarsal articulations noted. Small calcaneal spur noted. Vascular calcifications are evident. Impression: Degenerative changes. No focal bony destruction delineated on the limited images provided. Electronically signed by: Lico Car MD (07/04/2018 10:02 AM) [facility]
--- NOTE | 2018-07-04 10:07 | PDOC ---
Provider Note Provider Note Pt seen.H&P dictated. #[id number] FLAVIA HOOVER MD Jul 04, 2018 10:07
--- NOTE | 2018-07-04 10:59 | HP ---
ADMIT DATE: 07/03/2018 PATIENT LOCATION: [id number]. REASON FOR ADMISSION TO THE HOSPITAL: Osteomyelitis of the right second toe. HISTORY OF PRESENT ILLNESS: The patient is an 82-year-old male, patient of Dr. Mcclure. He has seen in the office, had an ulcer which was getting progressively better, but lately it got worse where he could see the ulcer penetrating to the bone and the joint was opened at the interphalangeal joint at the second toe, was admitted to the hospital for IV antibiotics and possible surgical intervention. PAST MEDICAL HISTORY: The patient has a history of diabetes; congestive heart failure, 20% ejection fraction; insulin-dependent diabetes, chronic kidney disease, on dialysis for last 4 months; had a heart bypass surgery and he goes to dialysis 3 times a week, Sunday, and Sunday. PAST SURGICAL HISTORY: Heart bypass in 2001; dialysis last 3-4 months, had AV shunt in the left arm, he still has a dialysis catheter in right chest. The patient had previous amputation of the left big toe. FAMILY HISTORY: Positive for diabetes. SOCIAL HISTORY: Smoked for 30 years, stopped 15 years ago. Denies alcohol or drug abuse. REVIEW OF SYMPTOMS: The patient is on home oxygen 2 liters, goes to dialysis. He denies any chest pain. ALLERGIES: No known drug allergies. MEDICATIONS AT HOME: The patient is on Plavix 75 mg daily, Nephro-Alyssa 1 daily, aspirin 81 mg daily, atorvastatin 80 mg daily, calcium 667 three times a day, iron one daily, Flonase daily, gabapentin 600 mg, I think he is taking 100 mg daily; hydrocodone for pain; insulin 35 units of Lantus at bedtime; isosorbide 30 mg daily; niacin 500 mg twice a day; Imodium p.r.n.; nitro sublingual; Zofran for nausea; MiraLax 17 grams daily; sodium bicarb 650 three times a day; Flomax 0.4 daily; torsemide 20 mg twice a day; Protonix 40 mg daily. PHYSICAL EXAMINATION: GENERAL: The patient is not in any distress, lying in bed, comfortable. VITAL SIGNS: Temperature 97, pulse 81, respirations 20, blood pressure 122/58, 99 on room air. HEENT: Head is atraumatic. Pupils equal. Oral cavity, no congestion. NECK: Supple. Thyroid not enlarged. JVD not elevated. The patient has a dialysis access catheter in the right chest, scar of heart bypass surgery. CARDIOVASCULAR: S1 and S2. LUNGS: Few crackles, otherwise clear. No wheezing. ABDOMEN: Soft, no mass palpable. EXTERNAL GENITALIA: No Arndt. RECTAL: Deferred. EXTREMITIES: The patient has between 1-2+ edema in both lower extremities. Pulses hard to feel, had a left big toe amputation in the past, incision looks good. Right foot, there is ulcer on the second toe and he has a deformity of the right big toe. The ulcer is there, but you can feel the joint at the base of the ulcer and the joint space you can feel it with the Q-Tip. Pulses hard to feel. NEUROLOGIC: Moving all extremities. No focal deficits noted. LABORATORY DATA AND DIAGNOSTIC STUDIES: Shows a white count of 4, hemoglobin 12, platelets 119. INR 1.4. Electrolytes show sodium 133, potassium 4.8, chloride 95, bicarb 24, BUN 76, creatinine 6.7, glucose 332. Ultrasound of lower extremities, no evidence of DVT in lower extremities; has some popliteal cyst, right side. X-ray of the foot was done, report is pending. FINAL IMPRESSION: 1. Right second toe ulcer with underlying osteomyelitis. The ulcer is deep to the joint into the bone, interphalangeal joint. 2. Diabetes, insulin-dependent. 3. Coronary artery disease, previous bypass surgery. 4. End-stage renal disease, dialysis. 5. Chronic systolic heart failure, ejection fraction 20%. 6. Hypertension. 7. Hyperlipidemia. 8. History of previous toe amputation. 9. Diabetic neuropathy. PLAN: At this time, admit to hospital, seen by infectious. We will start on vanco and Zosyn after culture sent. The patient had x-ray of the toe. We will have vascular consult. Probably, he needs to have toe amputation done and further recommendations to follow. We will do arterial Doppler. FLAVIA HOOVER MD DR: ORLANDO/renuka JOB#: [id number] / [id number] Dr. BELIA Giron
[2018-07-04 11:00] VITALS: BP 122/58
--- NOTE | 2018-07-04 11:50 | PDOC2 ---
CONSULT Date of Consult Date of Consult DATE: 07/04/18 TIME: 11:45 Reason for Consult Reason for Consult: ESRD Referring Physician Referring Physician: SNEHA Identification/Chief Complaint Chief Complaint TOE WOUND Source Source: Chart review, Patient History of Present Illness Reason for Visit: THIS IS AN 82 YR OLD WITH ESRD ON TTS OP HD SCHEDULE. HE HAS ESRD DUE TO DM II AND HTN. LABS ARE C/W ESRD. HE IS ADMITTED WITH A RIGHT 2ND TOE WOUND THAT IS NOT HEALING WELL. PAIN CONTROL IS GOOD THIS AM Past Medical History Cardiovascular: CAD, HTN GI: Constipation Heme/Onc: Anemia NOS Renal/: Chronic renal failure, Benign prostatic enlarg. Endocrine: Diabetes, Hyperparathyroidism Past Surgical History Past Surgical History AV ACCESS AND HX OF TDC Social History Quit ALCOHOL: rare Drugs: None Lives: with Family Current Medications Current Medications Current Medications Vancomycin HCl (Vanco Per Pharmacy) 1 each PRN DAILY PRN MC SEE COMMENTS Last administered on 07/03/18at 17:57; Start 07/03/18 at 17:15 Piperacillin Sod/ Tazobactam Sod (Zosyn Per Pharmacy) 1 each PRN DAILY PRN MC SEE COMMENTS; Start 07/03/18 at 17:15 Piperacillin Sod/ Tazobactam Sod 2.25 gm/Sodium Chloride 50 ml @ 100 mls/hr 1X ONCE IV Last administered on 07/03/18at 18:34; Start 07/03/18 at 17:30; Stop 07/03/18 at 17:59; Status DC Vancomycin HCl 2 gm/Sodium Chloride 500 ml @ 250 mls/hr 1X ONCE IV Last administered on 07/03/18at 21:09; Start 07/03/18 at 17:30; Stop 07/03/18 at 19:29; Status DC Acetaminophen/ Hydrocodone Bitart (Lortab 5/325) 1 tab PRN Q6HRS PRN PO PAIN; Start 07/03/18 at 17:30 Piperacillin Sod/ Tazobactam Sod 2.25 gm/Sodium Chloride 50 ml @ 100 mls/hr Q8HRS IV Last administered on 07/04/18at 06:06; Start 07/04/18 at 06:00 Vancomycin HCl (Vancomycin Random Level) 1 each 1X ONCE MC ; Start 07/05/18 at 06:00; Stop 07/05/18 at 06:01 Aspirin (Ecotrin) 81 mg DAILY PO Last administered on 07/04/18 08:35; Start 07/04/18 at 09:00 Ferrous Sulfate (Feosol) 325 mg DAILY PO Last administered on 07/04/18 08:37; Start 07/04/18 at 09:00 Fluticasone Propionate (Flonase) 2 spray DAILY NS ; Start 07/04/18 at 09:00 Acetaminophen/ Hydrocodone Bitart (Lortab 5/325) 1 tab PRN Q6HRS PRN PO PAIN; Start 07/03/18 at 17:45; Status UNV Insulin Glargine (Lantus) 35 units QHS SQ ; Start 07/03/18 at 21:00; Stop 07/03/18 at 21:13; Status DC Isosorbide Mononitrate (Imdur) 60 mg DAILY PO Last administered on 07/04/18at 08:37; Start 07/04/18 at 09:00 Nitroglycerin (Nitrostat) 0.4 mg PRN Q5MIN SL ; Start 07/03/18 at 17:45 Sodium Bicarbonate (Sodium Bicarbonate) 650 mg TID PO Last administered on 07/04/18 08:37; Start 07/03/18 at 21:00 Tamsulosin HCl (Flomax) 0.4 mg DAILY PO Last administered on 07/04/18 08:37; Start 07/04/18 at 09:00 Atorvastatin Calcium (Lipitor) 80 mg QHS PO Last administered on 07/03/18at 21:09; Start 07/03/18 at 21:00 Calcium Acetate (Phoslo) 1,334 mg TIDWMEALS PO Last administered on 07/04/18 08:37; Start 07/03/18 at 18:30 Non-Formulary Medication (Fluticasone/ Salmeterol (Advair 250-50 Diskus)) 1 puff BID IH ; Start 07/03/18 at 21:00; Status UNV Gabapentin (Neurontin) 100 mg DAILY PO Last administered on 07/04/18at 08:35; Start 07/04/18 at 09:00 Loperamide HCl (Imodium) 2 mg PRN Q15MIN PRN PO DIARRHEA; Start 07/03/18 at 18:15; Stop 07/03/18 at 21:14; Status DC Niacin (Slo-Niacin) 500 mg BID PO ; Start 07/03/18 at 21:00; Stop 07/03/18 at 21:14; Status DC Ondansetron HCl (Zofran Odt) 4 mg PRN BID PRN PO NAUSEA/VOMITING; Start 07/03/18 at 18:15 Polyethylene Glycol (miraLAX PACKET) 17 gm PRN DAILY PRN PO CONSTIPATION; Start 07/04/18 at 09:00 Simethicone (Gas-X) 80 mg PRN TID PRN PO GAS / BLOATING; Start 07/03/18 at 18:15 Torsemide (Demadex) 20 mg BID94 PO Last administered on 07/04/18at 08:37; Start 07/04/18 at 09:00 Pantoprazole Sodium (Protonix) 40 mg DAILYAC PO Last administered on 07/04/18at 08:37; Start 07/04/18 at 07:30 Lactobacillus Rhamnosus (Culturelle) 1 cap BID PO Last administered on 07/04/18at 08:35; Start 07/03/18 at 21:00 Budesonide (Pulmicort) 0.5 mg RTBID NEB Last administered on 07/04/18at 07:25; Start 07/03/18 at 20:00 Albuterol Sulfate (Ventolin Neb Soln) 2.5 mg RTQID NEB Last administered on 07/04/18at 11:30; Start 07/03/18 at 20:00 Insulin Glargine (Lantus) 25 units QHS SQ ; Start 07/04/18 at 21:00 Insulin Human Lispro (HumaLOG) 0-7 UNITS TIDWMEALS SQ ; Start 07/04/18 at 08:00 Dextrose (Dextrose 50%-Water Syringe) 12.5 gm PRN Q15MIN PRN IV SEE COMMENTS; Start 07/03/18 at 21:15 Micafungin Sodium 100 mg/Dextrose 100 ml @ 100 mls/hr Q24H IV ; Start 07/04/18 at 10:00 Active Scripts Active [Pantoprazole] 40 MG Tablet.dr 40 Mg PO DAILYAC 30 Days Polyethylene Glycol 3350 17 Gm Powd.pack 17 Gm PO PRN DAILY PRN 30 Days Fluticasone Propionate Nasal Carlton (Fluticasone Propionate) 16 Gm Carlton.susp 2 Carlton NS DAILY 30 Days Advair 250-50 Diskus (Fluticasone/Salmeterol) 1 Each Disk.w.dev 1 Puff IH BID Zofran (Ondansetron Hcl) 4 Mg Tablet 4 Mg PO BID PRN Reported Slo-Niacin (Niacin) 500 Mg Tablet.er 500 Mg PO BID Lantus Solostar (Insulin Glargine,Hum.rec.anlog) 100 Unit/1 Ml Insuln.pen 35 Unit SQ QHS Gabapentin 600 Mg Tablet 100 Mg PO DAILY Isosorbide Mononitrate Er (Isosorbide Mononitrate) 30 Mg Tab.er.24h 2 Tab PO DAILY Clopidogrel (Clopidogrel Bisulfate) 75 Mg Tablet 1 Tab PO DAILY NITROGLYCERIN SubLingual (Nitroglycerin) 0.4 Mg Tab.subl 1 Tab SL UD Atorvastatin Calcium 80 Mg Tablet 1 Tab PO QHS Ferrous Sulfate 325 Mg Tablet 1 Tab PO DAILY Aspir-Low (Aspirin) 81 Mg Tablet.dr 1 Tab PO DAILY Calcium Acetate 667 Mg Tablet 1,334 Mg PO TIDWMEALS Imodium A-D (Loperamide Hcl) 1 Mg/7.5 Ml Liquid 1 Mg PO PRN Q4HRS Gas Relief (Simethicone) 125 Mg Capsule 125 Mg PO PRN TID PRN Torsemide 20 Mg Tablet 1 Tab PO BID [place] 5-325 Tablet (Acetaminophen/Hydrocodone Bitart) 1 Each Tablet 1 Tab PO PRN Q6HRS PRN Celia-Alyssa Rx Tablet (Vit B Cmplx 3/Fa/Vit C/Biotin) 1 Each Tablet 1 Each PO Tamsulosin Hcl 0.4 Mg Cap.er.24h 1 Cap PO DAILY Sodium Bicarbonate 650 Mg Tablet 1 Tab PO TID Allergies Allergies: Coded Allergies: No Known Drug Allergies (Unverified , 02/01/14) ROS General: YES: Fatigue PSYCHOLOGICAL ROS: YES: Anxiety Eyes: Yes Decreased vision HEENT: YES: Heacaches Respiratory: YES: Cough Cardiovascular: yes Chest Pain Gastrointestinal: Yes Constipation Genitourinary: YES Other (ANURIA) Musculoskeletal: Yes Muscular Weakness, Yes Pain In: (RIGHT FOOT) Neurological: Yes Weakness Skin: Yes Dry Skin Physical Exam General: Alert, Oriented X3, Cooperative, No acute distress HEENT: Atraumatic, PERRLA Lungs: Clear to auscultation Heart: Regular rate, Normal S1, Normal S2 Abdomen: Normal bowel sounds, Soft, No tenderness Extremities: No cyanosis Skin: No breakdown, No significant lesion Neuro: Normal speech Psych/Mental Status: Mental status NL, Mood NL MUSCULOSKELETAL: No joint tenderness, No swelling, Other (RIGHT FOOT WOUND DRESSED) Vitals VITALS Vital Signs Date Time Temp Pulse Resp B/P (MAP) Pulse Ox O2 Delivery O2 Flow Rate FiO2 07/04/18 11:31 Room Air 07/04/18 08:37 81 122/58 07/04/18 07:50 98 07/04/18 07:00 97.8 16 97.8 Labs Labs Laboratory Tests Test 07/03/18 17:21 07/03/18 20:04 07/03/18 22:10 07/04/18 07:37 Glucose (Fingerstick) 296 mg/dL (70-99) 264 mg/dL (70-99) 156 mg/dL (70-99) White Blood Count 4.4 x10^3/uL (4.0-11.0) Red Blood Count 3.74 x10^6/uL (4.30-5.70) Hemoglobin 11.9 g/dL (13.0-17.5) Hematocrit 37.1 % (39.0-53.0) Mean Corpuscular Volume 99 fL (79-100) Mean Corpuscular Hemoglobin 32 pg (25-35) Mean Corpuscular Hemoglobin Concent 32 g/dL (31-37) Red Cell Distribution Width 21.5 % (11.5-14.5) Platelet Count 119 x10^3/uL (140-400) Neutrophils (%) (Auto) 72 % (31-73) Lymphocytes (%) (Auto) 10 % (24-48) Monocytes (%) (Auto) 17 % (0-9) Eosinophils (%) (Auto) 1 % (0-3) Basophils (%) (Auto) 1 % (0-3) Neutrophils # (Auto) 3.2 x10^3uL (1.8-7.7) Lymphocytes # (Auto) 0.4 x10^3/uL (1.0-4.8) Monocytes # (Auto) 0.7 x10^3/uL (0.0-1.1) Eosinophils # (Auto) 0.0 x10^3/uL (0.0-0.7) Basophils # (Auto) 0.0 x10^3/uL (0.0-0.2) Platelet Estimate Decreased (ADEQUATE) Poikilocytosis Slight Anisocytosis Mod Ovalocytes Few Schistocytes Occ Prothrombin Time 17.3 SEC (11.7-14.0) Prothromb Time International Ratio 1.4 (0.8-1.1) Sodium Level 133 mmol/L (136-145) Potassium Level 4.8 mmol/L (3.5-5.1) Chloride Level 95 mmol/L (98-107) Carbon Dioxide Level 24 mmol/L (21-32) Anion Gap 14 (6-14) Blood Urea Nitrogen 76 mg/dL (8-26) Creatinine 6.7 mg/dL (0.7-1.3) Estimated GFR (Cockcroft-Gault) 8.0 Glucose Level 332 mg/dL (70-99) Calcium Level 8.4 mg/dL (8.5-10.1) Test 07/04/18 11:22 Glucose (Fingerstick) 157 mg/dL (70-99) Laboratory Tests Test 07/03/18 17:21 07/03/18 20:04 07/03/18 22:10 07/04/18 07:37 Glucose (Fingerstick) 296 mg/dL (70-99) 264 mg/dL (70-99) 156 mg/dL (70-99) White Blood Count 4.4 x10^3/uL (4.0-11.0) Red Blood Count 3.74 x10^6/uL (4.30-5.70) Hemoglobin 11.9 g/dL (13.0-17.5) Hematocrit 37.1 % (39.0-53.0) Mean Corpuscular Volume 99 fL (79-100) Mean Corpuscular Hemoglobin 32 pg (25-35) Mean Corpuscular Hemoglobin Concent 32 g/dL (31-37) Red Cell Distribution Width 21.5 % (11.5-14.5) Platelet Count 119 x10^3/uL (140-400) Neutrophils (%) (Auto) 72 % (31-73) Lymphocytes (%) (Auto) 10 % (24-48) Monocytes (%) (Auto) 17 % (0-9) Eosinophils (%) (Auto) 1 % (0-3) Basophils (%) (Auto) 1 % (0-3) Neutrophils # (Auto) 3.2 x10^3uL (1.8-7.7) Lymphocytes # (Auto) 0.4 x10^3/uL (1.0-4.8) Monocytes # (Auto) 0.7 x10^3/uL (0.0-1.1) Eosinophils # (Auto) 0.0 x10^3/uL (0.0-0.7) Basophils # (Auto) 0.0 x10^3/uL (0.0-0.2) Platelet Estimate Decreased (ADEQUATE) Poikilocytosis Slight Anisocytosis Mod Ovalocytes Few Schistocytes Occ Prothrombin Time 17.3 SEC (11.7-14.0) Prothromb Time International Ratio 1.4 (0.8-1.1) Sodium Level 133 mmol/L (136-145) Potassium Level 4.8 mmol/L (3.5-5.1) Chloride Level 95 mmol/L (98-107) Carbon Dioxide Level 24 mmol/L (21-32) Anion Gap 14 (6-14) Blood Urea Nitrogen 76 mg/dL (8-26) Creatinine 6.7 mg/dL (0.7-1.3) Estimated GFR (Cockcroft-Gault) 8.0 Glucose Level 332 mg/dL (70-99) Calcium Level 8.4 mg/dL (8.5-10.1) Test 07/04/18 11:22 Glucose (Fingerstick) 157 mg/dL (70-99) Images Images History: INPATIENT. RIGHT FOOT 2ND DIGIT WOUND. Hx DIABETES. PRIOR MRI Comparison/Correlation: 06/26/2018 MRI right lower extremity without contrast Findings: Two-view exam of the right foot was performed. Advanced degenerative narrowing of interphalangeal joints noted. Osteopenia evident. Degenerative narrowing of the first metatarsophalangeal joint noted. Soft tissue gas involving the second digit proximal phalangeal level. 3 present. No periosteal reaction identified involving the second digit proximal phalanx. Degenerative changes of the tarsal-metatarsal articulations noted. Small calcaneal spur noted. Vascular calcifications are evident. Impression: Degenerative changes. No focal bony destruction delineated on the limited images provided. Assessment/Plan Assessment/Plan IMP ESRD-TTS R 2ND TOE OSTEO DM II HTN ANEMIA CM WITH EF OF 20% HX OF CAD PLAN ABX WOUND CARE ARANESP HD TODAY UF TO DW REGINO LOPEZ MD Jul 04, 2018 11:50
--- NOTE | 2018-07-04 11:57 | NUR ---
SW following for discharge planning. Discussed with RN, pt is from home with spouse and has children as supports. Pt has dialysis T,TH,Sa. Currently needing IV zosyn and vanco, however difficulty with IV access. Pt possibly scheduled for an amputation on Sunday (07/08/18). SW will continue to follow for any discharge planning needs.
[2018-07-04] MEDS ORDERED: IV NORMAL SALINE 1000ML BAG 1,000 ML IV PRN ×2 (13:52)
[2018-07-04] MEDS ORDERED: 0.9 % SODIUM CHLORIDE 10 ML DISP.SYRIN. IV PRN ×2 (14:00)
[2018-07-04] MEDS ORDERED: ALBUMIN HUMAN 25% 200 ML IV PRN (14:00)
[2018-07-04] MEDS ORDERED: DIALYSIS PATIENT. MC PRN ×2 (14:00)
[2018-07-04] MEDS: VANCOMYCIN PER PHARMACY MC PRN (14:20)
[2018-07-04] MEDS ORDERED: LIDOCAINE WITH 8.4% SOD BICARB 3 ML DISP.SYRIN. ONE (14:43)
[2018-07-04 15:00] VITALS: BP 107/57
--- NOTE | 2018-07-04 15:13 | NUR ---
Wound Care Pt off unit upon arrival of WC team, will see tomorrow.
--- NOTE | 2018-07-04 15:28 | NUR ---
Client was transported to dialysis via bed at approximately 1453.
--- NOTE | 2018-07-04 15:57 | PDOC ---
LILIANA LÓPEZ 07/04/18 1557: Provider Note Provider Note Pt seen and examined by Dr. Pitts this am - please see full dictation note. Impression: 1. Osteomyelitis of right second toe 2. CHF 3. Insulin dependent diabetes 4. CKD Plan: Pt needs right second toe amputation, this is not urgent. If possible we will try to arrange for this to take place tomorrow, if not it may need to wait until Sunday. Continue IV abx WHITNEY PITTS II, MD 07/04/18 1619: Provider Note Provider Note Complete vascular consult dictated. Will obtain arterial duplex exam prior to the procedure. LILIANA LÓPEZ Jul 04, 2018 15:57 WHITNEY PITTS II, MD Jul 04, 2018 16:19
--- NOTE | 2018-07-04 19:15 | PDOC ---
Provider Note Provider Note Not able to do toe amputation tomorrow. He is on the schedule for toe amputation for Sunday. Will make NPO after midnight on Sunday. STEPHEN BRUMFIELD MD Jul 04, 2018 19:15
[2018-07-04 19:30] VITALS: BP 94/55
[2018-07-04] MEDS: ATORVASTATIN CALCIUM 40 MG TABLET. PO SCH (21:20)
[2018-07-04] MEDS: INSULIN GLARGINE 300 UNITS/3 ML INSULN.PEN. SQ SCH (21:25)
[2018-07-04] MEDS: HYDROcodone/APAP 5/325MG 1 TAB TABLET PO PRN (23:00)
[2018-07-04 23:30] VITALS: BP 100/53
[2018-07-05 03:14] VITALS: BP 105/57
--- NOTE | 2018-07-05 04:06 | CONS ---
DATE OF CONSULTATION: 07/04/2018 CLINICAL HISTORY: This is an 82-year-old gentleman, longstanding diabetic with a wound on the right second toe in the interphalangeal joint. We have been asked to evaluate this. PAST MEDICAL HISTORY: Significant for longstanding diabetes; congestive heart failure, he has a known 20% ejection fraction. He has end-stage renal disease, requiring hemodialysis. He currently has a permanent dialysis catheter in his right internal jugular vein and a functioning left arm brachiocephalic arteriovenous fistula. PAST SURGICAL HISTORY: Includes the above plus coronary artery bypass surgery. He has had prior amputation of the left great toe. FAMILY HISTORY: Positive for diabetes. SOCIAL HISTORY: The patient smoked for 30 years, but stopped 15 years ago. REVIEW OF SYSTEMS: Twelve-point review of systems is unremarkable. He was able to ambulate prior to a couple of days ago and now he is afraid to because of the wound on his foot. ALLERGIES: None known. MEDICATIONS: Reviewed. PHYSICAL EXAMINATION: GENERAL: The patient is alert and awake. NECK: Carotids are 2+. ABDOMEN: Soft. EXTREMITIES: He has palpable femoral pulses. He has 2+ edema both lower extremities. He has a wound on the dorsal aspect of the right second toe overlying the interphalangeal joint with exposed joint capsule. There is no efflux of purulence. There is no surrounding erythema, no evidence of ascending abscess. LABORATORY DATA: White blood cell count is 4000. IMAGING: Lower extremity ultrasound was done of the right lower extremity, which demonstrates no evidence of venous insufficiency. Apparently, an arterial study was not performed. IMPRESSION: 1. Diabetes with vascular disease. 2. Osteomyelitis of the right second interphalangeal joint without evidence of abscess. 3. Peripheral neuropathy. 4. End-stage renal disease requiring hemodialysis. He has a functioning PermCath and a functioning left upper arm AV fistula, which he has been using currently. 5. Bilateral peripheral edema likely due to combination of dependency and mild congestive heart failure. PLAN: The patient requires partial amputation of the right second toe. We will obtain an arterial duplex evaluation prior to the procedure, which is scheduled for tomorrow. I think there is a very high likelihood that this will heal without vascular intervention. The procedure was explained to the patient in detail and he wishes to proceed. Thank you for allowing me to evaluate him. WHITNEY ROPER MD DR: Yasmin JOB#: [id number] / [id number]
[2018-07-05] MEDS: PIPERACILLIN/TAZOBACTAM 2.25 GM in IV NORMAL SALINE 50ML 50 ML IV SCH ×3 (05:44→21:57)
[2018-07-05] MEDS ORDERED: VANCOMYCIN RANDOM LEVEL. MC ONE (06:00)
[2018-07-05 07:00] VITALS: BP 109/64
[2018-07-05] MEDS ORDERED: fentaNYL PF VIAL 100 MCG/2 ML VIAL IV PRN ×4 (07:00)
[2018-07-05] MEDS ORDERED: PROCHLORPERAZINE 10 MG/2 ML VIAL. IV PRN ×2 (07:00)
[2018-07-05] MEDS ORDERED: IV RINGERS,LACTATED 1000ML 1,000 ML IV SCH ×2 (07:00)
[2018-07-05] MEDS ORDERED: ONDANSETRON PF 4 MG/2 ML VIAL. IV PRN ×2 (07:00)
[2018-07-05] MEDS ORDERED: HYDROmorphone 2 MG/ML VIAL IV PRN ×2 (07:00)
[2018-07-05] MEDS ORDERED: MORPHINE SULFATE 2 MG/ML VIAL. IV PRN ×2 (07:00)
[2018-07-05] MEDS: ALBUTEROL SULFATE 2.5 MG/3 ML NEBU. NEB SCH ×4 (07:29→20:11)
[2018-07-05] MEDS: BUDESONIDE 0.5 MG/2 ML NEBU. NEB SCH ×2 (07:30→20:11)
[2018-07-05] MEDS: VANCOMYCIN PER PHARMACY MC PRN (07:53)
--- NOTE | 2018-07-05 07:56 | NUR ---
Pharmacy Vancomycin Dosing Note S: Consulted to monitor and dose vancomycin started 07/03/18. O: DYLAN CRABTREE is a 82 year old M with Cellulitis, Osteomyelitis Other Antibiotics: ZOSYN LABS: Last BUN: 76 Last Creatinine: 6.7 Creatinine Clearance: HD TUTHSA Last WBC: 4.4 Last Procalcitonin: - Tmax (past 24 hours): 98.5 Microbiology: 07/03 TOE: MANY GPC I/O: 240/- Drug Levels: Last Random level: 15 on 07/05/18 at 0640 Last dose given 07/03/18 at 2100 Vancomycin Dosing: Dosing Weight: Actual Target Trough: 15-20 A: Based on: random level P: 1. Begin Vancomycin 500 mg IV after each dialysis session (TThSa) 2. Follow up Random level on 07/05/18 at 0600 3. Pharmacy will continue to monitor, follow and adjust therapy as needed. Linda Guillory RPH, 07/05/18 [id number]
[2018-07-05] MEDS: FERROUS SULFATE 325 MG TABLET. PO SCH (09:19)
[2018-07-05] MEDS: TAMSULOSIN 0.4 MG CAP.ER.24H. PO SCH (09:20)
[2018-07-05] MEDS: TORSEMIDE 20 MG TABLET. PO SCH ×2 (09:20→17:04)
[2018-07-05] MEDS: HYDROcodone/APAP 5/325MG 1 TAB TABLET PO PRN ×2 (09:20→12:26)
[2018-07-05] MEDS: CALCIUM ACETATE 667 MG CAPSULE PO SCH ×3 (09:20→17:04)
[2018-07-05] MEDS: LACTOBACILLUS RHAMNOSUS GG 1 CAPSULE. PO SCH ×2 (09:20→21:57)
[2018-07-05] MEDS: PANTOPRAZOLE 40 MG TABLET.DR. PO SCH (09:20)
[2018-07-05] MEDS: GABAPENTIN 100 MG CAPSULE. PO SCH (09:21)
[2018-07-05] MEDS: ISOSORBIDE MONONITRATE ER 30 MG TAB.ER.24H PO SCH (09:21)
[2018-07-05] MEDS: ASPIRIN ENTERIC COATED 81 MG TABLET.DR. PO SCH (09:22)
[2018-07-05] MEDS: SODIUM BICARBONATE 650 MG TABLET. PO SCH ×3 (09:22→21:57)
[2018-07-05] MEDS: FLUTICASONE 50MCG/NASAL SPRAY 16GM BOTTLE. NS SCH (09:23)
[2018-07-05] MEDS: INSULIN LISPRO 300 UNITS/3 ML INSULN.PEN. SQ SCH ×3 (09:25→17:00)
[2018-07-05] MEDS: MICAFUNGIN 100 MG in IV DEXTROSE 5% 100ML 100 ML IV SCH (09:42)
--- NOTE | 2018-07-05 09:52 | PDOC ---
PROGRESS NOTES Subjective Subjective feels better today Objective Objective Vital Signs Date Time Temp Pulse Resp B/P (MAP) Pulse Ox O2 Delivery O2 Flow Rate FiO2 07/05/18 09:21 76 109/64 07/05/18 09:20 98 Room Air 07/05/18 07:00 98.4 18 98.4 Intake and Output 07/05/18 07:00 Intake Total 520 ml Balance 520 ml Intake Oral 420 ml IV Total 100 ml Physical Exam Abdomen: Normal bowel sounds, Soft, No tenderness Heart: Regular rate, Normal S1, Normal S2 Extremities: No cyanosis General: Alert, Oriented X3, Cooperative, No acute distress HEENT: Atraumatic, PERRLA Lungs: Clear to auscultation MUSCULOSKELETAL: No joint tenderness, No swelling, Other (RIGHT FOOT WOUND DRESSED) Neuro: Normal speech Psych/Mental Status: Mental status NL, Mood NL Skin: No breakdown, No significant lesion Assessment Assessment FINAL IMPRESSION: 1. Right second toe ulcer with underlying osteomyelitis. The ulcer is deep to the joint into the bone, interphalangeal joint. 2. Diabetes, insulin-dependent. 3. Coronary artery disease, previous bypass surgery. 4. End-stage renal disease, dialysis. 5. Chronic systolic heart failure, ejection fraction 20%. 6. Hypertension. 7. Hyperlipidemia. 8. History of previous toe amputation. 9. Diabetic neuropathy. PLAN: iv antibiotics vanco+zosyn. surgery planned for sunday, toe amputation rt 2 nd toe dialysis tomorrow. spoke with family and RN spoke with renal At this time, admit to hospital, seen by infectious. We will start on vanco and Zosyn after culture done. The patient had x-ray of the toe. We will have vascular consult. Probably, he needs to have toe amputation done and further recommendations to follow. We will do arterial Doppler. Comment Review of Relevant I have reviewed the following items shar (where applicable) has been applied. Labs Laboratory Tests Test 07/04/18 11:22 07/04/18 21:18 07/05/18 06:40 07/05/18 07:53 Glucose (Fingerstick) 157 mg/dL (70-99) 201 mg/dL (70-99) 245 mg/dL (70-99) Random Vancomycin Level 15.0 mcg/mL Microbiology 07/03/18 Anaerobic/Aerobic Culture, Resulted Pending 07/03/18 Anaerobic Culture Result 1 (DEMETRA), Resulted Pending 07/03/18 Aerobic Culture, Resulted Pending 07/03/18 Aerobic Culture Result 1 (DEMETRA), Resulted Pending 07/03/18 Gram Stain - Final, Resulted 07/03/18 Gram Stain Result 1 (DEMETRA) - Final, Resulted 07/03/18 Gram Stain Result 2 (DEMETRA) - Final, Resulted Medications Current Medications Albumin Human 200 ml @ 200 mls/hr 1X PRN PRN IV Hypotension; Start 07/04/18 at 14:00; Stop 07/04/18 at 19:59; Status DC Fentanyl Citrate (Fentanyl 2ml Vial) 25 mcg PRN Q5MIN PRN IV MILD PAIN; Start 07/05/18 at 07:00; Stop 07/06/18 at 06:59 Fentanyl Citrate (Fentanyl 2ml Vial) 25 mcg PRN Q5MIN PRN IV MILD PAIN; Start 07/05/18 at 07:00; Stop 07/06/18 at 06:59; Status UNV Fentanyl Citrate (Fentanyl 2ml Vial) 50 mcg PRN Q5MIN PRN IV MODERATE TO SEVERE PAIN; Start 07/05/18 at 07:00; Stop 07/06/18 at 06:59 Fentanyl Citrate (Fentanyl 2ml Vial) 50 mcg PRN Q5MIN PRN IV MODERATE TO SEVERE PAIN; Start 07/05/18 at 07:00; Stop 07/06/18 at 06:59; Status UNV Hydromorphone HCl (Dilaudid) 0.5 mg PRN Q10MIN PRN IV SEV PAIN, Second choice; Start 07/05/18 at 07:00; Stop 07/06/18 at 06:59 Hydromorphone HCl (Dilaudid) 0.5 mg PRN Q10MIN PRN IV SEV PAIN, Second choice; Start 07/05/18 at 07:00; Stop 07/06/18 at 06:59; Status UNV Info (PHARMACY MONITORING -- do not chart) 1 each PRN DAILY PRN MC SEE COMMENTS; Start 07/04/18 at 14:00 Info (PHARMACY MONITORING -- do not chart) 1 each PRN DAILY PRN MC SEE COMMENTS; Start 07/04/18 at 14:00; Status UNV Insulin Glargine (Lantus) 25 units QHS SQ Last administered on 07/04/18at 21:25; Start 07/04/18 at 21:00 Lidocaine/Sodium Bicarbonate (Buffered Lidocaine 1%) 3 ml [employer] ONCE .ROUTE ; Start 07/04/18 at 14:43; Stop 07/04/18 at 14:44; Status DC Micafungin Sodium 100 mg/Dextrose 100 ml @ 100 mls/hr Q24H IV Last administered on 07/05/18at 09:42; Start 07/04/18 at 10:00 Morphine Sulfate (Morphine Sulfate) 1 mg PRN Q10MIN PRN IV SEVERE PAIN; Start 07/05/18 at 07:00; Stop 07/06/18 at 06:59 Morphine Sulfate (Morphine Sulfate) 1 mg PRN Q10MIN PRN IV SEVERE PAIN; Start 07/05/18 at 07:00; Stop 07/06/18 at 06:59; Status UNV Ondansetron HCl (Zofran) 4 mg PRN Q6HRS PRN IV NAUSEA/VOMITING; Start 07/05/18 at 07:00; Stop 07/06/18 at 06:59 Ondansetron HCl (Zofran) 4 mg PRN Q6HRS PRN IV NAUSEA/VOMITING; Start 07/05/18 at 07:00; Stop 07/06/18 at 06:59; Status UNV Prochlorperazine Edisylate (Compazine) 5 mg PACU PRN PRN IV NAUSEA, MRX1; Start 07/05/18 at 07:00; Stop 07/06/18 at 06:59 Prochlorperazine Edisylate (Compazine) 5 mg PACU PRN PRN IV NAUSEA, MRX1; Start 07/05/18 at 07:00; Stop 07/06/18 at 06:59; Status UNV Ringer's Solution 1,000 ml @ 30 mls/hr Q24H IV Last administered on 07/05/18at 05:44; Start 07/05/18 at 07:00; Stop 07/05/18 at 18:59 Ringer's Solution 1,000 ml @ 30 mls/hr Q24H IV ; Start 07/05/18 at 07:00; Stop 07/05/18 at 18:59; Status UNV Sodium Chloride 1,000 ml @ 400 mls/hr Q2H30M PRN IV PATENCY; Start 07/04/18 at 13:52; Stop 07/05/18 at 01:51; Status DC Sodium Chloride 1,000 ml @ 1,000 mls/hr Q1H PRN IV hypotension; Start 07/04/18 at 13:52; Stop 07/04/18 at 19:51; Status DC Sodium Chloride (Normal Saline Flush) 10 ml 1X PRN PRN IV COVERAGE ANALYST catheter pack; Start 07/04/18 at 14:00; Stop 07/05/18 at 13:59 Sodium Chloride (Normal Saline Flush) 10 ml 1X PRN PRN IV AP catheter pack; Start 07/04/18 at 14:00; Stop 07/05/18 at 13:59; Status UNV Vancomycin HCl (Vancomycin Random Level) 1 each 1X ONCE MC Last administered on 07/05/18at 06:00; Start 07/05/18 at 06:00; Stop 07/05/18 at 06:01; Status DC Vancomycin HCl 500 mg/Sodium Chloride 100 ml @ 100 mls/hr QTUTHSA IV ; Start 07/06/18 at 16:00 Vitals/I & O Vital Sign - Last 24 Hours 07/04/18 07/04/18 07/04/18 07/04/18 11:00 11:31 15:00 18:16 Temp 97.8 98.4 97.8 98.4 Pulse 77 76 Resp 16 16 B/P (MAP) 122/58 (79) 107/57 (74) Pulse Ox 96 95 97 O2 Delivery Room Air Room Air Room Air Room Air 07/04/18 07/04/18 07/04/18 07/04/18 18:31 19:30 20:15 23:00 Temp 98.4 98.4 Pulse 98 Resp 16 B/P (MAP) 94/55 (68) Pulse Ox 97 97 O2 Delivery Room Air Room Air Room Air Room Air 07/04/18 07/05/18 07/05/18 07/05/18 23:30 00:00 03:14 07:00 Temp 98.5 97.5 98.4 98.5 97.5 98.4 Pulse 96 90 76 Resp 22 20 18 B/P (MAP) 100/53 (69) 105/57 (73) 109/64 (79) Pulse Ox 98 97 98 O2 Delivery Room Air Room Air Room Air Room Air 07/05/18 07/05/18 07/05/18 07:31 09:20 09:21 Pulse 76 B/P (MAP) 109/64 Pulse Ox 98 98 O2 Delivery Room Air Room Air Intake and Output 07/04/18 07/04/18 07/05/18 15:00 23:00 07:00 Intake Total 520 ml Balance 520 ml FLAVIA HOOVER MD Jul 05, 2018 09:52
[2018-07-05 11:00] VITALS: BP 98/50
--- NOTE | 2018-07-05 11:14 | PDOC ---
Renal-Progress Notes Subjective Notes Notes NO NEW COMPLAINTS History of Present Illness Hx of present illness STABLE Vitals Vitals Vital Signs Date Time Temp Pulse Resp B/P (MAP) Pulse Ox O2 Delivery O2 Flow Rate FiO2 07/05/18 10:25 98 Room Air 07/05/18 09:21 76 109/64 07/05/18 07:00 98.4 18 98.4 Weight Weight [ ] I.O. Intake and Output Intake and Output 07/05/18 06:59 Intake Total 520 ml Balance 520 ml Intake Oral 420 ml IV Total 100 ml Labs Labs Laboratory Tests Test 07/04/18 11:22 07/04/18 21:18 07/05/18 06:40 07/05/18 07:53 Glucose (Fingerstick) 157 mg/dL (70-99) 201 mg/dL (70-99) 245 mg/dL (70-99) Random Vancomycin Level 15.0 mcg/mL Micro Micro Microbiology 07/03/18 Anaerobic/Aerobic Culture, Resulted Pending 07/03/18 Anaerobic Culture Result 1 (DEMETRA), Resulted Pending 07/03/18 Aerobic Culture, Resulted Pending 07/03/18 Aerobic Culture Result 1 (DEMETRA), Resulted Pending 07/03/18 Gram Stain - Final, Resulted 07/03/18 Gram Stain Result 1 (DEMETRA) - Final, Resulted 07/03/18 Gram Stain Result 2 (DEMETRA) - Final, Resulted Review of Systems Constitutional: yes: alert, oriented Ears/Nose/Throat: Yes: no symptom reported Eyes: Yes: no symptom reported Pulmonary: Yes no symptom reported Cardiovascular: Yes no symptom reported Gastrointestional: Yes: constipation Genitourinary: Yes: no symptom reported Musculoskeletal: Yes: joint pain Skin: Yes no symptom reported Psychiatric/Neurological: Yes: no symptom reported Endocrine: Yes: no symptom reported Physical Exam General Appearance: no apparent distress Skin: warm Respiratory: bilateral CTA Heart: S1S2 Abdomen: soft, bowel sounds present Genitourinary: bladder flat Extremities: pulses present, edema Neurology: alert, oriented Assessment Assessment IMP ESRD-TTS R 2ND TOE OSTEO DM II HTN ANEMIA CM WITH EF OF 20% HX OF CAD PLAN ABX WOUND CARE ARANESP HD TOMORROW AMP PENDING REGINO LOPEZ MD Jul 05, 2018 11:14
--- NOTE | 2018-07-05 11:34 | NUR ---
SW following. Discussed with RN, pt scheduled for toe amputation Sunday (07/08/18). Pt current with [facility] for PT/OT/RN. SW will continue to follow for discharge planning needs.
--- NOTE | 2018-07-05 11:42 | PDOC ---
Infectious Disease Note Subjective Subjective Feeling about the same as yesterday No F/C/S/N/V/D/SOA/rash ROS ROS o/w neg Vital Sign Vital Signs Vital Signs Date Time Temp Pulse Resp B/P (MAP) Pulse Ox O2 Delivery O2 Flow Rate FiO2 07/05/18 10:25 98 Room Air 07/05/18 09:21 76 109/64 07/05/18 07:00 98.4 18 98.4 Physical Exam PHYSICAL EXAM GENERAL: The patient is not in any distress, sitting in a chair and comfortable. HEENT: Head is atraumatic. Pupils equal. Oral cavity -c lear. NECK: Supple. JVD not elevated. The patient has a dialysis access catheter in the right chest, scar of heart bypass surgery. CARDIOVASCULAR: S1 and S2. LUNGS: CTA ABDOMEN: Soft, NT, ND. EXTERNAL GENITALIA: No Arndt. EXTREMITIES: The patient has between 1-2+ edema in both lower extremities. Pulses hard to feel, had a left big toe amputation in the past, incision looks good. Right foot, there is ulcer on the second toe and he has a deformity of the right big toe. Pulses hard to feel. NEUROLOGIC: Moving all extremities. No focal deficits noted. Labs Lab Laboratory Tests Test 07/04/18 21:18 07/05/18 06:40 07/05/18 07:53 Glucose (Fingerstick) 201 mg/dL (70-99) 245 mg/dL (70-99) Random Vancomycin Level 15.0 mcg/mL Micro MRI Right foot 06/26 IMPRESSION: Erosive arthropathy involving multiple joints as discussed above most severely involving the first metatarsal phalangeal joint. Differential considerations include gout or psoriasis or rheumatoid arthritis or infection. Dorsal subcutaneous soft tissue edema which may be seen with cellulitis. Objective Assessment Right sec toe wound/cellulitis - GPC on gramstain Tinea/onychomycosis CKD on HD DM Plan Plan of Care Cont Vanc/Zosyn/ Micafungin F/u labs and cults Await Vascular surgery scheduled 07/08 LUISA CROOK MD Jul 05, 2018 11:42
[2018-07-05] MEDS: ENOXAPARIN 30 MG/0.3 ML SYRINGE. SQ SCH (12:25)
--- NOTE | 2018-07-05 13:47 | NUR ---
Wound Care Wound care consult for multiple DFU's. Pt has R 2nd toe that is open to bone, amputation scheduled for Sunday. Dressed with Xeroform and gauze. Left great met head dressed with Xeroform and gauze. Right lateral calf appears to be skin tear, dressed with Xeroform and foam. Recommend to change dressings every 2 days. Pt buttocks are reddened but blanchable with no open areas, applied Calazime. Pt left in chair with heels floated, WC cushion and P500 bed ordered. Pt educated on PU prevention. POC discussed with SAMI Cano. WC will continue to follow for possible changes.
--- NOTE | 2018-07-05 14:41 | PDOC ---
Provider Note Provider Note S: Pt with osteomyelitis of right second toe by clinical exam. Seen by Dr. Pitts and planned for toe amputation next week. Pt has no complaints. Denies pain to right foot. Denies fever, chills. O: VSS, afebrile GENERAL: The patient is alert and awake. In no apparent distress LUNGS: Respirations nonlabored ABDOMEN: Soft. Nontender EXTREMITIES: He has palpable femoral pulses. He has 1+ edema both lower extremities, cannot appreciate palpable pulses likely due to this. He has a wound on the dorsal aspect of the right second toe overlying the interphalangeal joint with exposed joint capsule. There is no drainage. There is no surrounding erythema, no evidence of ascending abscess. Very small superficial wound dorsal left overlying 1st met head. 1st toe amp healed. Small dry callous medial right foot. A/P: Right 2nd toe osteomyelitis, diabetic toe ulcer - Will get right leg arterial duplex. - continue IV abx per ID - Unfortunately there is no OR time available on Sunday, so the patient has been scheduled for Sunday07/09/18 for right 2nd toe amputation. I discussed this with the patient, all his questions were answered to satisfaction. LILIANA LÓPEZ Jul 05, 2018 14:41
[2018-07-05 15:00] VITALS: BP 97/50
--- NOTE | 2018-07-05 15:23 | EKG ---
[facility] [address] [place] [address] Test Date: 2018-07-05 Test Time: 15:13:54 Pat Name: DYLAN CRABTREE Department: Room: 444 1 Gender: M [facility] Customer Service: TESSIE : 1935 Requested By: FLAVIA HOOVER Order Number: [id number] Reading MD: Pan Barrera Measurements Intervals [place] Rate: 80 P: 23 AR: 194 QRS: 0 QRSD: 92 T: 156 QT: 370 QTc: 430 Interpretive Statements SINUS RHYTHM LEFTWARD AXIS QRS(T) CONTOUR ABNORMALITY CONSIDER ANTEROSEPTAL MYOCARDIAL DAMAGE ST & T ABNORMALITY, CONSIDER ANTERIOR ISCHEMIA OR LEFT VENTRICULAR STRAIN INFEROLATERAL ISCHEMIA OR LEFT VENTRICULAR STRAIN ABNORMAL ECG Electronically Signed On 07-10-2018 12:11:55 CDT by Pan Barrera
--- NOTE | 2018-07-05 15:43 | RAD ---
PA and lateral chest x-ray compared to similar study dated 05/28/2018 for pneumonia. FINDINGS: There is worsening airspace opacities throughout the left lower lung concerning for progressive pneumonia. Patchy peripheral airspace opacities are seen in both lungs as well, and there may be central vascular congestion also. No pleural effusions on the lateral projection. Right IJ tunnel hemodialysis catheter is unchanged. Median sternal wires are again noted. There is dense atherosclerosis of the aortic arch. Heart size is enlarged but stable. IMPRESSION: 1. Worsening left lower lung infiltrate concerning for progressive pneumonia. 2. Central vascular congestion with peripheral opacities possibly reflecting pulmonary edema. No pleural effusions however. 3. Other chronic changes as described. Electronically signed by: Mikael Tripathi MD (07/05/2018 3:41 PM) [id number]
[2018-07-05 19:30] VITALS: BP 97/43
--- NOTE | 2018-07-05 21:30 | NUR ---
Medication RN administered 10 units of Lantus per patient request.
[2018-07-05] MEDS: ATORVASTATIN CALCIUM 40 MG TABLET. PO SCH (21:57)
[2018-07-05] MEDS: INSULIN GLARGINE 300 UNITS/3 ML INSULN.PEN. SQ SCH (22:07)
[2018-07-05 23:53] VITALS: BP 99/50
[2018-07-06 03:49] VITALS: BP 100/47
[2018-07-06 06:22] LABS: HEMATOCRIT 33.6 % (39.0-53.0); HEMOGLOBIN 10.8 g/dL (13.0-17.5); RED BLOOD COUNT 3.4 x10^6/uL (4.30-5.70); RED CELL DISTRIBUTION WIDTH 22.4 % (11.5-14.5); WHITE BLOOD COUNT 4.3 x10^3/uL (4.0-11.0)
[2018-07-06] MEDS: PANTOPRAZOLE 40 MG TABLET.DR. PO SCH (06:26)
[2018-07-06] MEDS: PIPERACILLIN/TAZOBACTAM 2.25 GM in IV NORMAL SALINE 50ML 50 ML IV SCH ×3 (06:26→21:12)
[2018-07-06 06:41] LABS: CREATININE 5.9 mg/dL (0.7-1.3); GFR 9.2; POTASSIUM 5.4 mmol/L (3.5-5.1)
[2018-07-06 07:00] VITALS: BP 84/38
[2018-07-06] MEDS: ALBUTEROL SULFATE 2.5 MG/3 ML NEBU. NEB SCH ×4 (07:29→20:00)
[2018-07-06] MEDS: BUDESONIDE 0.5 MG/2 ML NEBU. NEB SCH ×2 (07:29→20:00)
[2018-07-06] MEDS: INSULIN LISPRO 300 UNITS/3 ML INSULN.PEN. SQ SCH ×3 (07:56→17:19)
--- NOTE | 2018-07-06 08:47 | RAD ---
Right lower extremity arterial ultrasound History: Right lower leg nonhealing wound COMPARISON: May 27, 2018 Findings: Multiple grayscale, color, and duplex spectral analysis sonographic images were acquired of the right lower extremity arteries. There is prominent diffuse calcified plaque throughout the right lower extremity arteries. Anterior tibial artery could not be visualized, visualized on previous exam although low velocity on previous exam. Peroneal artery could not be visualized, also not seen on previous exam. Previously there was a much lower velocity obtained for the dorsalis pedis artery. There are biphasic waveforms to the level of the distal superficial femoral artery, otherwise monophasic waveforms remainder of the visualized, more distal right lower extremity arteries. There is persistent nearly anechoic collection of the medial aspect of the right popliteal fossa about 5.2 x 3.2 x 1.9 cm in size, previously about 3.7 x 1.8 x 4.1 cm. Velocity of the proximal posterior tibial artery is less than previously. Velocities in cm/sec: Common femoral artery no velocity obtained for this exam although color flow demonstrated Profunda femoris artery 147 Proximal SFA 168 Mid SFA 68 Distal SFA 138 Popliteal artery 50 Anterior tibial artery not seen Dorsalis pedis artery 73 Posterior tibial artery 55 Peroneal artery not seen Impression: 1. There is again diffuse prominent calcified plaque throughout the right lower extremity arteries. Right anterior tibial artery could not be visualized on this exam and probably occluded, previously only minimal flow demonstrated. Peroneal artery is again not visualized. There is improved velocity of the right dorsalis pedis artery on this exam although relative decreased velocity of the proximal posterior tibial artery. There is doubling of the velocity between the mid to distal superficial femoral artery, probable underlying more focal stenosis. Electronically signed by: Feng Villasenor MD (07/06/2018 8:44 AM) [facility]
[2018-07-06] MEDS: ISOSORBIDE MONONITRATE ER 30 MG TAB.ER.24H PO SCH (09:00)
--- NOTE | 2018-07-06 11:00 | PDOC ---
Dialysis Progress Note Dialysis Note Dialysis Note Seen on Hemodialysis, tolerating treatment Well Vitals on Hemodialysis General Appearance: Awake: Neck: No JVD or JVP Chest: CTA Arthur Heart: S1 S2 Abdomen - Soft NTND Extremities - No EdemaESRD ARF: Dialysis as below F 180 NR 3.5 Hrs 2 K 2.5 Ca 140 Na 350 HC03 Qb 350 + Qd 500+ Heparin 0 Units Uf 2.0 Kgs or to dry weight as tolerated May give 25-50 gms of 25% Albumin if needed to maintain Hemodynamic stability Treatment plan reviewed and discussed with warehouse record clerk Vitals Vital Signs Vital Signs Date Time Temp Pulse Resp B/P (MAP) Pulse Ox O2 Delivery O2 Flow Rate FiO2 07/06/18 07:30 96 Room Air 07/06/18 07:00 97.5 99 18 84/38 (53) 97.5 07/06/18 03:49 2.0 Labs Last Labs Laboratory Tests Test 07/04/18 11:22 07/04/18 21:18 07/05/18 06:40 07/05/18 07:53 Glucose (Fingerstick) 157 mg/dL (70-99) 201 mg/dL (70-99) 245 mg/dL (70-99) Random Vancomycin Level 15.0 mcg/mL Test 07/05/18 11:41 07/05/18 16:13 07/06/18 05:55 07/06/18 07:56 Glucose (Fingerstick) 263 mg/dL (70-99) 122 mg/dL (70-99) 118 mg/dL (70-99) White Blood Count 4.3 x10^3/uL (4.0-11.0) Red Blood Count 3.40 x10^6/uL (4.30-5.70) Hemoglobin 10.8 g/dL (13.0-17.5) Hematocrit 33.6 % (39.0-53.0) Mean Corpuscular Volume 99 fL (79-100) Mean Corpuscular Hemoglobin 32 pg (25-35) Mean Corpuscular Hemoglobin Concent 32 g/dL (31-37) Red Cell Distribution Width 22.4 % (11.5-14.5) Platelet Count 128 x10^3/uL (140-400) Sodium Level 135 mmol/L (136-145) Potassium Level 5.4 mmol/L (3.5-5.1) Chloride Level 96 mmol/L (98-107) Carbon Dioxide Level 29 mmol/L (21-32) Anion Gap 10 (6-14) Blood Urea Nitrogen 66 mg/dL (8-26) Creatinine 5.9 mg/dL (0.7-1.3) Estimated GFR (Cockcroft-Gault) 9.2 Glucose Level 126 mg/dL (70-99) Calcium Level 9.0 mg/dL (8.5-10.1) Laboratory Tests Test 07/05/18 11:41 07/05/18 16:13 07/06/18 05:55 07/06/18 07:56 Glucose (Fingerstick) 263 mg/dL (70-99) 122 mg/dL (70-99) 118 mg/dL (70-99) White Blood Count 4.3 x10^3/uL (4.0-11.0) Red Blood Count 3.40 x10^6/uL (4.30-5.70) Hemoglobin 10.8 g/dL (13.0-17.5) Hematocrit 33.6 % (39.0-53.0) Mean Corpuscular Volume 99 fL (79-100) Mean Corpuscular Hemoglobin 32 pg (25-35) Mean Corpuscular Hemoglobin Concent 32 g/dL (31-37) Red Cell Distribution Width 22.4 % (11.5-14.5) Platelet Count 128 x10^3/uL (140-400) Sodium Level 135 mmol/L (136-145) Potassium Level 5.4 mmol/L (3.5-5.1) Chloride Level 96 mmol/L (98-107) Carbon Dioxide Level 29 mmol/L (21-32) Anion Gap 10 (6-14) Blood Urea Nitrogen 66 mg/dL (8-26) Creatinine 5.9 mg/dL (0.7-1.3) Estimated GFR (Cockcroft-Gault) 9.2 Glucose Level 126 mg/dL (70-99) Calcium Level 9.0 mg/dL (8.5-10.1) MINA VIERA MD Jul 06, 2018 11:00
--- NOTE | 2018-07-06 11:54 | PDOC ---
PROGRESS NOTES Subjective Subjective seen in dialysis, sleepy Objective Objective Vital Signs Date Time Temp Pulse Resp B/P (MAP) Pulse Ox O2 Delivery O2 Flow Rate FiO2 07/06/18 07:30 96 Room Air 07/06/18 07:00 97.5 99 18 84/38 (53) 97.5 07/06/18 03:49 2.0 Intake and Output 07/06/18 07:00 Intake Total 240 ml Balance 240 ml Intake Oral 240 ml Physical Exam Abdomen: Normal bowel sounds, Soft, No tenderness Heart: Regular rate, Normal S1, Normal S2 Extremities: No cyanosis General: No acute distress HEENT: Atraumatic, PERRLA Lungs: Clear to auscultation MUSCULOSKELETAL: No joint tenderness, No swelling, Other (RIGHT FOOT WOUND DRESSED) Neuro: Normal speech Skin: No breakdown, No significant lesion Assessment Assessment FINAL IMPRESSION: 1. Right second toe ulcer with underlying osteomyelitis. The ulcer is deep to the joint into the bone, interphalangeal joint. 2. Diabetes, insulin-dependent. 3. Coronary artery disease, previous bypass surgery. 4. End-stage renal disease, dialysis. 5. Chronic systolic heart failure, ejection fraction 20%. 6. Hypertension. 7. Hyperlipidemia. 8. History of previous toe amputation. 9. Diabetic neuropathy. PLAN: Dialysis today iv antibiotics vanco+zosyn+diflucan. arterial doppler dec blood flow to foot. surgery planned for saturday 07/08, toe amputation rt 2 nd toe spoke with RN Comment Review of Relevant I have reviewed the following items shar (where applicable) has been applied. Labs Laboratory Tests Test 07/05/18 16:13 07/06/18 05:55 07/06/18 07:56 Glucose (Fingerstick) 122 mg/dL (70-99) 118 mg/dL (70-99) White Blood Count 4.3 x10^3/uL (4.0-11.0) Red Blood Count 3.40 x10^6/uL (4.30-5.70) Hemoglobin 10.8 g/dL (13.0-17.5) Hematocrit 33.6 % (39.0-53.0) Mean Corpuscular Volume 99 fL (79-100) Mean Corpuscular Hemoglobin 32 pg (25-35) Mean Corpuscular Hemoglobin Concent 32 g/dL (31-37) Red Cell Distribution Width 22.4 % (11.5-14.5) Platelet Count 128 x10^3/uL (140-400) Sodium Level 135 mmol/L (136-145) Potassium Level 5.4 mmol/L (3.5-5.1) Chloride Level 96 mmol/L (98-107) Carbon Dioxide Level 29 mmol/L (21-32) Anion Gap 10 (6-14) Blood Urea Nitrogen 66 mg/dL (8-26) Creatinine 5.9 mg/dL (0.7-1.3) Estimated GFR (Cockcroft-Gault) 9.2 Glucose Level 126 mg/dL (70-99) Calcium Level 9.0 mg/dL (8.5-10.1) Microbiology 07/03/18 Anaerobic/Aerobic Culture, Resulted Pending 07/03/18 Anaerobic Culture Result 1 (DEMETRA), Resulted Pending 07/03/18 Aerobic Culture, Resulted Pending 07/03/18 Aerobic Culture Result 1 (DEMETRA), Resulted Pending 07/03/18 Gram Stain - Final, Resulted 07/03/18 Gram Stain Result 1 (DEMETRA) - Final, Resulted 07/03/18 Gram Stain Result 2 (DEMETRA) - Final, Resulted Medications Current Medications Vancomycin HCl 500 mg/Sodium Chloride 100 ml @ 100 mls/hr QTUTHSA IV ; Start 07/06/18 at 16:00 Vitals/I & O Vital Sign - Last 24 Hours 07/05/18 07/05/18 07/05/18 07/05/18 12:26 15:00 15:26 15:42 Temp 98.2 98.2 Pulse 84 Resp 18 B/P (MAP) 97/50 (66) Pulse Ox 98 98 98 O2 Delivery Room Air Room Air Room Air Room Air 07/05/18 07/05/18 07/05/18 07/05/18 19:30 20:05 20:11 23:53 Temp 98.1 98.0 98.1 98.0 Pulse 86 87 Resp 18 18 B/P (MAP) 97/43 (61) 99/50 (66) Pulse Ox 96 96 92 O2 Delivery Room Air Nasal Cannula Room Air Room Air O2 Flow Rate 2.0 07/06/18 07/06/18 07/06/18 03:49 07:00 07:30 Temp 98.4 97.5 98.4 97.5 Pulse 88 99 Resp 22 18 B/P (MAP) 100/47 (64) 84/38 (53) Pulse Ox 100 90 96 O2 Delivery Nasal Cannula Room Air Room Air O2 Flow Rate 2.0 Intake and Output 07/05/18 07/05/18 07/06/18 15:00 23:00 07:00 Intake Total 240 ml Balance 240 ml FLAVIA HOOVER MD Jul 06, 2018 11:54
[2018-07-06] MEDS: CALCIUM ACETATE 667 MG CAPSULE PO SCH ×3 (12:00→17:13)
[2018-07-06] MEDS: VANCOMYCIN PER PHARMACY MC PRN (12:58)
--- NOTE | 2018-07-06 13:22 | PDOC ---
Infectious Disease Note Subjective Subjective Feeling alright Denies pain Appetite good Denies N/V/DF/S ROS ROS per HPI Vital Sign Vital Signs Vital Signs Date Time Temp Pulse Resp B/P (MAP) Pulse Ox O2 Delivery O2 Flow Rate FiO2 07/06/18 08:00 Room Air 07/06/18 07:30 96 07/06/18 07:00 97.5 99 18 84/38 (53) 97.5 07/06/18 03:49 2.0 Physical Exam PHYSICAL EXAM GENERAL: Sitting on the side of the bed, alert, eating CARDIOVASCULAR: S1 and S2. LUNGS: CTA ABDOMEN: Soft, NT, ND. EXTREMITIES: 2+ edema in both lower extremities. Right foot bandaged NEUROLOGIC: Moving all extremities. No focal deficits noted. [facility] Labs Lab Laboratory Tests Test 07/05/18 16:13 07/06/18 05:55 07/06/18 07:56 07/06/18 12:33 Glucose (Fingerstick) 122 mg/dL (70-99) 118 mg/dL (70-99) 96 mg/dL (70-99) White Blood Count 4.3 x10^3/uL (4.0-11.0) Red Blood Count 3.40 x10^6/uL (4.30-5.70) Hemoglobin 10.8 g/dL (13.0-17.5) Hematocrit 33.6 % (39.0-53.0) Mean Corpuscular Volume 99 fL (79-100) Mean Corpuscular Hemoglobin 32 pg (25-35) Mean Corpuscular Hemoglobin Concent 32 g/dL (31-37) Red Cell Distribution Width 22.4 % (11.5-14.5) Platelet Count 128 x10^3/uL (140-400) Sodium Level 135 mmol/L (136-145) Potassium Level 5.4 mmol/L (3.5-5.1) Chloride Level 96 mmol/L (98-107) Carbon Dioxide Level 29 mmol/L (21-32) Anion Gap 10 (6-14) Blood Urea Nitrogen 66 mg/dL (8-26) Creatinine 5.9 mg/dL (0.7-1.3) Estimated GFR (Cockcroft-Gault) 9.2 Glucose Level 126 mg/dL (70-99) Calcium Level 9.0 mg/dL (8.5-10.1) Micro Objective Assessment Right second toe wound and cellulitis - GPC on gram stain Tinea/onychomycosis CKD on HD DM Plan Plan of Care Cont Vanc, Zosyn and Micafungin Trough 15.0 F/u labs and cults Await Vascular surgery scheduled 07/08 Attending Co-Sign The patient was seen and interviewed as well as examined at the bedside. The chart was reviewed. The case was discussed. Agree with the plan of care. LOIS FARRELL APRN Jul 06, 2018 13:22 BETTYE VIERA MD Jul 06, 2018 14:25
[2018-07-06] MEDS ORDERED: DIALYSIS PATIENT. MC PRN ×2 (13:30)
[2018-07-06] MEDS: SODIUM BICARBONATE 650 MG TABLET. PO SCH ×3 (14:00→21:11)
[2018-07-06] MEDS: TAMSULOSIN 0.4 MG CAP.ER.24H. PO SCH (14:26)
[2018-07-06] MEDS: FLUTICASONE 50MCG/NASAL SPRAY 16GM BOTTLE. NS SCH (14:26)
[2018-07-06] MEDS: GABAPENTIN 100 MG CAPSULE. PO SCH (14:28)
[2018-07-06] MEDS: TORSEMIDE 20 MG TABLET. PO SCH ×2 (14:29→16:00)
[2018-07-06] MEDS: ASPIRIN ENTERIC COATED 81 MG TABLET.DR. PO SCH (14:29)
[2018-07-06] MEDS: FERROUS SULFATE 325 MG TABLET. PO SCH (14:30)
[2018-07-06] MEDS: LACTOBACILLUS RHAMNOSUS GG 1 CAPSULE. PO SCH ×2 (14:30→21:11)
[2018-07-06] MEDS: ENOXAPARIN 30 MG/0.3 ML SYRINGE. SQ SCH (14:31)
[2018-07-06] MEDS: MICAFUNGIN 100 MG in IV DEXTROSE 5% 100ML 100 ML IV SCH (14:31)
[2018-07-06 15:00] VITALS: BP 110/51
[2018-07-06] MEDS: VANCOMYCIN 500 MG in IV NORMAL SALINE 100ML 100 ML IV SCH (17:13)
[2018-07-06] MEDS: HYDROcodone/APAP 5/325MG 1 TAB TABLET PO PRN (17:14)
[2018-07-06 19:00] VITALS: BP 102/56
[2018-07-06] MEDS: ATORVASTATIN CALCIUM 40 MG TABLET. PO SCH (21:11)
[2018-07-06] MEDS: INSULIN GLARGINE 300 UNITS/3 ML INSULN.PEN. SQ SCH (21:18)
[2018-07-06 23:00] VITALS: BP 96/52
[2018-07-07 02:42] VITALS: BP 113/48
[2018-07-07] MEDS: PANTOPRAZOLE 40 MG TABLET.DR. PO SCH (05:29)
[2018-07-07] MEDS: HYDROcodone/APAP 5/325MG 1 TAB TABLET PO PRN (05:29)
[2018-07-07] MEDS: PIPERACILLIN/TAZOBACTAM 2.25 GM in IV NORMAL SALINE 50ML 50 ML IV SCH ×3 (05:29→22:12)
[2018-07-07] MEDS: BUDESONIDE 0.5 MG/2 ML NEBU. NEB SCH ×2 (06:26→20:23)
[2018-07-07] MEDS: ALBUTEROL SULFATE 2.5 MG/3 ML NEBU. NEB SCH ×4 (06:26→20:23)
[2018-07-07 07:00] VITALS: BP 110/54
[2018-07-07] MEDS: ENOXAPARIN 30 MG/0.3 ML SYRINGE. SQ SCH (08:46)
[2018-07-07] MEDS: GABAPENTIN 100 MG CAPSULE. PO SCH (08:47)
[2018-07-07] MEDS: FERROUS SULFATE 325 MG TABLET. PO SCH (08:47)
[2018-07-07] MEDS: ISOSORBIDE MONONITRATE ER 30 MG TAB.ER.24H PO SCH (08:47)
[2018-07-07] MEDS: SODIUM BICARBONATE 650 MG TABLET. PO SCH ×3 (08:47→22:12)
[2018-07-07] MEDS: LACTOBACILLUS RHAMNOSUS GG 1 CAPSULE. PO SCH ×2 (08:47→22:12)
[2018-07-07] MEDS: TAMSULOSIN 0.4 MG CAP.ER.24H. PO SCH (08:48)
[2018-07-07] MEDS: TORSEMIDE 20 MG TABLET. PO SCH ×2 (08:48→15:55)
[2018-07-07] MEDS: ASPIRIN ENTERIC COATED 81 MG TABLET.DR. PO SCH (08:48)
[2018-07-07] MEDS: CALCIUM ACETATE 667 MG CAPSULE PO SCH ×3 (08:48→17:17)
[2018-07-07] MEDS: MICAFUNGIN 100 MG in IV DEXTROSE 5% 100ML 100 ML IV SCH (08:48)
[2018-07-07] MEDS: FLUTICASONE 50MCG/NASAL SPRAY 16GM BOTTLE. NS SCH (08:49)
[2018-07-07] MEDS: INSULIN LISPRO 300 UNITS/3 ML INSULN.PEN. SQ SCH ×3 (09:01→17:20)
--- NOTE | 2018-07-07 09:38 | PDOC ---
PROGRESS NOTES Subjective Subjective c/o loose stools 4-5 yesterday Objective Objective Vital Signs Date Time Temp Pulse Resp B/P (MAP) Pulse Ox O2 Delivery O2 Flow Rate FiO2 07/07/18 08:47 85 110/54 07/07/18 07:00 97.7 18 96 Room Air 97.7 Intake and Output 07/07/18 07:00 Intake Total 560 ml Output Total 1 ml Balance 559 ml Intake Oral 560 ml Output Stool Total 1 ml # Voids 4 # Bowel Movements 1 Physical Exam Abdomen: Normal bowel sounds, Soft, No tenderness Heart: Regular rate, Normal S1, Normal S2 Extremities: No cyanosis General: No acute distress HEENT: Atraumatic, PERRLA Lungs: Clear to auscultation MUSCULOSKELETAL: No joint tenderness, No swelling, Other (RIGHT FOOT WOUND DRESSED) Neuro: Normal speech Skin: No breakdown, No significant lesion Assessment Assessment FINAL IMPRESSION:Loose stools due to antibiotics 1. Right second toe ulcer with underlying osteomyelitis. The ulcer is deep to the joint into the bone, interphalangeal joint. 2. Diabetes, insulin-dependent. 3. Coronary artery disease, previous bypass surgery. 4. End-stage renal disease, dialysis. 5. Chronic systolic heart failure, ejection fraction 20%. 6. Hypertension. 7. Hyperlipidemia. 8. History of previous toe amputation. 9. Diabetic neuropathy. PLAN: wound c/s staph+strep check stool for c diff.Imodium prn. Dialysis done yesterday iv antibiotics vanco+zosyn+diflucan.?streamline antibiotics arterial doppler dec blood flow to foot. surgery planned for sunday 07/09, toe amputation rt 2 nd toe spoke with RN Comment Review of Relevant I have reviewed the following items shar (where applicable) has been applied. Labs Laboratory Tests Test 07/06/18 12:33 07/06/18 16:30 07/06/18 21:12 Glucose (Fingerstick) 96 mg/dL (70-99) 190 mg/dL (70-99) 227 mg/dL (70-99) Microbiology 07/03/18 Anaerobic/Aerobic Culture, Resulted Pending 07/03/18 Anaerobic Culture Result 1 (DEMETRA), Resulted Pending 07/03/18 Aerobic Culture - Preliminary, Resulted 07/03/18 Aerobic Culture Result 1 (DEMETRA) - Preliminary, Resulted 07/03/18 Aerobic Culture Result 2 (DEMETRA) - Preliminary, Resulted 07/03/18 Gram Stain - Final, Resulted 07/03/18 Gram Stain Result 1 (DEMETRA) - Final, Resulted 07/03/18 Gram Stain Result 2 (DEMETRA) - Final, Resulted Medications Current Medications Info (PHARMACY MONITORING -- do not chart) 1 each PRN DAILY PRN MC SEE COMMENTS; Start 07/06/18 at 13:30; Status UNV Info (PHARMACY MONITORING -- do not chart) 1 each PRN DAILY PRN MC SEE COMMENTS; Start 07/06/18 at 13:30; Status UNV Vancomycin HCl 500 mg/Sodium Chloride 100 ml @ 100 mls/hr QTUTHSA IV Last administered on 07/06/18at 17:13; Start 07/06/18 at 16:00 Vitals/I & O Vital Sign - Last 24 Hours 07/06/18 07/06/18 07/06/18 07/06/18 15:00 15:47 17:14 19:00 Temp 97.9 97.5 97.9 97.5 Pulse 93 88 Resp 18 18 B/P (MAP) 110/51 (70) 102/56 (71) Pulse Ox 92 96 94 O2 Delivery Room Air Room Air Room Air Room Air 07/06/18 07/06/18 07/06/18 07/07/18 20:01 20:05 23:00 02:42 Temp 97.7 97.7 97.7 97.7 Pulse 85 87 Resp 16 18 B/P (MAP) 96/52 (67) 113/48 (69) Pulse Ox 96 98 98 O2 Delivery Room Air Room Air Room Air Room Air 07/07/18 07/07/18 07/07/18 07/07/18 05:29 06:26 06:29 07:00 Temp 97.7 97.7 Pulse 85 Resp 18 B/P (MAP) 110/54 (72) Pulse Ox 96 96 O2 Delivery Room Air Room Air Room Air Room Air 07/07/18 08:47 Pulse 85 B/P (MAP) 110/54 Intake and Output 07/06/18 07/06/18 07/07/18 15:00 23:00 07:00 Intake Total 340 ml 220 ml Output Total 1 ml Balance 340 ml 219 ml FLAVIA HOOVER MD Jul 07, 2018 09:38
[2018-07-07] MEDS ORDERED: LOPERAMIDE 2 MG CAPSULE PO PRN (09:45)
--- NOTE | 2018-07-07 10:39 | PDOC ---
Infectious Disease Note Subjective Subjective Doing alright this morning Denies pain Appetite good Loose stools Denies N/V/cramps/F/C/S ROS ROS per HPI Vital Sign Vital Signs Vital Signs Date Time Temp Pulse Resp B/P (MAP) Pulse Ox O2 Delivery O2 Flow Rate FiO2 07/07/18 08:47 85 110/54 07/07/18 07:00 97.7 18 96 Room Air 97.7 Physical Exam PHYSICAL EXAM GENERAL: Alert, lying down, NAD HENT: Oral cavity clear LUNGS: Clear CARDIOVASCULAR: S1 and S2. ABDOMEN: Soft, NT, ND. EXTREMITIES: 2+ edema in both lower extremities. Right 2nd toe and left 1st MT bandaged, no area redness NEUROLOGIC: Alert, responds appropriately SKIN: No rash. Bruising on arms RIJ/HDC without signs of complications PIV ok Labs Lab Laboratory Tests Test 07/06/18 12:33 07/06/18 16:30 07/06/18 21:12 Glucose (Fingerstick) 96 mg/dL (70-99) 190 mg/dL (70-99) 227 mg/dL (70-99) Micro AEROBIC RES 1 Preliminary Staphylococcus aureus 4+ AEROBIC RES 2 Preliminary Streptococcus species Objective Assessment Right second toe wound and cellulitis - Staph aureus and Strep spp so far Tinea/onychomycosis CKD on HD DM Plan Plan of Care Cont Vanc, Zosyn and Micafungin Random Trough 15.0 F/u labs and cults Await Vascular surgery Attending Co-Sign The patient was seen and interviewed as well as examined at the bedside. The chart was reviewed. The case was discussed. Agree with the plan of care. LOIS FARRELL APRN Jul 07, 2018 10:39 BETTYE VIERA MD Jul 07, 2018 13:33
[2018-07-07 11:00] VITALS: BP 98/53
[2018-07-07] MEDS: VANCOMYCIN PER PHARMACY MC PRN (13:36)
[2018-07-07 15:00] VITALS: BP 108/51
[2018-07-07 19:00] VITALS: BP 89/42
[2018-07-07] MEDS: INSULIN GLARGINE 300 UNITS/3 ML INSULN.PEN. SQ SCH (21:00)
[2018-07-07] MEDS: ATORVASTATIN CALCIUM 40 MG TABLET. PO SCH (22:12)
[2018-07-07 23:00] VITALS: BP 101/51
[2018-07-08 03:00] VITALS: BP 89/49
[2018-07-08] MEDS: PIPERACILLIN/TAZOBACTAM 2.25 GM in IV NORMAL SALINE 50ML 50 ML IV SCH ×3 (06:27→21:41)
[2018-07-08] MEDS: PANTOPRAZOLE 40 MG TABLET.DR. PO SCH (06:27)
[2018-07-08 07:00] VITALS: BP 103/50
[2018-07-08 07:15] LABS: BASO % 1 % (0-3); EOS # 0.1 x10^3/uL (0.0-0.7); EOS % 1 % (0-3); HEMATOCRIT 34.8 % (39.0-53.0); HEMOGLOBIN 11.1 g/dL (13.0-17.5); LYMPH # 0.3 x10^3/uL (1.0-4.8); LYMPH % 6 % (24-48); MEAN CORPUSCULAR HEMOGLOBIN 32 pg (25-35); MEAN CORPUSCULAR HGB CONC 32 g/dL (31-37); MEAN CORPUSCULAR VOLUME 99 fL (79-100); MONO # 0.6 x10^3/uL (0.0-1.1); MONO % 11 % (0-9); NEUT # 4.4 x10^3uL (1.8-7.7); NEUT % 81 % (31-73); PLATELET COUNT 156 x10^3/uL (140-400); RED CELL DISTRIBUTION WIDTH 22.1 % (11.5-14.5); WHITE BLOOD COUNT 5.4 x10^3/uL (4.0-11.0)
[2018-07-08 07:28] LABS: CALCIUM 8.9 mg/dL (8.5-10.1); CREATININE 5.1 mg/dL (0.7-1.3); GFR 10.9; POTASSIUM 4.7 mmol/L (3.5-5.1)
[2018-07-08] MEDS: INSULIN LISPRO 300 UNITS/3 ML INSULN.PEN. SQ SCH ×3 (08:00→17:41)
[2018-07-08] MEDS: ALBUTEROL SULFATE 2.5 MG/3 ML NEBU. NEB SCH ×4 (08:09→20:11)
[2018-07-08] MEDS: BUDESONIDE 0.5 MG/2 ML NEBU. NEB SCH ×2 (08:09→20:11)
[2018-07-08] MEDS: LACTOBACILLUS RHAMNOSUS GG 1 CAPSULE. PO SCH ×2 (08:53→20:16)
[2018-07-08] MEDS: CALCIUM ACETATE 667 MG CAPSULE PO SCH ×3 (08:53→17:37)
[2018-07-08] MEDS: SODIUM BICARBONATE 650 MG TABLET. PO SCH ×3 (08:53→20:16)
[2018-07-08] MEDS: FLUTICASONE 50MCG/NASAL SPRAY 16GM BOTTLE. NS SCH (08:53)
[2018-07-08] MEDS: GABAPENTIN 100 MG CAPSULE. PO SCH (08:54)
[2018-07-08] MEDS: ASPIRIN ENTERIC COATED 81 MG TABLET.DR. PO SCH (08:54)
[2018-07-08] MEDS: FERROUS SULFATE 325 MG TABLET. PO SCH (08:54)
[2018-07-08] MEDS: TAMSULOSIN 0.4 MG CAP.ER.24H. PO SCH (08:54)
[2018-07-08] MEDS: ISOSORBIDE MONONITRATE ER 30 MG TAB.ER.24H PO SCH (08:57)
[2018-07-08] MEDS: TORSEMIDE 20 MG TABLET. PO SCH ×2 (08:57→16:00)
--- NOTE | 2018-07-08 09:51 | PDOC ---
PROGRESS NOTES Subjective Subjective feels ok Objective Objective Vital Signs Date Time Temp Pulse Resp B/P (MAP) Pulse Ox O2 Delivery O2 Flow Rate FiO2 07/08/18 08:10 90 Room Air 07/08/18 07:00 98.2 94 18 103/50 (67) 98.2 Intake and Output 07/08/18 07:00 Intake Total 540 ml Output Total 900 ml Balance -360 ml Intake Oral 540 ml Output Urine Total 900 ml # Voids 4 Physical Exam Abdomen: Normal bowel sounds, Soft, No tenderness Heart: Regular rate, Normal S1, Normal S2 Extremities: No cyanosis General: No acute distress HEENT: Atraumatic, PERRLA Lungs: Clear to auscultation MUSCULOSKELETAL: No joint tenderness, No swelling, Other (RIGHT FOOT WOUND DRESSED) Neuro: Normal speech Skin: No breakdown, No significant lesion Assessment Assessment FINAL IMPRESSION:MRSA+VRE in wounds Loose stools due to antibiotics, C diff neg 1. Right second toe ulcer with underlying osteomyelitis. The ulcer is deep to the joint into the bone, interphalangeal joint. 2. Diabetes, insulin-dependent. 3. Coronary artery disease, previous bypass surgery. 4. End-stage renal disease, dialysis. 5. Chronic systolic heart failure, ejection fraction 20%. 6. Hypertension. 7. Hyperlipidemia. 8. History of previous toe amputation. 9. Diabetic neuropathy. PLAN: wound c/s MRSA+VRE, spoke with ID check stool for c diff -neg.Imodium prn. Dialysis tomorrow iv antibiotics vanco+zosyn+diflucan.?streamline antibiotics arterial doppler dec blood flow to foot. surgery planned for sunday 07/09, toe amputation rt 2 nd toe spoke with RN Comment Review of Relevant I have reviewed the following items shar (where applicable) has been applied. Labs Laboratory Tests Test 07/07/18 10:20 07/07/18 11:54 07/07/18 17:06 07/07/18 21:36 Clostridium difficile Toxin B Gene Negative (Negative) Glucose (Fingerstick) 154 mg/dL (70-99) 158 mg/dL (70-99) 130 mg/dL (70-99) Test 07/08/18 06:33 07/08/18 08:57 White Blood Count 5.4 x10^3/uL (4.0-11.0) Red Blood Count 3.50 x10^6/uL (4.30-5.70) Hemoglobin 11.1 g/dL (13.0-17.5) Hematocrit 34.8 % (39.0-53.0) Mean Corpuscular Volume 99 fL (79-100) Mean Corpuscular Hemoglobin 32 pg (25-35) Mean Corpuscular Hemoglobin Concent 32 g/dL (31-37) Red Cell Distribution Width 22.1 % (11.5-14.5) Platelet Count 156 x10^3/uL (140-400) Neutrophils (%) (Auto) 81 % (31-73) Lymphocytes (%) (Auto) 6 % (24-48) Monocytes (%) (Auto) 11 % (0-9) Eosinophils (%) (Auto) 1 % (0-3) Basophils (%) (Auto) 1 % (0-3) Neutrophils # (Auto) 4.4 x10^3uL (1.8-7.7) Lymphocytes # (Auto) 0.3 x10^3/uL (1.0-4.8) Monocytes # (Auto) 0.6 x10^3/uL (0.0-1.1) Eosinophils # (Auto) 0.1 x10^3/uL (0.0-0.7) Basophils # (Auto) 0.0 x10^3/uL (0.0-0.2) Sodium Level 133 mmol/L (136-145) Potassium Level 4.7 mmol/L (3.5-5.1) Chloride Level 94 mmol/L (98-107) Carbon Dioxide Level 27 mmol/L (21-32) Anion Gap 12 (6-14) Blood Urea Nitrogen 54 mg/dL (8-26) Creatinine 5.1 mg/dL (0.7-1.3) Estimated GFR (Cockcroft-Gault) 10.9 Glucose Level 90 mg/dL (70-99) Calcium Level 8.9 mg/dL (8.5-10.1) Glucose (Fingerstick) 112 mg/dL (70-99) Microbiology 07/03/18 Anaerobic/Aerobic Culture, Resulted Pending 07/03/18 Anaerobic Culture Result 1 (DEMETRA), Resulted Pending 07/03/18 Aerobic Culture - Final, Resulted 07/03/18 Aerobic Culture Result 1 (DEMETRA) - Final, Resulted 07/03/18 Aerobic Culture Result 2 (DEMETRA) - Final, Resulted 07/03/18 Antimicrobic Susceptibility - Final, Resulted 07/03/18 Gram Stain - Final, Resulted 07/03/18 Gram Stain Result 1 (DEMETRA) - Final, Resulted 07/03/18 Gram Stain Result 2 (DEMETRA) - Final, Resulted Medications Current Medications Fentanyl Citrate (Fentanyl 2ml Vial) 25 mcg PRN Q5MIN PRN IV MILD PAIN; Start 07/09/18 at 07:00; Stop 07/10/18 at 06:59 Fentanyl Citrate (Fentanyl 2ml Vial) 50 mcg PRN Q5MIN PRN IV MODERATE TO SEVERE PAIN; Start 07/09/18 at 07:00; Stop 07/10/18 at 06:59 Hydromorphone HCl (Dilaudid) 0.5 mg PRN Q10MIN PRN IV SEV PAIN, Second choice; Start 07/09/18 at 07:00; Stop 07/10/18 at 06:59 Lidocaine HCl (Xylocaine-Mpf 1% 2ml Vial) 2 ml PRN 1X PRN ID IV START; Start 07/09/18 at 07:00; Stop 07/10/18 at 06:59 Morphine Sulfate (Morphine Sulfate) 1 mg PRN Q10MIN PRN IV SEVERE PAIN; Start 07/09/18 at 07:00; Stop 07/10/18 at 06:59 Ondansetron HCl (Zofran) 4 mg PRN Q6HRS PRN IV NAUSEA/VOMITING; Start 07/09/18 at 07:00; Stop 07/10/18 at 06:59 Prochlorperazine Edisylate (Compazine) 5 mg PACU PRN PRN IV NAUSEA, MRX1; Start 07/09/18 at 07:00; Stop 07/10/18 at 06:59 Ringer's Solution 1,000 ml @ 30 mls/hr Q24H IV ; Start 07/09/18 at 07:00; Stop 07/09/18 at 18:59 Vitals/I & O Vital Sign - Last 24 Hours 07/07/18 07/07/18 07/07/18 07/07/18 11:00 11:48 15:00 15:40 Temp 98.0 97.4 98.0 97.4 Pulse 64 73 Resp 18 18 B/P (MAP) 98/53 (68) 108/51 (70) Pulse Ox 96 98 O2 Delivery Room Air Room Air Room Air Room Air 07/07/18 07/07/18 07/07/18 07/07/18 19:00 20:15 20:24 20:24 Temp 98.9 98.9 Pulse 60 Resp 18 B/P (MAP) 89/42 (58) Pulse Ox 95 O2 Delivery Room Air Room Air Room Air Room Air 07/07/18 07/08/18 07/08/18 07/08/18 23:00 03:00 07:00 08:10 Temp 98.8 97.4 98.2 98.8 97.4 98.2 Pulse 90 70 94 Resp 18 18 18 B/P (MAP) 101/51 (68) 89/49 (62) 103/50 (67) Pulse Ox 96 93 98 90 O2 Delivery Room Air Room Air Room Air Room Air Intake and Output 07/07/18 07/07/18 07/08/18 15:00 23:00 07:00 Intake Total 540 ml Output Total 900 ml Balance 540 ml -900 ml FLAVIA HOOVER MD Jul 08, 2018 09:51
[2018-07-08] MEDS: MICAFUNGIN 100 MG in IV DEXTROSE 5% 100ML 100 ML IV SCH (10:30)
[2018-07-08 11:00] VITALS: BP 90/29
--- NOTE | 2018-07-08 11:28 | PDOC ---
PROGRESS NOTES Subjective Subjective Pt with right foot 2nd toe wound Plan was for amputation tomorrow however arterial duplex shows poor arterial flow to the right foot with significant tibial occlusive disease He also has a left arm AVF with an excellent thrill but is using a right IJ tunnel cath for HD Objective Objective Vital Signs Date Time Temp Pulse Resp B/P (MAP) Pulse Ox O2 Delivery O2 Flow Rate FiO2 07/08/18 08:10 90 Room Air 07/08/18 07:00 98.2 94 18 103/50 (67) 98.2 07/06/18 03:49 2.0 Intake and Output 07/08/18 06:59 Intake Total 540 ml Output Total 900 ml Balance -360 ml Intake Oral 540 ml Output Urine Total 900 ml # Voids 4 Physical Exam Physical Exam ankle signals present but pulses absent right leg Diagnosis DIAGNOSIS 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 Plan Plan of Care He does not appear to have adequate blood flow for wound healing Will plan LEFT groin access and right leg intervention for limb salvage prior to toe amputation -- hopefully tomorrow if schedule allows He has a left arm AVF with an excellent thrill that is not being used --> will get left arm fistula duplex to evaluate this and hopefully be able to get rid of his tunnel cath I spent over 25 minutes today in review of films, exam, counseling and coordination of care exclusive of procedures Comment Review of Relevant I have reviewed the following items shar (where applicable) has been applied. Labs Laboratory Tests Test 07/06/18 12:33 07/06/18 16:30 07/06/18 21:12 07/07/18 07:47 Glucose (Fingerstick) 96 mg/dL (70-99) 190 mg/dL (70-99) 227 mg/dL (70-99) 165 mg/dL (70-99) Test 07/07/18 10:20 07/07/18 11:54 07/07/18 17:06 07/07/18 21:36 Clostridium difficile Toxin B Gene Negative (Negative) Glucose (Fingerstick) 154 mg/dL (70-99) 158 mg/dL (70-99) 130 mg/dL (70-99) Test 07/08/18 06:33 07/08/18 08:57 White Blood Count 5.4 x10^3/uL (4.0-11.0) Red Blood Count 3.50 x10^6/uL (4.30-5.70) Hemoglobin 11.1 g/dL (13.0-17.5) Hematocrit 34.8 % (39.0-53.0) Mean Corpuscular Volume 99 fL (79-100) Mean Corpuscular Hemoglobin 32 pg (25-35) Mean Corpuscular Hemoglobin Concent 32 g/dL (31-37) Red Cell Distribution Width 22.1 % (11.5-14.5) Platelet Count 156 x10^3/uL (140-400) Neutrophils (%) (Auto) 81 % (31-73) Lymphocytes (%) (Auto) 6 % (24-48) Monocytes (%) (Auto) 11 % (0-9) Eosinophils (%) (Auto) 1 % (0-3) Basophils (%) (Auto) 1 % (0-3) Neutrophils # (Auto) 4.4 x10^3uL (1.8-7.7) Lymphocytes # (Auto) 0.3 x10^3/uL (1.0-4.8) Monocytes # (Auto) 0.6 x10^3/uL (0.0-1.1) Eosinophils # (Auto) 0.1 x10^3/uL (0.0-0.7) Basophils # (Auto) 0.0 x10^3/uL (0.0-0.2) Sodium Level 133 mmol/L (136-145) Potassium Level 4.7 mmol/L (3.5-5.1) Chloride Level 94 mmol/L (98-107) Carbon Dioxide Level 27 mmol/L (21-32) Anion Gap 12 (6-14) Blood Urea Nitrogen 54 mg/dL (8-26) Creatinine 5.1 mg/dL (0.7-1.3) Estimated GFR (Cockcroft-Gault) 10.9 Glucose Level 90 mg/dL (70-99) Calcium Level 8.9 mg/dL (8.5-10.1) Glucose (Fingerstick) 112 mg/dL (70-99) Laboratory Tests Test 07/07/18 11:54 07/07/18 17:06 07/07/18 21:36 07/08/18 06:33 Glucose (Fingerstick) 154 mg/dL (70-99) 158 mg/dL (70-99) 130 mg/dL (70-99) White Blood Count 5.4 x10^3/uL (4.0-11.0) Red Blood Count 3.50 x10^6/uL (4.30-5.70) Hemoglobin 11.1 g/dL (13.0-17.5) Hematocrit 34.8 % (39.0-53.0) Mean Corpuscular Volume 99 fL (79-100) Mean Corpuscular Hemoglobin 32 pg (25-35) Mean Corpuscular Hemoglobin Concent 32 g/dL (31-37) Red Cell Distribution Width 22.1 % (11.5-14.5) Platelet Count 156 x10^3/uL (140-400) Neutrophils (%) (Auto) 81 % (31-73) Lymphocytes (%) (Auto) 6 % (24-48) Monocytes (%) (Auto) 11 % (0-9) Eosinophils (%) (Auto) 1 % (0-3) Basophils (%) (Auto) 1 % (0-3) Neutrophils # (Auto) 4.4 x10^3uL (1.8-7.7) Lymphocytes # (Auto) 0.3 x10^3/uL (1.0-4.8) Monocytes # (Auto) 0.6 x10^3/uL (0.0-1.1) Eosinophils # (Auto) 0.1 x10^3/uL (0.0-0.7) Basophils # (Auto) 0.0 x10^3/uL (0.0-0.2) Sodium Level 133 mmol/L (136-145) Potassium Level 4.7 mmol/L (3.5-5.1) Chloride Level 94 mmol/L (98-107) Carbon Dioxide Level 27 mmol/L (21-32) Anion Gap 12 (6-14) Blood Urea Nitrogen 54 mg/dL (8-26) Creatinine 5.1 mg/dL (0.7-1.3) Estimated GFR (Cockcroft-Gault) 10.9 Glucose Level 90 mg/dL (70-99) Calcium Level 8.9 mg/dL (8.5-10.1) Test 07/08/18 08:57 Glucose (Fingerstick) 112 mg/dL (70-99) Microbiology 07/03/18 Anaerobic/Aerobic Culture, Resulted Pending 07/03/18 Anaerobic Culture Result 1 (DEMETRA), Resulted Pending 07/03/18 Aerobic Culture - Final, Resulted 07/03/18 Aerobic Culture Result 1 (DEMETRA) - Final, Resulted 07/03/18 Aerobic Culture Result 2 (DEMETRA) - Final, Resulted 07/03/18 Antimicrobic Susceptibility - Final, Resulted 07/03/18 Gram Stain - Final, Resulted 07/03/18 Gram Stain Result 1 (DEMETRA) - Final, Resulted 07/03/18 Gram Stain Result 2 (DEEMTRA) - Final, Resulted Medications Current Medications Vancomycin HCl (Vanco Per Pharmacy) 1 each PRN DAILY PRN MC SEE COMMENTS Last administered on 07/07/18at 13:36; Start 07/03/18 at 17:15 Piperacillin Sod/ Tazobactam Sod (Zosyn Per Pharmacy) 1 each PRN DAILY PRN MC SEE COMMENTS; Start 07/03/18 at 17:15 Piperacillin Sod/ Tazobactam Sod 2.25 gm/Sodium Chloride 50 ml @ 100 mls/hr 1X ONCE IV Last administered on 07/03/18at 18:34; Start 07/03/18 at 17:30; Stop 07/03/18 at 17:59; Status DC Vancomycin HCl 2 gm/Sodium Chloride 500 ml @ 250 mls/hr 1X ONCE IV Last administered on 07/03/18at 21:09; Start 07/03/18 at 17:30; Stop 07/03/18 at 19:29; Status DC Acetaminophen/ Hydrocodone Bitart (Lortab 5/325) 1 tab PRN Q6HRS PRN PO PAIN Last administered on 07/07/18at 05:29; Start 07/03/18 at 17:30 Piperacillin Sod/ Tazobactam Sod 2.25 gm/Sodium Chloride 50 ml @ 100 mls/hr Q8HRS IV Last administered on 07/08/18at 06:27; Start 07/04/18 at 06:00 Vancomycin HCl (Vancomycin Random Level) 1 each 1X ONCE MC Last administered on 07/05/18at 06:00; Start 07/05/18 at 06:00; Stop 07/05/18 at 06:01; Status DC Aspirin (Ecotrin) 81 mg DAILY PO Last administered on 07/08/18 08:54; Start 07/04/18 at 09:00 Ferrous Sulfate (Feosol) 325 mg DAILY PO Last administered on 07/08/18 08:54; Start 07/04/18 at 09:00 Fluticasone Propionate (Flonase) 2 spray DAILY NS Last administered on 07/08/18 08:53; Start 07/04/18 at 09:00 Acetaminophen/ Hydrocodone Bitart (Lortab 5/325) 1 tab PRN Q6HRS PRN PO PAIN; Start 07/03/18 at 17:45; Status UNV Insulin Glargine (Lantus) 35 units QHS SQ ; Start 07/03/18 at 21:00; Stop 07/03/18 at 21:13; Status DC Isosorbide Mononitrate (Imdur) 60 mg DAILY PO Last administered on 07/07/18 08:47; Start 07/04/18 at 09:00 Nitroglycerin (Nitrostat) 0.4 mg PRN Q5MIN SL ; Start 07/03/18 at 17:45 Sodium Bicarbonate (Sodium Bicarbonate) 650 mg TID PO Last administered on 07/08/18 08:53; Start 07/03/18 at 21:00 Tamsulosin HCl (Flomax) 0.4 mg DAILY PO Last administered on 07/08/18 08:54; Start 07/04/18 at 09:00 Atorvastatin Calcium (Lipitor) 80 mg QHS PO Last administered on 07/07/18 22:12; Start 07/03/18 at 21:00 Calcium Acetate (Phoslo) 1,334 mg TIDWMEALS PO Last administered on 07/08/18 08:53; Start 07/03/18 at 18:30 Non-Formulary Medication (Fluticasone/ Salmeterol (Advair 250-50 Diskus)) 1 puff BID IH ; Start 07/03/18 at 21:00; Status UNV Gabapentin (Neurontin) 100 mg DAILY PO Last administered on 07/08/18 08:54; Start 07/04/18 at 09:00 Loperamide HCl (Imodium) 2 mg PRN Q15MIN PRN PO DIARRHEA; Start 07/03/18 at 18:15; Stop 07/03/18 at 21:14; Status DC Niacin (Slo-Niacin) 500 mg BID PO ; Start 07/03/18 at 21:00; Stop 07/03/18 at 21:14; Status DC Ondansetron HCl (Zofran Odt) 4 mg PRN BID PRN PO NAUSEA/VOMITING; Start 07/03/18 at 18:15 Polyethylene Glycol (miraLAX PACKET) 17 gm PRN DAILY PRN PO CONSTIPATION; Start 07/04/18 at 09:00 Simethicone (Gas-X) 80 mg PRN TID PRN PO GAS / BLOATING; Start 07/03/18 at 18:15 Torsemide (Demadex) 20 mg BID94 PO Last administered on 07/08/18 08:57; Start 07/04/18 at 09:00 Pantoprazole Sodium (Protonix) 40 mg DAILYAC PO Last administered on 07/08/18 06:27; Start 07/04/18 at 07:30 Lactobacillus Rhamnosus (Culturelle) 1 cap BID PO Last administered on 07/08/18 08:53; Start 07/03/18 at 21:00 Budesonide (Pulmicort) 0.5 mg RTBID NEB Last administered on 07/08/18 08:09; Start 07/03/18 at 20:00 Albuterol Sulfate (Ventolin Neb Soln) 2.5 mg RTQID NEB Last administered on 07/08/18 08:09; Start 07/03/18 at 20:00 Insulin Glargine (Lantus) 25 units QHS SQ Last administered on 07/06/18 21:18; Start 07/04/18 at 21:00 Insulin Human Lispro (HumaLOG) 0-7 UNITS TIDWMEALS SQ Last administered on 07/07/18 17:20; Start 07/04/18 at 08:00 Dextrose (Dextrose 50%-Water Syringe) 12.5 gm PRN Q15MIN PRN IV SEE COMMENTS; Start 07/03/18 at 21:15 Micafungin Sodium 100 mg/Dextrose 100 ml @ 100 mls/hr Q24H IV Last administered on 07/08/18at 10:30; Start 07/04/18 at 10:00 Sodium Chloride 1,000 ml @ 1,000 mls/hr Q1H PRN IV hypotension; Start 07/04/18 at 13:52; Stop 07/04/18 at 19:51; Status DC Albumin Human 200 ml @ 200 mls/hr 1X PRN PRN IV Hypotension; Start 07/04/18 at 14:00; Stop 07/04/18 at 19:59; Status DC Sodium Chloride (Normal Saline Flush) 10 ml 1X PRN PRN IV AP catheter pack; Start 07/04/18 at 14:00; Stop 07/05/18 at 13:59; Status UNV Sodium Chloride (Normal Saline Flush) 10 ml 1X PRN PRN IV [employer] catheter pack; Start 07/04/18 at 14:00; Stop 07/05/18 at 13:59; Status DC Sodium Chloride 1,000 ml @ 400 mls/hr Q2H30M PRN IV PATENCY; Start 07/04/18 at 13:52; Stop 07/05/18 at 01:51; Status DC Info (PHARMACY MONITORING -- do not chart) 1 each PRN DAILY PRN MC SEE COMMENTS; Start 07/04/18 at 14:00 Info (PHARMACY MONITORING -- do not chart) 1 each PRN DAILY PRN MC SEE COMMENTS; Start 07/04/18 at 14:00; Status UNV Lidocaine/Sodium Bicarbonate (Buffered Lidocaine 1%) 3 ml STK-MED ONCE .ROUTE ; Start 07/04/18 at 14:43; Stop 07/04/18 at 14:44; Status DC Ondansetron HCl (Zofran) 4 mg PRN Q6HRS PRN IV NAUSEA/VOMITING; Start 07/05/18 at 07:00; Stop 07/06/18 at 06:59; Status UNV Fentanyl Citrate (Fentanyl 2ml Vial) 25 mcg PRN Q5MIN PRN IV MILD PAIN; Start 07/05/18 at 07:00; Stop 07/06/18 at 06:59; Status UNV Fentanyl Citrate (Fentanyl 2ml Vial) 50 mcg PRN Q5MIN PRN IV MODERATE TO SEVERE PAIN; Start 07/05/18 at 07:00; Stop 07/06/18 at 06:59; Status UNV Morphine Sulfate (Morphine Sulfate) 1 mg PRN Q10MIN PRN IV SEVERE PAIN; Start 07/05/18 at 07:00; Stop 07/06/18 at 06:59; Status UNV Ringer's Solution 1,000 ml @ 30 mls/hr Q24H IV ; Start 07/05/18 at 07:00; Stop 07/05/18 at 18:59; Status UNV Hydromorphone HCl (Dilaudid) 0.5 mg PRN Q10MIN PRN IV SEV PAIN, Second choice; Start 07/05/18 at 07:00; Stop 07/06/18 at 06:59; Status UNV Prochlorperazine Edisylate (Compazine) 5 mg PACU PRN PRN IV NAUSEA, MRX1; Start 07/05/18 at 07:00; Stop 07/06/18 at 06:59; Status UNV Ondansetron HCl (Zofran) 4 mg PRN Q6HRS PRN IV NAUSEA/VOMITING; Start 07/05/18 at 07:00; Stop 07/06/18 at 06:59; Status DC Fentanyl Citrate (Fentanyl 2ml Vial) 25 mcg PRN Q5MIN PRN IV MILD PAIN; Start 07/05/18 at 07:00; Stop 07/06/18 at 06:59; Status DC Fentanyl Citrate (Fentanyl 2ml Vial) 50 mcg PRN Q5MIN PRN IV MODERATE TO SEVERE PAIN; Start 07/05/18 at 07:00; Stop 07/06/18 at 06:59; Status DC Morphine Sulfate (Morphine Sulfate) 1 mg PRN Q10MIN PRN IV SEVERE PAIN; Start 07/05/18 at 07:00; Stop 07/06/18 at 06:59; Status DC Ringer's Solution 1,000 ml @ 30 mls/hr Q24H IV Last administered on 07/05/18at 05:44; Start 07/05/18 at 07:00; Stop 07/05/18 at 18:59; Status DC Hydromorphone HCl (Dilaudid) 0.5 mg PRN Q10MIN PRN IV SEV PAIN, Second choice; Start 07/05/18 at 07:00; Stop 07/06/18 at 06:59; Status DC Prochlorperazine Edisylate (Compazine) 5 mg PACU PRN PRN IV NAUSEA, MRX1; Start 07/05/18 at 07:00; Stop 07/06/18 at 06:59; Status DC Vancomycin HCl 500 mg/Sodium Chloride 100 ml @ 100 mls/hr QTUTHSA IV Last administered on 07/06/18at 17:13; Start 07/06/18 at 16:00 Enoxaparin Sodium (Lovenox 30mg Syringe) 30 mg Q24H SQ Last administered on 07/07/18at 08:46; Start 07/05/18 at 10:00; Stop 07/07/18 at 11:00; Status DC Info (PHARMACY MONITORING -- do not chart) 1 each PRN DAILY PRN MC SEE COMMENTS; Start 07/06/18 at 13:30; Status UNV Info (PHARMACY MONITORING -- do not chart) 1 each PRN DAILY PRN MC SEE COMMENTS; Start 07/06/18 at 13:30; Status UNV Loperamide HCl (Imodium) 2 mg PRN QID PRN PO DIARRHEA; Start 07/07/18 at 09:45 Ondansetron HCl (Zofran) 4 mg PRN Q6HRS PRN IV NAUSEA/VOMITING; Start 07/09/18 at 07:00; Stop 07/10/18 at 06:59 Fentanyl Citrate (Fentanyl 2ml Vial) 25 mcg PRN Q5MIN PRN IV MILD PAIN; Start 07/09/18 at 07:00; Stop 07/10/18 at 06:59 Fentanyl Citrate (Fentanyl 2ml Vial) 50 mcg PRN Q5MIN PRN IV MODERATE TO SEVERE PAIN; Start 07/09/18 at 07:00; Stop 07/10/18 at 06:59 Morphine Sulfate (Morphine Sulfate) 1 mg PRN Q10MIN PRN IV SEVERE PAIN; Start 07/09/18 at 07:00; Stop 07/10/18 at 06:59 Ringer's Solution 1,000 ml @ 30 mls/hr Q24H IV ; Start 07/09/18 at 07:00; Stop 07/09/18 at 18:59 Lidocaine HCl (Xylocaine-Mpf 1% 2ml Vial) 2 ml PRN 1X PRN ID IV START; Start 07/09/18 at 07:00; Stop 07/10/18 at 06:59 Hydromorphone HCl (Dilaudid) 0.5 mg PRN Q10MIN PRN IV SEV PAIN, Second choice; Start 07/09/18 at 07:00; Stop 07/10/18 at 06:59 Prochlorperazine Edisylate (Compazine) 5 mg PACU PRN PRN IV NAUSEA, MRX1; Start 07/09/18 at 07:00; Stop 07/10/18 at 06:59 Active Scripts Active [Pantoprazole] 40 MG Tablet.dr 40 Mg PO DAILYAC 30 Days Polyethylene Glycol 3350 17 Gm Powd.pack 17 Gm PO PRN DAILY PRN 30 Days Fluticasone Propionate Nasal [place] (Fluticasone Propionate) 16 Gm [place].susp 2 [place] NS DAILY 30 Days Advair 250-50 Diskus (Fluticasone/Salmeterol) 1 Each Disk.w.dev 1 Puff IH BID Zofran (Ondansetron Hcl) 4 Mg Tablet 4 Mg PO BID PRN Reported Slo-Niacin (Niacin) 500 Mg Tablet.er 500 Mg PO BID Lantus Solostar (Insulin Glargine,Hum.rec.anlog) 100 Unit/1 Ml Insuln.pen 35 Unit SQ QHS Gabapentin 600 Mg Tablet 100 Mg PO DAILY Isosorbide Mononitrate Er (Isosorbide Mononitrate) 30 Mg Tab.er.24h 2 Tab PO DAILY Clopidogrel (Clopidogrel Bisulfate) 75 Mg Tablet 1 Tab PO DAILY NITROGLYCERIN SubLingual (Nitroglycerin) 0.4 Mg Tab.subl 1 Tab SL UD Atorvastatin Calcium 80 Mg Tablet 1 Tab PO QHS Ferrous Sulfate 325 Mg Tablet 1 Tab PO DAILY Aspir-Low (Aspirin) 81 Mg Tablet.dr 1 Tab PO DAILY Calcium Acetate 667 Mg Tablet 1,334 Mg PO TIDWMEALS Imodium A-D (Loperamide Hcl) 1 Mg/7.5 Ml Liquid 1 Mg PO PRN Q4HRS Gas Relief (Simethicone) 125 Mg Capsule 125 Mg PO PRN TID PRN Torsemide 20 Mg Tablet 1 Tab PO BID [place] 5-325 Tablet (Acetaminophen/Hydrocodone Bitart) 1 Each Tablet 1 Tab PO PRN Q6HRS PRN Celia-Alyssa Rx Tablet (Vit B Cmplx 3/Fa/Vit C/Biotin) 1 Each Tablet 1 Each PO Tamsulosin Hcl 0.4 Mg Cap.er.24h 1 Cap PO DAILY Sodium Bicarbonate 650 Mg Tablet 1 Tab PO TID Vitals/I & O Vital Sign - Last 24 Hours 07/07/18 07/07/18 07/07/18 07/07/18 11:48 15:00 15:40 19:00 Temp 97.4 98.9 97.4 98.9 Pulse 73 60 Resp 18 18 B/P (MAP) 108/51 (70) 89/42 (58) Pulse Ox 98 95 O2 Delivery Room Air Room Air Room Air Room Air 07/07/18 07/07/18 07/07/18 07/07/18 20:15 20:24 20:24 23:00 Temp 98.8 98.8 Pulse 90 Resp 18 B/P (MAP) 101/51 (68) Pulse Ox 96 O2 Delivery Room Air Room Air Room Air Room Air 07/08/18 07/08/18 07/08/18 03:00 07:00 08:10 Temp 97.4 98.2 97.4 98.2 Pulse 70 94 Resp 18 18 B/P (MAP) 89/49 (62) 103/50 (67) Pulse Ox 93 98 90 O2 Delivery Room Air Room Air Room Air Intake and Output 07/07/18 07/07/18 07/08/18 14:59 22:59 06:59 Intake Total 540 ml Output Total 900 ml Balance 540 ml -900 ml HERRERA MARTIN MD Jul 08, 2018 11:28
--- NOTE | 2018-07-08 11:43 | PDOC ---
Infectious Disease Note Subjective Subjective sleepy Denies N/V/cramps/F/C/S Vital Sign Vital Signs Vital Signs Date Time Temp Pulse Resp B/P (MAP) Pulse Ox O2 Delivery O2 Flow Rate FiO2 07/08/18 08:10 90 Room Air 07/08/18 07:00 98.2 94 18 103/50 (67) 98.2 Physical Exam PHYSICAL EXAM GENERAL: Alert, lying down, NAD HENT: Oral cavity clear LUNGS: Clear CARDIOVASCULAR: S1 and S2. ABDOMEN: Soft, NT, ND. EXTREMITIES: 2+ edema in both lower extremities. Right 2nd toe and left 1st MT bandaged, no area redness NEUROLOGIC: Alert, responds appropriately SKIN: No rash. Bruising on arms RIJ/HDC without signs of complications PIV ok Labs Lab Laboratory Tests Test 07/07/18 11:54 07/07/18 17:06 07/07/18 21:36 07/08/18 06:33 Glucose (Fingerstick) 154 mg/dL (70-99) 158 mg/dL (70-99) 130 mg/dL (70-99) White Blood Count 5.4 x10^3/uL (4.0-11.0) Red Blood Count 3.50 x10^6/uL (4.30-5.70) Hemoglobin 11.1 g/dL (13.0-17.5) Hematocrit 34.8 % (39.0-53.0) Mean Corpuscular Volume 99 fL (79-100) Mean Corpuscular Hemoglobin 32 pg (25-35) Mean Corpuscular Hemoglobin Concent 32 g/dL (31-37) Red Cell Distribution Width 22.1 % (11.5-14.5) Platelet Count 156 x10^3/uL (140-400) Neutrophils (%) (Auto) 81 % (31-73) Lymphocytes (%) (Auto) 6 % (24-48) Monocytes (%) (Auto) 11 % (0-9) Eosinophils (%) (Auto) 1 % (0-3) Basophils (%) (Auto) 1 % (0-3) Neutrophils # (Auto) 4.4 x10^3uL (1.8-7.7) Lymphocytes # (Auto) 0.3 x10^3/uL (1.0-4.8) Monocytes # (Auto) 0.6 x10^3/uL (0.0-1.1) Eosinophils # (Auto) 0.1 x10^3/uL (0.0-0.7) Basophils # (Auto) 0.0 x10^3/uL (0.0-0.2) Sodium Level 133 mmol/L (136-145) Potassium Level 4.7 mmol/L (3.5-5.1) Chloride Level 94 mmol/L (98-107) Carbon Dioxide Level 27 mmol/L (21-32) Anion Gap 12 (6-14) Blood Urea Nitrogen 54 mg/dL (8-26) Creatinine 5.1 mg/dL (0.7-1.3) Estimated GFR (Cockcroft-Gault) 10.9 Glucose Level 90 mg/dL (70-99) Calcium Level 8.9 mg/dL (8.5-10.1) Test 07/08/18 08:57 Glucose (Fingerstick) 112 mg/dL (70-99) Micro ANAEROBIC RES 1 PENDING AEROBIC CULT Final Final report AEROBIC RES 1 Final Comment Methicillin - resistant Staphylococcus aureus 4+ Based on resistance to oxacillin this isolate would be resistant to all currently available beta-lactam antimicrobial agents, with the exception of the newer cephalosporins with anti-MRSA activity, such as Ceftaroline AEROBIC RES 2 Final Enterococcus faecalis 4+ ANTIMICROBIAL SUSCEPTIBILITY Final Comment S = Susceptible; I = Intermediate; R = Resistant P = Positive; N = Negative MICS are expressed in micrograms per mL Antibiotic RSLT#1 RSLT#2 RSLT#3 RSLT#4 Ciprofloxacin R>=8 Clindamycin R>=8 Erythromycin R>=8 Gentamicin S<=0.5 Levofloxacin R>=8 Linezolid S =2 CONTINUED ON NEXT PAGE RUN DATE: 07/07/18 PAGE 2 RUN TIME: 1906 [facility] [address] [place] [address] Ander Nicole M.D., Oncology Research Rn SPEC: [id number] PATIENT: DYLAN CRABTREE [id number] (Albert hernandezsarthak) Procedure Result ANTIMICROBIAL SUSCEPTIBILITY Final (continued) Oxacillin R>=4 Penicillin R>=0.5 S =2 Rifampin S<=0.5 Tetracycline R>=16 Trimethoprim/Sulfa S<=10 Vancomycin S =1 S =1 GRAM STAIN Final Final report GRAM STAIN RES 1 Final Comment No white blood cells seen. GRAM STAIN RES 2 Final Comment Many gram positive cocci. Performed at: - [address], [place], [place] [id number] Director Financial Analysis: ADELINA Khalil MD, Phone: [phone] Objective Assessment Right second toe wound and cellulitis - Staph aureus and Strep spp so far Tinea/onychomycosis CKD on HD DM Plan Plan of Care Cont Vanc, Zosyn and d/c Micafungin Random Trough 15.0 F/u labs and cults Await Vascular surgery BETTYE VIERA MD Jul 08, 2018 11:43
--- NOTE | 2018-07-08 12:10 | NUR ---
[facility] following for discharge planning. Discussed with RN, pt having toe amputation surgery tomorrow (07/09/18). [facility] met with pt to discuss PT/OT recommendation of SNU, pt is agreeable and would like referral sent to [facility]. Pt also discussed with possibility of transitioning into LTC because he feels he is too much for his to take care of. Pt requested SW contact his son, Edwardo ([phone]) to discuss SNU and LTC. CH[facility] left voicemail for Edwardo. [facility] faxed referral to [facility], insurance will have to authorize pt to go to SNU. [facility] will continue to follow.
[2018-07-08 15:00] VITALS: BP 105/51
--- NOTE | 2018-07-08 16:24 | NUR ---
SW following, pt has been clinically accepted at [facility], however [facility] needs to speak with pt's son regarding an outstanding balance before they can fully accept. SW will continue to follow.
--- NOTE | 2018-07-08 16:36 | RAD ---
Left upper extremity arterial ultrasound, 07/08/2018: HISTORY: Check AV fistula Duplex evaluation of the major arteries in the left upper extremity was performed including grayscale, color-flow and spectral Doppler analysis. The left axillary, subclavian and brachial arteries are widely. They demonstrate monophasic Doppler flow. The distal brachial artery demonstrates a peak systolic velocity of 264 cm/s proximal to the level of the arterial anastomosis. There is a high peak systolic velocity at this anastomosis, of 717 cm/s. There is extensive diastolic flow. The color images do not demonstrate a focal stenosis. The AV fistula in the upper arm is widely patent demonstrating velocities in the 95 to 193 cm/s range. The anastomosis with what appears to be the subclavian vein is widely patent with a peak systolic velocity of 91 cm/s. A patent radial artery in the forearm demonstrates peak systolic velocities from 25 to 36 cm/s. A patent ulnar artery in the forearm demonstrates a peak systolic velocity of 24 cm/s. IMPRESSION: Patent AV fistula in the left upper arm as described above. Electronically signed by: Marlo Manzanares MD (07/08/2018 4:33 PM) [facility]
[2018-07-08 19:00] VITALS: BP 104/57
[2018-07-08] MEDS: ATORVASTATIN CALCIUM 40 MG TABLET. PO SCH (20:16)
[2018-07-08] MEDS: INSULIN GLARGINE 300 UNITS/3 ML INSULN.PEN. SQ SCH (21:49)
[2018-07-08 22:08] LABS: HEMOGLOBIN A1C 8.6 % (4.8-5.6)
[2018-07-08 23:00] VITALS: BP 103/45
[2018-07-09] VITALS (7 sets, daily range): BP systolic 84–115; BP diastolic 47–55
[2018-07-09] MEDS: PANTOPRAZOLE 40 MG TABLET.DR. PO SCH (05:44)
[2018-07-09] MEDS: PIPERACILLIN/TAZOBACTAM 2.25 GM in IV NORMAL SALINE 50ML 50 ML IV SCH ×3 (06:20→22:15)
[2018-07-09] MEDS ORDERED: MORPHINE SULFATE 2 MG/ML VIAL. IV PRN (07:00)
[2018-07-09] MEDS ORDERED: ONDANSETRON PF 4 MG/2 ML VIAL. IV PRN (07:00)
[2018-07-09] MEDS ORDERED: LIDOCAINE 1% PF 2 ML VIAL. ID PRN (07:00)
[2018-07-09] MEDS ORDERED: HYDROmorphone 2 MG/ML VIAL IV PRN (07:00)
[2018-07-09] MEDS ORDERED: fentaNYL PF VIAL 100 MCG/2 ML VIAL IV PRN ×2 (07:00)
[2018-07-09] MEDS ORDERED: IV RINGERS,LACTATED 1000ML 1,000 ML IV SCH (07:00)
[2018-07-09] MEDS ORDERED: PROCHLORPERAZINE 10 MG/2 ML VIAL. IV PRN (07:00)
[2018-07-09] MEDS: ALBUTEROL SULFATE 2.5 MG/3 ML NEBU. NEB SCH ×4 (07:48→20:09)
[2018-07-09] MEDS: BUDESONIDE 0.5 MG/2 ML NEBU. NEB SCH ×2 (07:48→20:09)
[2018-07-09] MEDS: INSULIN LISPRO 300 UNITS/3 ML INSULN.PEN. SQ SCH ×3 (08:00→17:00)
[2018-07-09] MEDS: CALCIUM ACETATE 667 MG CAPSULE PO SCH ×3 (08:00→17:00)
--- NOTE | 2018-07-09 08:31 | NUR ---
IP: patient has +MRSA from right 2nd toe wound, requires contact precautions until 2 negative results 7 days apart without antibiotic.
[2018-07-09] MEDS: ASPIRIN ENTERIC COATED 81 MG TABLET.DR. PO SCH (09:00)
[2018-07-09] MEDS: SODIUM BICARBONATE 650 MG TABLET. PO SCH ×3 (09:00→22:15)
[2018-07-09] MEDS: GABAPENTIN 100 MG CAPSULE. PO SCH (09:00)
[2018-07-09] MEDS: ISOSORBIDE MONONITRATE ER 30 MG TAB.ER.24H PO SCH (09:00)
[2018-07-09] MEDS: LACTOBACILLUS RHAMNOSUS GG 1 CAPSULE. PO SCH ×2 (09:00→22:16)
[2018-07-09] MEDS: FLUTICASONE 50MCG/NASAL SPRAY 16GM BOTTLE. NS SCH (09:00)
[2018-07-09] MEDS: TAMSULOSIN 0.4 MG CAP.ER.24H. PO SCH (09:00)
[2018-07-09] MEDS: FERROUS SULFATE 325 MG TABLET. PO SCH (09:00)
[2018-07-09] MEDS: TORSEMIDE 20 MG TABLET. PO SCH ×2 (09:00→16:00)
--- NOTE | 2018-07-09 10:14 | PDOC ---
PROGRESS NOTES Subjective Subjective going for surgical procedure today Objective Objective Vital Signs Date Time Temp Pulse Resp B/P (MAP) Pulse Ox O2 Delivery O2 Flow Rate FiO2 07/09/18 07:49 98 Room Air 07/09/18 07:00 97.8 68 16 114/55 (74) 97.8 Intake and Output 07/09/18 07:00 Output Total 3 ml Balance -3 ml Output Urine Total 2 ml Stool Total 1 ml # Bowel Movements 1 Physical Exam Abdomen: Normal bowel sounds, Soft, No tenderness Heart: Regular rate, Normal S1, Normal S2 Extremities: No cyanosis General: No acute distress HEENT: Atraumatic, PERRLA Lungs: Clear to auscultation MUSCULOSKELETAL: No joint tenderness, No swelling, Other (RIGHT FOOT WOUND DRESSED) Neuro: Normal speech Skin: No breakdown, No significant lesion Assessment Assessment FINAL IMPRESSION: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 Right second toe ulcer with underlying osteomyelitis. The ulcer is deep to the joint into the bone, interphalangeal joint. 2. Diabetes, insulin-dependent. 3. Coronary artery disease, previous bypass surgery. 4. End-stage renal disease, dialysis. 5. Chronic systolic heart failure, ejection fraction 20%. 6. Hypertension. 7. Hyperlipidemia. 8. History of previous toe amputation. 9. Diabetic neuropathy. PLAN: wound c/s MRSA+enterococcus, spoke with ID check stool for c diff -neg.Imodium prn. Dialysis tomorrow iv antibiotics vanco+zosyn+. arterial doppler dec blood flow to foot. surgery planned for today 07/09,arteriogram + toe amputation rt 2 nd toe spoke with RN Comment Review of Relevant I have reviewed the following items shar (where applicable) has been applied. Labs Laboratory Tests Test 07/08/18 11:51 07/08/18 17:10 07/08/18 20:56 07/09/18 08:06 Glucose (Fingerstick) 132 mg/dL (70-99) 210 mg/dL (70-99) 204 mg/dL (70-99) 123 mg/dL (70-99) Microbiology 07/03/18 Anaerobic/Aerobic Culture - Final, Complete 07/03/18 Anaerobic Culture Result 1 (DEMETRA) - Final, Complete 07/03/18 Aerobic Culture - Final, Complete 07/03/18 Aerobic Culture Result 1 (DEMETRA) - Final, Complete 07/03/18 Aerobic Culture Result 2 (DEMETRA) - Final, Complete 07/03/18 Antimicrobic Susceptibility - Final, Complete 07/03/18 Gram Stain - Final, Complete 07/03/18 Gram Stain Result 1 (DEMETRA) - Final, Complete 07/03/18 Gram Stain Result 2 (DEMETRA) - Final, Complete Medications Current Medications Cefazolin Sodium 1 gm/Sodium Chloride 500 ml @ 500 mls/hr 1X ONCE IRR ; Start 07/09/18 at 06:00; Stop 07/09/18 at 06:59; Status DC Fentanyl Citrate (Fentanyl 2ml Vial) 25 mcg PRN Q5MIN PRN IV MILD PAIN; Start 07/09/18 at 07:00; Stop 07/10/18 at 06:59 Fentanyl Citrate (Fentanyl 2ml Vial) 50 mcg PRN Q5MIN PRN IV MODERATE TO SEVERE PAIN; Start 07/09/18 at 07:00; Stop 07/10/18 at 06:59 Hydromorphone HCl (Dilaudid) 0.5 mg PRN Q10MIN PRN IV SEV PAIN, Second choice; Start 07/09/18 at 07:00; Stop 07/10/18 at 06:59 Lidocaine HCl (Xylocaine-Mpf 1% 2ml Vial) 2 ml PRN 1X PRN ID IV START; Start 07/09/18 at 07:00; Stop 07/10/18 at 06:59 Morphine Sulfate (Morphine Sulfate) 1 mg PRN Q10MIN PRN IV SEVERE PAIN; Start 07/09/18 at 07:00; Stop 07/10/18 at 06:59 Ondansetron HCl (Zofran) 4 mg PRN Q6HRS PRN IV NAUSEA/VOMITING; Start 07/09/18 at 07:00; Stop 07/10/18 at 06:59 Prochlorperazine Edisylate (Compazine) 5 mg PACU PRN PRN IV NAUSEA, MRX1; Start 07/09/18 at 07:00; Stop 07/10/18 at 06:59 Ringer's Solution 1,000 ml @ 30 mls/hr Q24H IV ; Start 07/09/18 at 07:00; Stop 07/09/18 at 18:59 Vitals/I & O Vital Sign - Last 24 Hours 4/2907/08/18 07/08/18 07/08/18 11:00 12:04 15:00 16:15 Temp 98.1 98.1 Pulse 96 87 Resp 18 16 B/P (MAP) 90/29 (49) 105/51 (69) Pulse Ox 96 98 97 O2 Delivery Room Air Room Air Room Air Room Air 07/08/18 07/08/18 07/08/18 07/08/18 19:00 20:12 20:13 20:15 Temp 97.6 97.6 Pulse 88 Resp 16 B/P (MAP) 104/57 (73) Pulse Ox 96 O2 Delivery Room Air Room Air Room Air Room Air 07/08/18 07/09/18 07/09/18 07/09/18 23:00 03:16 07:00 07:49 Temp 98.2 97.9 97.8 98.2 97.9 97.8 Pulse 84 70 68 Resp 18 18 16 B/P (MAP) 103/45 (64) 101/48 (65) 114/55 (74) Pulse Ox 98 96 94 98 O2 Delivery Room Air Room Air Room Air Room Air Intake and Output 07/08/18 07/08/18 07/09/18 15:00 23:00 07:00 Output Total 1 ml 2 ml Balance -1 ml -2 ml FLAVIA HOOVER MD Jul 09, 2018 10:14
[2018-07-09] MEDS: MICAFUNGIN 100 MG in IV DEXTROSE 5% 100ML 100 ML IV SCH (10:35)
[2018-07-09] MEDS ORDERED: LIDOCAINE 1% Multi-Dose 20 ML VIAL. ONE (10:48)
[2018-07-09] MEDS ORDERED: IODIXANOL 320 MG/ML 100 ML VIAL. ONE (10:48)
[2018-07-09] MEDS ORDERED: HEPARIN for ARTERIAL LINE 1,500 ML ONE (10:48)
--- NOTE | 2018-07-09 13:04 | NUR ---
SW following. Discussed with RN, pt having angiogram today. Surgery scheduled for (07/11/18). Awaiting confirmation from [facility] about whether pt can go there for SNU upon discharge. SW will continue to follow.
[2018-07-09] MEDS ORDERED: MIDAZOLAM HCL/PF 2 MG/2 ML VIAL. ONE (13:06)
[2018-07-09] MEDS ORDERED: fentaNYL PF VIAL 100 MCG/2 ML VIAL ONE (13:06)
[2018-07-09] MEDS ORDERED: HEPARIN for IV BOLUS 10,000 UNIT/10 ML VIAL. ONE (13:07)
[2018-07-09] MEDS ORDERED: MIDAZOLAM HCL/PF 2 MG/2 ML VIAL. IV ONE (14:15)
[2018-07-09] MEDS ORDERED: IODIXANOL 320 MG/ML 100 ML VIAL. IART ONE (14:15)
[2018-07-09] MEDS ORDERED: LIDOCAINE 1% Multi-Dose 20 ML VIAL. INJ ONE (14:15)
[2018-07-09] MEDS ORDERED: fentaNYL PF VIAL 100 MCG/2 ML VIAL IV ONE (14:15)
--- NOTE | 2018-07-09 14:29 | PDOC ---
Infectious Disease Note Subjective Subjective sleepy Denies N/V/cramps/F/C/S Vital Sign Vital Signs Vital Signs Date Time Temp Pulse Resp B/P (MAP) Pulse Ox O2 Delivery O2 Flow Rate FiO2 07/09/18 14:24 96 16 96 Room Air 2.0 07/09/18 11:00 97.8 107/54 (71) 97.8 Physical Exam PHYSICAL EXAM GENERAL: Alert, lying down, NAD HENT: Oral cavity clear LUNGS: Clear CARDIOVASCULAR: S1 and S2. ABDOMEN: Soft, NT, ND. EXTREMITIES: 2+ edema in both lower extremities. Right 2nd toe and left 1st MT bandaged, no area redness NEUROLOGIC: Alert, responds appropriately SKIN: No rash. Bruising on arms RIJ/HDC without signs of complications PIV ok Labs Lab Laboratory Tests Test 07/08/18 17:10 07/08/18 20:56 07/09/18 08:06 07/09/18 11:04 Glucose (Fingerstick) 210 mg/dL (70-99) 204 mg/dL (70-99) 123 mg/dL (70-99) 142 mg/dL (70-99) Micro ANAEROBIC RES 1 PENDING AEROBIC CULT Final Final report AEROBIC RES 1 Final Comment Methicillin - resistant Staphylococcus aureus 4+ Based on resistance to oxacillin this isolate would be resistant to all currently available beta-lactam antimicrobial agents, with the exception of the newer cephalosporins with anti-MRSA activity, such as Ceftaroline AEROBIC RES 2 Final Enterococcus faecalis 4+ ANTIMICROBIAL SUSCEPTIBILITY Final Comment S = Susceptible; I = Intermediate; R = Resistant P = Positive; N = Negative MICS are expressed in micrograms per mL Antibiotic RSLT#1 RSLT#2 RSLT#3 RSLT#4 Ciprofloxacin R>=8 Clindamycin R>=8 Erythromycin R>=8 Gentamicin S<=0.5 Levofloxacin R>=8 Linezolid S =2 CONTINUED ON NEXT PAGE RUN DATE: 07/07/18 PAGE 2 RUN TIME: 1906 [facility] [address] [place] [address] Ander Nicole M.D., Director Stage SPEC: [id number] PATIENT: DYLAN CRABTREE [id number] (Continued) ------ Procedure Result ANTIMICROBIAL SUSCEPTIBILITY Final (continued) Oxacillin R>=4 Penicillin R>=0.5 S =2 Rifampin S<=0.5 Tetracycline R>=16 Trimethoprim/Sulfa S<=10 Vancomycin S =1 S =1 GRAM STAIN Final Final report GRAM STAIN RES 1 Final Comment No white blood cells seen. GRAM STAIN RES 2 Final Comment Many gram positive cocci. 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
[2018-07-09] MEDS: VANCOMYCIN 500 MG in IV NORMAL SALINE 100ML 100 ML IV SCH (16:00)
[2018-07-09] MEDS: VANCOMYCIN PER PHARMACY MC PRN ×2 (16:33→16:36)
--- NOTE | 2018-07-09 19:19 | NUR ---
-- 1400 Zozyn not given because pt. was in dialysis. Spoke to pharmacy.
[2018-07-09] MEDS: HYDROcodone/APAP 5/325MG 1 TAB TABLET PO PRN (22:16)
[2018-07-09] MEDS: ATORVASTATIN CALCIUM 40 MG TABLET. PO SCH (22:16)
[2018-07-09] MEDS: INSULIN GLARGINE 300 UNITS/3 ML INSULN.PEN. SQ SCH (22:23)
[2018-07-10] VITALS (7 sets, daily range): BP systolic 91–114; BP diastolic 35–58
[2018-07-10] MEDS: PANTOPRAZOLE 40 MG TABLET.DR. PO SCH (05:27)
[2018-07-10] MEDS: PIPERACILLIN/TAZOBACTAM 2.25 GM in IV NORMAL SALINE 50ML 50 ML IV SCH ×3 (05:28→20:54)
[2018-07-10] MEDS: BUDESONIDE 0.5 MG/2 ML NEBU. NEB SCH ×2 (07:42→20:10)
[2018-07-10] MEDS: ALBUTEROL SULFATE 2.5 MG/3 ML NEBU. NEB SCH ×4 (07:42→20:10)
--- NOTE | 2018-07-10 07:53 | PDOC ---
Provider Note Provider Note Vascular S: Patient complains of right leg pain and swelling. Denies any left groin pain. States "I did not finish my dialysis run yesterday". O: Awake and alert VSS HRR Non-labored respirations Left femoral access site with dry dressing, no hematoma or swelling. Right 2nd toe with stable ulcer, erythema right calf into foot Lab pending A/P: -PVD with left 2nd toe ulcer, He does not appear to have adequate blood flow for wound healing. Attempted AARO yesterday, please see Dr. Cardoso's dictation when available, recommend AARO with right leg intervention for limb salavage prior to amputation, Via right arm approach tomorrow 07/11/2018. Discussed with patient and he is willing to proceed. NPO after MN. No new IVs right arm, Arterial US to evaluate right arm for access for AARO. -ESRD on dilaysis, left arm AVF with an excellent thrill, patent per US, may continue to use, if successful may remove tunneled dialysis catheter in a few days. Discussed plans for Angiogram with dialysis nurse and patient's nurse with regards to his scheduled dialysis. Nurse will notify Nephrology. -Continue local wound care and antibiotics. -Repeat labs pending. DELGADO HAIR CAFE SERVER July 10, 2018 07:53
[2018-07-10] MEDS: INSULIN LISPRO 300 UNITS/3 ML INSULN.PEN. SQ SCH ×3 (08:00→17:00)
[2018-07-10] MEDS: CALCIUM ACETATE 667 MG CAPSULE PO SCH ×3 (08:16→17:39)
[2018-07-10] MEDS: TAMSULOSIN 0.4 MG CAP.ER.24H. PO SCH (08:17)
[2018-07-10] MEDS: SODIUM BICARBONATE 650 MG TABLET. PO SCH ×3 (08:17→20:53)
[2018-07-10] MEDS: GABAPENTIN 100 MG CAPSULE. PO SCH (08:17)
[2018-07-10] MEDS: TORSEMIDE 20 MG TABLET. PO SCH ×2 (08:17→15:46)
[2018-07-10] MEDS: FERROUS SULFATE 325 MG TABLET. PO SCH (08:17)
[2018-07-10] MEDS: ASPIRIN ENTERIC COATED 81 MG TABLET.DR. PO SCH (08:17)
[2018-07-10] MEDS: LACTOBACILLUS RHAMNOSUS GG 1 CAPSULE. PO SCH ×2 (08:17→20:53)
[2018-07-10] MEDS: ISOSORBIDE MONONITRATE ER 30 MG TAB.ER.24H PO SCH (08:17)
[2018-07-10] MEDS: FLUTICASONE 50MCG/NASAL SPRAY 16GM BOTTLE. NS SCH (08:35)
[2018-07-10] MEDS: MICAFUNGIN 100 MG in IV DEXTROSE 5% 100ML 100 ML IV SCH (10:04)
--- NOTE | 2018-07-10 10:04 | PDOC ---
PROGRESS NOTES Subjective Subjective no complaints Objective Objective Vital Signs Date Time Temp Pulse Resp B/P (MAP) Pulse Ox O2 Delivery O2 Flow Rate FiO2 07/10/18 08:17 77 112/54 07/10/18 07:42 96 Room Air 07/10/18 07:00 97.7 18 97.7 07/09/18 14:24 2.0 Intake and Output 07/10/18 07:00 Intake Total 360 ml Balance 360 ml Intake Oral 360 ml # Bowel Movements 2 Physical Exam Abdomen: Normal bowel sounds, Soft, No tenderness Heart: Regular rate, Normal S1, Normal S2 Extremities: No cyanosis General: No acute distress HEENT: Atraumatic, PERRLA Lungs: Clear to auscultation MUSCULOSKELETAL: No joint tenderness, No swelling, Other (RIGHT FOOT WOUND DRESSED) Neuro: Normal speech Skin: No breakdown, No significant lesion Assessment Assessment FINAL IMPRESSION: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 Right second toe ulcer with underlying osteomyelitis. The ulcer is deep to the joint into the bone, interphalangeal joint. 2. Diabetes, insulin-dependent. 3. Coronary artery disease, previous bypass surgery. 4. End-stage renal disease, dialysis. 5. Chronic systolic heart failure, ejection fraction 20%. 6. Hypertension. 7. Hyperlipidemia. 8. History of previous toe amputation. 9. Diabetic neuropathy. PLAN: arteriogram yesterday, going for arterial intervention today. wound c/s MRSA+enterococcus, spoke with ID check stool for c diff -neg.Imodium prn. Dialysis today,partially dialyzed yesterday iv antibiotics vanco+zosyn. arterial doppler dec blood flow to foot. spoke with RN Comment Review of Relevant I have reviewed the following items shar (where applicable) has been applied. Labs Laboratory Tests Test 07/09/18 11:04 07/09/18 18:33 07/09/18 19:14 07/10/18 08:15 Glucose (Fingerstick) 142 mg/dL (70-99) 60 mg/dL (70-99) 111 mg/dL (70-99) 83 mg/dL (70-99) Microbiology 07/03/18 Anaerobic/Aerobic Culture - Final, Complete 07/03/18 Anaerobic Culture Result 1 (DEMETRA) - Final, Complete 07/03/18 Aerobic Culture - Final, Complete 07/03/18 Aerobic Culture Result 1 (DEMETRA) - Final, Complete 07/03/18 Aerobic Culture Result 2 (DEMETRA) - Final, Complete 07/03/18 Antimicrobic Susceptibility - Final, Complete 07/03/18 Gram Stain - Final, Complete 07/03/18 Gram Stain Result 1 (DEMETRA) - Final, Complete 07/03/18 Gram Stain Result 2 (DEMETRA) - Final, Complete Medications Current Medications Fentanyl Citrate (Fentanyl 2ml Vial) 50 mcg 1X ONCE IV Last administered on 07/09/18at 14:23; Start 07/09/18 at 14:15; Stop 07/09/18 at 14:18; Status DC Fentanyl Citrate (Fentanyl 2ml Vial) 100 mcg STK-MED ONCE .ROUTE ; Start 07/09/18 at 13:06; Stop 07/09/18 at 13:07; Status DC Heparin Sodium (Porcine) (Heparin Sodium) 10,000 unit STK-MED ONCE .ROUTE ; Start 07/09/18 at 13:07; Stop 07/09/18 at 13:08; Status DC Heparin Sodium/ Sodium Chloride 1,500 ml @ As Directed STK-MED ONCE .ROUTE ; Start 07/09/18 at 10:48; Stop 07/09/18 at 11:35; Status DC Heparin Sodium/ Sodium Chloride (HEPARIN for ARTERIAL LINE FLUSH) 1,000 unit 1X ONCE IART Last administered on 07/09/18at 14:22; Start 07/09/18 at 14:15; Stop 07/09/18 at 14:18; Status DC Heparin Sodium/ Sodium Chloride (HEPARIN for ARTERIAL LINE FLUSH) 1,000 unit 1X ONCE IART Last administered on 07/09/18at 14:22; Start 07/09/18 at 14:15; Stop 07/09/18 at 14:18; Status DC Iodixanol (Visipaque 320) 75 ml 1X ONCE IART Last administered on 07/09/18at 14:22; Start 07/09/18 at 14:15; Stop 07/09/18 at 14:18; Status DC Iodixanol (Visipaque 320) 100 ml STK-MED ONCE .ROUTE ; Start 07/09/18 at 10:48; Stop 07/09/18 at 11:35; Status DC Lidocaine HCl (Lidocaine 1% 20ml Vial) 5 ml 1X ONCE INJ Last administered on 07/09/18at 14:22; Start 07/09/18 at 14:15; Stop 07/09/18 at 14:18; Status DC Lidocaine HCl (Lidocaine 1% 20ml Vial) 20 ml STK-MED ONCE .ROUTE ; Start 07/09/18 at 10:48; Stop 07/09/18 at 11:35; Status DC Midazolam HCl (Versed) 1 mg 1X ONCE IV Last administered on 07/09/18at 14:23; Start 07/09/18 at 14:15; Stop 07/09/18 at 14:18; Status DC Midazolam HCl (Versed) 2 mg STK-MED ONCE .ROUTE ; Start 07/09/18 at 13:06; Stop 07/09/18 at 13:07; Status DC Vitals/I & O Vital Sign - Last 24 Hours 07/09/18 07/09/18 07/09/18 07/09/18 11:00 11:35 14:23 14:24 Temp 97.8 97.8 Pulse 88 96 Resp 16 22 16 B/P (MAP) 107/54 (71) Pulse Ox 93 99 96 96 O2 Delivery Room Air Room Air Nasal Cannula Room Air O2 Flow Rate 2.0 2.0 07/09/18 07/09/18 07/09/18 07/09/18 15:00 19:40 20:00 20:00 Temp 97.5 97.5 Pulse 98 Resp 18 B/P (MAP) () 84/47 (59) Pulse Ox 96 95 O2 Delivery Room Air Room Air Room Air 07/09/18 07/09/18 07/09/18 07/10/18 22:16 23:16 23:45 03:31 Temp 97.6 98.0 97.6 98.0 Pulse 97 62 Resp 18 18 18 18 B/P (MAP) 90/50 (63) 91/46 (61) Pulse Ox 97 97 O2 Delivery Room Air Room Air Room Air Room Air 07/10/18 07/10/18 07/10/18 07:00 07:42 08:17 Temp 97.7 97.7 Pulse 77 77 Resp 18 B/P (MAP) 112/54 (73) 112/54 Pulse Ox 98 96 O2 Delivery Room Air Room Air Intake and Output 07/09/18 07/09/18 07/10/18 15:00 23:00 07:00 Intake Total 360 ml Balance 360 ml FLAVIA HOOVER MD July 10, 2018 10:04
--- NOTE | 2018-07-10 11:01 | PDOC ---
Infectious Disease Note Subjective Subjective awake, feeling ok Denies N/V/cramps/F/C/S Vital Sign Vital Signs Vital Signs Date Time Temp Pulse Resp B/P (MAP) Pulse Ox O2 Delivery O2 Flow Rate FiO2 07/10/18 08:17 77 112/54 07/10/18 07:42 96 Room Air 07/10/18 07:00 97.7 18 97.7 07/09/18 14:24 2.0 Physical Exam PHYSICAL EXAM GENERAL: Alert, lying down, NAD HENT: Oral cavity clear LUNGS: Clear CARDIOVASCULAR: S1 and S2. ABDOMEN: Soft, NT, ND. EXTREMITIES: 2+ edema in both lower extremities. Right 2nd toe and left 1st MT bandaged, no area redness NEUROLOGIC: Alert, responds appropriately SKIN: No rash. Bruising on arms RIJ/HDC without signs of complications PIV ok Labs Lab Laboratory Tests Test 07/09/18 11:04 07/09/18 18:33 07/09/18 19:14 07/10/18 08:15 Glucose (Fingerstick) 142 mg/dL (70-99) 60 mg/dL (70-99) 111 mg/dL (70-99) 83 mg/dL (70-99) Micro ANAEROBIC RES 1 PENDING AEROBIC CULT Final Final report AEROBIC RES 1 Final Comment Methicillin - resistant Staphylococcus aureus 4+ Based on resistance to oxacillin this isolate would be resistant to all currently available beta-lactam antimicrobial agents, with the exception of the newer cephalosporins with anti-MRSA activity, such as Ceftaroline AEROBIC RES 2 Final Enterococcus faecalis 4+ ANTIMICROBIAL SUSCEPTIBILITY Final Comment S = Susceptible; I = Intermediate; R = Resistant P = Positive; N = Negative MICS are expressed in micrograms per mL Antibiotic RSLT#1 RSLT#2 RSLT#3 RSLT#4 Ciprofloxacin R>=8 Clindamycin R>=8 Erythromycin R>=8 Gentamicin S<=0.5 Levofloxacin R>=8 Linezolid S =2 CONTINUED ON NEXT PAGE RUN DATE: 07/07/18 PAGE 2 RUN TIME: 1906 [facility] [address] [place] [address] Ander Nicole M.D., Odd Shoe Examiner SPEC: [id number] PATIENT: DYLAN CRABTREE [id number] (Continued) Procedure Result ANTIMICROBIAL SUSCEPTIBILITY Final (continued) Oxacillin R>=4 Penicillin R>=0.5 S =2 Rifampin S<=0.5 Tetracycline R>=16 Trimethoprim/Sulfa S<=10 Vancomycin S =1 S =1 GRAM STAIN Final Final report GRAM STAIN RES 1 Final Comment No white blood cells seen. GRAM STAIN RES 2 Final Comment Many gram positive cocci. 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
--- NOTE | 2018-07-10 11:17 | RAD ---
Right upper extremity arterial ultrasound, 07/10/2018: HISTORY: Check access for planned arteriogram Duplex evaluation of the major arteries in the right upper extremity was performed including grayscale, color-flow and spectral Doppler analysis. The right subclavian and axillary arteries are widely patent demonstrating biphasic Doppler waveforms. There are mild scattered plaques in the brachial artery. The brachial Doppler waveforms are biphasic. No significant focal velocity acceleration is seen to suggest high-grade stenosis. Patent radial and ulnar arteries are evident in the forearm demonstrating triphasic Doppler waveforms. Incidental note was made of a 5.7 x 2.4 x 2.7 cm complex fluid collection in the biceps region of upper arm. IMPRESSION: 1. Mild atherosclerotic plaquing without evidence of significant arterial occlusive disease in the right upper extremity. 2. Complex fluid collection in the upper arm which may represent a hematoma, although infection cannot be excluded. Has there been intervention in this region? Electronically signed by: Marlo Manzanares MD (07/10/2018 11:14 AM) [facility]
[2018-07-10 11:36] LABS: BASO % 1 % (0-3); EOS # 0.1 x10^3/uL (0.0-0.7); EOS % 2 % (0-3); HEMATOCRIT 33.9 % (39.0-53.0); HEMOGLOBIN 10.9 g/dL (13.0-17.5); LYMPH # 0.4 x10^3/uL (1.0-4.8); LYMPH % 8 % (24-48); MEAN CORPUSCULAR HEMOGLOBIN 32 pg (25-35); MEAN CORPUSCULAR HGB CONC 32 g/dL (31-37); MEAN CORPUSCULAR VOLUME 100 fL (79-100); MONO # 0.7 x10^3/uL (0.0-1.1); MONO % 14 % (0-9); NEUT # 3.9 x10^3uL (1.8-7.7); NEUT % 76 % (31-73); PLATELET COUNT 168 x10^3/uL (140-400); RED CELL DISTRIBUTION WIDTH 22.9 % (11.5-14.5); WHITE BLOOD COUNT 5.1 x10^3/uL (4.0-11.0)
[2018-07-10 12:03] LABS: ALBUMIN 2.2 g/dL (3.4-5.0); CALCIUM 8.7 mg/dL (8.5-10.1); CREATININE 6.3 mg/dL (0.7-1.3); GFR 8.6; PHOSPHORUS 4.9 mg/dL (2.6-4.7); POTASSIUM 4.8 mmol/L (3.5-5.1)
--- NOTE | 2018-07-10 13:09 | PDOC ---
SUBJECTIVE ROS States feeling tired HD Yesterday only for an hr. Reports had to go to [facility] so Hd was dced after an hour Currently stable , No increase in SOB OBJECTIVE Vital Signs Vital Signs Date Time Temp Pulse Resp B/P (MAP) Pulse Ox O2 Delivery O2 Flow Rate FiO2 07/10/18 12:29 Room Air 07/10/18 08:17 77 112/54 07/10/18 07:42 96 07/10/18 07:00 97.7 18 97.7 07/09/18 14:24 2.0 I & 0 Intake and Output 07/10/18 07:00 Intake Total 360 ml Balance 360 ml Intake Oral 360 ml # Bowel Movements 2 PHYSICAL EXAM Physical Exam GENERAL: NAD, sitting up in chair HENT: Oral Mucosa moist LUNGS: Clear CARDIOVASCULAR: S1 and S2. ABDOMEN: Soft, NT, ND. EXTREMITIES: 1+ edema in both lower extremities. Right 2nd toe and left 1st MT bandaged, no area redness NEUROLOGIC: Alert, responds appropriately SKIN: No rash. 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 COMMENT/RELEVANT DATA Meds Current Medications Medications (Trade) Dose Ordered Sig/Erickson Start Time Stop Time Status Last Admin Dose Admin Acetaminophen/ Hydrocodone Bitart (Lortab 5/325) 1 tab PRN Q6HRS PRN 07/03/18 17:45 UNV Albumin Human 200 ml @ 200 mls/hr 1X PRN PRN 07/04/18 14:00 07/04/18 19:59 DC Albuterol Sulfate (Ventolin Neb Soln) 2.5 mg RTQID 07/03/18 20:00 07/10/18 12:29 2.5 MG Aspirin (Ecotrin) 81 mg DAILY 07/04/18 09:00 07/10/18 08:17 81 MG Atorvastatin Calcium (Lipitor) 80 mg QHS 07/03/18 21:00 07/09/18 22:16 80 MG Budesonide (Pulmicort) 0.5 mg RTBID 07/03/18 20:00 07/10/18 07:42 0.5 MG Calcium Acetate (Phoslo) 1,334 mg TIDWMEALS 07/03/18 18:30 07/10/18 12:07 1,334 MG Cefazolin Sodium 1 gm/Sodium Chloride 500 ml @ 500 mls/hr 1X ONCE 07/09/18 06:00 07/09/18 06:59 DC Dextrose (Dextrose 50%-Water Syringe) 12.5 gm PRN Q15MIN PRN 07/03/18 21:15 Enoxaparin Sodium (Lovenox 30mg Syringe) 30 mg Q24H 07/05/18 10:00 07/07/18 11:00 DC 07/07/18 08:46 30 MG Fentanyl Citrate (Fentanyl 2ml Vial) 50 mcg 1X ONCE 07/09/18 14:15 07/09/18 14:18 DC 07/09/18 14:23 50 MCG Ferrous Sulfate (Feosol) 325 mg DAILY 07/04/18 09:00 07/10/18 08:17 325 MG Fluticasone Propionate (Flonase) 2 spray DAILY 07/04/18 09:00 07/10/18 08:35 2 SPRAY Gabapentin (Neurontin) 100 mg DAILY 07/04/18 09:00 07/10/18 08:17 100 MG Heparin Sodium (Porcine) (Heparin Sodium) 10,000 unit STK-MED ONCE 07/09/18 13:07 07/09/18 13:08 DC Heparin Sodium/ Sodium Chloride (HEPARIN for ARTERIAL LINE FLUSH) 1,000 unit 1X ONCE 07/09/18 14:15 07/09/18 14:18 DC 07/09/18 14:22 1,000 UNIT Hydromorphone HCl (Dilaudid) 0.5 mg PRN Q10MIN PRN 07/09/18 07:00 07/10/18 06:59 DC Info (PHARMACY MONITORING -- do not chart) 1 each PRN DAILY PRN 07/06/18 13:30 UNV Insulin Glargine (Lantus) 25 units QHS 07/04/18 21:00 07/09/18 22:23 25 UNITS Insulin Human Lispro (HumaLOG) 0-7 UNITS TIDWMEALS 07/04/18 08:00 07/08/18 17:41 4 UNITS Iodixanol (Visipaque 320) 75 ml 1X ONCE 07/09/18 14:15 07/09/18 14:18 DC 07/09/18 14:22 75 ML Isosorbide Mononitrate (Imdur) 60 mg DAILY 07/04/18 09:00 07/10/18 08:17 60 MG Lactobacillus Rhamnosus (Culturelle) 1 cap BID 07/03/18 21:00 07/10/18 08:17 1 CAP Lidocaine HCl (Lidocaine 1% 20ml Vial) 5 ml 1X ONCE 07/09/18 14:15 07/09/18 14:18 DC 07/09/18 14:22 5 ML Lidocaine HCl (Xylocaine-Mpf 1% 2ml Vial) 2 ml PRN 1X PRN 07/09/18 07:00 07/10/18 06:59 DC Lidocaine/Sodium Bicarbonate (Buffered Lidocaine 1%) 3 ml STK-MED ONCE 07/04/18 14:43 07/04/18 14:44 DC Loperamide HCl (Imodium) 2 mg PRN QID PRN 07/07/18 09:45 Micafungin Sodium 100 mg/Dextrose 100 ml @ 100 mls/hr Q24H 07/04/18 10:00 07/10/18 10:04 100 MLS/HR Midazolam HCl (Versed) 1 mg 1X ONCE 07/09/18 14:15 07/09/18 14:18 DC 07/09/18 14:23 1 MG Morphine Sulfate (Morphine Sulfate) 1 mg PRN Q10MIN PRN 07/09/18 07:00 07/10/18 06:59 DC Niacin (Slo-Niacin) 500 mg BID 07/03/18 21:00 07/03/18 21:14 DC Nitroglycerin (Nitrostat) 0.4 mg PRN Q5MIN 07/03/18 17:45 Non-Formulary Medication (Fluticasone/ Salmeterol (Advair 250-50 Diskus)) 1 puff BID 07/03/18 21:00 UNV Ondansetron HCl (Zofran Odt) 4 mg PRN BID PRN 07/03/18 18:15 Ondansetron HCl (Zofran) 4 mg PRN Q6HRS PRN 07/09/18 07:00 07/10/18 06:59 DC Pantoprazole Sodium (Protonix) 40 mg DAILYAC 07/04/18 07:30 07/10/18 05:27 40 MG Piperacillin Sod/ Tazobactam Sod (Zosyn Per Pharmacy) 1 each PRN DAILY PRN 07/03/18 17:15 Piperacillin Sod/ Tazobactam Sod 2.25 gm/Sodium Chloride 50 ml @ 100 mls/hr Q8HRS 07/04/18 06:00 07/10/18 05:28 100 MLS/HR Polyethylene Glycol (miraLAX PACKET) 17 gm PRN DAILY PRN 07/04/18 09:00 Prochlorperazine Edisylate (Compazine) 5 mg PACU PRN PRN 07/09/18 07:00 07/10/18 06:59 DC Ringer's Solution 1,000 ml @ 30 mls/hr Q24H 07/09/18 07:00 07/09/18 18:59 DC Simethicone (Gas-X) 80 mg PRN TID PRN 07/03/18 18:15 Sodium Bicarbonate (Sodium Bicarbonate) 650 mg TID 07/03/18 21:00 07/10/18 08:17 650 MG Sodium Chloride 1,000 ml @ 400 mls/hr Q2H30M PRN 07/04/18 13:52 07/05/18 01:51 DC Sodium Chloride (Normal Saline Flush) 10 ml 1X PRN PRN 07/04/18 14:00 07/05/18 13:59 DC Tamsulosin HCl (Flomax) 0.4 mg DAILY 07/04/18 09:00 07/10/18 08:17 0.4 MG Torsemide (Demadex) 20 mg [id number] 07/04/18 09:00 07/10/18 08:17 20 MG Vancomycin HCl (Vanco Per Pharmacy) 1 each PRN DAILY PRN 07/03/18 17:15 07/09/18 16:36 1 EACH Vancomycin HCl (Vancomycin Random Level) 1 each 1X ONCE 07/05/18 06:00 07/05/18 06:01 DC 07/05/18 06:00 1 EACH Vancomycin HCl 500 mg/Sodium Chloride 100 ml @ 100 mls/hr QTUTHSA 07/06/18 16:00 07/06/18 17:13 100 MLS/HR Vancomycin HCl 2 gm/Sodium Chloride 500 ml @ 250 mls/hr 1X ONCE 07/03/18 17:30 07/03/18 19:29 DC 07/03/18 21:09 250 MLS/HR Lab Laboratory Tests Test 07/09/18 18:33 07/09/18 19:14 07/10/18 08:15 07/10/18 11:05 Glucose (Fingerstick) 60 mg/dL (70-99) 111 mg/dL (70-99) 83 mg/dL (70-99) White Blood Count 5.1 x10^3/uL (4.0-11.0) Red Blood Count 3.40 x10^6/uL (4.30-5.70) Hemoglobin 10.9 g/dL (13.0-17.5) Hematocrit 33.9 % (39.0-53.0) Mean Corpuscular Volume 100 fL (79-100) Mean Corpuscular Hemoglobin 32 pg (25-35) Mean Corpuscular Hemoglobin Concent 32 g/dL (31-37) Red Cell Distribution Width 22.9 % (11.5-14.5) Platelet Count 168 x10^3/uL (140-400) Neutrophils (%) (Auto) 76 % (31-73) Lymphocytes (%) (Auto) 8 % (24-48) Monocytes (%) (Auto) 14 % (0-9) Eosinophils (%) (Auto) 2 % (0-3) Basophils (%) (Auto) 1 % (0-3) Neutrophils # (Auto) 3.9 x10^3uL (1.8-7.7) Lymphocytes # (Auto) 0.4 x10^3/uL (1.0-4.8) Monocytes # (Auto) 0.7 x10^3/uL (0.0-1.1) Eosinophils # (Auto) 0.1 x10^3/uL (0.0-0.7) Basophils # (Auto) 0.0 x10^3/uL (0.0-0.2) Sodium Level 135 mmol/L (136-145) Potassium Level 4.8 mmol/L (3.5-5.1) Chloride Level 97 mmol/L (98-107) Carbon Dioxide Level 24 mmol/L (21-32) Anion Gap 14 (6-14) Blood Urea Nitrogen 62 mg/dL (8-26) Creatinine 6.3 mg/dL (0.7-1.3) Estimated GFR (Cockcroft-Gault) 8.6 Glucose Level 86 mg/dL (70-99) Calcium Level 8.7 mg/dL (8.5-10.1) Phosphorus Level 4.9 mg/dL (2.6-4.7) Albumin 2.2 g/dL (3.4-5.0) Test 07/10/18 11:38 Glucose (Fingerstick) 84 mg/dL (70-99) Results All relevant outside records, renal labs, imaging studies, telemetry/EKG's were reviewed. LFOYD TAMAYO MD July 10, 2018 13:09
[2018-07-10] MEDS: VANCOMYCIN PER PHARMACY MC PRN (13:51)
--- NOTE | 2018-07-10 14:31 | NUR ---
CHASE following for discharge planning. Discussed with RN. CHASE spoke with Claribel dye [place] who advised they had spoken with pt's son, Edwardo who told them he will not be able to pay for copay days (pt is in his copay days for SNU) if pt went again and said he "can't afford rehab". CHASE left voicemail for pt's son, Edwardo to discuss discharge planning. RN advised pt having another procedure today or tomorrow and still possibly an amputation prior to leaving the hospital. CHASE will continue to follow.
--- NOTE | 2018-07-10 15:48 | NUR ---
Torsemide held, last charted BP 87/48, previous BPs taken after 1500 are close to the same range. Pt c/o being slightly SOA but otherwise asymptomatic. SaO2 low upon initial measurement this afternoon but it went above 90% after Pt took several deep breaths.
[2018-07-10] MEDS: HYDROcodone/APAP 5/325MG 1 TAB TABLET PO PRN (17:45)
[2018-07-10] MEDS: ATORVASTATIN CALCIUM 40 MG TABLET. PO SCH (20:53)
[2018-07-10] MEDS: INSULIN GLARGINE 300 UNITS/3 ML INSULN.PEN. SQ SCH (20:58)
[2018-07-11] VITALS (7 sets, daily range): BP systolic 93–125; BP diastolic 42–83
[2018-07-11] MEDS: PIPERACILLIN/TAZOBACTAM 2.25 GM in IV NORMAL SALINE 50ML 50 ML IV SCH ×3 (05:08→21:50)
[2018-07-11 05:31] LABS: CALCIUM 8.6 mg/dL (8.5-10.1); CREATININE 6.5 mg/dL (0.7-1.3); GFR 8.2; PHOSPHORUS 4.6 mg/dL (2.6-4.7); POTASSIUM 4.4 mmol/L (3.5-5.1)
[2018-07-11] MEDS: ALBUTEROL SULFATE 2.5 MG/3 ML NEBU. NEB SCH ×4 (07:03→20:15)
[2018-07-11] MEDS: BUDESONIDE 0.5 MG/2 ML NEBU. NEB SCH ×2 (07:04→20:15)
[2018-07-11] MEDS ORDERED: IV NORMAL SALINE 1000ML BAG 1,000 ML IV PRN ×2 (07:16)
[2018-07-11] MEDS: CALCIUM ACETATE 667 MG CAPSULE PO SCH ×3 (07:20→17:54)
[2018-07-11] MEDS: PANTOPRAZOLE 40 MG TABLET.DR. PO SCH (07:20)
[2018-07-11] MEDS ORDERED: diphenhydrAMINE 50 MG/ML VIAL IV PRN ×2 (07:30)
[2018-07-11] MEDS ORDERED: DIALYSIS PATIENT. MC PRN (07:30)
[2018-07-11] MEDS: INSULIN LISPRO 300 UNITS/3 ML INSULN.PEN. SQ SCH ×3 (08:00→17:00)
--- NOTE | 2018-07-11 08:58 | PDOC ---
Infectious Disease Note Subjective Subjective awake, feeling ok Denies N/V/cramps/F/C/S Vital Sign Vital Signs Vital Signs Date Time Temp Pulse Resp B/P (MAP) Pulse Ox O2 Delivery O2 Flow Rate FiO2 07/11/18 07:05 96 Room Air 07/11/18 07:00 97.7 78 18 116/83 (94) 97.7 Physical Exam PHYSICAL EXAM GENERAL: Alert, lying down, NAD HENT: Oral cavity clear LUNGS: Clear CARDIOVASCULAR: S1 and S2. ABDOMEN: Soft, NT, ND. EXTREMITIES: 2+ edema in both lower extremities. Right 2nd toe and left 1st MT bandaged, no area redness NEUROLOGIC: Alert, responds appropriately SKIN: No rash. Bruising on arms RIJ/HDC without signs of complications PIV ok Labs Lab Laboratory Tests Test 07/10/18 11:05 07/10/18 11:38 07/10/18 16:38 07/10/18 20:40 White Blood Count 5.1 x10^3/uL (4.0-11.0) Red Blood Count 3.40 x10^6/uL (4.30-5.70) Hemoglobin 10.9 g/dL (13.0-17.5) Hematocrit 33.9 % (39.0-53.0) Mean Corpuscular Volume 100 fL (79-100) Mean Corpuscular Hemoglobin 32 pg (25-35) Mean Corpuscular Hemoglobin Concent 32 g/dL (31-37) Red Cell Distribution Width 22.9 % (11.5-14.5) Platelet Count 168 x10^3/uL (140-400) Neutrophils (%) (Auto) 76 % (31-73) Lymphocytes (%) (Auto) 8 % (24-48) Monocytes (%) (Auto) 14 % (0-9) Eosinophils (%) (Auto) 2 % (0-3) Basophils (%) (Auto) 1 % (0-3) Neutrophils # (Auto) 3.9 x10^3uL (1.8-7.7) Lymphocytes # (Auto) 0.4 x10^3/uL (1.0-4.8) Monocytes # (Auto) 0.7 x10^3/uL (0.0-1.1) Eosinophils # (Auto) 0.1 x10^3/uL (0.0-0.7) Basophils # (Auto) 0.0 x10^3/uL (0.0-0.2) Sodium Level 135 mmol/L (136-145) Potassium Level 4.8 mmol/L (3.5-5.1) Chloride Level 97 mmol/L (98-107) Carbon Dioxide Level 24 mmol/L (21-32) Anion Gap 14 (6-14) Blood Urea Nitrogen 62 mg/dL (8-26) Creatinine 6.3 mg/dL (0.7-1.3) Estimated GFR (Cockcroft-Gault) 8.6 Glucose Level 86 mg/dL (70-99) Calcium Level 8.7 mg/dL (8.5-10.1) Phosphorus Level 4.9 mg/dL (2.6-4.7) Albumin 2.2 g/dL (3.4-5.0) Glucose (Fingerstick) 84 mg/dL (70-99) 142 mg/dL (70-99) 213 mg/dL (70-99) Test 07/11/18 04:25 07/11/18 07:08 Sodium Level 131 mmol/L (136-145) Potassium Level 4.4 mmol/L (3.5-5.1) Chloride Level 95 mmol/L (98-107) Carbon Dioxide Level 26 mmol/L (21-32) Anion Gap 10 (6-14) Blood Urea Nitrogen 66 mg/dL (8-26) Creatinine 6.5 mg/dL (0.7-1.3) Estimated GFR (Cockcroft-Gault) 8.2 Glucose Level 152 mg/dL (70-99) Calcium Level 8.6 mg/dL (8.5-10.1) Phosphorus Level 4.6 mg/dL (2.6-4.7) Albumin 2.0 g/dL (3.4-5.0) Glucose (Fingerstick) 124 mg/dL (70-99) Micro ANAEROBIC RES 1 PENDING AEROBIC CULT Final Final report AEROBIC RES 1 Final Comment Methicillin - resistant Staphylococcus aureus 4+ Based on resistance to oxacillin this isolate would be resistant to all currently available beta-lactam antimicrobial agents, with the exception of the newer cephalosporins with anti-MRSA activity, such as Ceftaroline AEROBIC RES 2 Final Enterococcus faecalis 4+ ANTIMICROBIAL SUSCEPTIBILITY Final Comment S = Susceptible; I = Intermediate; R = Resistant P = Positive; N = Negative MICS are expressed in micrograms per mL Antibiotic RSLT#1 RSLT#2 RSLT#3 RSLT#4 Ciprofloxacin R>=8 Clindamycin R>=8 Erythromycin R>=8 Gentamicin S<=0.5 Levofloxacin R>=8 Linezolid S =2 CONTINUED ON NEXT PAGE RUN DATE: 07/07/18 PAGE 2 RUN TIME: 1906 [facility] [address] [place] [address] Ander Nicole M.D., [employer] SPEC: [id number] PATIENT: DYLAN CRABTREE [id number] (Continued) Procedure Result --- ANTIMICROBIAL SUSCEPTIBILITY Final (continued) Oxacillin R>=4 Penicillin R>=0.5 S =2 Rifampin S<=0.5 Tetracycline R>=16 Trimethoprim/Sulfa S<=10 Vancomycin S =1 S =1 GRAM STAIN Final Final report GRAM STAIN RES 1 Final Comment No white blood cells seen. GRAM STAIN RES 2 Final Comment Many gram positive cocci. Performed at: - [facility] [address], [place], [place] [id number] Holter Technician: ADELINA Khalil MD, Phone: [phone] Objective Assessment Right second toe wound and cellulitis - Staph aureus and Strep spp so far Tinea/onychomycosis CKD on HD DM Plan Plan of Care Cont Vanc, Zosyn F/u labs and cults angio and amputation pending BETTYE VIERA MD July 11, 2018 08:58
[2018-07-11] MEDS: TAMSULOSIN 0.4 MG CAP.ER.24H. PO SCH (09:00)
[2018-07-11] MEDS: SODIUM BICARBONATE 650 MG TABLET. PO SCH ×3 (09:00→21:50)
[2018-07-11] MEDS: TORSEMIDE 20 MG TABLET. PO SCH ×2 (09:00→16:00)
[2018-07-11] MEDS: LACTOBACILLUS RHAMNOSUS GG 1 CAPSULE. PO SCH ×2 (09:00→21:50)
[2018-07-11] MEDS: GABAPENTIN 100 MG CAPSULE. PO SCH (09:00)
[2018-07-11] MEDS: ISOSORBIDE MONONITRATE ER 30 MG TAB.ER.24H PO SCH (09:00)
[2018-07-11] MEDS: FERROUS SULFATE 325 MG TABLET. PO SCH (09:00)
[2018-07-11] MEDS: ASPIRIN ENTERIC COATED 81 MG TABLET.DR. PO SCH (09:00)
[2018-07-11] MEDS: FLUTICASONE 50MCG/NASAL SPRAY 16GM BOTTLE. NS SCH (09:00)
--- NOTE | 2018-07-11 09:00 | NUR ---
All morning medications held, Pt to dialysis by bed with transportation at 0730. Assessment completed, vital signs and blood sugar obtained prior to transfer. Pt denied having any pain or discomfort. Pt has been NPO since NV and will remain so after dialysis for planned procedure this afternoon.
--- NOTE | 2018-07-11 10:19 | PDOC ---
PROGRESS NOTES Subjective Subjective seen in dialysis unit Objective Objective Vital Signs Date Time Temp Pulse Resp B/P (MAP) Pulse Ox O2 Delivery O2 Flow Rate FiO2 07/11/18 07:30 Room Air 07/11/18 07:05 96 07/11/18 07:00 97.7 78 18 116/83 (94) 97.7 Intake and Output 07/11/18 06:59 Intake Total 900 ml Balance 900 ml Intake Oral 900 ml # Voids 3 # Bowel Movements 1 Physical Exam Abdomen: Normal bowel sounds, Soft, No tenderness Heart: Regular rate, Normal S1, Normal S2 Extremities: No cyanosis General: No acute distress HEENT: Atraumatic, PERRLA Lungs: Clear to auscultation MUSCULOSKELETAL: No joint tenderness, No swelling, Other (RIGHT FOOT WOUND DRESSED) Neuro: Normal speech Skin: No breakdown, No significant lesion Assessment Assessment FINAL IMPRESSION: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 Right second toe ulcer with underlying osteomyelitis. The ulcer is deep to the joint into the bone, interphalangeal joint. 2. Diabetes, insulin-dependent. 3. Coronary artery disease, previous bypass surgery. 4. End-stage renal disease, dialysis. 5. Chronic systolic heart failure, ejection fraction 20%. 6. Hypertension. 7. Hyperlipidemia. 8. History of previous toe amputation. 9. Diabetic neuropathy. PLAN: Dialysis today arteriogram yesterday, going for arterial intervention today. wound c/s MRSA+enterococcus, spoke with ID check stool for c diff -neg.Imodium prn. Dialysis today,partially dialyzed yesterday iv antibiotics vanco+zosyn. arterial doppler dec blood flow to foot. spoke with RN Comment Review of Relevant I have reviewed the following items shar (where applicable) has been applied. Labs Laboratory Tests Test 07/10/18 11:05 07/10/18 11:38 07/10/18 16:38 07/10/18 20:40 White Blood Count 5.1 x10^3/uL (4.0-11.0) Red Blood Count 3.40 x10^6/uL (4.30-5.70) Hemoglobin 10.9 g/dL (13.0-17.5) Hematocrit 33.9 % (39.0-53.0) Mean Corpuscular Volume 100 fL (79-100) Mean Corpuscular Hemoglobin 32 pg (25-35) Mean Corpuscular Hemoglobin Concent 32 g/dL (31-37) Red Cell Distribution Width 22.9 % (11.5-14.5) Platelet Count 168 x10^3/uL (140-400) Neutrophils (%) (Auto) 76 % (31-73) Lymphocytes (%) (Auto) 8 % (24-48) Monocytes (%) (Auto) 14 % (0-9) Eosinophils (%) (Auto) 2 % (0-3) Basophils (%) (Auto) 1 % (0-3) Neutrophils # (Auto) 3.9 x10^3uL (1.8-7.7) Lymphocytes # (Auto) 0.4 x10^3/uL (1.0-4.8) Monocytes # (Auto) 0.7 x10^3/uL (0.0-1.1) Eosinophils # (Auto) 0.1 x10^3/uL (0.0-0.7) Basophils # (Auto) 0.0 x10^3/uL (0.0-0.2) Sodium Level 135 mmol/L (136-145) Potassium Level 4.8 mmol/L (3.5-5.1) Chloride Level 97 mmol/L (98-107) Carbon Dioxide Level 24 mmol/L (21-32) Anion Gap 14 (6-14) Blood Urea Nitrogen 62 mg/dL (8-26) Creatinine 6.3 mg/dL (0.7-1.3) Estimated GFR (Cockcroft-Gault) 8.6 Glucose Level 86 mg/dL (70-99) Calcium Level 8.7 mg/dL (8.5-10.1) Phosphorus Level 4.9 mg/dL (2.6-4.7) Albumin 2.2 g/dL (3.4-5.0) Glucose (Fingerstick) 84 mg/dL (70-99) 142 mg/dL (70-99) 213 mg/dL (70-99) Test 07/11/18 04:25 07/11/18 07:08 Sodium Level 131 mmol/L (136-145) Potassium Level 4.4 mmol/L (3.5-5.1) Chloride Level 95 mmol/L (98-107) Carbon Dioxide Level 26 mmol/L (21-32) Anion Gap 10 (6-14) Blood Urea Nitrogen 66 mg/dL (8-26) Creatinine 6.5 mg/dL (0.7-1.3) Estimated GFR (Cockcroft-Gault) 8.2 Glucose Level 152 mg/dL (70-99) Calcium Level 8.6 mg/dL (8.5-10.1) Phosphorus Level 4.6 mg/dL (2.6-4.7) Albumin 2.0 g/dL (3.4-5.0) Glucose (Fingerstick) 124 mg/dL (70-99) Microbiology 07/03/18 Anaerobic/Aerobic Culture - Final, Complete 07/03/18 Anaerobic Culture Result 1 (DEMETRA) - Final, Complete 07/03/18 Aerobic Culture - Final, Complete 07/03/18 Aerobic Culture Result 1 (DEMETRA) - Final, Complete 07/03/18 Aerobic Culture Result 2 (DEMETRA) - Final, Complete 07/03/18 Antimicrobic Susceptibility - Final, Complete 07/03/18 Gram Stain - Final, Complete 07/03/18 Gram Stain Result 1 (DEMETRA) - Final, Complete 07/03/18 Gram Stain Result 2 (DEMETRA) - Final, Complete Medications Current Medications Diphenhydramine HCl (Benadryl) 25 mg 1X PRN PRN IV ITCHING; Start 07/11/18 at 07:30; Stop 07/12/18 at 07:29 Diphenhydramine HCl (Benadryl) 25 mg 1X PRN PRN IV ITCHING; Start 07/11/18 at 07:30; Stop 07/12/18 at 07:29 Info (PHARMACY MONITORING -- do not chart) 1 each PRN DAILY PRN MC SEE COMMENTS; Start 07/11/18 at 07:30; Status UNV Sodium Chloride 1,000 ml @ 400 mls/hr Q2H30M PRN IV PATENCY; Start 07/11/18 at 07:16; Stop 07/11/18 at 19:15 Sodium Chloride 1,000 ml @ 1,000 mls/hr Q1H PRN IV hypotension; Start 07/11/18 at 07:16; Stop 07/11/18 at 13:15 Vitals/I & O Vital Sign - Last 24 Hours 07/10/18 07/10/18 07/10/18 07/10/18 11:00 12:29 15:00 15:37 Temp 97.4 97.6 97.4 97.6 Pulse 78 84 Resp 18 16 B/P (MAP) 105/58 (74) 93/35 (54) Pulse Ox 96 97 O2 Delivery Room Air Room Air Room Air Room Air 07/10/18 07/10/18 07/10/18 07/10/18 17:40 17:45 18:45 19:00 Temp 98.4 98.4 Pulse 91 Resp 16 B/P (MAP) 99/55 (70) 114/42 (66) Pulse Ox 94 O2 Delivery Room Air Room Air Room Air 07/10/18 07/10/18 07/10/18 07/11/18 19:55 20:12 23:00 03:00 Temp 98.2 97.7 98.2 97.7 Pulse 83 77 Resp 18 16 B/P (MAP) 108/53 (71) 100/55 (70) Pulse Ox 99 93 98 O2 Delivery Room Air Room Air Room Air Room Air 07/11/18 07/11/18 07/11/18 07:00 07:05 07:30 Temp 97.7 97.7 Pulse 78 Resp 18 B/P (MAP) 116/83 (94) Pulse Ox 96 96 O2 Delivery Room Air Room Air Room Air Intake and Output 07/10/18 07/10/18 07/11/18 14:59 22:59 06:59 Intake Total 450 ml 250 ml 200 ml Balance 450 ml 250 ml 200 ml FLAVIA HOOVER MD July 11, 2018 10:19
[2018-07-11] MEDS: MICAFUNGIN 100 MG in IV DEXTROSE 5% 100ML 100 ML IV SCH (11:48)
--- NOTE | 2018-07-11 12:49 | NUR ---
SW following for discharge planning. Discussed with RN, pt has procedure today, and possible amputation pending. SW has been unsuccessful in contacting pt's son to discuss discharge planning. PT/OT recommending acute rehab, however it is typical for [facility] to deny acute rehab. Pt cannot afford to pay copay for SNU. SW will continue to follow.
--- NOTE | 2018-07-11 13:05 | PDOC ---
SUBJECTIVE ROS Seen on Hd, tolerating well OBJECTIVE Vital Signs Vital Signs Date Time Temp Pulse Resp B/P (MAP) Pulse Ox O2 Delivery O2 Flow Rate FiO2 07/11/18 12:07 Room Air 07/11/18 07:05 96 07/11/18 07:00 97.7 78 18 116/83 (94) 97.7 I & 0 Intake and Output 07/11/18 06:59 Intake Total 900 ml Balance 900 ml Intake Oral 900 ml # Voids 3 # Bowel Movements 1 PHYSICAL EXAM Physical Exam GENERAL: NAD, sitting up in chair HENT: Oral Mucosa moist LUNGS: Clear CARDIOVASCULAR: S1 and S2. ABDOMEN: Soft, NT, ND. EXTREMITIES: 1+ edema in both lower extremities. Right 2nd toe and left 1st MT bandaged, no area redness NEUROLOGIC: Alert, responds appropriately SKIN: No rash. 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 Right second toe wound and cellulitis On Abx angio and amputation pending DM- Per primary Anemia- Hg stable No Indication for ERNESTINA COMMENT/RELEVANT DATA Meds Current Medications Medications (Trade) Dose Ordered Sig/Erickson Start Time Stop Time Status Last Admin Dose Admin Acetaminophen/ Hydrocodone Bitart (Lortab 5/325) 1 tab PRN Q6HRS PRN 07/03/18 17:45 UNV Albumin Human 200 ml @ 200 mls/hr 1X PRN PRN 07/04/18 14:00 07/04/18 19:59 DC Albuterol Sulfate (Ventolin Neb Soln) 2.5 mg RTQID 07/03/18 20:00 07/11/18 12:02 2.5 MG Aspirin (Ecotrin) 81 mg DAILY 07/04/18 09:00 07/10/18 08:17 81 MG Atorvastatin Calcium (Lipitor) 80 mg QHS 07/03/18 21:00 07/10/18 20:53 80 MG Budesonide (Pulmicort) 0.5 mg RTBID 07/03/18 20:00 07/11/18 07:04 0.5 MG Calcium Acetate (Phoslo) 1,334 mg TIDWMEALS 07/03/18 18:30 07/10/18 17:39 1,334 MG Cefazolin Sodium 1 gm/Sodium Chloride 500 ml @ 500 mls/hr 1X ONCE 07/09/18 06:00 07/09/18 06:59 DC Dextrose (Dextrose 50%-Water Syringe) 12.5 gm PRN Q15MIN PRN 07/03/18 21:15 Diphenhydramine HCl (Benadryl) 25 mg 1X PRN PRN 07/11/18 07:30 07/12/18 07:29 Enoxaparin Sodium (Lovenox 30mg Syringe) 30 mg Q24H 07/05/18 10:00 07/07/18 11:00 DC 07/07/18 08:46 30 MG Fentanyl Citrate (Fentanyl 2ml Vial) 50 mcg 1X ONCE 07/09/18 14:15 07/09/18 14:18 DC 07/09/18 14:23 50 MCG Ferrous Sulfate (Feosol) 325 mg DAILY 07/04/18 09:00 07/10/18 08:17 325 MG Fluticasone Propionate (Flonase) 2 spray DAILY 07/04/18 09:00 07/10/18 08:35 2 SPRAY Gabapentin (Neurontin) 100 mg DAILY 07/04/18 09:00 07/10/18 08:17 100 MG Heparin Sodium (Porcine) (Heparin Sodium) 10,000 unit STK-MED ONCE 07/09/18 13:07 07/09/18 13:08 DC Heparin Sodium/ Sodium Chloride (HEPARIN for ARTERIAL LINE FLUSH) 1,000 unit 1X ONCE 07/09/18 14:15 07/09/18 14:18 DC 07/09/18 14:22 1,000 UNIT Hydromorphone HCl (Dilaudid) 0.5 mg PRN Q10MIN PRN 07/09/18 07:00 07/10/18 06:59 DC Info (PHARMACY MONITORING -- do not chart) 1 each PRN DAILY PRN 07/11/18 07:30 UNV Insulin Glargine (Lantus) 25 units QHS 07/04/18 21:00 07/10/18 20:58 25 UNITS Insulin Human Lispro (HumaLOG) 0-7 UNITS TIDWMEALS 07/04/18 08:00 07/08/18 17:41 4 UNITS Iodixanol (Visipaque 320) 75 ml 1X ONCE 07/09/18 14:15 07/09/18 14:18 DC 07/09/18 14:22 75 ML Isosorbide Mononitrate (Imdur) 60 mg DAILY 07/04/18 09:00 07/10/18 08:17 60 MG Lactobacillus Rhamnosus (Culturelle) 1 cap BID 07/03/18 21:00 07/10/18 20:53 1 CAP Lidocaine HCl (Lidocaine 1% 20ml Vial) 5 ml 1X ONCE 07/09/18 14:15 07/09/18 14:18 DC 07/09/18 14:22 5 ML Lidocaine HCl (Xylocaine-Mpf 1% 2ml Vial) 2 ml PRN 1X PRN 07/09/18 07:00 07/10/18 06:59 DC Lidocaine/Sodium Bicarbonate (Buffered Lidocaine 1%) 3 ml STK-MED ONCE 07/04/18 14:43 07/04/18 14:44 DC Loperamide HCl (Imodium) 2 mg PRN QID PRN 07/07/18 09:45 Micafungin Sodium 100 mg/Dextrose 100 ml @ 100 mls/hr Q24H 07/04/18 10:00 07/11/18 11:48 100 MLS/HR Midazolam HCl (Versed) 1 mg 1X ONCE 07/09/18 14:15 07/09/18 14:18 DC 07/09/18 14:23 1 MG Morphine Sulfate (Morphine Sulfate) 1 mg PRN Q10MIN PRN 07/09/18 07:00 07/10/18 06:59 DC Niacin (Slo-Niacin) 500 mg BID 07/03/18 21:00 07/03/18 21:14 DC Nitroglycerin (Nitrostat) 0.4 mg PRN Q5MIN 07/03/18 17:45 Non-Formulary Medication (Fluticasone/ Salmeterol (Advair 250-50 Diskus)) 1 puff BID 07/03/18 21:00 UNV Ondansetron HCl (Zofran Odt) 4 mg PRN BID PRN 07/03/18 18:15 Ondansetron HCl (Zofran) 4 mg PRN Q6HRS PRN 07/09/18 07:00 07/10/18 06:59 DC Pantoprazole Sodium (Protonix) 40 mg DAILYAC 07/04/18 07:30 07/10/18 05:27 40 MG Piperacillin Sod/ Tazobactam Sod (Zosyn Per Pharmacy) 1 each PRN DAILY PRN 07/03/18 17:15 Piperacillin Sod/ Tazobactam Sod 2.25 gm/Sodium Chloride 50 ml @ 100 mls/hr Q8HRS 07/04/18 06:00 07/11/18 05:08 100 MLS/HR Polyethylene Glycol (miraLAX PACKET) 17 gm PRN DAILY PRN 07/04/18 09:00 Prochlorperazine Edisylate (Compazine) 5 mg PACU PRN PRN 07/09/18 07:00 07/10/18 06:59 DC Ringer's Solution 1,000 ml @ 30 mls/hr Q24H 07/09/18 07:00 07/09/18 18:59 DC Simethicone (Gas-X) 80 mg PRN TID PRN 07/03/18 18:15 Sodium Bicarbonate (Sodium Bicarbonate) 650 mg TID 07/03/18 21:00 07/10/18 20:53 650 MG Sodium Chloride 1,000 ml @ 400 mls/hr Q2H30M PRN 07/11/18 07:16 07/11/18 19:15 Sodium Chloride (Normal Saline Flush) 10 ml 1X PRN PRN 07/04/18 14:00 07/05/18 13:59 DC Tamsulosin HCl (Flomax) 0.4 mg DAILY 07/04/18 09:00 07/10/18 08:17 0.4 MG Torsemide (Demadex) 20 mg [id number] 07/04/18 09:00 07/10/18 08:17 20 MG Vancomycin HCl (Vanco Per Pharmacy) 1 each PRN DAILY PRN 07/03/18 17:15 07/10/18 13:51 1 EACH Vancomycin HCl (Vancomycin Random Level) 1 each 1X ONCE 07/05/18 06:00 07/05/18 06:01 DC 07/05/18 06:00 1 EACH Vancomycin HCl 500 mg/Sodium Chloride 100 ml @ 100 mls/hr QTUTHSA 07/06/18 16:00 07/06/18 17:13 100 MLS/HR Vancomycin HCl 2 gm/Sodium Chloride 500 ml @ 250 mls/hr 1X ONCE 07/03/18 17:30 07/03/18 19:29 DC 07/03/18 21:09 250 MLS/HR Lab Laboratory Tests Test 07/10/18 16:38 07/10/18 20:40 07/11/18 04:25 07/11/18 07:08 Glucose (Fingerstick) 142 mg/dL (70-99) 213 mg/dL (70-99) 124 mg/dL (70-99) Sodium Level 131 mmol/L (136-145) Potassium Level 4.4 mmol/L (3.5-5.1) Chloride Level 95 mmol/L (98-107) Carbon Dioxide Level 26 mmol/L (21-32) Anion Gap 10 (6-14) Blood Urea Nitrogen 66 mg/dL (8-26) Creatinine 6.5 mg/dL (0.7-1.3) Estimated GFR (Cockcroft-Gault) 8.2 Glucose Level 152 mg/dL (70-99) Calcium Level 8.6 mg/dL (8.5-10.1) Phosphorus Level 4.6 mg/dL (2.6-4.7) Albumin 2.0 g/dL (3.4-5.0) Test 07/11/18 11:37 Glucose (Fingerstick) 106 mg/dL (70-99) Results All relevant outside records, renal labs, imaging studies, telemetry/EKG's were reviewed. FLOYD TAMAYO MD July 11, 2018 13:05
[2018-07-11] MEDS: VANCOMYCIN PER PHARMACY MC PRN (13:10)
[2018-07-11] MEDS ORDERED: LIDOCAINE 1% Multi-Dose 20 ML VIAL. ONE (14:22)
[2018-07-11] MEDS ORDERED: IODIXANOL 320 MG/ML 100 ML VIAL. ONE (14:22)
[2018-07-11] MEDS ORDERED: fentaNYL PF VIAL 100 MCG/2 ML VIAL IV ONE (14:30)
[2018-07-11] MEDS ORDERED: IODIXANOL 320 MG/ML 100 ML VIAL. IART ONE (14:30)
[2018-07-11] MEDS ORDERED: LIDOCAINE 1% Multi-Dose 20 ML VIAL. INJ ONE (14:30)
[2018-07-11] MEDS ORDERED: MIDAZOLAM HCL/PF 2 MG/2 ML VIAL. IV ONE (14:30)
[2018-07-11] MEDS ORDERED: MIDAZOLAM HCL/PF 2 MG/2 ML VIAL. ONE (14:34)
[2018-07-11] MEDS ORDERED: fentaNYL PF VIAL 100 MCG/2 ML VIAL ONE (14:34)
--- NOTE | 2018-07-11 15:07 | NUR ---
Patient was brought to the Chief Operating Engineer for a vascular procedure with Dr. Cardoso and patient blood pressure was 104/62, oxygen saturation was 88-89% on 2L n/c. Blood sugar was checked and it was 96. Patient seemed slightly slow to respond to questions and just didn't seem himself. Dr. Cardoso decided to cancel procedure for today and reschedule later. Hospitalist will need to evaluate patient further before planning more interventions.
[2018-07-11 15:43] LABS: BASE EXCESS ABG 1 mmol/L (-3-3); HCO3 ABG 24 mmol/L (21-28); PCO2 ABG 32 mmHg (35-46); PO2 ABG 175 mmHg (65-108); SAT O2 ABG 99 % (92-99)
[2018-07-11 15:44] LABS: FIO2 ABG 50
--- NOTE | 2018-07-11 15:54 | NUR ---
Wound Care Wound care follow up for multiple wounds. Cleansed wounds and redressed R 2nd toe and R LLE with Xeroform and gauze, Change every 3 days. L great met head dorsal and plantar are resolved. Unable to complete full skin inspection due to Pt needing STAT x-ray for SOA. WC will continue to follow for possible changes.
--- NOTE | 2018-07-11 15:55 | RAD ---
PORTABLE CHEST 1V Clinical indications: Short of breath COMPARISON: July 05, 2018. Findings: Mild bilateral interstitial pulmonary edema is seen with small bilateral pleural effusions. No pneumothorax is seen. The heart size is enlarged but stable. Sternotomy is again evident. The mediastinum is unchanged. Position of right IJ hemodialysis catheter is unchanged. Impression: Mild CHF or fluid overload. Electronically signed by: Shaheen Jon MD (07/11/2018 3:53 PM) [id number]
--- NOTE | 2018-07-11 15:58 | EKG ---
[facility] [address] [place] [address] Test Date: 2018-07-11 Test Time: 15:49:37 Pat Name: DYLAN CRABTREE Department: Room: 444 1 Gender: M Stack Matcher: HERNANDEZ : 1935 Requested By: FLAVIA HOOVER Order Number: [id number] Reading MD: Eder Lee Measurements Intervals [place] Rate: 97 P: 28 [place]: 182 QRS: 4 QRSD: 96 T: 130 QT: 370 QTc: 474 Interpretive Statements SINUS RHYTHM ST & T ABNORMALITY, CONSIDER ANTEROLATERAL ISCHEMIA OR LEFT VENTRICULAR STRAIN INFERIOR ISCHEMIA OR LEFT VENTRICULAR STRAIN ABNORMAL ECG Electronically Signed On 07-11-2018 16:14:13 CDT by Eder Lee
--- NOTE | 2018-07-11 16:05 | PDOC4 ---
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 The renal arteries are small with significant pruning consistent with dialysis status. #2 there are kissing iliac stents extending well into the aorta DC have some mild in-stent stenosis but appeared without hemodynamically significant stenosis #3 bilateral external iliac arteries appear widely patent #4 right common femoral profunda femoral appear widely patent #5 right proximal SFA shows a focal greater than 80% stenosis over about 2 cm. Distal to this the SFA appears widely patent and then in the mid to distal SFA there is a stent in place which has some mild in-stent stenosis. The popliteal artery appears widely patent #6 there appears to be 2 vessel tibial runoff to the right foot #7 the left common femoral profunda femoral. Widely patent #8 there is some atherosclerotic disease within the left SFA #9 appears to be 2 vessel tibial runoff to the left foot Complications: None Operative Note: The patient was escorted to the Fell Cutter and placed supine on the table. The groins were prepped and draped in usual sterile fashion and a timeout was performed. Sedation was induced under surgeon and RN supervision using intravenous fentanyl and Versed Attention was directed to the left groin with a left common femoral artery was fluoroscopically marked or the femoral head and examined with ultrasound. The vessels found to be widely patent with good flow and an image of the vessels taken and saved for the medical record. Under real-time ultrasound guidance local anesthetic was injected in the left groin and the left common femoral artery was accessed in retrograde fashion using a micropuncture needle. This was used to introduce a micropuncture wire into the left iliac artery and this was used to exchange the needle for mi cropuncture sheath. I had some difficulty passing a Ferraro wire into the aorta and so retrograde angiogram was obtained through the micropuncture sheath showing and iliac stent with mild in-stent stenosis. This was navigated with the Ferraro wire and this was used to change the micropuncture sheath for a 5 Ethiopian sheath which is aspirated and flushed without difficulty The wire was used to introduce a flush catheter and the abdominal aorta and an aortogram was obtained. The catheter was then pulled down to the the origin the iliac stents and oblique pelvic angiogram obtained. With the catheter in this position bilateral lower extremity runoff was obtained. The catheter was removed over a wire. The wire was used to remove the sheath and introduce a 6 Ethiopian Angio-Seal sheath to the left groin. The Angio-Seal device was deployed at the left femoral access with excellent hemostasis. Patient was escorted to recovery in stable condition.. HERRERA MARTIN MD July 11, 2018 16:05
--- NOTE | 2018-07-11 16:08 | PDOC ---
PROGRESS NOTES Subjective Subjective Patient was brought to the [employer]ating Safety Officer today for right arm access and right leg intervention for limb salvage He seems somnolent, blood sugar was checked and was 92. With some stimulation was able to wake him up and speak to him that his blood pressure was slightly low in the 90s to low 100s and we had difficulty obtaining good oxygen saturation Given this clinical change tissue was not consistent with my evaluation of the time of angiogram 2 days ago I canceled the procedure. He is escorted back to the floor and nurse will contact his primary team to evaluate him from a medical standpoint. Objective Objective Vital Signs Date Time Temp Pulse Resp B/P (MAP) Pulse Ox O2 Delivery O2 Flow Rate FiO2 07/11/18 15:35 88 Venturi Mask 15.0 07/11/18 13:12 103 20 93/42 (59) 07/11/18 07:00 97.7 97.7 Intake and Output 07/11/18 07:00 Intake Total 900 ml Balance 900 ml Intake Oral 900 ml # Voids 3 # Bowel Movements 1 Comment Review of Relevant I have reviewed the following items shar (where applicable) has been applied. Labs Laboratory Tests Test 07/09/18 18:33 07/09/18 19:14 07/10/18 08:15 07/10/18 11:05 Glucose (Fingerstick) 60 mg/dL (70-99) 111 mg/dL (70-99) 83 mg/dL (70-99) White Blood Count 5.1 x10^3/uL (4.0-11.0) Red Blood Count 3.40 x10^6/uL (4.30-5.70) Hemoglobin 10.9 g/dL (13.0-17.5) Hematocrit 33.9 % (39.0-53.0) Mean Corpuscular Volume 100 fL (79-100) Mean Corpuscular Hemoglobin 32 pg (25-35) Mean Corpuscular Hemoglobin Concent 32 g/dL (31-37) Red Cell Distribution Width 22.9 % (11.5-14.5) Platelet Count 168 x10^3/uL (140-400) Neutrophils (%) (Auto) 76 % (31-73) Lymphocytes (%) (Auto) 8 % (24-48) Monocytes (%) (Auto) 14 % (0-9) Eosinophils (%) (Auto) 2 % (0-3) Basophils (%) (Auto) 1 % (0-3) Neutrophils # (Auto) 3.9 x10^3uL (1.8-7.7) Lymphocytes # (Auto) 0.4 x10^3/uL (1.0-4.8) Monocytes # (Auto) 0.7 x10^3/uL (0.0-1.1) Eosinophils # (Auto) 0.1 x10^3/uL (0.0-0.7) Basophils # (Auto) 0.0 x10^3/uL (0.0-0.2) Sodium Level 135 mmol/L (136-145) Potassium Level 4.8 mmol/L (3.5-5.1) Chloride Level 97 mmol/L (98-107) Carbon Dioxide Level 24 mmol/L (21-32) Anion Gap 14 (6-14) Blood Urea Nitrogen 62 mg/dL (8-26) Creatinine 6.3 mg/dL (0.7-1.3) Estimated GFR (Cockcroft-Gault) 8.6 Glucose Level 86 mg/dL (70-99) Calcium Level 8.7 mg/dL (8.5-10.1) Phosphorus Level 4.9 mg/dL (2.6-4.7) Albumin 2.2 g/dL (3.4-5.0) Test 07/10/18 11:38 07/10/18 16:38 07/10/18 20:40 07/11/18 04:25 Glucose (Fingerstick) 84 mg/dL (70-99) 142 mg/dL (70-99) 213 mg/dL (70-99) Sodium Level 131 mmol/L (136-145) Potassium Level 4.4 mmol/L (3.5-5.1) Chloride Level 95 mmol/L (98-107) Carbon Dioxide Level 26 mmol/L (21-32) Anion Gap 10 (6-14) Blood Urea Nitrogen 66 mg/dL (8-26) Creatinine 6.5 mg/dL (0.7-1.3) Estimated GFR (Cockcroft-Gault) 8.2 Glucose Level 152 mg/dL (70-99) Calcium Level 8.6 mg/dL (8.5-10.1) Phosphorus Level 4.6 mg/dL (2.6-4.7) Albumin 2.0 g/dL (3.4-5.0) Test 07/11/18 07:08 07/11/18 11:37 07/11/18 14:53 07/11/18 15:30 Glucose (Fingerstick) 124 mg/dL (70-99) 106 mg/dL (70-99) 96 mg/dL (70-99) O2 Saturation 99 % (92-99) Arterial Blood pH 7.50 (7.35-7.45) Arterial Blood pCO2 at Patient Temp 32 mmHg (35-46) Arterial Blood pO2 at Patient Temp 175 mmHg (65-108) Arterial Blood HCO3 24 mmol/L (21-28) Arterial Blood Base Excess 1 mmol/L (-3-3) FiO2 50 Laboratory Tests Test 07/10/18 16:38 07/10/18 20:40 07/11/18 04:25 07/11/18 07:08 Glucose (Fingerstick) 142 mg/dL (70-99) 213 mg/dL (70-99) 124 mg/dL (70-99) Sodium Level 131 mmol/L (136-145) Potassium Level 4.4 mmol/L (3.5-5.1) Chloride Level 95 mmol/L (98-107) Carbon Dioxide Level 26 mmol/L (21-32) Anion Gap 10 (6-14) Blood Urea Nitrogen 66 mg/dL (8-26) Creatinine 6.5 mg/dL (0.7-1.3) Estimated GFR (Cockcroft-Gault) 8.2 Glucose Level 152 mg/dL (70-99) Calcium Level 8.6 mg/dL (8.5-10.1) Phosphorus Level 4.6 mg/dL (2.6-4.7) Albumin 2.0 g/dL (3.4-5.0) Test 07/11/18 11:37 07/11/18 14:53 07/11/18 15:30 Glucose (Fingerstick) 106 mg/dL (70-99) 96 mg/dL (70-99) O2 Saturation 99 % (92-99) Arterial Blood pH 7.50 (7.35-7.45) Arterial Blood pCO2 at Patient Temp 32 mmHg (35-46) Arterial Blood pO2 at Patient Temp 175 mmHg (65-108) Arterial Blood HCO3 24 mmol/L (21-28) Arterial Blood Base Excess 1 mmol/L (-3-3) FiO2 50 Microbiology 07/03/18 Anaerobic/Aerobic Culture - Final, Complete 07/03/18 Anaerobic Culture Result 1 (DEMETRA) - Final, Complete 07/03/18 Aerobic Culture - Final, Complete 07/03/18 Aerobic Culture Result 1 (DEMETRA) - Final, Complete 07/03/18 Aerobic Culture Result 2 (DEMETRA) - Final, Complete 07/03/18 Antimicrobic Susceptibility - Final, Complete 07/03/18 Gram Stain - Final, Complete 07/03/18 Gram Stain Result 1 (DEMETRA) - Final, Complete 07/03/18 Gram Stain Result 2 (DEMETRA) - Final, Complete Medications Current Medications Vancomycin HCl (Vanco Per Pharmacy) 1 each PRN DAILY PRN MC SEE COMMENTS Last a dministered on 07/11/18at 13:10; Start 07/03/18 at 17:15 Piperacillin Sod/ Tazobactam Sod (Zosyn Per Pharmacy) 1 each PRN DAILY PRN MC SEE COMMENTS; Start 07/03/18 at 17:15 Piperacillin Sod/ Tazobactam Sod 2.25 gm/Sodium Chloride 50 ml @ 100 mls/hr 1X ONCE IV Last administered on 07/03/18at 18:34; Start 07/03/18 at 17:30; Stop 07/03/18 at 17:59; Status DC Vancomycin HCl 2 gm/Sodium Chloride 500 ml @ 250 mls/hr 1X ONCE IV Last administered on 07/03/18at 21:09; Start 07/03/18 at 17:30; Stop 07/03/18 at 19 :29; Status DC Acetaminophen/ Hydrocodone Bitart (Lortab 5/325) 1 tab PRN Q6HRS PRN PO PAIN Last administered on 07/10/18at 17:45; Start 07/03/18 at 17:30 Piperacillin Sod/ Tazobactam Sod 2.25 gm/Sodium Chloride 50 ml @ 100 mls/hr Q8HRS IV Last administered on 07/11/18at 05:08; Start 07/04/18 at 06:00 Vancomycin HCl (Vancomycin Random Level) 1 each 1X ONCE MC Last administered on 07/05/18at 06:00; Start 07/05/18 at 06:00; Stop 07/05/18 at 06:01; Status DC Aspirin (Ecotrin) 81 mg DAILY PO Last administered on 07/10/18 08:17; Start 07/04/18 at 09:00 Ferrous Sulfate (Feosol) 325 mg DAILY PO Last administered on 07/10/18 08:17; Start 07/04/18 at 09:00 Fluticasone Propionate (Flonase) 2 spray DAILY NS Last administered on 07/10/18 08:35; Start 07/04/18 at 09:00 Acetaminophen/ Hydrocodone Bitart (Lortab 5/325) 1 tab PRN Q6HRS PRN PO PAIN; Start 07/03/18 at 17:45; Status UNV Insulin Glargine (Lantus) 35 units QHS SQ ; Start 07/03/18 at 21:00; Stop 07/03/18 at 21:13; Status DC Isosorbide Mononitrate (Imdur) 60 mg DAILY PO Last administered on 07/10/18 08:17; Start 07/04/18 at 09:00 Nitroglycerin (Nitrostat) 0.4 mg PRN Q5MIN SL ; Start 07/03/18 at 17:45 Sodium Bicarbonate (Sodium Bicarbonate) 650 mg TID PO Last administered on 07/10/18 20:53; Start 07/03/18 at 21:00 Tamsulosin HCl (Flomax) 0.4 mg DAILY PO Last administered on 07/10/18 08:17; Start 07/04/18 at 09:00 Atorvastatin Calcium (Lipitor) 80 mg QHS PO Last administered on 07/10/18 20:53; Start 07/03/18 at 21:00 Calcium Acetate (Phoslo) 1,334 mg TIDWMEALS PO Last administered on 07/10/18 17:39; Start 07/03/18 at 18:30 Non-Formulary Medication (Fluticasone/ Salmeterol (Advair 250-50 Diskus)) 1 puff BID IH ; Start 07/03/18 at 21:00; Status UNV Gabapentin (Neurontin) 100 mg DAILY PO Last administered on 07/10/18 08:17; Start 07/04/18 at 09:00 Loperamide HCl (Imodium) 2 mg PRN Q15MIN PRN PO DIARRHEA; Start 07/03/18 at 18:15; Stop 07/03/18 at 21:14; Status DC Niacin (Slo-Niacin) 500 mg BID PO ; Start 07/03/18 at 21:00; Stop 07/03/18 at 21:14; Status DC Ondansetron HCl (Zofran Odt) 4 mg PRN BID PRN PO NAUSEA/VOMITING; Start 07/03/18 at 18:15 Polyethylene Glycol (miraLAX PACKET) 17 gm PRN DAILY PRN PO CONSTIPATION; Start 07/04/18 at 09:00 Simethicone (Gas-X) 80 mg PRN TID PRN PO GAS / BLOATING; Start 07/03/18 at 18:15 Torsemide (Demadex) 20 mg BID94 PO Last administered on 07/10/18 08:17; Start 07/04/18 at 09:00 Pantoprazole Sodium (Protonix) 40 mg DAILYAC PO Last administered on 07/10/18 05:27; Start 07/04/18 at 07:30 Lactobacillus Rhamnosus (Culturelle) 1 cap BID PO Last administered on 07/10/18 20:53; Start 07/03/18 at 21:00 Budesonide (Pulmicort) 0.5 mg RTBID NEB Last administered on 07/11/18 07:04; Start 07/03/18 at 20:00 Albuterol Sulfate (Ventolin Neb Soln) 2.5 mg RTQID NEB Last administered on 07/11/18 15:09; Start 07/03/18 at 20:00 Insulin Glargine (Lantus) 25 units QHS SQ Last administered on 07/10/18 20:58; Start 07/04/18 at 21:00 Insulin Human Lispro (HumaLOG) 0-7 UNITS TIDWMEALS SQ Last administered on 07/08/18 17:41; Start 07/04/18 at 08:00 Dextrose (Dextrose 50%-Water Syringe) 12.5 gm PRN Q15MIN PRN IV SEE COMMENTS; Start 07/03/18 at 21:15 Micafungin Sodium 100 mg/Dextrose 100 ml @ 100 mls/hr Q24H IV Last administered on 07/11/18at 11:48; Start 07/04/18 at 10:00 Sodium Chloride 1,000 ml @ 1,000 mls/hr Q1H PRN IV hypotension; Start 07/04/18 at 13:52; Stop 07/04/18 at 19:51; Status DC Albumin Human 200 ml @ 200 mls/hr 1X PRN PRN IV Hypotension; Start 07/04/18 at 14:00; Stop 07/04/18 at 19:59; Status DC Sodium Chloride (Normal Saline Flush) 10 ml 1X PRN PRN IV AP catheter pack; Start 07/04/18 at 14:00; Stop 07/05/18 at 13:59; Status UNV Sodium Chloride (Normal Saline Flush) 10 ml 1X PRN PRN IV 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; Start 07/04/18 at 14:00; Stop 07/05/18 at 13:59; Status DC Sodium Chloride 1,000 ml @ 400 mls/hr Q2H30M PRN IV PATENCY; Start 07/04/18 at 13:52; Stop 07/05/18 at 01:51; Status DC Info (PHARMACY MONITORING -- do not chart) 1 each PRN DAILY PRN MC SEE COMMENTS; Start 07/04/18 at 14:00 Info (PHARMACY MONITORING -- do not chart) 1 each PRN DAILY PRN MC SEE COMMENTS; Start 07/04/18 at 14:00; Status UNV Lidocaine/Sodium Bicarbonate (Buffered Lidocaine 1%) 3 ml STK-MED ONCE .ROUTE ; Start 07/04/18 at 14:43; Stop 07/04/18 at 14:44; Status DC Ondansetron HCl (Zofran) 4 mg PRN Q6HRS PRN IV NAUSEA/VOMITING; Start 07/05/18 at 07:00; Stop 07/06/18 at 06:59; Status UNV Fentanyl Citrate (Fentanyl 2ml Vial) 25 mcg PRN Q5MIN PRN IV MILD PAIN; Start 07/05/18 at 07:00; Stop 07/06/18 at 06:59; Status UNV Fentanyl Citrate (Fentanyl 2ml Vial) 50 mcg PRN Q5MIN PRN IV MODERATE TO SEVERE PAIN; Start 07/05/18 at 07:00; Stop 07/06/18 at 06:59; Status UNV Morphine Sulfate (Morphine Sulfate) 1 mg PRN Q10MIN PRN IV SEVERE PAIN; Start 07/05/18 at 07:00; Stop 07/06/18 at 06:59; Status UNV Ringer's Solution 1,000 ml @ 30 mls/hr Q24H IV ; Start 07/05/18 at 07:00; Stop 07/05/18 at 18:59; Status UNV Hydromorphone HCl (Dilaudid) 0.5 mg PRN Q10MIN PRN IV SEV PAIN, Second choice; Start 07/05/18 at 07:00; Stop 07/06/18 at 06:59; Status UNV Prochlorperazine Edisylate (Compazine) 5 mg PACU PRN PRN IV NAUSEA, MRX1; Start 07/05/18 at 07:00; Stop 07/06/18 at 06:59; Status UNV Ondansetron HCl (Zofran) 4 mg PRN Q6HRS PRN IV NAUSEA/VOMITING; Start 07/05/18 at 07:00; Stop 07/06/18 at 06:59; Status DC Fentanyl Citrate (Fentanyl 2ml Vial) 25 mcg PRN Q5MIN PRN IV MILD PAIN; Start 07/05/18 at 07:00; Stop 07/06/18 at 06:59; Status DC Fentanyl Citrate (Fentanyl 2ml Vial) 50 mcg PRN Q5MIN PRN IV MODERATE TO SEVERE PAIN; Start 07/05/18 at 07:00; Stop 07/06/18 at 06:59; Status DC Morphine Sulfate (Morphine Sulfate) 1 mg PRN Q10MIN PRN IV SEVERE PAIN; Start 07/05/18 at 07:00; Stop 07/06/18 at 06:59; Status DC Ringer's Solution 1,000 ml @ 30 mls/hr Q24H IV Last administered on 07/05/18at 05:44; Start 07/05/18 at 07:00; Stop 07/05/18 at 18:59; Status DC Hydromorphone HCl (Dilaudid) 0.5 mg PRN Q10MIN PRN IV SEV PAIN, Second choice; Start 07/05/18 at 07:00; Stop 07/06/18 at 06:59; Status DC Prochlorperazine Edisylate (Compazine) 5 mg PACU PRN PRN IV NAUSEA, MRX1; Start 07/05/18 at 07:00; Stop 07/06/18 at 06:59; Status DC Vancomycin HCl 500 mg/Sodium Chloride 100 ml @ 100 mls/hr QTUTHSA IV Last administered on 07/06/18at 17:13; Start 07/06/18 at 16:00 Enoxaparin Sodium (Lovenox 30mg Syringe) 30 mg Q24H SQ Last administered on 07/07/18at 08:46; Start 07/05/18 at 10:00; Stop 07/07/18 at 11:00; Status DC Info (PHARMACY MONITORING -- do not chart) 1 each PRN DAILY PRN MC SEE COMMENTS; Start 07/06/18 at 13:30; Status UNV Info (PHARMACY MONITORING -- do not chart) 1 each PRN DAILY PRN MC SEE COMMENTS; Start 07/06/18 at 13:30; Status UNV Loperamide HCl (Imodium) 2 mg PRN QID PRN PO DIARRHEA; Start 07/07/18 at 09:45 Ondansetron HCl (Zofran) 4 mg PRN Q6HRS PRN IV NAUSEA/VOMITING; Start 07/09/18 at 07:00; Stop 07/10/18 at 06:59; Status DC Fentanyl Citrate (Fentanyl 2ml Vial) 25 mcg PRN Q5MIN PRN IV MILD PAIN; Start 07/09/18 at 07:00; Stop 07/10/18 at 06:59; Status DC Fentanyl Citrate (Fentanyl 2ml Vial) 50 mcg PRN Q5MIN PRN IV MODERATE TO SEVERE PAIN; Start 07/09/18 at 07:00; Stop 07/10/18 at 06:59; Status DC Morphine Sulfate (Morphine Sulfate) 1 mg PRN Q10MIN PRN IV SEVERE PAIN; Start 07/09/18 at 07:00; Stop 07/10/18 at 06:59; Status DC Ringer's Solution 1,000 ml @ 30 mls/hr Q24H IV ; Start 07/09/18 at 07:00; Stop 07/09/18 at 18:59; Status DC Lidocaine HCl (Xylocaine-Mpf 1% 2ml Vial) 2 ml PRN 1X PRN ID IV START; Start 07/09/18 at 07:00; Stop 07/10/18 at 06:59; Status DC Hydromorphone HCl (Dilaudid) 0.5 mg PRN Q10MIN PRN IV SEV PAIN, Second choice; Start 07/09/18 at 07:00; Stop 07/10/18 at 06:59; Status DC Prochlorperazine Edisylate (Compazine) 5 mg PACU PRN PRN IV NAUSEA, MRX1; Start 07/09/18 at 07:00; Stop 07/10/18 at 06:59; Status DC Cefazolin Sodium 1 gm/Sodium Chloride 500 ml @ 500 mls/hr 1X ONCE IRR ; Start 07/09/18 at 06:00; Stop 07/09/18 at 06:59; Status DC Iodixanol (Visipaque 320) 100 ml STK-MED ONCE .ROUTE ; Start 07/09/18 at 10:48; Stop 07/09/18 at 11:35; Status DC Lidocaine HCl (Lidocaine 1% 20ml Vial) 20 ml STK-MED ONCE .ROUTE ; Start 07/09/18 at 10:48; Stop 07/09/18 at 11:35; Status DC Heparin Sodium/ Sodium Chloride 1,500 ml @ As Directed STK-MED ONCE .ROUTE ; Start 07/09/18 at 10:48; Stop 07/09/18 at 11:35; Status DC Midazolam HCl (Versed) 2 mg STK-MED ONCE .ROUTE ; Start 07/09/18 at 13:06; Stop 07/09/18 at 13:07; Status DC Fentanyl Citrate (Fentanyl 2ml Vial) 100 mcg STK-MED ONCE .ROUTE ; Start 07/09/18 at 13:06; Stop 07/09/18 at 13:07; Status DC Heparin Sodium (Porcine) (Heparin Sodium) 10,000 unit STK-MED ONCE .ROUTE ; Start 07/09/18 at 13:07; Stop 07/09/18 at 13:08; Status DC Heparin Sodium/ Sodium Chloride (HEPARIN for ARTERIAL LINE FLUSH) 1,000 unit 1X ONCE IART Last administered on 07/09/18at 14:22; Start 07/09/18 at 14:15; Stop 07/09/18 at 14:18; Status DC Heparin Sodium/ Sodium Chloride (HEPARIN for ARTERIAL LINE FLUSH) 1,000 unit 1X ONCE IART Last administered on 07/09/18at 14:22; Start 07/09/18 at 14:15; Stop 07/09/18 at 14:18; Status DC Midazolam HCl (Versed) 1 mg 1X ONCE IV Last administered on 07/09/18at 14:23; Start 07/09/18 at 14:15; Stop 07/09/18 at 14:18; Status DC Fentanyl Citrate (Fentanyl 2ml Vial) 50 mcg 1X ONCE IV Last administered on 07/09/18at 14:23; Start 07/09/18 at 14:15; Stop 07/09/18 at 14:18; Status DC Iodixanol (Visipaque 320) 75 ml 1X ONCE IART Last administered on 07/09/18at 14:22; Start 07/09/18 at 14:15; Stop 07/09/18 at 14:18; Status DC Lidocaine HCl (Lidocaine 1% 20ml Vial) 5 ml 1X ONCE INJ Last administered on 07/09/18at 14:22; Start 07/09/18 at 14:15; Stop 07/09/18 at 14:18; Status DC Sodium Chloride 1,000 ml @ 1,000 mls/hr Q1H PRN IV hypotension; Start 07/11/18 at 07:16; Stop 07/11/18 at 13:15; Status DC Diphenhydramine HCl (Benadryl) 25 mg 1X PRN PRN IV ITCHING; Start 07/11/18 at 07:30; Stop 07/12/18 at 07:29 Diphenhydramine HCl (Benadryl) 25 mg 1X PRN PRN IV ITCHING; Start 07/11/18 at 07:30; Stop 07/12/18 at 07:29 Sodium Chloride 1,000 ml @ 400 mls/hr Q2H30M PRN IV PATENCY; Start 07/11/18 at 07:16; Stop 07/11/18 at 19:15 Info (PHARMACY MONITORING -- do not chart) 1 each PRN DAILY PRN MC SEE COMMENTS; Start 07/11/18 at 07:30; Status UNV Vancomycin HCl (Vancomycin Random Level) 1 each 1X ONCE MC ; Start 07/12/18 at 06:00; Stop 07/12/18 at 06:01 Iodixanol (Visipaque 320) 100 ml STK-MED ONCE .ROUTE ; Start 07/11/18 at 14:22; Stop 07/11/18 at 15:03; Status DC Lidocaine HCl (Lidocaine 1% 20ml Vial) 20 ml STK-MED ONCE .ROUTE ; Start 07/11/18 at 14:22; Stop 07/11/18 at 15:03; Status DC Heparin Sodium/ Sodium Chloride 500 ml @ As Directed STK-MED ONCE .ROUTE ; Start 07/11/18 at 14:22; Stop 07/11/18 at 15:03; Status DC Midazolam HCl (Versed) 2 mg STK-MED ONCE .ROUTE ; Start 07/11/18 at 14:34; Stop 07/11/18 at 15:03; Status DC Fentanyl Citrate (Fentanyl 2ml Vial) 100 mcg STK-MED ONCE .ROUTE ; Start 07/11/18 at 14:34; Stop 07/11/18 at 14:35; Status DC Heparin Sodium/ Sodium Chloride (HEPARIN for ARTERIAL LINE FLUSH) 1,000 unit 1X ONCE IART ; Start 07/11/18 at 14:30; Stop 07/11/18 at 15:03; Status DC Heparin Sodium/ Sodium Chloride (HEPARIN for ARTERIAL LINE FLUSH) 1,000 unit 1X ONCE IART ; Start 07/11/18 at 14:30; Stop 07/11/18 at 15:03; Status DC Midazolam HCl (Versed) 2 mg 1X ONCE IV ; Start 07/11/18 at 14:30; Stop 07/11/18 at 15:03; Status DC Fentanyl Citrate (Fentanyl 2ml Vial) 100 mcg 1X ONCE IV ; Start 07/11/18 at 14:30; Stop 07/11/18 at 15:03; Status DC Iodixanol (Visipaque 320) 100 ml 1X ONCE IART ; Start 07/11/18 at 14:30; Stop 07/11/18 at 15:03; Status DC Lidocaine HCl (Lidocaine 1% 20ml Vial) 20 ml 1X ONCE INJ ; Start 07/11/18 at 14:30; Stop 07/11/18 at 15:03; Status DC Active Scripts Active [Pantoprazole] 40 MG Tablet.dr 40 Mg PO DAILYAC 30 Days Polyethylene Glycol 3350 17 Gm Powd.pack 17 Gm PO PRN DAILY PRN 30 Days Fluticasone Propionate Nasal Golden (Fluticasone Propionate) 16 Gm Golden.susp 2 Golden NS DAILY 30 Days Advair 250-50 Diskus (Fluticasone/Salmeterol) 1 Each Disk.w.dev 1 Puff IH BID Zofran (Ondansetron Hcl) 4 Mg Tablet 4 Mg PO BID PRN Reported Slo-Niacin (Niacin) 500 Mg Tablet.er 500 Mg PO BID Lantus Solostar (Insulin Glargine,Hum.rec.anlog) 100 Unit/1 Ml Insuln.pen 35 Unit SQ QHS Gabapentin 600 Mg Tablet 100 Mg PO DAILY Isosorbide Mononitrate Er (Isosorbide Mononitrate) 30 Mg Tab.er.24h 2 Tab PO DAILY Clopidogrel (Clopidogrel Bisulfate) 75 Mg Tablet 1 Tab PO DAILY NITROGLYCERIN SubLingual (Nitroglycerin) 0.4 Mg Tab.subl 1 Tab SL UD Atorvastatin Calcium 80 Mg Tablet 1 Tab PO QHS Ferrous Sulfate 325 Mg Tablet 1 Tab PO DAILY Aspir-Low (Aspirin) 81 Mg Tablet.dr 1 Tab PO DAILY Calcium Acetate 667 Mg Tablet 1,334 Mg PO TIDWMEALS Imodium A-D (Loperamide Hcl) 1 Mg/7.5 Ml Liquid 1 Mg PO PRN Q4HRS Gas Relief (Simethicone) 125 Mg Capsule 125 Mg PO PRN TID PRN Torsemide 20 Mg Tablet 1 Tab PO BID [place] 5-325 Tablet (Acetaminophen/Hydrocodone Bitart) 1 Each Tablet 1 Tab PO PRN Q6HRS PRN Celia-Alyssa Rx Tablet (Vit B Cmplx 3/Fa/Vit C/Biotin) 1 Each Tablet 1 Each PO Tamsulosin Hcl 0.4 Mg Cap.er.24h 1 Cap PO DAILY Sodium Bicarbonate 650 Mg Tablet 1 Tab PO TID Vitals/I & O Vital Sign - Last 24 Hours 07/10/18 07/10/18 07/10/18 07/10/18 17:40 17:45 18:45 19:00 Temp 98.4 98.4 Pulse 91 Resp 16 B/P (MAP) 99/55 (70) 114/42 (66) Pulse Ox 94 O2 Delivery Room Air Room Air Room Air 07/10/18 07/10/18 07/10/18 07/11/18 19:55 20:12 23:00 03:00 Temp 98.2 97.7 98.2 97.7 Pulse 83 77 Resp 18 16 B/P (MAP) 108/53 (71) 100/55 (70) Pulse Ox 99 93 98 O2 Delivery Room Air Room Air Room Air Room Air 07/11/18 07/11/18 07/11/18 07/11/18 07:00 07:05 07:30 12:07 Temp 97.7 97.7 Pulse 78 Resp 18 B/P (MAP) 116/83 (94) Pulse Ox 96 96 O2 Delivery Room Air Room Air Room Air Room Air 07/11/18 07/11/18 13:12 15:35 Pulse 103 Resp 20 B/P (MAP) 93/42 (59) Pulse Ox 93 88 O2 Delivery Room Air Venturi Mask O2 Flow Rate 15.0 Intake and Output 07/10/18 07/10/18 07/11/18 15:00 23:00 07:00 Intake Total 450 ml 250 ml 200 ml Balance 450 ml 250 ml 200 ml HERRERA MARTIN MD July 11, 2018 16:08
--- NOTE | 2018-07-11 16:12 | PDOC2 ---
VERNON AVILES MARKETING COORDINATOR 07/11/18 1612: CARDIAC CONSULT DATE OF CONSULT Date of Consult DATE: 07/11/18 TIME: 15:55 REASON FOR CONSULT Reason for Consult: SOA, CHF REFERRING PHYSICIAN Referring Physician: Dr. Jones. SOURCE Source: Chart review, Patient HISTORY OF PRESENT ILLNESS HISTORY OF PRESENT ILLNESS This is an 82 yo male, with a history of PAD s/p multiple stent and previous left great toes amputation, CAD s/p CABG, CHF, ICM, hypertension, hyperl ipidemia, and diabetes, who presented secondary to worsening wound of right second toe. LE duplex notable for diffuse prominent calcified plaque throughout the RLE arteries. Arteriogram 07/09/18 showed right proximal SFA with > 80% stenosis. Patient taken to general laborer today for right leg intervention for limb salvage, but was canceled as patient was drowsy and hypotensive with low oxygen saturations. If was felt that patient was not stable enough to proceed. CXR notable for pulmonary edema. Patient more alert now and oxygen saturations have improved. Patient reports chronic SOA "for last 2 years" not worse than usual recently. No chest pain, palpitation, dizziness, diaphoresis, or nausea/vomiting. Follows with Dr. Pace of [facility] PAST MEDICAL HISTORY Cardiovascular: CAD, CHF, HTN, Hyperlipidemia, Other (PAD) GI: No pertinent hx Heme/Onc: No pertinent hx Hepatobiliary: No pertinent hx Psych: No pertinent hx Musculoskeletal: Osteoarthritis Infectious disease: No pertinent hx ENT: No pertinent hx Renal/: Chronic renal failure (ESRD on HD), Benign prostatic enlarg. Endocrine: Diabetes Dermatology: No pertinent hx PAST SURGICAL HISTORY Past Surgical History: CABG, Other (left great toes amputation) FAMILY HISTORY Family History: Diabetes, Heart Disease, High Cholestrol, Hypertension SOCIAL HISTORY Smoke: Quit (2001) ALCOHOL: none Drugs: None Lives: with Family ALLERGIES ALLERGIES: Coded Allergies: I S O L A T I O N *CONTACT* (Verified Allergy, Unknown, 07/09/18) +MRSA wound 07/03/18 No Known Medication Allergies (Verified Allergy, Unknown, 07/09/18) ROS Review of System 14 point ROS conducted with pertinent positives noted above in HPI. PHYSICAL EXAM General: Alert, Oriented X3, Cooperative, No acute distress HEENT: Atraumatic, Mucous membr. moist/pink Lungs: Other (bibasilar crackles) Heart: Regular rate, Other (2/6 systolic murmur) Abdomen: Soft, No tenderness Extremities: Other (1+ bilateral LE edema. Drsg intact to right 2nd toe) Skin: No significant lesion Neuro: Normal speech, Sensation intact Psych/Mental Status: Mood NL MUSCULOSKELETAL: Osteoarthritic changes both hands VITALS VITALS Vital Signs Date Time Temp Pulse Resp B/P (MAP) Pulse Ox O2 Delivery O2 Flow Rate FiO2 07/11/18 15:35 88 Venturi Mask 15.0 07/11/18 13:12 103 20 93/42 (59) 07/11/18 07:00 97.7 97.7 LABS Lab: Laboratory Tests Test 07/10/18 16:38 07/10/18 20:40 07/11/18 04:25 07/11/18 07:08 Glucose (Fingerstick) 142 mg/dL (70-99) 213 mg/dL (70-99) 124 mg/dL (70-99) Sodium Level 131 mmol/L (136-145) Potassium Level 4.4 mmol/L (3.5-5.1) Chloride Level 95 mmol/L (98-107) Carbon Dioxide Level 26 mmol/L (21-32) Anion Gap 10 (6-14) Blood Urea Nitrogen 66 mg/dL (8-26) Creatinine 6.5 mg/dL (0.7-1.3) Estimated GFR (Cockcroft-Gault) 8.2 Glucose Level 152 mg/dL (70-99) Calcium Level 8.6 mg/dL (8.5-10.1) Phosphorus Level 4.6 mg/dL (2.6-4.7) Albumin 2.0 g/dL (3.4-5.0) Test 07/11/18 11:37 07/11/18 14:53 07/11/18 15:30 Glucose (Fingerstick) 106 mg/dL (70-99) 96 mg/dL (70-99) O2 Saturation 99 % (92-99) Arterial Blood pH 7.50 (7.35-7.45) Arterial Blood pCO2 at Patient Temp 32 mmHg (35-46) Arterial Blood pO2 at Patient Temp 175 mmHg (65-108) Arterial Blood HCO3 24 mmol/L (21-28) Arterial Blood Base Excess 1 mmol/L (-3-3) FiO2 50 ECHOCARDIOGRAM ECHOCARDIOGRAM <Conclusion> The systolic function is severely impaired.EF 20-25% There is global hypokinesis of the left ventricle. Doppler and Color-flow revealed moderate mitral regurgitation. Doppler and Color Flow revealed moderate tricuspid regurgitation with an estimated PAP of 51 mmHg. There is moderate pulmonary hypertension. DATE: 05/29/18 1136 HEART CATH HEART CATH Right Heart Cath 1. Biventricular elevated filling pressures. 2. Pulmonary HTN - secondary to left sided heart disease. 3. Low cardiac output. Recommendations Diuretics + Vasodilators. DATE: 02/04/18 1252 ASSESSMENT/PLAN ASSESSMENT/PLAN 1. PAD; right second toe wound with cellulitis. S/p previous intervention/stents and right great toe amputation. Arterial duplex notable for diffuse prominent calcified plaque throughout the RLE arteries. Arteriogram no table for right proximal SFA with > 80% stenosis. Patient taken for right leg intervention today, but canceled due to declined status. 2. Acute respiratory failure secondary to a/c HF 3. Acute on chronic systolic heart failure; CXR with vascular congestion 4. Cardiomyopathy LVEF 20-25%. Previously 40% per documentation during hospitalization 01/2018 5. CAD s/p CABG in 2001. CP free. Follows with Dr. Pace of [facility] 6. Hypertension; low normotensive 7. Hyperlipidemia; statin 8. Diabetes, II; as per PCP 9. ESRD on HD; Had run this am. Patient oliguric 10. MR, moderate Recommendations Fluid offloading via HD as per nephrology Hold Imdur with low pressures. Secondary prevention as able. ASA, statin. No BB, ACEi with hypotension Obtain cardiac records from . Consider further ischemic workup if none recent given further LV systolic depression Continue antibiotics as per ID LE intervention as per vascular NADINE FRASER MD 07/11/18 2143: CARDIAC CONSULT ASSESSMENT/PLAN ASSESSMENT/PLAN Patient seen and examined. Agree with SENIOR CLINICAL RESEARCH ASSOCIATE's assessment and plan. Continue fluid removal with HD for acute on chr systolic HF 2D echo showed EF 20-25% CAD s/p CABG presently chest pain free Consider ischemic evaluation if review of [facility] records do not show any recent stress testing Vascular surgery following for PAD Thank you for your consultation VERNON AVILES APRN July 11, 2018 16:12 NADINE FRASER MD July 11, 2018 21:43
--- NOTE | 2018-07-11 16:35 | NUR ---
CHASE met with pt at pt's request. Family had questions about medicaid and the possibility of going to [place], SW advised pt's son to speak with [facility] and determine if pt is eligible or can set up payment plans.
--- NOTE | 2018-07-11 16:55 | CONS ---
DATE OF CONSULTATION: ATTENDING PHYSICIAN: Dr. Jones. REASON FOR CONSULTATION: Dyspnea, respiratory failure. HISTORY OF PRESENT ILLNESS: The patient is an 82-year-old male who has history of end-stage renal disease, on dialysis. History of congestive heart failure, history of EF of 20%. He was noted to have increasing oxygen requirement today. As a result, I was consulted AMRITA. By the time I arrived, the patient was initially on a Venturi mask and then was switched to cannula and saturation was still in the low 90s on 2 liters nasal cannula. His chest x-ray was reviewed and was consistent with congestive heart failure. He denies any cough, fever, chills; no chest pains. He does have chronic lower extremity edema. The patient has no history of deep vein thrombosis or pulmonary embolism. PAST MEDICAL HISTORY: Significant for history of diabetes; congestive heart failure; cardiomyopathy with an EF of 20%; history of insulin-dependent diabetes; history of CKD, on dialysis; history of coronary artery bypass. PAST SURGICAL HISTORY: Bypass and dialysis catheter. ALLERGIES: None. MEDICATIONS: Reviewed as listed in the MRAD. REVIEW OF SYSTEMS: Twelve-point system obtained. Pertinent positives discussed in my history of present illness, otherwise noncontributory. All systems that were negative were reviewed as well. SOCIAL HISTORY: Smoked since age 12 until when he was in the 60s. PHYSICAL EXAMINATION: VITAL SIGNS: Stable. Pulse ox is 92%-93% on nasal cannula, blood pressure 93/42. Afebrile. HEENT: Sclerae nonicteric. NECK: Supple. LUNGS: Diminished breath sounds. CARDIOVASCULAR: Regular rate and rhythm. ABDOMEN: Soft, obese. EXTREMITIES: Bilateral pitting edema. I did not examine the digits. LABORATORY DATA: Reviewed. White cell count 5.1, hemoglobin 10.9 and platelets are 168. ABGs with a pH of 7.50, pCO2 of 32 and a pO2 of 175 on 50% FiO2. BUN 66, creatinine 6.5. IMPRESSION: 1. Acute hypoxic respiratory failure secondary to acute on chronic systolic heart failure. 2. Abnormal chest x-ray consistent with mild congestive heart failure. 3. Cardiomyopathy with an ejection fraction of 20%, being followed by Cardiology. 4. End-stage renal disease, on dialysis. 5. History of moderate mitral regurgitation and secondary pulmonary hypertension. 6. Suspected underlying chronic obstructive pulmonary disease from 55 years of tobacco use. 7. Severe protein-calorie malnutrition. RECOMMENDATIONS: 1. Continue with present oxygen via nasal cannula, keep saturation 92%-94%. 2. We will need increased ultrafiltration with hemodialysis. 3. Follow renal recommendations. 4. Follow Cardiology recommendations. 5. No clinical suspicion for pneumonia. 6. Bronchodilators. 7. Antibiotics per Infectious Disease. 8. Follow Vascular Surgery recommendations. 9. Discussed with RN and Cardiology. DIONTE MORA MD DR: EMIGDIO/nts JOB#: [id number] / [id number]
--- NOTE | 2018-07-11 17:00 | NUR ---
Pt returned to room by bed at 1520, arteriogram not done as reported by SAMI Waddell d/t Pt's unstable condition as deemed by Dr Cardoso. BP 115/54, HR 98, SaO2 84-86%, O2 applied at 2 L, no improvement. RT in room at the time, applied venturi mask, SaO2 91%. Dr Jones paged, orders obtained for STAT EKG, ABG, CXR and consults to Dr Brand and Dr Lee. Dr Jones also stated that if needed, Pt could be transferred to CVC or ICU. ABG collected right away, Dr Brand called and requested to be called with the CXR results but arrived to unit shortly after to see Pt. Tamika Cardiology PERSONAL SECURITY SPECIALIST here to see Pt as well, orders for record request received. CXR results show mild CHF or fluid overload, Dr Brand aware of this. By the time consultants arrive, Pt had been transitioned from the venturi mask to a NC at 2L. Pt is a mouth breather and while keeping continuous SaO2 monitoring it could be seen that Pt's saturation fluctuates from the mid 80's to the high 90's and the main finding is that Pt starts to mouth breath faster and states he is feeling short of breath. By 1700, Pt was resting comfortably in bed, dinner and fluids offered. Will report to retail shift leader RN.
[2018-07-11] MEDS: VANCOMYCIN 500 MG in IV NORMAL SALINE 100ML 100 ML IV SCH (17:55)
[2018-07-11] MEDS ORDERED: MORPHINE SULFATE 2 MG/ML VIAL. IV PRN (20:15)
[2018-07-11] MEDS: ATORVASTATIN CALCIUM 40 MG TABLET. PO SCH (21:50)
[2018-07-11] MEDS: INSULIN GLARGINE 300 UNITS/3 ML INSULN.PEN. SQ SCH (21:58)
[2018-07-12 03:00] VITALS: BP 111/55
[2018-07-12] MEDS: PANTOPRAZOLE 40 MG TABLET.DR. PO SCH (05:15)
[2018-07-12] MEDS: PIPERACILLIN/TAZOBACTAM 2.25 GM in IV NORMAL SALINE 50ML 50 ML IV SCH ×3 (05:15→22:50)
[2018-07-12] MEDS ORDERED: VANCOMYCIN RANDOM LEVEL. MC ONE (06:00)
--- NOTE | 2018-07-12 06:31 | NUR ---
Pt.'s pulse oximeter switched to finger. Oxygen saturation has been above 95% throughout the night. Addendum: 07/12/18 at 0633 by JACQUELYN PIMENTEL RN above 95% NC on 3L Addendum: 07/12/18 at 0633 by JACQUELYN PIMENTEL RN Pt. switched to 2L NC around 0400
[2018-07-12 07:00] VITALS: BP 100/50
[2018-07-12] MEDS: BUDESONIDE 0.5 MG/2 ML NEBU. NEB SCH ×2 (07:20→20:33)
[2018-07-12] MEDS: ALBUTEROL SULFATE 2.5 MG/3 ML NEBU. NEB SCH ×4 (07:20→20:33)
[2018-07-12 07:28] LABS: ALBUMIN 2.2 g/dL (3.4-5.0); CALCIUM 8.6 mg/dL (8.5-10.1); CREATININE 5.2 mg/dL (0.7-1.3); GFR 10.7; PHOSPHORUS 3.4 mg/dL (2.6-4.7); POTASSIUM 4.7 mmol/L (3.5-5.1)
[2018-07-12] MEDS: VANCOMYCIN PER PHARMACY MC PRN ×2 (08:12→15:02)
--- NOTE | 2018-07-12 08:14 | NUR ---
Pharmacy Vancomycin Dosing Note S:Consulted to monitor and dose vancomycin started 07/03/18. O:DYLAN CRABTREE is a 82 year old M with Cellulitis Osteomyelitis . Height: 5 feet, 4 inches Weight: 104.759233 kg [place] Body Weight: 59.20 Adjusted Body Weight: 74.20 Dosing Weight: Actual Other Antibiotics: ZOSYN LABS: Last BUN: 44 Last Creatinine: 5.2 Creatinine Clearance: HD TUTHSA mL/min Last WBC: 5.1 Last Procalcitonin: - Tmax (past 24 hours): 97.6 Microbiology: 07/03 TOE: MANY GPC 07/09 ENTEROCOCCUS SENS TO VANCO, MRSA I/O: 150/- Drug Levels: Last Random level: 15.2 on 06/12/18 at 0640 Last dose given 07/06/18 at 1713 Vancomycin Dosing: Loading Dose: 2000 mg x1 Dosing Weight: Actual Target Trough: 15-20 A: Based on: The above therapeutic level, P: 1. Continue Vancomycin 500 mg IV after each dialysis session 2. Follow up Random level as needed 3. Pharmacy will continue to monitor, follow and adjust therapy as needed. ASHLEY MOTT [facility], 07/12/18 0814
[2018-07-12] MEDS: ASPIRIN ENTERIC COATED 81 MG TABLET.DR. PO SCH (09:02)
[2018-07-12] MEDS: TAMSULOSIN 0.4 MG CAP.ER.24H. PO SCH (09:02)
[2018-07-12] MEDS: CALCIUM ACETATE 667 MG CAPSULE PO SCH ×3 (09:02→17:18)
[2018-07-12] MEDS: SODIUM BICARBONATE 650 MG TABLET. PO SCH ×3 (09:02→20:56)
[2018-07-12] MEDS: GABAPENTIN 100 MG CAPSULE. PO SCH (09:02)
[2018-07-12] MEDS: TORSEMIDE 20 MG TABLET. PO SCH ×2 (09:02→17:18)
[2018-07-12] MEDS: FERROUS SULFATE 325 MG TABLET. PO SCH (09:02)
[2018-07-12] MEDS: ISOSORBIDE MONONITRATE ER 30 MG TAB.ER.24H PO SCH (09:02)
[2018-07-12] MEDS: LACTOBACILLUS RHAMNOSUS GG 1 CAPSULE. PO SCH ×2 (09:02→20:56)
[2018-07-12] MEDS: FLUTICASONE 50MCG/NASAL SPRAY 16GM BOTTLE. NS SCH (09:03)
[2018-07-12] MEDS: MICAFUNGIN 100 MG in IV DEXTROSE 5% 100ML 100 ML IV SCH (09:05)
[2018-07-12] MEDS: INSULIN LISPRO 300 UNITS/3 ML INSULN.PEN. SQ SCH ×3 (09:13→17:21)
--- NOTE | 2018-07-12 09:43 | NUR ---
Mikie RN in dialysis contacted re: pt being on schedule today.Mikie stated pt had dialysis yesterday. Dr. Cohen paged re: pt needing dialysis today or not.
--- NOTE | 2018-07-12 09:58 | NUR ---
Dr. Cohen returned all, notified of Dr. Jones's concerns re: possible dialysis today. Dr. Cohen stated she would come see the pt.
--- NOTE | 2018-07-12 10:00 | PDOC ---
PROGRESS NOTES Subjective Subjective decline in pts condition, rapid response duet desaturation ,due to fluid over load Objective Objective Vital Signs Date Time Temp Pulse Resp B/P (MAP) Pulse Ox O2 Delivery O2 Flow Rate FiO2 07/12/18 09:02 88 100/50 07/12/18 07:00 97.6 18 100 Nasal Cannula 3.0 97.6 Intake and Output 07/12/18 07:00 Intake Total 150 ml Balance 150 ml Intake Oral 150 ml # Bowel Movements 5 Physical Exam Abdomen: Soft, No tenderness Heart: Regular rate, Other (2/6 systolic murmur) Extremities: Other (1+ bilateral LE edema. Drsg intact to right 2nd toe) General: Alert, Oriented X3, Cooperative, No acute distress HEENT: Atraumatic, Mucous membr. moist/pink Lungs: Other (bibasilar crackles) MUSCULOSKELETAL: Osteoarthritic changes both hands Neuro: Normal speech, Sensation intact Psych/Mental Status: Mood NL Skin: No significant lesion Assessment Assessment FINAL IMPRESSION: SOB due to chf and fluid overload, ac on ch systolic heart failure 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 Right second toe ulcer with underlying osteomyelitis. The ulcer is deep to the joint into the bone, interphalangeal joint. 2. Diabetes, insulin-dependent. 3. Coronary artery disease, previous bypass surgery. 4. End-stage renal disease, dialysis. 5. Chronic systolic heart failure, ejection fraction 20%. 6. Hypertension. 7. Hyperlipidemia. 8. History of previous toe amputation. 9. Diabetic neuropathy. PLAN: Rapid response yesterday,due to fluid overload. seen by cardiology and pulmonary Dialysis today?, take extra fluid with dialysis arteriogram yesterday, cancelled due to SOB wound c/s MRSA+enterococcus, spoke with ID check stool for c diff -neg.Imodium prn. Dialysis today,partially dialyzed yesterday iv antibiotics vanco+zosyn. arterial doppler dec blood flow to foot. spoke with cardiology yesterday poor prognosis, not going to do well Comment Review of Relevant I have reviewed the following items shar (where applicable) has been applied. Labs Laboratory Tests Test 07/11/18 11:37 07/11/18 14:53 07/11/18 15:30 07/11/18 16:52 Glucose (Fingerstick) 106 mg/dL (70-99) 96 mg/dL (70-99) 123 mg/dL (70-99) O2 Saturation 99 % (92-99) Arterial Blood pH 7.50 (7.35-7.45) Arterial Blood pCO2 at Patient Temp 32 mmHg (35-46) Arterial Blood pO2 at Patient Temp 175 mmHg (65-108) Arterial Blood HCO3 24 mmol/L (21-28) Arterial Blood Base Excess 1 mmol/L (-3-3) FiO2 50 Test 07/11/18 20:43 07/12/18 06:35 07/12/18 07:52 Glucose (Fingerstick) 222 mg/dL (70-99) 158 mg/dL (70-99) Sodium Level 131 mmol/L (136-145) Potassium Level 4.7 mmol/L (3.5-5.1) Chloride Level 93 mmol/L (98-107) Carbon Dioxide Level 27 mmol/L (21-32) Anion Gap 11 (6-14) Blood Urea Nitrogen 44 mg/dL (8-26) Creatinine 5.2 mg/dL (0.7-1.3) Estimated GFR (Cockcroft-Gault) 10.7 Glucose Level 149 mg/dL (70-99) Calcium Level 8.6 mg/dL (8.5-10.1) Phosphorus Level 3.4 mg/dL (2.6-4.7) Albumin 2.2 g/dL (3.4-5.0) Random Vancomycin Level 15.2 mcg/mL Microbiology 07/03/18 Anaerobic/Aerobic Culture - Final, Complete 07/03/18 Anaerobic Culture Result 1 (DEMETRA) - Final, Complete 07/03/18 Aerobic Culture - Final, Complete 07/03/18 Aerobic Culture Result 1 (DEMETRA) - Final, Complete 07/03/18 Aerobic Culture Result 2 (DEMETRA) - Final, Complete 07/03/18 Antimicrobic Susceptibility - Final, Complete 07/03/18 Gram Stain - Final, Complete 07/03/18 Gram Stain Result 1 (DEMETRA) - Final, Complete 07/03/18 Gram Stain Result 2 (DEMETRA) - Final, Complete Medications Current Medications Fentanyl Citrate (Fentanyl 2ml Vial) 100 mcg 1X ONCE IV ; Start 07/11/18 at 14:30; Stop 07/11/18 at 15:03; Status DC Fentanyl Citrate (Fentanyl 2ml Vial) 100 mcg STK-MED ONCE .ROUTE ; Start 07/11/18 at 14:34; Stop 07/11/18 at 14:35; Status DC Heparin Sodium/ Sodium Chloride 500 ml @ As Directed STK-MED ONCE .ROUTE ; Start 07/11/18 at 14:22; Stop 07/11/18 at 15:03; Status DC Heparin Sodium/ Sodium Chloride (HEPARIN for ARTERIAL LINE FLUSH) 1,000 unit 1X ONCE IART ; Start 07/11/18 at 14:30; Stop 07/11/18 at 15:03; Status DC Heparin Sodium/ Sodium Chloride (HEPARIN for ARTERIAL LINE FLUSH) 1,000 unit 1X ONCE IART ; Start 07/11/18 at 14:30; Stop 07/11/18 at 15:03; Status DC Iodixanol (Visipaque 320) 100 ml 1X ONCE IART ; Start 07/11/18 at 14:30; Stop 07/11/18 at 15:03; Status DC Iodixanol (Visipaque 320) 100 ml STK-MED ONCE .ROUTE ; Start 07/11/18 at 14:22; Stop 07/11/18 at 15:03; Status DC Lidocaine HCl (Lidocaine 1% 20ml Vial) 20 ml 1X ONCE INJ ; Start 07/11/18 at 14:30; Stop 07/11/18 at 15:03; Status DC Lidocaine HCl (Lidocaine 1% 20ml Vial) 20 ml STK-MED ONCE .ROUTE ; Start 07/11/18 at 14:22; Stop 07/11/18 at 15:03; Status DC Midazolam HCl (Versed) 2 mg 1X ONCE IV ; Start 07/11/18 at 14:30; Stop 07/11/18 at 15:03; Status DC Midazolam HCl (Versed) 2 mg STK-MED ONCE .ROUTE ; Start 07/11/18 at 14:34; Stop 07/11/18 at 15:03; Status DC Morphine Sulfate (Morphine Sulfate) 1 mg PRN Q1HR PRN IV PAIN; Start 07/11/18 at 20:15; Stop 07/11/18 at 20:15; Status DC Vancomycin HCl (Vancomycin Random Level) 1 each 1X ONCE MC Last administered on 07/12/18at 06:00; Start 07/12/18 at 06:00; Stop 07/12/18 at 06:01; Status DC Vitals/I & O Vital Sign - Last 24 Hours 07/11/18 07/11/18 07/11/18 07/11/18 12:07 13:12 15:00 15:35 Temp 97.7 97.7 Pulse 103 98 Resp 20 17 B/P (MAP) 93/42 (59) 114/54 (74) Pulse Ox 93 92 88 O2 Delivery Room Air Room Air Nasal Cannula Venturi Mask O2 Flow Rate 3.0 15.0 07/11/18 07/11/18 07/11/18 07/11/18 19:00 20:00 20:11 20:13 Temp 97.8 97.8 97.8 97.8 Pulse 98 89 Resp 16 20 B/P (MAP) 125/56 (79) 114/54 (74) Pulse Ox 97 97 99 O2 Delivery Nasal Cannula Nasal Cannula Room Air Nasal Cannula O2 Flow Rate 3.0 2.0 07/11/18 07/12/18 07/12/18 07/12/18 23:00 03:00 07:00 09:02 Temp 97.9 97.6 97.6 97.9 97.6 97.6 Pulse 89 86 88 88 Resp 16 18 18 B/P (MAP) 103/50 (67) 111/55 (73) 100/50 (67) 100/50 Pulse Ox 93 100 100 O2 Delivery Nasal Cannula Nasal Cannula Nasal Cannula O2 Flow Rate 3.0 3.0 3.0 Intake and Output 07/11/18 07/11/18 07/12/18 15:00 23:00 07:00 Intake Total 150 ml Balance 150 ml FLAVIA HOOVER MD July 12, 2018 10:00
--- NOTE | 2018-07-12 10:31 | PDOC ---
Infectious Disease Note Subjective Subjective awake, feeling ok Denies N/V/cramps/F/C/S Vital Sign Vital Signs Vital Signs Date Time Temp Pulse Resp B/P (MAP) Pulse Ox O2 Delivery O2 Flow Rate FiO2 07/12/18 09:02 88 100/50 07/12/18 07:00 97.6 18 100 Nasal Cannula 3.0 97.6 Physical Exam PHYSICAL EXAM GENERAL: Alert, lying down, NAD HENT: Oral cavity clear LUNGS: Clear CARDIOVASCULAR: S1 and S2. ABDOMEN: Soft, NT, ND. EXTREMITIES: 2+ edema in both lower extremities. Right 2nd toe and left 1st MT bandaged, no area redness NEUROLOGIC: Alert, responds appropriately SKIN: No rash. Bruising on arms RIJ/HDC without signs of complications PIV ok Labs Lab Laboratory Tests Test 07/11/18 11:37 07/11/18 14:53 07/11/18 15:30 07/11/18 16:52 Glucose (Fingerstick) 106 mg/dL (70-99) 96 mg/dL (70-99) 123 mg/dL (70-99) O2 Saturation 99 % (92-99) Arterial Blood pH 7.50 (7.35-7.45) Arterial Blood pCO2 at Patient Temp 32 mmHg (35-46) Arterial Blood pO2 at Patient Temp 175 mmHg (65-108) Arterial Blood HCO3 24 mmol/L (21-28) Arterial Blood Base Excess 1 mmol/L (-3-3) FiO2 50 Test 07/11/18 20:43 07/12/18 06:35 07/12/18 07:52 Glucose (Fingerstick) 222 mg/dL (70-99) 158 mg/dL (70-99) Sodium Level 131 mmol/L (136-145) Potassium Level 4.7 mmol/L (3.5-5.1) Chloride Level 93 mmol/L (98-107) Carbon Dioxide Level 27 mmol/L (21-32) Anion Gap 11 (6-14) Blood Urea Nitrogen 44 mg/dL (8-26) Creatinine 5.2 mg/dL (0.7-1.3) Estimated GFR (Cockcroft-Gault) 10.7 Glucose Level 149 mg/dL (70-99) Calcium Level 8.6 mg/dL (8.5-10.1) Phosphorus Level 3.4 mg/dL (2.6-4.7) Albumin 2.2 g/dL (3.4-5.0) Random Vancomycin Level 15.2 mcg/mL Micro ANAEROBIC RES 1 PENDING AEROBIC CULT Final Final report AEROBIC RES 1 Final Comment Methicillin - resistant Staphylococcus aureus 4+ Based on resistance to oxacillin this isolate would be resistant to all currently available beta-lactam antimicrobial agents, with the exception of the newer cephalosporins with anti-MRSA activity, such as Ceftaroline AEROBIC RES 2 Final Enterococcus faecalis 4+ ANTIMICROBIAL SUSCEPTIBILITY Final Comment S = Susceptible; I = Intermediate; R = Resistant P = Positive; N = Negative MICS are expressed in micrograms per mL Antibiotic RSLT#1 RSLT#2 RSLT#3 RSLT#4 Ciprofloxacin R>=8 Clindamycin R>=8 Erythromycin R>=8 Gentamicin S<=0.5 Levofloxacin R>=8 Linezolid S =2 CONTINUED ON NEXT PAGE RUN DATE: 07/07/18 PAGE 2 RUN TIME: 1906 [facility] [address] [place] [address] Ander Nicole M.D., Engraver Ornamental Design SPEC: [id number] PATIENT: DYLAN CRABTREE [id number] (Continued) Procedure Result ANTIMICROBIAL SUSCEPTIBILITY Final (continued) Oxacillin R>=4 Penicillin R>=0.5 S =2 Rifampin S<=0.5 Tetracycline R>=16 Trimethoprim/Sulfa S<=10 Vancomycin S =1 S =1 GRAM STAIN Final Final report GRAM STAIN RES 1 Final Comment No white blood cells seen. GRAM STAIN RES 2 Final Comment Many gram positive cocci. Performed at: - [facility], [place], [place] [id number] Train Examiner: ADELINA Khalil MD, Phone: [phone] Objective Assessment Right second toe wound and cellulitis - Staph aureus and Strep spp so far Tinea/onychomycosis CKD on HD DM Plan Plan of Care Cont Vanc, Zosyn F/u labs and cults amputation pending BETTYE VIERA MD July 12, 2018 10:31
--- NOTE | 2018-07-12 10:33 | PDOC ---
PULMONARY PROGRESS NOTES Subjective mild soa, no de -sat Vitals Vital Signs Date Time Temp Pulse Resp B/P (MAP) Pulse Ox O2 Delivery O2 Flow Rate FiO2 07/12/18 09:02 88 100/50 07/12/18 07:00 97.6 18 100 Nasal Cannula 3.0 97.6 General: Alert, No acute distress HEENT: Other Lungs: Clear Cardiovascular: S1, S2 Abdomen: Soft, Non-tender Extremities: Other (2+edema) Labs Laboratory Tests Test 07/10/18 11:05 07/10/18 11:38 07/10/18 16:38 07/10/18 20:40 White Blood Count 5.1 x10^3/uL (4.0-11.0) Red Blood Count 3.40 x10^6/uL (4.30-5.70) Hemoglobin 10.9 g/dL (13.0-17.5) Hematocrit 33.9 % (39.0-53.0) Mean Corpuscular Volume 100 fL (79-100) Mean Corpuscular Hemoglobin 32 pg (25-35) Mean Corpuscular Hemoglobin Concent 32 g/dL (31-37) Red Cell Distribution Width 22.9 % (11.5-14.5) Platelet Count 168 x10^3/uL (140-400) Neutrophils (%) (Auto) 76 % (31-73) Lymphocytes (%) (Auto) 8 % (24-48) Monocytes (%) (Auto) 14 % (0-9) Eosinophils (%) (Auto) 2 % (0-3) Basophils (%) (Auto) 1 % (0-3) Neutrophils # (Auto) 3.9 x10^3uL (1.8-7.7) Lymphocytes # (Auto) 0.4 x10^3/uL (1.0-4.8) Monocytes # (Auto) 0.7 x10^3/uL (0.0-1.1) Eosinophils # (Auto) 0.1 x10^3/uL (0.0-0.7) Basophils # (Auto) 0.0 x10^3/uL (0.0-0.2) Sodium Level 135 mmol/L (136-145) Potassium Level 4.8 mmol/L (3.5-5.1) Chloride Level 97 mmol/L (98-107) Carbon Dioxide Level 24 mmol/L (21-32) Anion Gap 14 (6-14) Blood Urea Nitrogen 62 mg/dL (8-26) Creatinine 6.3 mg/dL (0.7-1.3) Estimated GFR (Cockcroft-Gault) 8.6 Glucose Level 86 mg/dL (70-99) Calcium Level 8.7 mg/dL (8.5-10.1) Phosphorus Level 4.9 mg/dL (2.6-4.7) Albumin 2.2 g/dL (3.4-5.0) Glucose (Fingerstick) 84 mg/dL (70-99) 142 mg/dL (70-99) 213 mg/dL (70-99) Test 07/11/18 04:25 07/11/18 07:08 07/11/18 11:37 07/11/18 14:53 Sodium Level 131 mmol/L (136-145) Potassium Level 4.4 mmol/L (3.5-5.1) Chloride Level 95 mmol/L (98-107) Carbon Dioxide Level 26 mmol/L (21-32) Anion Gap 10 (6-14) Blood Urea Nitrogen 66 mg/dL (8-26) Creatinine 6.5 mg/dL (0.7-1.3) Estimated GFR (Cockcroft-Gault) 8.2 Glucose Level 152 mg/dL (70-99) Calcium Level 8.6 mg/dL (8.5-10.1) Phosphorus Level 4.6 mg/dL (2.6-4.7) Albumin 2.0 g/dL (3.4-5.0) Glucose (Fingerstick) 124 mg/dL (70-99) 106 mg/dL (70-99) 96 mg/dL (70-99) Test 07/11/18 15:30 07/11/18 16:52 07/11/18 20:43 07/12/18 06:35 O2 Saturation 99 % (92-99) Arterial Blood pH 7.50 (7.35-7.45) Arterial Blood pCO2 at Patient Temp 32 mmHg (35-46) Arterial Blood pO2 at Patient Temp 175 mmHg (65-108) Arterial Blood HCO3 24 mmol/L (21-28) Arterial Blood Base Excess 1 mmol/L (-3-3) FiO2 50 Glucose (Fingerstick) 123 mg/dL (70-99) 222 mg/dL (70-99) Sodium Level 131 mmol/L (136-145) Potassium Level 4.7 mmol/L (3.5-5.1) Chloride Level 93 mmol/L (98-107) Carbon Dioxide Level 27 mmol/L (21-32) Anion Gap 11 (6-14) Blood Urea Nitrogen 44 mg/dL (8-26) Creatinine 5.2 mg/dL (0.7-1.3) Estimated GFR (Cockcroft-Gault) 10.7 Glucose Level 149 mg/dL (70-99) Calcium Level 8.6 mg/dL (8.5-10.1) Phosphorus Level 3.4 mg/dL (2.6-4.7) Albumin 2.2 g/dL (3.4-5.0) Random Vancomycin Level 15.2 mcg/mL Test 07/12/18 07:52 Glucose (Fingerstick) 158 mg/dL (70-99) Laboratory Tests Test 07/11/18 11:37 07/11/18 14:53 07/11/18 15:30 07/11/18 16:52 Glucose (Fingerstick) 106 mg/dL (70-99) 96 mg/dL (70-99) 123 mg/dL (70-99) O2 Saturation 99 % (92-99) Arterial Blood pH 7.50 (7.35-7.45) Arterial Blood pCO2 at Patient Temp 32 mmHg (35-46) Arterial Blood pO2 at Patient Temp 175 mmHg (65-108) Arterial Blood HCO3 24 mmol/L (21-28) Arterial Blood Base Excess 1 mmol/L (-3-3) FiO2 50 Test 07/11/18 20:43 07/12/18 06:35 07/12/18 07:52 Glucose (Fingerstick) 222 mg/dL (70-99) 158 mg/dL (70-99) Sodium Level 131 mmol/L (136-145) Potassium Level 4.7 mmol/L (3.5-5.1) Chloride Level 93 mmol/L (98-107) Carbon Dioxide Level 27 mmol/L (21-32) Anion Gap 11 (6-14) Blood Urea Nitrogen 44 mg/dL (8-26) Creatinine 5.2 mg/dL (0.7-1.3) Estimated GFR (Cockcroft-Gault) 10.7 Glucose Level 149 mg/dL (70-99) Calcium Level 8.6 mg/dL (8.5-10.1) Phosphorus Level 3.4 mg/dL (2.6-4.7) Albumin 2.2 g/dL (3.4-5.0) Random Vancomycin Level 15.2 mcg/mL Medications Active Scripts Medications Dose Route/Sig Max Daily Dose Days Date Category Slo-Niacin (Niacin) 500 Mg Tablet.er 500 Mg PO BID 07/03/18 Reported Lantus Solostar (Insulin Glargine,Hum.rec.anlog) 100 Unit/1 Ml Insuln.pen 35 Unit SQ QHS 07/03/18 Reported Gabapentin 600 Mg Tablet 100 Mg PO DAILY 07/03/18 Reported Isosorbide Mononitrate Er (Isosorbide Mononitrate) 30 Mg Tab.er.24h 2 Tab PO DAILY 07/03/18 Reported Clopidogrel (Clopidogrel Bisulfate) 75 Mg Tablet 1 Tab PO DAILY 07/03/18 Reported NITROGLYCERIN SubLingual (Nitroglycerin) 0.4 Mg Tab.subl 1 Tab SL UD 07/03/18 Reported Atorvastatin Calcium 80 Mg Tablet 1 Tab PO QHS 07/03/18 Reported Ferrous Sulfate 325 Mg Tablet 1 Tab PO DAILY 07/03/18 Reported Aspir-Low (Aspirin) 81 Mg Tablet.dr 1 Tab PO DAILY 07/03/18 Reported Calcium Acetate 667 Mg Tablet 1,334 Mg PO TIDWMEALS 07/03/18 Reported Imodium A-D (Loperamide Hcl) 1 Mg/7.5 Ml Liquid 1 Mg PO PRN Q4HRS 07/03/18 Reported Gas Relief (Simethicone) 125 Mg Capsule 125 Mg PO PRN TID PRN 07/03/18 Reported Torsemide 20 Mg Tablet 1 Tab PO BID 07/03/18 Reported [place] 5-325 Tablet (Acetaminophen/Hydrocodone Bitart) 1 Each Tablet 1 Tab PO PRN Q6HRS PRN 07/03/18 Reported [Pantoprazole] 40 MG Tablet.dr 40 Mg PO DAILYAC 30 02/10/18 Rx Polyethylene Glycol 3350 17 Gm Powd.pack 17 Gm PO PRN DAILY PRN 30 02/10/18 Rx Fluticasone Propionate Nasal [place] (Fluticasone Propionate) 16 Gm [place].susp 2 [place] NS DAILY 30 02/10/18 Rx Advair 250-50 Diskus (Fluticasone/Salmeterol) 1 Each Disk.w.dev 1 Puff IH BID 02/08/18 Rx Zofran (Ondansetron Hcl) 4 Mg Tablet 4 Mg PO BID PRN 05/20/16 Rx Celia-Alyssa Rx Tablet (Vit B Cmplx 3/Fa/Vit C/Biotin) 1 Each Tablet 1 Each PO 09/11/15 Reported Tamsulosin Hcl 0.4 Mg Cap.er.24h 1 Cap PO DAILY 02/01/14 Reported Sodium Bicarbonate 650 Mg Tablet 1 Tab PO TID 02/01/14 Reported Impression . 1. Acute hypoxic respiratory failure secondary to acute on chronic systolic heart failure. 2. Abnormal chest x-ray consistent with mild congestive heart failure. 3. Cardiomyopathy with an ejection fraction of 20%, being followed by Cardiology. 4. End-stage renal disease, on dialysis. 5. History of moderate mitral regurgitation and secondary pulmonary hypertension. 6. Suspected underlying chronic obstructive pulmonary disease from 55 years of tobacco use. 7. Severe protein-calorie malnutrition. Plan . 1. Continue with present oxygen via nasal cannula, keep saturation 92%-94%. 2. We will need increased ultrafiltration with hemodialysis. 3. Follow renal recommendations. 4. Follow Cardiology recommendations. 5. No clinical suspicion for pneumonia. 6. Bronchodilators. 7. Antibiotics per Infectious Disease. 8. Follow Vascular Surgery recommendations. 9. Discussed with RN and Cardiology. DIONTE MORA MD July 12, 2018 10:33
[2018-07-12 11:00] VITALS: BP 98/57
--- NOTE | 2018-07-12 12:38 | NUR ---
SW following for discharge planning. Discussed with RN, pt likely not having any procedures today. Family speaking with Mary Ann. SW will continue to follow.
--- NOTE | 2018-07-12 13:30 | PDOC ---
SUBJECTIVE ROS Sitting up in chair , he states he is little more sob today I recommended extra HD/UF today , he got very upset "dialysis is killing me, i dont want any extra dialysis, I will feel better after breathing treatment" OBJECTIVE Vital Signs Vital Signs Date Time Temp Pulse Resp B/P (MAP) Pulse Ox O2 Delivery O2 Flow Rate FiO2 07/12/18 09:02 88 100/50 07/12/18 07:00 97.6 18 100 Nasal Cannula 3.0 97.6 I & 0 Intake and Output 07/12/18 06:59 Intake Total 150 ml Balance 150 ml Intake Oral 150 ml # Bowel Movements 5 PHYSICAL EXAM Physical Exam GENERAL: NAD, sitting up in chair HENT: Oral Mucosa moist LUNGS: Clear CARDIOVASCULAR: S1 and S2. ABDOMEN: Soft, NT, ND. EXTREMITIES: 1+ edema in both lower extremities. Right 2nd toe and left 1st MT bandaged, no area redness NEUROLOGIC: Alert, responds appropriately SKIN: No rash. Bruising on arms + HDC + DIAGNOSIS/ASSESSMENT Assessment & Plan ESRD- On HD TTS Recommended Isolated UF today , Pt refused Right second toe wound and cellulitis On Abx angio and amputation pending DM- Per primary Anemia- Hg stable No Indication for ERNESTINA COMMENT/RELEVANT DATA Meds Current Medications Medications (Trade) Dose Ordered Sig/Erickson Start Time Stop Time Status Last Admin Dose Admin Acetaminophen/ Hydrocodone Bitart (Lortab 5/325) 1 tab PRN Q6HRS PRN 07/03/18 17:45 UNV Albumin Human 200 ml @ 200 mls/hr 1X PRN PRN 07/04/18 14:00 07/04/18 19:59 DC Albuterol Sulfate (Ventolin Neb Soln) 2.5 mg RTQID 07/03/18 20:00 07/12/18 11:12 2.5 MG Aspirin (Ecotrin) 81 mg DAILY 07/04/18 09:00 07/12/18 09:02 81 MG Atorvastatin Calcium (Lipitor) 80 mg QHS 07/03/18 21:00 07/11/18 21:50 80 MG Budesonide (Pulmicort) 0.5 mg RTBID 07/03/18 20:00 07/12/18 07:20 0.5 MG Calcium Acetate (Phoslo) 1,334 mg TIDWMEALS 07/03/18 18:30 07/12/18 12:37 1,334 MG Cefazolin Sodium 1 gm/Sodium Chloride 500 ml @ 500 mls/hr 1X ONCE 07/09/18 06:00 07/09/18 06:59 DC Dextrose (Dextrose 50%-Water Syringe) 12.5 gm PRN Q15MIN PRN 07/03/18 21:15 Diphenhydramine HCl (Benadryl) 25 mg 1X PRN PRN 07/11/18 07:30 07/12/18 07:29 DC Enoxaparin Sodium (Lovenox 30mg Syringe) 30 mg Q24H 07/05/18 10:00 07/07/18 11:00 DC 07/07/18 08:46 30 MG Fentanyl Citrate (Fentanyl 2ml Vial) 100 mcg 1X ONCE 07/11/18 14:30 07/11/18 15:03 DC Ferrous Sulfate (Feosol) 325 mg DAILY 07/04/18 09:00 07/12/18 09:02 325 MG Fluticasone Propionate (Flonase) 2 spray DAILY 07/04/18 09:00 07/12/18 09:03 2 SPRAY Gabapentin (Neurontin) 100 mg DAILY 07/04/18 09:00 07/12/18 09:02 100 MG Heparin Sodium (Porcine) (Heparin Sodium) 10,000 unit STK-MED ONCE 07/09/18 13:07 07/09/18 13:08 DC Heparin Sodium/ Sodium Chloride (HEPARIN for ARTERIAL LINE FLUSH) 1,000 unit 1X ONCE 07/11/18 14:30 07/11/18 15:03 DC Hydromorphone HCl (Dilaudid) 0.5 mg PRN Q10MIN PRN 07/09/18 07:00 07/10/18 06:59 DC Info (PHARMACY MONITORING -- do not chart) 1 each PRN DAILY PRN 07/11/18 07:30 UNV Insulin Glargine (Lantus) 25 units QHS 07/04/18 21:00 07/11/18 21:58 25 UNITS Insulin Human Lispro (HumaLOG) 0-7 UNITS TIDWMEALS 07/04/18 08:00 07/12/18 09:13 3 UNITS Iodixanol (Visipaque 320) 100 ml 1X ONCE 07/11/18 14:30 07/11/18 15:03 DC Isosorbide Mononitrate (Imdur) 60 mg DAILY 07/04/18 09:00 07/12/18 09:02 60 MG Lactobacillus Rhamnosus (Culturelle) 1 cap BID 07/03/18 21:00 07/12/18 09:02 1 CAP Lidocaine HCl (Lidocaine 1% 20ml Vial) 20 ml 1X ONCE 07/11/18 14:30 07/11/18 15:03 DC Lidocaine HCl (Xylocaine-Mpf 1% 2ml Vial) 2 ml PRN 1X PRN 07/09/18 07:00 07/10/18 06:59 DC Lidocaine/Sodium Bicarbonate (Buffered Lidocaine 1%) 3 ml STK-MED ONCE 07/04/18 14:43 07/04/18 14:44 DC Loperamide HCl (Imodium) 2 mg PRN QID PRN 07/07/18 09:45 Micafungin Sodium 100 mg/Dextrose 100 ml @ 100 mls/hr Q24H 07/04/18 10:00 07/12/18 09:05 100 MLS/HR Midazolam HCl (Versed) 2 mg 1X ONCE 07/11/18 14:30 07/11/18 15:03 DC Morphine Sulfate (Morphine Sulfate) 1 mg PRN Q1HR PRN 07/11/18 20:15 07/11/18 20:15 DC Niacin (Slo-Niacin) 500 mg BID 07/03/18 21:00 07/03/18 21:14 DC Nitroglycerin (Nitrostat) 0.4 mg PRN Q5MIN 07/03/18 17:45 Non-Formulary Medication (Fluticasone/ Salmeterol (Advair 250-50 Diskus)) 1 puff BID 07/03/18 21:00 UNV Ondansetron HCl (Zofran Odt) 4 mg PRN BID PRN 07/03/18 18:15 Ondansetron HCl (Zofran) 4 mg PRN Q6HRS PRN 07/09/18 07:00 07/10/18 06:59 DC Pantoprazole Sodium (Protonix) 40 mg DAILYAC 07/04/18 07:30 07/12/18 05:15 40 MG Piperacillin Sod/ Tazobactam Sod (Zosyn Per Pharmacy) 1 each PRN DAILY PRN 07/03/18 17:15 Piperacillin Sod/ Tazobactam Sod 2.25 gm/Sodium Chloride 50 ml @ 100 mls/hr Q8HRS 07/04/18 06:00 07/12/18 05:15 100 MLS/HR Polyethylene Glycol (miraLAX PACKET) 17 gm PRN DAILY PRN 07/04/18 09:00 Prochlorperazine Edisylate (Compazine) 5 mg PACU PRN PRN 07/09/18 07:00 07/10/18 06:59 DC Ringer's Solution 1,000 ml @ 30 mls/hr Q24H 07/09/18 07:00 07/09/18 18:59 DC Simethicone (Gas-X) 80 mg PRN TID PRN 07/03/18 18:15 Sodium Bicarbonate (Sodium Bicarbonate) 650 mg TID 07/03/18 21:00 07/12/18 09:02 650 MG Sodium Chloride 1,000 ml @ 400 mls/hr Q2H30M PRN 07/11/18 07:16 07/11/18 19:15 DC Sodium Chloride (Normal Saline Flush) 10 ml 1X PRN PRN 07/04/18 14:00 07/05/18 13:59 DC Tamsulosin HCl (Flomax) 0.4 mg DAILY 07/04/18 09:00 07/12/18 09:02 0.4 MG Torsemide (Demadex) 20 mg [id number] 07/04/18 09:00 07/12/18 09:02 20 MG Vancomycin HCl (Vanco Per Pharmacy) 1 each PRN DAILY PRN 07/03/18 17:15 07/12/18 08:12 1 EACH Vancomycin HCl (Vancomycin Random Level) 1 each 1X ONCE 07/12/18 06:00 07/12/18 06:01 DC 07/12/18 06:00 1 EACH Vancomycin HCl 500 mg/Sodium Chloride 100 ml @ 100 mls/hr QTUTHSA 07/06/18 16:00 07/11/18 17:55 100 MLS/HR Vancomycin HCl 2 gm/Sodium Chloride 500 ml @ 250 mls/hr 1X ONCE 07/03/18 17:30 07/03/18 19:29 DC 07/03/18 21:09 250 MLS/HR Lab Laboratory Tests Test 07/11/18 14:53 07/11/18 15:30 07/11/18 16:52 07/11/18 20:43 Glucose (Fingerstick) 96 mg/dL (70-99) 123 mg/dL (70-99) 222 mg/dL (70-99) O2 Saturation 99 % (92-99) Arterial Blood pH 7.50 (7.35-7.45) Arterial Blood pCO2 at Patient Temp 32 mmHg (35-46) Arterial Blood pO2 at Patient Temp 175 mmHg (65-108) Arterial Blood HCO3 24 mmol/L (21-28) Arterial Blood Base Excess 1 mmol/L (-3-3) FiO2 50 Test 07/12/18 06:35 07/12/18 07:52 07/12/18 12:13 Sodium Level 131 mmol/L (136-145) Potassium Level 4.7 mmol/L (3.5-5.1) Chloride Level 93 mmol/L (98-107) Carbon Dioxide Level 27 mmol/L (21-32) Anion Gap 11 (6-14) Blood Urea Nitrogen 44 mg/dL (8-26) Creatinine 5.2 mg/dL (0.7-1.3) Estimated GFR (Cockcroft-Gault) 10.7 Glucose Level 149 mg/dL (70-99) Calcium Level 8.6 mg/dL (8.5-10.1) Phosphorus Level 3.4 mg/dL (2.6-4.7) Albumin 2.2 g/dL (3.4-5.0) Random Vancomycin Level 15.2 mcg/mL Glucose (Fingerstick) 158 mg/dL (70-99) 142 mg/dL (70-99) Results All relevant outside records, renal labs, imaging studies, telemetry/EKG's were reviewed. FLOYD TAMAYO MD July 12, 2018 13:30
[2018-07-12 15:00] VITALS: BP 113/61
[2018-07-12 19:00] VITALS: BP 112/66
[2018-07-12] MEDS: ATORVASTATIN CALCIUM 40 MG TABLET. PO SCH (20:58)
[2018-07-12] MEDS: INSULIN GLARGINE 300 UNITS/3 ML INSULN.PEN. SQ SCH (21:03)
--- NOTE | 2018-07-12 22:45 | PDOC ---
WILLIAM ONEILL STRATEGIC INSIGHTS LEAD 07/12/18 2245: CARDIO Progress Notes Date and Time Date of Service 07/12/2018 Time of Evaluation 1630 Subjective Subjective: No Chest Pain, No shortness of breath, No Palpitations, Other (sitting up on chaqir, no discomfort) Vitals Vitals Vital Signs Date Time Temp Pulse Resp B/P (MAP) Pulse Ox O2 Delivery O2 Flow Rate FiO2 07/12/18 19:45 Nasal Cannula 2.0 07/12/18 19:00 97.6 88 18 112/66 (81) 99 97.6 Weight Weight [ ] Input and Output Intake and Output Intake and Output 07/12/18 07:00 Intake Total 150 ml Balance 150 ml Intake Oral 150 ml # Bowel Movements 5 Laboratory Labs Laboratory Tests Test 07/12/18 06:35 07/12/18 07:52 07/12/18 12:13 07/12/18 16:18 Sodium Level 131 mmol/L (136-145) Potassium Level 4.7 mmol/L (3.5-5.1) Chloride Level 93 mmol/L (98-107) Carbon Dioxide Level 27 mmol/L (21-32) Anion Gap 11 (6-14) Blood Urea Nitrogen 44 mg/dL (8-26) Creatinine 5.2 mg/dL (0.7-1.3) Estimated GFR (Cockcroft-Gault) 10.7 Glucose Level 149 mg/dL (70-99) Calcium Level 8.6 mg/dL (8.5-10.1) Phosphorus Level 3.4 mg/dL (2.6-4.7) Albumin 2.2 g/dL (3.4-5.0) Random Vancomycin Level 15.2 mcg/mL Glucose (Fingerstick) 158 mg/dL (70-99) 142 mg/dL (70-99) 168 mg/dL (70-99) Test 07/12/18 20:54 Glucose (Fingerstick) 201 mg/dL (70-99) Microbiology Micro Microbiology 07/03/18 Anaerobic/Aerobic Culture - Final, Complete 07/03/18 Anaerobic Culture Result 1 (DEMETRA) - Final, Complete 07/03/18 Aerobic Culture - Final, Complete 07/03/18 Aerobic Culture Result 1 (DEMETRA) - Final, Complete 07/03/18 Aerobic Culture Result 2 (DEMETRA) - Final, Complete 07/03/18 Antimicrobic Susceptibility - Final, Complete 07/03/18 Gram Stain - Final, Complete 07/03/18 Gram Stain Result 1 (DEMETRA) - Final, Complete 07/03/18 Gram Stain Result 2 (DEMETRA) - Final, Complete Review of Systems Constitutional: yes: alert, oriented Ears/Nose/Throat: Yes: no symptom reported Eyes: Yes: no symptom reported Pulmonary: Yes no symptom reported Cardiovascular: Yes no symptom reported Gastrointestional: Yes: constipation Genitourinary: Yes: no symptom reported Musculoskeletal: Yes: joint pain Skin: Yes no symptom reported Psychiatric/Neurological: Yes: no symptom reported Endocrine: Yes: no symptom reported Physical Exam HEENT: Neck Supple W Full Motion Chest: Symmetric LUNGS: Other (basilar crackles) Heart: RRR Abdomen: Soft N/T Extremities: Other (2+ bilateral LE pitting edema) Neurology: alert, oriented, follow commands Assessment Assessment 1. Severe PAD; right second toe wound with cellulitis. Amputation pending. ID and vascular following 2. Acute on chronic systolic heart failure; SOA better 3. Cardiomyopathy LVEF 20-25%. Previously 40% per documentation during h ospitalization 01/201845. CAD s/p CABG in 2001. CP free. 4. Hypertension; marginal 5. DM2/HLP6. ESRD 6. MR, moderate Recommendations Fluid offloading via HD as per nephrology Continue BP meds per BP trend. Decrease imdur to accommodate low dose toprol. ACEi or ARB once BP is consitently adequate. Secondary prevention measures records not available for review to note if any recent ischemic workup if none recently then will need it further Discussed with RN, if any signs of tachy or bradycardia then may transfer to for telemetry needs. Supportive care Follow up with Dr. Pace in cardiology NADINE RFASER MD 07/13/18 1653: CARDIO Progress Notes Assessment Assessment Patient seen and examined 07/12/18. Agree with FIRE ENGINE PUMP OPERATOR's assessment and plan. Acute on chronic systolic HF better compensated Continue fluid removal with HD per nephrology Vascular surgery following for PAD WILLIAM ONEILL APRN July 12, 2018 22:45 NADINE FRASER MD July 13, 2018 16:53
[2018-07-12 23:23] VITALS: BP 123/45
[2018-07-13 03:00] VITALS: BP 110/78
[2018-07-13 04:54] LABS: ALBUMIN 2.1 g/dL (3.4-5.0); CALCIUM 8.9 mg/dL (8.5-10.1); CREATININE 5.9 mg/dL (0.7-1.3); GFR 9.2; PHOSPHORUS 3.5 mg/dL (2.6-4.7); POTASSIUM 4.4 mmol/L (3.5-5.1)
[2018-07-13] MEDS: PIPERACILLIN/TAZOBACTAM 2.25 GM in IV NORMAL SALINE 50ML 50 ML IV SCH ×3 (06:21→22:27)
[2018-07-13] MEDS: PANTOPRAZOLE 40 MG TABLET.DR. PO SCH (06:22)
[2018-07-13 07:00] VITALS: BP 104/55
[2018-07-13] MEDS: BUDESONIDE 0.5 MG/2 ML NEBU. NEB SCH ×2 (07:20→19:30)
[2018-07-13] MEDS: ALBUTEROL SULFATE 2.5 MG/3 ML NEBU. NEB SCH ×4 (07:20→19:29)
[2018-07-13] MEDS: INSULIN LISPRO 300 UNITS/3 ML INSULN.PEN. SQ SCH ×3 (08:00→17:00)
[2018-07-13] MEDS: ASPIRIN ENTERIC COATED 81 MG TABLET.DR. PO SCH (08:49)
[2018-07-13] MEDS: SODIUM BICARBONATE 650 MG TABLET. PO SCH ×3 (08:49→22:26)
[2018-07-13] MEDS: TAMSULOSIN 0.4 MG CAP.ER.24H. PO SCH (08:49)
[2018-07-13] MEDS: CALCIUM ACETATE 667 MG CAPSULE PO SCH ×3 (08:49→16:30)
[2018-07-13] MEDS: FLUTICASONE 50MCG/NASAL SPRAY 16GM BOTTLE. NS SCH (08:49)
[2018-07-13] MEDS: GABAPENTIN 100 MG CAPSULE. PO SCH (08:49)
[2018-07-13] MEDS: LACTOBACILLUS RHAMNOSUS GG 1 CAPSULE. PO SCH ×2 (08:49→22:26)
[2018-07-13] MEDS: FERROUS SULFATE 325 MG TABLET. PO SCH (08:49)
[2018-07-13] MEDS: TORSEMIDE 20 MG TABLET. PO SCH ×2 (08:50→16:00)
[2018-07-13] MEDS: MICAFUNGIN 100 MG in IV DEXTROSE 5% 100ML 100 ML IV SCH (08:55)
[2018-07-13] MEDS ORDERED: ISOSORBIDE MONONITRATE ER 30 MG TAB.ER.24H PO SCH (09:00)
[2018-07-13] MEDS ORDERED: METOPROLOL SUCC 24HR ER 25 MG TAB.ER.24H. PO SCH (09:00)
--- NOTE | 2018-07-13 09:40 | PDOC ---
IM PROGRESS NOTES- Subjective Subjective Not feeling well. Complains of dyspnea. Patient declined dialysis yesterday. I told him that he has dialysis this afternoon he states that it does not help his dyspnea. Objective Vitals Vital Signs Date Time Temp Pulse Resp B/P (MAP) Pulse Ox O2 Delivery O2 Flow Rate FiO2 07/13/18 08:53 94 104/55 07/13/18 07:20 97 Nasal Cannula 2.0 07/13/18 07:00 97.8 20 97.8 Input & Output Intake and Output 07/13/18 07:00 Intake Total 150 ml Output Total 0 ml Balance 150 ml Intake Oral 100 ml IV Total 50 ml Output Urine Total 0 ml # Bowel Movements 1 Physical Exam Physical Exam General appearance - alert, chronically ill-appearing, has anasarca and in mild respiratory distress Head - normal Chest -decreased breath sounds bilaterally, mild tachypnea. Heart - S1 and S2 normal Abdomen - soft, nontender, nondistended, no masses or organomegaly Neurological - alert and oriented Musculoskeletal - no muscular tenderness noted Extremities -2-3+ edema. He also has anasarca. Skin - warm and dry, and pleasant. Labs Laboratory Tests Test 07/11/18 11:37 07/11/18 14:53 07/11/18 15:30 07/11/18 16:52 Glucose (Fingerstick) 106 mg/dL (70-99) 96 mg/dL (70-99) 123 mg/dL (70-99) O2 Saturation 99 % (92-99) Arterial Blood pH 7.50 (7.35-7.45) Arterial Blood pCO2 at Patient Temp 32 mmHg (35-46) Arterial Blood pO2 at Patient Temp 175 mmHg (65-108) Arterial Blood HCO3 24 mmol/L (21-28) Arterial Blood Base Excess 1 mmol/L (-3-3) FiO2 50 Test 07/11/18 20:43 07/12/18 06:35 07/12/18 07:52 07/12/18 12:13 Glucose (Fingerstick) 222 mg/dL (70-99) 158 mg/dL (70-99) 142 mg/dL (70-99) Sodium Level 131 mmol/L (136-145) Potassium Level 4.7 mmol/L (3.5-5.1) Chloride Level 93 mmol/L (98-107) Carbon Dioxide Level 27 mmol/L (21-32) Anion Gap 11 (6-14) Blood Urea Nitrogen 44 mg/dL (8-26) Creatinine 5.2 mg/dL (0.7-1.3) Estimated GFR (Cockcroft-Gault) 10.7 Glucose Level 149 mg/dL (70-99) Calcium Level 8.6 mg/dL (8.5-10.1) Phosphorus Level 3.4 mg/dL (2.6-4.7) Albumin 2.2 g/dL (3.4-5.0) Random Vancomycin Level 15.2 mcg/mL Test 07/12/18 16:18 07/12/18 20:54 07/13/18 03:55 07/13/18 07:49 Glucose (Fingerstick) 168 mg/dL (70-99) 201 mg/dL (70-99) 145 mg/dL (70-99) Sodium Level 129 mmol/L (136-145) Potassium Level 4.4 mmol/L (3.5-5.1) Chloride Level 91 mmol/L (98-107) Carbon Dioxide Level 25 mmol/L (21-32) Anion Gap 13 (6-14) Blood Urea Nitrogen 58 mg/dL (8-26) Creatinine 5.9 mg/dL (0.7-1.3) Estimated GFR (Cockcroft-Gault) 9.2 Glucose Level 182 mg/dL (70-99) Calcium Level 8.9 mg/dL (8.5-10.1) Phosphorus Level 3.5 mg/dL (2.6-4.7) Albumin 2.1 g/dL (3.4-5.0) Laboratory Tests Test 07/12/18 12:13 07/12/18 16:18 07/12/18 20:54 07/13/18 03:55 Glucose (Fingerstick) 142 mg/dL (70-99) 168 mg/dL (70-99) 201 mg/dL (70-99) Sodium Level 129 mmol/L (136-145) Potassium Level 4.4 mmol/L (3.5-5.1) Chloride Level 91 mmol/L (98-107) Carbon Dioxide Level 25 mmol/L (21-32) Anion Gap 13 (6-14) Blood Urea Nitrogen 58 mg/dL (8-26) Creatinine 5.9 mg/dL (0.7-1.3) Estimated GFR (Cockcroft-Gault) 9.2 Glucose Level 182 mg/dL (70-99) Calcium Level 8.9 mg/dL (8.5-10.1) Phosphorus Level 3.5 mg/dL (2.6-4.7) Albumin 2.1 g/dL (3.4-5.0) Test 07/13/18 07:49 Glucose (Fingerstick) 145 mg/dL (70-99) Meds Current Medications Isosorbide Mononitrate (Imdur) 30 mg DAILY PO Last administered on 07/13/18at 08:53; Start 07/13/18 at 09:00 Metoprolol Succinate (Toprol Xl) 25 mg DAILY PO Last administered on 07/13/18at 08:50; Start 07/13/18 at 09:00 Assessment Assessment FINAL IMPRESSION: SOB due to chf and fluid overload, ac on ch systolic heart failure 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 Right second toe ulcer with underlying osteomyelitis. The ulcer is deep to the joint into the bone, interphalangeal joint. 2. Diabetes, insulin-dependent. 3. Coronary artery disease, previous bypass surgery. 4. End-stage renal disease, dialysis. 5. Chronic systolic heart failure, ejection fraction 20%. 6. Hypertension. 7. Hyperlipidemia. 8. History of previous toe amputation. 9. Diabetic neuropathy. PLAN: Patient declined hemodialysis yesterday. Today he is going to have dialysis but he does not believe there will help his breathing. His long-term as well as short-term prognosis is very poor. Hopefully he will have his vascular procedure done on Sunday. Hyponatremia- sodium was 129 yesterday. Plan Plan For more details regarding further plans, please refer to the orders. MELIZA BYERS MD July 13, 2018 09:40
--- NOTE | 2018-07-13 10:26 | PDOC ---
PULMONARY PROGRESS NOTES Subjective mild soa, no de -sat Vitals Vital Signs Date Time Temp Pulse Resp B/P (MAP) Pulse Ox O2 Delivery O2 Flow Rate FiO2 07/13/18 08:53 94 104/55 07/13/18 08:00 Nasal Cannula 2.0 07/13/18 07:20 97 07/13/18 07:00 97.8 20 97.8 General: Alert, No acute distress HEENT: Other Lungs: Clear Cardiovascular: S1, S2 Abdomen: Soft, Non-tender Extremities: Other (2+edema) Labs Laboratory Tests Test 07/11/18 11:37 07/11/18 14:53 07/11/18 15:30 07/11/18 16:52 Glucose (Fingerstick) 106 mg/dL (70-99) 96 mg/dL (70-99) 123 mg/dL (70-99) O2 Saturation 99 % (92-99) Arterial Blood pH 7.50 (7.35-7.45) Arterial Blood pCO2 at Patient Temp 32 mmHg (35-46) Arterial Blood pO2 at Patient Temp 175 mmHg (65-108) Arterial Blood HCO3 24 mmol/L (21-28) Arterial Blood Base Excess 1 mmol/L (-3-3) FiO2 50 Test 07/11/18 20:43 07/12/18 06:35 07/12/18 07:52 07/12/18 12:13 Glucose (Fingerstick) 222 mg/dL (70-99) 158 mg/dL (70-99) 142 mg/dL (70-99) Sodium Level 131 mmol/L (136-145) Potassium Level 4.7 mmol/L (3.5-5.1) Chloride Level 93 mmol/L (98-107) Carbon Dioxide Level 27 mmol/L (21-32) Anion Gap 11 (6-14) Blood Urea Nitrogen 44 mg/dL (8-26) Creatinine 5.2 mg/dL (0.7-1.3) Estimated GFR (Cockcroft-Gault) 10.7 Glucose Level 149 mg/dL (70-99) Calcium Level 8.6 mg/dL (8.5-10.1) Phosphorus Level 3.4 mg/dL (2.6-4.7) Albumin 2.2 g/dL (3.4-5.0) Random Vancomycin Level 15.2 mcg/mL Test 07/12/18 16:18 07/12/18 20:54 07/13/18 03:55 07/13/18 07:49 Glucose (Fingerstick) 168 mg/dL (70-99) 201 mg/dL (70-99) 145 mg/dL (70-99) Sodium Level 129 mmol/L (136-145) Potassium Level 4.4 mmol/L (3.5-5.1) Chloride Level 91 mmol/L (98-107) Carbon Dioxide Level 25 mmol/L (21-32) Anion Gap 13 (6-14) Blood Urea Nitrogen 58 mg/dL (8-26) Creatinine 5.9 mg/dL (0.7-1.3) Estimated GFR (Cockcroft-Gault) 9.2 Glucose Level 182 mg/dL (70-99) Calcium Level 8.9 mg/dL (8.5-10.1) Phosphorus Level 3.5 mg/dL (2.6-4.7) Albumin 2.1 g/dL (3.4-5.0) Laboratory Tests Test 07/12/18 12:13 07/12/18 16:18 07/12/18 20:54 07/13/18 03:55 Glucose (Fingerstick) 142 mg/dL (70-99) 168 mg/dL (70-99) 201 mg/dL (70-99) Sodium Level 129 mmol/L (136-145) Potassium Level 4.4 mmol/L (3.5-5.1) Chloride Level 91 mmol/L (98-107) Carbon Dioxide Level 25 mmol/L (21-32) Anion Gap 13 (6-14) Blood Urea Nitrogen 58 mg/dL (8-26) Creatinine 5.9 mg/dL (0.7-1.3) Estimated GFR (Cockcroft-Gault) 9.2 Glucose Level 182 mg/dL (70-99) Calcium Level 8.9 mg/dL (8.5-10.1) Phosphorus Level 3.5 mg/dL (2.6-4.7) Albumin 2.1 g/dL (3.4-5.0) Test 07/13/18 07:49 Glucose (Fingerstick) 145 mg/dL (70-99) Medications Active Scripts Medications Dose Route/Sig Max Daily Dose Days Date Category Slo-Niacin (Niacin) 500 Mg Tablet.er 500 Mg PO BID 07/03/18 Reported Lantus Solostar (Insulin Glargine,Hum.rec.anlog) 100 Unit/1 Ml Insuln.pen 35 Unit SQ QHS 07/03/18 Reported Gabapentin 600 Mg Tablet 100 Mg PO DAILY 07/03/18 Reported Isosorbide Mononitrate Er (Isosorbide Mononitrate) 30 Mg Tab.er.24h 2 Tab PO DAILY 07/03/18 Reported Clopidogrel (Clopidogrel Bisulfate) 75 Mg Tablet 1 Tab PO DAILY 07/03/18 Reported NITROGLYCERIN SubLingual (Nitroglycerin) 0.4 Mg Tab.subl 1 Tab SL UD 07/03/18 Reported Atorvastatin Calcium 80 Mg Tablet 1 Tab PO QHS 07/03/18 Reported Ferrous Sulfate 325 Mg Tablet 1 Tab PO DAILY 07/03/18 Reported Aspir-Low (Aspirin) 81 Mg Tablet.dr 1 Tab PO DAILY 07/03/18 Reported Calcium Acetate 667 Mg Tablet 1,334 Mg PO TIDWMEALS 07/03/18 Reported Imodium A-D (Loperamide Hcl) 1 Mg/7.5 Ml Liquid 1 Mg PO PRN Q4HRS 07/03/18 Reported Gas Relief (Simethicone) 125 Mg Capsule 125 Mg PO PRN TID PRN 07/03/18 Reported Torsemide 20 Mg Tablet 1 Tab PO BID 07/03/18 Reported [place] 5-325 Tablet (Acetaminophen/Hydrocodone Bitart) 1 Each Tablet 1 Tab PO PRN Q6HRS PRN 07/03/18 Reported [Pantoprazole] 40 MG Tablet.dr 40 Mg PO DAILYAC 30 02/10/18 Rx Polyethylene Glycol 3350 17 Gm Powd.pack 17 Gm PO PRN DAILY PRN 30 02/10/18 Rx Fluticasone Propionate Nasal [place] (Fluticasone Propionate) 16 Gm [place].susp 2 [place] NS DAILY 30 02/10/18 Rx Advair 250-50 Diskus (Fluticasone/Salmeterol) 1 Each Disk.w.dev 1 Puff IH BID 02/08/18 Rx Zofran (Ondansetron Hcl) 4 Mg Tablet 4 Mg PO BID PRN 05/20/16 Rx Celia-Alyssa Rx Tablet (Vit B Cmplx 3/Fa/Vit C/Biotin) 1 Each Tablet 1 Each PO 09/11/15 Reported Tamsulosin Hcl 0.4 Mg Cap.er.24h 1 Cap PO DAILY 02/01/14 Reported Sodium Bicarbonate 650 Mg Tablet 1 Tab PO TID 02/01/14 Reported Impression . 1. Acute hypoxic respiratory failure secondary to acute on chronic systolic heart failure. 2. Abnormal chest x-ray consistent with mild congestive heart failure. 3. Cardiomyopathy with an ejection fraction of 20%, being followed by Cardiology. 4. End-stage renal disease, on dialysis. 5. History of moderate mitral regurgitation and secondary pulmonary hypertension. 6. Suspected underlying chronic obstructive pulmonary disease from 55 years of tobacco use. 7. Severe protein-calorie malnutrition. Plan . 1. Continue with present oxygen via nasal cannula, keep saturation 92%-94%. 2. We will need increased ultrafiltration with hemodialysis. 3. Follow renal recommendations. 4. Follow Cardiology recommendations. 5. No clinical suspicion for pneumonia. 6. Bronchodilators. 7. Antibiotics per Infectious Disease. 8. Follow Vascular Surgery recommendations. 9. Discussed with RN and Cardiology. DIONTE MORA MD July 13, 2018 10:26
[2018-07-13 11:00] VITALS: BP 98/50
--- NOTE | 2018-07-13 11:49 | PDOC ---
Infectious Disease Note Subjective Subjective Comfortable, denies pain Denies N/V/cramps/F/C/S ROS ROS per HPI Vital Sign Vital Signs Vital Signs Date Time Temp Pulse Resp B/P (MAP) Pulse Ox O2 Delivery O2 Flow Rate FiO2 07/13/18 11:23 97 Nasal Cannula 2.0 07/13/18 08:53 94 104/55 07/13/18 07:00 97.8 20 97.8 Physical Exam PHYSICAL EXAM GENERAL: Propped up in bed, looks tired HENT: Oral cavity clear LUNGS: Clear CARDIOVASCULAR: S1 and S2. ABDOMEN: Soft, NT, ND. EXTREMITIES: 2+ edema in both lower extremities. Right toes bandaged,,no area redness NEUROLOGIC: Alert, responds appropriately SKIN: No rash. RIJ/HDC without signs of complications PIV ok Labs Lab Laboratory Tests Test 07/12/18 12:13 07/12/18 16:18 07/12/18 20:54 07/13/18 03:55 Glucose (Fingerstick) 142 mg/dL (70-99) 168 mg/dL (70-99) 201 mg/dL (70-99) Sodium Level 129 mmol/L (136-145) Potassium Level 4.4 mmol/L (3.5-5.1) Chloride Level 91 mmol/L (98-107) Carbon Dioxide Level 25 mmol/L (21-32) Anion Gap 13 (6-14) Blood Urea Nitrogen 58 mg/dL (8-26) Creatinine 5.9 mg/dL (0.7-1.3) Estimated GFR (Cockcroft-Gault) 9.2 Glucose Level 182 mg/dL (70-99) Calcium Level 8.9 mg/dL (8.5-10.1) Phosphorus Level 3.5 mg/dL (2.6-4.7) Albumin 2.1 g/dL (3.4-5.0) Test 07/13/18 07:49 Glucose (Fingerstick) 145 mg/dL (70-99) Micro AEROBIC RES 1 Preliminary Staphylococcus aureus 4+ AEROBIC RES 2 Preliminary Streptococcus species Objective Assessment Right second toe wound. MRSA and amp-S enterococcus Tinea/onychomycosis CKD on HD DM PVD Plan Plan of Care Cont Vanc, Zosyn and micafungin Random trough 5.2 F/u labs and cults Awaiting vascular procedure Patient seen, examined, I agree with above Assessment and plan by CANE PUSHER. LOIS FARRELL APRN July 13, 2018 11:49 KRYSTLE VIERA MD July 13, 2018 13:55
[2018-07-13] MEDS ORDERED: SODIUM BICARB ADULT 8.4% 50 MEQ/50 ML DISP.SYRIN. ONE ×2 (12:00→22:00)
[2018-07-13] MEDS ORDERED: EPINEPHrine SYRINGE 1 MG/10 ML SYRINGE ONE ×2 (12:00→22:00)
--- NOTE | 2018-07-13 12:23 | PDOC ---
Renal-Progress Notes Subjective Notes Notes NOTHING NEW History of Present Illness Hx of present illness STABLE Vitals Vitals Vital Signs Date Time Temp Pulse Resp B/P (MAP) Pulse Ox O2 Delivery O2 Flow Rate FiO2 07/13/18 11:23 97 Nasal Cannula 2.0 07/13/18 08:53 94 104/55 07/13/18 07:00 97.8 20 97.8 Weight Weight [ ] I.O. Intake and Output Intake and Output 07/13/18 07:00 Intake Total 150 ml Output Total 0 ml Balance 150 ml Intake Oral 100 ml IV Total 50 ml Output Urine Total 0 ml # Bowel Movements 1 Labs Labs Laboratory Tests Test 07/12/18 16:18 07/12/18 20:54 07/13/18 03:55 07/13/18 07:49 Glucose (Fingerstick) 168 mg/dL (70-99) 201 mg/dL (70-99) 145 mg/dL (70-99) Sodium Level 129 mmol/L (136-145) Potassium Level 4.4 mmol/L (3.5-5.1) Chloride Level 91 mmol/L (98-107) Carbon Dioxide Level 25 mmol/L (21-32) Anion Gap 13 (6-14) Blood Urea Nitrogen 58 mg/dL (8-26) Creatinine 5.9 mg/dL (0.7-1.3) Estimated GFR (Cockcroft-Gault) 9.2 Glucose Level 182 mg/dL (70-99) Calcium Level 8.9 mg/dL (8.5-10.1) Phosphorus Level 3.5 mg/dL (2.6-4.7) Albumin 2.1 g/dL (3.4-5.0) Micro Micro Microbiology 07/03/18 Anaerobic/Aerobic Culture - Final, Complete 07/03/18 Anaerobic Culture Result 1 (DEMETRA) - Final, Complete 07/03/18 Aerobic Culture - Final, Complete 07/03/18 Aerobic Culture Result 1 (DEMETRA) - Final, Complete 07/03/18 Aerobic Culture Result 2 (DEMETRA) - Final, Complete 07/03/18 Antimicrobic Susceptibility - Final, Complete 07/03/18 Gram Stain - Final, Complete 07/03/18 Gram Stain Result 1 (DEMETRA) - Final, Complete 07/03/18 Gram Stain Result 2 (DEMETRA) - Final, Complete Review of Systems Constitutional: yes: alert, oriented Ears/Nose/Throat: Yes: no symptom reported Eyes: Yes: no symptom reported Pulmonary: Yes no symptom reported Cardiovascular: Yes no symptom reported Gastrointestional: Yes: constipation Genitourinary: Yes: no symptom reported Musculoskeletal: Yes: joint pain Skin: Yes no symptom reported Psychiatric/Neurological: Yes: no symptom reported Endocrine: Yes: no symptom reported Physical Exam General Appearance: no apparent distress Skin: warm Respiratory: bilateral CTA Heart: S1S2 Abdomen: soft, bowel sounds present Genitourinary: bladder flat Extremities: pulses present, edema Neurology: alert, oriented, follow commands Musculoskeletal: Osteoarthritis Assessment Assessment IMP ESRD-TTS R 2ND TOE OSTEO DM II HTN ANEMIA CM WITH EF OF 20% HX OF CAD PLAN ABX WOUND CARE ARANESP HD TODAY UF TO DW REGINO LOPEZ MD July 13, 2018 12:23
[2018-07-13] MEDS: VANCOMYCIN PER PHARMACY MC PRN (14:33)
[2018-07-13] MEDS ORDERED: IV NORMAL SALINE 1000ML BAG 1,000 ML IV PRN ×2 (15:31)
[2018-07-13] MEDS ORDERED: 0.9 % SODIUM CHLORIDE 10 ML DISP.SYRIN. IV PRN ×2 (15:45)
[2018-07-13] MEDS ORDERED: DIALYSIS PATIENT. MC PRN ×2 (15:45)
[2018-07-13] MEDS ORDERED: ALBUMIN HUMAN 25% 200 ML IV PRN (15:45)
[2018-07-13] MEDS: VANCOMYCIN 500 MG in IV NORMAL SALINE 100ML 100 ML IV SCH (16:00)
--- NOTE | 2018-07-13 19:05 | NUR ---
Patient returned from dialysis. Report was received from Nathaniel. Patient last BP prior to returning to the floor was 98/52. During dialysis 0.5 kg was taken off the patient during treatment. Patient needed to bottles of albumin per Nathaniel during dialysis because patients BP had bottomed out to 59/xx. Will continue to monitor the patient.
[2018-07-13 19:30] VITALS: BP 130/56
--- NOTE | 2018-07-13 21:15 | NUR ---
Dr. Jones's office contacted in regards to patient's status and low blood pressures. Dr. Anderson returned call and was notified of the situation by this RN, and may recommendation to transfer patient to the ICU or CVC for closer observation. Also contacted Dr. Enrique to inform him of the status of the patient and to see if he wanted to have any orders placed for transfer. No orders received at this time. Dr. Enrique agreed patient should goto the ICU or CVC for further observation. Contacted nursing instrumentation supervisor, and setup for patient to be transferred to the CVC room 263. Report was called down to Jeyson GALLARDO at 2224. Will continue to monitor patient.
[2018-07-13] MEDS: ATORVASTATIN CALCIUM 40 MG TABLET. PO SCH (22:26)
[2018-07-13] MEDS: INSULIN GLARGINE 300 UNITS/3 ML INSULN.PEN. SQ SCH (22:34)
[2018-07-13] MEDS: HYDROcodone/APAP 5/325MG 1 TAB TABLET PO PRN (22:45)
--- NOTE | 2018-07-13 22:55 | NUR ---
Went into patients room to transfer patient to bed from chair. Patient reported being SOB. Rested on edge of chair to catch breathe. Patient then transferred to the bed using a pivot maneuver by this RN. Patient requested to rest on edge of bed again due to SOB. At this time I went to get the aide Jeff Fuentes to assist me in transferring patient down to room 260. At this time we assisted patient to lay back in bed and helped put feet on bed. We then boosted the patient up in bed. At this moment patient began to agonally breath. I went to retrieve vital machine cart from the bathroom in room. While hooking up BP cuff noticed the patient to be unresponsive, then began tapping patient on chest and performed sternal rub with no reaction. Checked patients pulse, patient had no pulse. I instructed the aide to hit the CODE BLUE button and initiate compressions while I retrieved the code cart. From this moment forward please refer to the Code summary sheet for further details.
--- NOTE | 2018-07-13 23:25 | NUR ---
Patient transferred to ICU room 113. Gave report to Jono WIRE WEAVING LOOM SETTER.
[2018-07-13 23:55] LABS: HEMATOCRIT 30.7 % (39.0-53.0); HEMOGLOBIN 9.4 g/dL (13.0-17.5)
[2018-07-14] VITALS (9 sets, daily range): BP systolic 69–118; BP diastolic 37–54
[2018-07-14 00:06] LABS: CALCIUM 8.5 mg/dL (8.5-10.1); CREATININE 4.3 mg/dL (0.7-1.3); GFR 13.3; MAGNESIUM 2.2 mg/dL (1.8-2.4); PHOSPHORUS 3.3 mg/dL (2.6-4.7); POTASSIUM 4.4 mmol/L (3.5-5.1)
[2018-07-14] MEDS ORDERED: fentaNYL PF VIAL 100 MCG/2 ML VIAL IV PRN ×2 (00:30)
[2018-07-14] MEDS ORDERED: MIDAZOLAM 100mg/100ml NS BAG 100 ML IV PRN (00:30)
[2018-07-14] MEDS ORDERED: PROPOFOL 100 ML IV PRN (00:30)
[2018-07-14] MEDS ORDERED: VASOPRESSIN 40 UNIT in IV DEXTROSE 5% 100ML 100 ML IV PRN (02:15)
--- NOTE | 2018-07-14 02:30 | PDOC5 ---
CODE REPORT CODE REPORT I was called to a [facility] at 2301. I arrived at approximately 2303. Patient had a apparently witnessed cardiac arrest he was having issues with hypoxia trouble breathing he basically just went over while they were trying to transfer him and he became pulseless and apneic. I immediately Attention to his airway we did bag valve mask with supplemental oxygen I have asked for a Mac 4 blade we ended up trying to glad scope Mac 4 blade initially was unavailable. Glyde scope was difficult I could not pass the 7.5 tube the patient did have some swelling of his vocal cords and was anterior. I did pull out we did eventually get a Mac 4 blade. Second attempt patient was gagging he had obtained return of sponta neous circulation in the interim. Third attempt we did paralyze the patient with rocuronium. I then got a grade 2 view again the vocal cords were swollen but I was able to pass a 7.5 tube we confirmed this with end-tidal CO2 as well as bilateral breath sounds it was 24 at the lips. I did later review the post intubation chest x-ray the tube did appear to be just at the border of the right mainstem bronchus I called Jono at 2:20 AM I asked him to pull the tube back 1 cm he will do so. Total downtime was approximately 10 minutes As far as the code goes the patient received ACLS protocol he he received epinephrine sodium bicarbonate calcium gluconate potassium was 4.4 this morning according to nursing staff apparently did have a hypotensive episode while on dialysis earlier in the day. Blood pressure upon initial return of spontaneous circulation was 133/110 with tachycardia. I did then get called back to the emergency room for continued management of multiple traumas that were occurring simultaneously. I did ask Jono from the nursing ICU staff will have this patient to contact the critical care doctor for further orders and management of this post code patient, to include postresuscitation EKG labs pressor management further evaluation of the care of the patient. BONG ARRIOLA MD July 14, 2018 02:30
--- NOTE | 2018-07-14 02:40 | NUR ---
Responded to code blue on 4N, pt intubated by ED physician with ROSC at 0011. Pt. subsequently transferred to ICU room 111. Initially unable to obtain a blood pressure reading on pt. Levophed gtt initiated and rapidly titrated to maximum of 30 mcg/min to which pt. responded well. Notified Dr. Brand of pt's current condition, orders received. Notified Dr. Anderson of pt's current condition, orders received. Several family members at bedside, discussed current condition extensively. ~0130 Pt. became responsive, opening eyes to commands, squeezes hand when asked. 0200 pt. became hypotensive despite max dose levophed, Dr. Anderson paged and updated orders received, discussed sepsis protocol, no fluid bolus due to pulmonary hypertension, CKD and EF of 20%, to add vasopressin and dopamine gtts. Dr. Yeung phoned from ED re: post intubation chest X-Ray, ETT to be pulled back 1cm, completed.
[2018-07-14 02:55] LABS: BASE EXCESS ABG -3 mmol/L (-3-3); CORRECTED PCO2 ABG 45 mmHg; CORRECTED PH ABG 7.32; HCO3 ABG 23 mmol/L (21-28); SAT O2 ABG 99 % (92-99)
[2018-07-14 02:56] LABS: PCO2 ABG 43 mmHg (35-46); PO2 ABG 425 mmHg (65-108)
[2018-07-14 02:58] LABS: CORRECTED PO2 ABG 433 mmHg; FIO2 ABG 100
[2018-07-14] MEDS ORDERED: ROCURONIUM 50 MG/5 ML VIAL. ONE (04:02)
[2018-07-14] MEDS: NOREPINEPHRIN 8MG/250ML PREMIX 250 ML IV PRN ×2 (04:42)
[2018-07-14] MEDS: PIPERACILLIN/TAZOBACTAM 2.25 GM in IV NORMAL SALINE 50ML 50 ML IV SCH (06:14)
--- NOTE | 2018-07-14 07:29 | PDOC ---
IM PROGRESS NOTES- Subjective Subjective Patient had low BP in 50's with HD and only 1/2 liter fluid could be removed and he was given a lot of Albumin.Later on he was transferred to ICU due to low Bp and coded and intubated and is now on multiple pressure drips.Patient is awake and denies pain or dyspnea.Unable to do full systems review. Objective Vitals Vital Signs Date Time Temp Pulse Resp B/P (MAP) Pulse Ox O2 Delivery O2 Flow Rate FiO2 07/14/18 06:00 127 20 85/47 (60) 100 Ventilator 07/14/18 04:00 98.5 98.5 07/13/18 20:00 2.0 Input & Output Intake and Output 07/14/18 06:59 Intake Total 408 ml Balance 408 ml IV Total 408 ml # Bowel Movements 1 Physical Exam Physical Exam General appearance - alert, chronically ill-appearing, has anasarca and on mechanical ventilation. Head - normal Chest -decreased breath sounds bilaterally, mild tachypnea. Heart - S1 and S2 normal,tachycardia Abdomen - soft, nontender, nondistended, no masses or organomegaly Neurological - alert and oriented Musculoskeletal - no muscular tenderness noted Extremities -2-3+ edema. He also has anasarca. Skin - warm and dry,foot wound Labs Laboratory Tests Test 07/12/18 07:52 07/12/18 12:13 07/12/18 16:18 07/12/18 20:54 Glucose (Fingerstick) 158 mg/dL (70-99) 142 mg/dL (70-99) 168 mg/dL (70-99) 201 mg/dL (70-99) Test 07/13/18 03:55 07/13/18 07:49 07/13/18 11:52 07/13/18 20:49 Sodium Level 129 mmol/L (136-145) Potassium Level 4.4 mmol/L (3.5-5.1) Chloride Level 91 mmol/L (98-107) Carbon Dioxide Level 25 mmol/L (21-32) Anion Gap 13 (6-14) Blood Urea Nitrogen 58 mg/dL (8-26) Creatinine 5.9 mg/dL (0.7-1.3) Estimated GFR (Cockcroft-Gault) 9.2 Glucose Level 182 mg/dL (70-99) Calcium Level 8.9 mg/dL (8.5-10.1) Phosphorus Level 3.5 mg/dL (2.6-4.7) Albumin 2.1 g/dL (3.4-5.0) Glucose (Fingerstick) 145 mg/dL (70-99) 161 mg/dL (70-99) 111 mg/dL (70-99) Test 07/13/18 23:40 07/14/18 00:45 07/14/18 01:30 Hemoglobin 9.4 g/dL (13.0-17.5) Hematocrit 30.7 % (39.0-53.0) Mean Corpuscular Hemoglobin Concent 31 g/dL (31-37) Sodium Level 131 mmol/L (136-145) Potassium Level 4.4 mmol/L (3.5-5.1) Chloride Level 94 mmol/L (98-107) Carbon Dioxide Level 22 mmol/L (21-32) Anion Gap 15 (6-14) Blood Urea Nitrogen 37 mg/dL (8-26) Creatinine 4.3 mg/dL (0.7-1.3) Estimated GFR (Cockcroft-Gault) 13.3 Glucose Level 120 mg/dL (70-99) Calcium Level 8.5 mg/dL (8.5-10.1) Phosphorus Level 3.3 mg/dL (2.6-4.7) Magnesium Level 2.2 mg/dL (1.8-2.4) O2 Saturation 99 % (92-99) Arterial Blood pH 7.34 (7.35-7.45) Arterial Blood pH (Temp corrected) 7.32 Arterial Blood pCO2 at Patient Temp 43 mmHg (35-46) Arterial Blood pCO2 (Temp correct) 45 mmHg Arterial Blood pO2 at Patient Temp 425 mmHg (65-108) Arterial Blood pO2 (Temp corrected) 433 mmHg Arterial Blood HCO3 23 mmol/L (21-28) Arterial Blood Base Excess -3 mmol/L (-3-3) FiO2 100 Lactic Acid Level 8.1 mmol/L (0.4-2.0) Laboratory Tests Test 07/13/18 07:49 07/13/18 11:52 07/13/18 20:49 07/13/18 23:40 Glucose (Fingerstick) 145 mg/dL (70-99) 161 mg/dL (70-99) 111 mg/dL (70-99) Hemoglobin 9.4 g/dL (13.0-17.5) Hematocrit 30.7 % (39.0-53.0) Mean Corpuscular Hemoglobin Concent 31 g/dL (31-37) Sodium Level 131 mmol/L (136-145) Potassium Level 4.4 mmol/L (3.5-5.1) Chloride Level 94 mmol/L (98-107) Carbon Dioxide Level 22 mmol/L (21-32) Anion Gap 15 (6-14) Blood Urea Nitrogen 37 mg/dL (8-26) Creatinine 4.3 mg/dL (0.7-1.3) Estimated GFR (Cockcroft-Gault) 13.3 Glucose Level 120 mg/dL (70-99) Calcium Level 8.5 mg/dL (8.5-10.1) Phosphorus Level 3.3 mg/dL (2.6-4.7) Magnesium Level 2.2 mg/dL (1.8-2.4) Test 07/14/18 00:45 07/14/18 01:30 O2 Saturation 99 % (92-99) Arterial Blood pH 7.34 (7.35-7.45) Arterial Blood pH (Temp corrected) 7.32 Arterial Blood pCO2 at Patient Temp 43 mmHg (35-46) Arterial Blood pCO2 (Temp correct) 45 mmHg Arterial Blood pO2 at Patient Temp 425 mmHg (65-108) Arterial Blood pO2 (Temp corrected) 433 mmHg Arterial Blood HCO3 23 mmol/L (21-28) Arterial Blood Base Excess -3 mmol/L (-3-3) FiO2 100 Lactic Acid Level 8.1 mmol/L (0.4-2.0) Meds Current Medications Albumin Human 200 ml @ 200 mls/hr 1X PRN PRN IV Hypotension; Start 07/13/18 at 15:45; Stop 07/13/18 at 21:44; Status DC Dopamine HCl/ Dextrose 250 ml @ 7.554 mls/ hr CONT PRN IV SEE I/O RECORD Last administered on 07/14/18at 02:32; Start 07/14/18 at 02:15 Fentanyl Citrate 30 ml @ 0 mls/hr CONT PRN IV SEE PROTOCOL; Start 07/14/18 at 00:30 Fentanyl Citrate (Fentanyl 2ml Vial) 25 mcg PRN Q1HR PRN IV SEE COMMENTS; Start 07/14/18 at 00:30 Fentanyl Citrate (Fentanyl 2ml Vial) 50 mcg PRN Q1HR PRN IV SEE COMMENTS Last administered on 07/14/18at 04:32; Start 07/14/18 at 00:30 Info (PHARMACY MONITORING -- do not chart) 1 each PRN DAILY PRN MC SEE COMMENTS; Start 07/13/18 at 15:45 Info (PHARMACY MONITORING -- do not chart) 1 each PRN DAILY PRN MC SEE COMMENTS; Start 07/13/18 at 15:45; Status UNV Isosorbide Mononitrate (Imdur) 30 mg DAILY PO Last administered on 07/13/18at 08:53; Start 07/13/18 at 09:00 Metoprolol Succinate (Toprol Xl) 25 mg DAILY PO Last administered on 07/13/18at 08:50; Start 07/13/18 at 09:00 Midazolam HCl 100 ml @ 0 mls/hr CONT PRN IV SEE PROTOCOL; Start 07/14/18 at 00:30 Norepinephrine Bitartrate 250 ml @ 1.875 mls/ hr CONT PRN IV SEE I/O RECORD Last administered on 07/14/18at 00:00; Start 07/13/18 at 23:30 Propofol 100 ml @ 0 mls/hr CONT PRN IV SEE PROTOCOL; Start 07/14/18 at 00:30 Rocuronium [place] (Zemuron) 50 mg STK-MED ONCE .ROUTE ; Start 07/14/18 at 04:02; Stop 07/14/18 at 04:03; Status DC Sodium Chloride 1,000 ml @ 400 mls/hr Q2H30M PRN IV PATENCY; Start 07/13/18 at 15:31; Stop 07/14/18 at 03:30; Status DC Sodium Chloride 1,000 ml @ 1,000 mls/hr Q1H PRN IV hypotension; Start 07/13/18 at 15:31; Stop 07/13/18 at 21:30; Status DC Sodium Chloride (Normal Saline Flush) 10 ml 1X PRN PRN IV AP catheter pack; Start 07/13/18 at 15:45; Stop 07/14/18 at 15:44 Sodium Chloride (Normal Saline Flush) 10 ml 1X PRN PRN IV DIABETES TERRITORY MANAGER catheter pack; Start 07/13/18 at 15:45; Stop 07/14/18 at 15:44 Vasopressin 40 unit/Dextrose 102 ml @ 6 mls/hr CONT PRN IV SEE I/O RECORD Last administered on 07/14/18at 02:26; Start 07/14/18 at 02:15 Assessment Assessment FINAL IMPRESSION: SOB due to chf and fluid overload, ac on ch systolic heart failure 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 Right second toe ulcer with underlying osteomyelitis. The ulcer is deep to the joint into the bone, interphalangeal joint. 2. Diabetes, insulin-dependent. 3. Coronary artery disease, previous bypass surgery. 4. End-stage renal disease, dialysis. 5. Chronic systolic heart failure, ejection fraction 20%. 6. Hypertension. 7. Hyperlipidemia. 8. History of previous toe amputation. 9. Diabetic neuropathy. PLAN: Patient had low BP in 50's with HD and only 1/2 liter fluid could be removed and he was given a lot of Albumin.Later on he was transferred to ICU due to low Bp and coded and intubated and is now on multiple pressure drips- Levophed,Dopamine,Vasopressin.Lactic acid 8.1 His long-term as well as short-term prognosis is very poor. Foot wound- MRSA,Enterococcus- on Vancomycin,Zosyn,Eraxis. Hyponatremia- Labs pending. Prognosis is extremely poor.Consider palliative care tomorrow. Plan Plan For more details regarding further plans, please refer to the orders. MELIZA BYERS MD July 14, 2018 07:29
--- NOTE | 2018-07-14 07:48 | RAD ---
EXAM: Chest, single view. HISTORY: Endotracheal tube placement. COMPARISON: 07/11/2018 FINDINGS: A frontal view of the chest obtained. There is an endotracheal tube within the right mainstem bronchus. There is a nasogastric tube within the stomach. There is a right central venous catheter with the tip in the right atrium. There has been slight interval increase in diffuse interstitial infiltrate. This is superimposed on suspected chronic interstitial changes. No pleural effusion or pneumothorax is seen. The heart is stable in size. There is evidence of prior CABG. IMPRESSION: 1. Endotracheal tube within the right mainstem bronchus. 2 retraction repeat imaging to confirm appropriate location is recommended. 2. Slight increase in diffuse interstitial infiltrate. Findings were discussed with Opal, the nurse caring for the patient, at 0745 hours on 07/14/2018. Electronically signed by: Claribel Mclean MD (07/14/2018 7:45 AM) [facility]
[2018-07-14 08:08] LABS: ALBUMIN 2.5 g/dL (3.4-5.0); CALCIUM 8.4 mg/dL (8.5-10.1); CREATININE 4.6 mg/dL (0.7-1.3); GFR 12.3
[2018-07-14 08:09] LABS: POTASSIUM 5.4 mmol/L (3.5-5.1)
--- NOTE | 2018-07-14 18:24 | PDOC5 ---
CODE REPORT CODE REPORT Code blue was activated for the patient in ICU that already was intubated and was on ventilator. Patient was quoted last night. Patient did not have a spontaneous breathing or heart activity. Patient was called at 0802. Please see CODE BLUE sheet for details. GERALD WANG MD July 14, 2018 18:24
--- NOTE | 2018-07-18 14:19 | PDOC ---
Provider Note Provider Note summary dictated,#[id number]. FLAVIA HOOVER MD July 18, 2018 14:19
--- NOTE | 2018-07-18 17:18 | DS ---
DATE OF DISCHARGE: 07/14/2018 SUMMARY DATE OF : 07/14/2018. REASON FOR ADMISSION TO THE HOSPITAL: 1. Right second toe osteomyelitis. 2. Peripheral vascular disease. 3. Diabetes. 4. End-stage renal disease. 5. Chronic systolic heart failure, ejection fraction 20%. 6. Severe coronary artery disease, history of previous bypass surgery. CONSULTATIONS: Dr. Murray, Dr. Brand, Dr. Ladarius Byers. PROCEDURES DONE: 1. Arteriogram. 2. Dialysis. 3. Arterial Doppler, venous Doppler and the patient had an arteriogram which shows severe vascular disease. HOSPITAL COURSE: The patient is an 82-year-old male. The patient is in bad health, has chronic systolic heart failure, 20% ejection fraction, bypass surgery 10 years ago and multiple stents. He has end-stage renal disease, on hemodialysis. He also had congestive heart failure, poor functional status. He has developed ulcer on the second toe, got progressively worse, now within the joint of the second toe, obvious osteomyelitis, was seen by Infectious Disease and was given vanco and Zosyn. The patient was seen by Vascular Surgery, had a venous Doppler negative for DVT; had arterial Doppler, decreased blood flow. The patient was seen by Vascular Surgery, had arteriogram with runoff. The patient was dialyzed while he was in the hospital and unfortunately his condition got progressively worse, more short of breath, gained fluid, in spite of dialysis his condition declined and the patient was supposed to go for amputation of the toe with intervention, but his condition declined that it was cancelled and on 07/14/2018, the patient had a code blue and the patient did not make to second code blue and the patient on 07/14/2018. FINAL DIAGNOSES: 1. Severe congestive heart failure, chronic, systolic.Acute on chronic. 2. Severe ischemic cardiomyopathy.s/p CABG and stents. 3. Congestive heart failure. 4. End-stage renal disease on dialysis. 5. Diabetes.IDDM. 6. Peripheral vascular disease. 7. Insulin-dependent diabetes. 8. Hypertension. 9. Hyperlipidemia. 10. Chronic osteomyelitis of the toe rt 2 nd toe. The patient from medical causes. FLAVIA HOOVER MD DR: ORLANDO/[place]uka JOB#: [id number] / [id number] Dr. BELIA Giron
== END 2018-07-14 08:03 | disposition expired | DRG 314 ==
LOC: 4 NORTH 15:32 → 1 WEST ICU 07-13 23:31
PROVIDERS: ADMIT Internal Medicine; ATTEND Internal Medicine
PROC: 5A1D70Z Performance of Urinary Filtration, Intermittent, Less than 6 Hours Per Day (ICD-10-PCS; 2018-07-04)
PROC: 5A1D70Z Performance of Urinary Filtration, Intermittent, Less than 6 Hours Per Day (ICD-10-PCS; 2018-07-06)
PROC: B41D1ZZ Fluoroscopy of Aorta and Bilateral Lower Extremity Arteries using Low Osmolar Contrast (ICD-10-PCS; principal; 2018-07-11)
PROC: 5A1D70Z Performance of Urinary Filtration, Intermittent, Less than 6 Hours Per Day (ICD-10-PCS; 2018-07-11)
PROC: 5A1935Z Respiratory Ventilation, Less than 24 Consecutive Hours (ICD-10-PCS; 2018-07-13)
PROC: 0BH17EZ Insertion of Endotracheal Airway into Trachea, Via Natural or Artificial Opening (ICD-10-PCS; 2018-07-13)
PROC: 5A1D70Z Performance of Urinary Filtration, Intermittent, Less than 6 Hours Per Day (ICD-10-PCS; 2018-07-14)
DX: T82.856A Stenosis of peripheral vascular stent, initial encounter (principal); E43 Unspecified severe protein-calorie malnutrition; I50.23 Acute on chronic systolic (congestive) heart failure; J96.01 Acute respiratory failure with hypoxia; N18.6 End stage renal disease; E11.52 Type 2 diabetes mellitus with diabetic peripheral angiopathy with gangrene; I13.2 Hypertensive heart and chronic kidney disease with heart failure and with stage 5 chronic kidney disease, or end stage renal disease; I42.9 Cardiomyopathy, unspecified; M86.8X8 Other osteomyelitis, other site; I70.261 Atherosclerosis of native arteries of extremities with gangrene, right leg; E87.1 Hypo-osmolality and hyponatremia; L97.516 Non-pressure chronic ulcer of other part of right foot with bone involvement without evidence of necrosis; E11.69 Type 2 diabetes mellitus with other specified complication; I46.9 Cardiac arrest, cause unspecified; L03.031 Cellulitis of right toe; B95.62 Methicillin resistant Staphylococcus aureus infection as the cause of diseases classified elsewhere; B95.2 Enterococcus as the cause of diseases classified elsewhere; E11.40 Type 2 diabetes mellitus with diabetic neuropathy, unspecified; E78.5 Hyperlipidemia, unspecified; B35.1 Tinea unguium; D64.9 Anemia, unspecified; E11.22 Type 2 diabetes mellitus with diabetic chronic kidney disease; E11.621 Type 2 diabetes mellitus with foot ulcer; I25.10 Atherosclerotic heart disease of native coronary artery without angina pectoris; E21.3 Hyperparathyroidism, unspecified; M15.4 Erosive (osteo)arthritis; Z79.4 Long term (current) use of insulin; Z82.49 Family history of ischemic heart disease and other diseases of the circulatory system; Z83.3 Family history of diabetes mellitus; Z87.891 Personal history of nicotine dependence; Z89.412 Acquired absence of left great toe; Z89.429 Acquired absence of other toe(s), unspecified side; Z95.1 Presence of aortocoronary bypass graft; Z99.2 Dependence on renal dialysis; Z99.81 Dependence on supplemental oxygen; Z68.38 Body mass index [BMI] 38.0-38.9, adult; Z89.422 Acquired absence of other left toe(s); E66.9 Obesity, unspecified
CPT/HCPCS: 36415; 36600; 71045; 71046; 73620; 75630; 80048; 80069; 80202; 82805; 82962; 83036; 83605; 83735; 84100; 85014; 85018; 85025; 85027; 85610; 87040; 87071; 87075; 87186; 87493; 93005; 93926; 93931; 93970; 94002; 94640; 94760; 99152; 99153; C1760; C1769; C1892; G0269; J0171; J1265; J1644; J1650; J1815; J2248; J2250; J2543; J3010; J3370; J3490; J7040; J7120; J7613; J7626; Q9967; 97116; 97530; 97535; C1771